=== PATIENT | female | born 1945 | race Caucasian/White ===

== ENCOUNTER 2017-12-01 12:16 | Outpatient (REF) | payer MEDICARE, MEDICAID, SELFPAY ==
[2017-12-01 20:08] LABS: ALT 23 U/L (12-78); AST 19 U/L (15-37); Albumin 3.4 g/dL (3.4-5.0); Alkaline Phosphatase 86 U/L (46-116); Anion Gap 7.4 mmol/L (3-11); BUN 26 mg/dL (7-18); Bilirubin, Total 0.2 mg/dL (0.2-1.0); CO2 28.6 mmol/L (21.0-32.0); Calcium 9.2 mg/dL (8.5-10.1); Chloride 100 mmol/L (98-107); Estimated GFR 33.94 (mL/min/1.73m2); Ferritin 17 ng/mL (8-388); Glucose 143 mg/dL (70-100); Potassium 4.9 mmol/L (3.5-5.1); Sodium 136 mmol/L (136-145); TSH (W/Ref FT4) 1.56 uIU/mL (0.358-3.74); Total Protein 6.7 g/dL (6.4-8.2)
[2017-12-01 20:35] LABS: HCT 31.5 % (36.0-46.0); Mean Corp. HGB Concentration 30.2 g/dL (32.0-36.0); Mean Corpuscular Hemoglobin 26.2 pg (27.0-33.0); Mean Platelet Volume 11.5 fL (8.0-11.0); Platelet Count 347 x1000/uL (130-400); RBC 3.62 m/cumm (4.00-5.20); RBC Distribution Width 13.5 % (11.7-14.6); White Blood Cell Count 16.98 k/cumm (4.4-10.8)
[2017-12-01 22:37] LABS: HGB 9.5 g/dL (12.0-15.5)
== END 2017-12-01 12:36 ==
LOC: NCHCN 12:16
PROVIDERS: PCP Family Medicine; Visit Provider Family Medicine
DX: E11.9 Type 2 diabetes mellitus without complications (principal); D64.9 Anemia, unspecified; R53.83 Other fatigue; I73.9 Peripheral vascular disease, unspecified; E78.5 Hyperlipidemia, unspecified; R32 Unspecified urinary incontinence
CPT/HCPCS: 80053; 85027; 82728; 84443; 87086

== ENCOUNTER 2017-12-17 15:03 | Outpatient (REF) | payer MEDICARE, MEDICAID, SELFPAY ==
[2017-12-17 22:48] LABS: Bacteria Negative HPF (Negative); C & S Indicated? Yes; Casts Negative LPF (Negative); Crystals Negative HPF (Negative); Epithelial Cells Few HPF (Negative); Mucus Negative (Negative); RBC Negative (0-2)
== END 2017-12-17 15:23 ==
LOC: NCHCN 15:03
PROVIDERS: PCP Family Medicine; Visit Provider Specialist/Technologist Athletic Trainer
DX: R53.83 Other fatigue (principal); D64.9 Anemia, unspecified
CPT/HCPCS: 81015; 87086

== ENCOUNTER 2017-12-28 16:01 | Outpatient (CLI) | payer MEDICARE, MEDICAID, SELFPAY ==
[2017-12-28 16:31] LABS: HCT 26.1 % (36.0-46.0); HGB 7.6 g/dL (12.0-15.5); Mean Corp. HGB Concentration 29.1 g/dL (32.0-36.0); Mean Corpuscular Hemoglobin 25.6 pg (27.0-33.0); Mean Corpuscular Volume 87.9 fL (80-95); Mean Platelet Volume 9.8 fL (8.0-11.0); Platelet Count 370 x1000/uL (130-400); RBC 2.97 m/cumm (4.00-5.20); RBC Distribution Width 14.3 % (11.7-14.6); White Blood Cell Count 5.51 k/cumm (4.4-10.8)
[2017-12-28 18:56] LABS: Iron 15 ug/dL (50-175); Total Iron Binding Capacity 451 ug/dL (250-450); Transferrin Sat 3 % (15-50)
[2017-12-28 19:20] LABS: Ferritin 11 ng/mL (8-388); Vitamin B12 1039 pg/mL (193-986)
[2017-12-28 19:26] LABS: Folate > 20.0 ng/mL (8.6-20.0)
== END 2017-12-28 16:21 ==
PROVIDERS: PCP Family Medicine; Visit Provider Specialist/Technologist Athletic Trainer
DX: D64.9 Anemia, unspecified (principal)
CPT/HCPCS: 36415; 85027; 82607; 82728; 82746; 83540; 83550

== ENCOUNTER 2018-01-06 15:17 | Outpatient (REF) | payer MEDICARE, MEDICAID, SELFPAY ==
[2018-01-06 20:37] LABS: HCT 24.5 % (36.0-46.0); Mean Corp. HGB Concentration 28.2 g/dL (32.0-36.0); Mean Corpuscular Hemoglobin 24.6 pg (27.0-33.0); Mean Corpuscular Volume 87.5 fL (80-95); Mean Platelet Volume 10.5 fL (8.0-11.0); Platelet Count 451 x1000/uL (130-400); White Blood Cell Count 5.89 k/cumm (4.4-10.8)
[2018-01-06 20:46] LABS: Anion Gap 11.9 mmol/L (3-11); BUN 25 mg/dL (7-18); CO2 26.1 mmol/L (21.0-32.0); Calcium 8.6 mg/dL (8.5-10.1); Chloride 104 mmol/L (98-107); Estimated GFR 33.94 (mL/min/1.73m2); Glucose 158 mg/dL (70-100); Potassium 4.3 mmol/L (3.5-5.1); Sodium 142 mmol/L (136-145)
[2018-01-06 21:31] LABS: HGB 6.9 g/dL (12.0-15.5)
== END 2018-01-06 15:37 ==
LOC: NCHCN 15:17
PROVIDERS: PCP Family Medicine; Visit Provider Specialist/Technologist Athletic Trainer
DX: D64.9 Anemia, unspecified (principal); R41.82 Altered mental status, unspecified; Z87.440 Personal history of urinary (tract) infections
CPT/HCPCS: 80048; 85027; 87086

== ENCOUNTER 2018-01-07 15:21 | Outpatient (CLI) | payer MEDICARE, MEDICAID, SELFPAY | END 2018-01-07 15:41 | PROVIDERS: PCP Family Medicine; Visit Provider Family Medicine | DX: K92.2 Gastrointestinal hemorrhage, unspecified (principal) | CPT/HCPCS: 36415; 86850; 86900; 86901; 86920 ==

== ENCOUNTER 2018-01-08 00:52 | Outpatient (RCR) | payer MEDICARE, MEDICAID, SELFPAY ==
[2018-01-04] MEDS: Normal Saline Flush 10 ML SYR IVP (14:19)
[2018-01-08] VITALS (10 sets, daily range): BP systolic 101–146; BP diastolic 33–61; PULSE 82–90; RESP 16–18; TEMP 36.1–36.6; O2SAT 85–98
[2018-01-08] MEDS: Acetaminophen 325 MG TAB 650 MG PO (11:01)
[2018-01-08] MEDS: Normal Saline Flush 10 ML SYR IVP (11:02)
[2018-01-08] MEDS: diphenhydrAMINE 25 MG CAP PO (11:02)
== END 2018-01-08 23:59 | disposition home or self-care (01) ==
LOC: INF 00:52
PROVIDERS: PCP Family Medicine; Visit Provider Family Medicine
DX: D64.9 Anemia, unspecified (principal)
CPT/HCPCS: 36415; 36430; 86850; 86900; 86901; 86920; 96365; 96366; J1756; P9016

== ENCOUNTER 2018-01-25 01:40 | Outpatient (RCR) | payer MEDICARE, MEDICAID, SELFPAY ==
[2018-01-18] MEDS: Normal Saline Flush 10 ML SYR IVP (14:24)
[2018-01-25] MEDS: Normal Saline Flush 10 ML SYR IVP (15:07)
== END 2018-02-08 23:59 | disposition home or self-care (01) ==
LOC: INF 01:40
PROVIDERS: PCP Family Medicine; Visit Provider Family Medicine
DX: D64.9 Anemia, unspecified (principal)
CPT/HCPCS: 96365; 96366; J1756

== ENCOUNTER 2018-02-17 11:05 | Outpatient (REF) | payer MEDICARE, MEDICAID, SELFPAY ==
[2018-02-18 15:53] LABS: Bilirubin Negative (Negative); Blood Negative (Negative); Clarity Clear; Glucose Negative (Negative); Ketones Negative (Negative); Leukocyte Esterase Negative (Negative); Nitrite Negative (Negative); Urobilinogen 0.2 EU/dL (Up TO 0.2)
== END 2018-02-17 11:25 ==
LOC: NCHCN 11:05
PROVIDERS: PCP Family Medicine; Visit Provider Family Medicine
DX: N39.0 Urinary tract infection, site not specified (principal)
CPT/HCPCS: 81003; 87086

== ENCOUNTER 2018-02-19 15:34 | Outpatient (REF) | payer MEDICARE, MEDICAID, SELFPAY ==
[2018-02-19 19:15] LABS: Abs Immature Grans 0.02 k/cumm (0.0-0.09); Absolute Basophil Count 0.02 k/cumm (0.0-0.2); Absolute Eosinophil Count 0.22 k/cumm (0.0-0.7); Absolute Monocyte Count 0.64 k/cumm (0.11-0.7); Absolute Neutrophil Count 4.24 k/cumm (1.2-6.7); Basophils % 0.3; Eosinophils % 3.2; HCT 36.5 % (36.0-46.0); HGB 11.6 g/dL (12.0-15.5); Immature Grans % 0.3; Lymphocytes % 25.9; Mean Corp. HGB Concentration 31.8 g/dL (32.0-36.0); Mean Corpuscular Hemoglobin 28.1 pg (27.0-33.0); Mean Corpuscular Volume 88.4 fL (80-95); Mean Platelet Volume 11.6 fL (8.0-11.0); Monocytes % 9.2; Neutrophils % 61.1; Platelet Count 268 x1000/uL (130-400); RBC 4.13 m/cumm (4.00-5.20); RBC Distribution Width 16.2 % (11.7-14.6); White Blood Cell Count 6.94 k/cumm (4.4-10.8)
[2018-02-19 19:48] LABS: Ferritin 260 ng/mL (8-388)
== END 2018-02-19 15:54 ==
LOC: NCHCN 15:34
PROVIDERS: PCP Family Medicine; Visit Provider Family Medicine
DX: D64.9 Anemia, unspecified (principal); Z79.01 Long term (current) use of anticoagulants; I73.9 Peripheral vascular disease, unspecified
CPT/HCPCS: 82728; 85025

== ENCOUNTER 2018-07-08 15:18 | Outpatient (REF) | payer MEDICARE, MEDICAID, SELFPAY ==
[2018-07-08 16:48] LABS: Bilirubin Negative (Negative); Blood Negative (Negative); Clarity Clear; Glucose Negative (Negative); Ketones Negative (Negative); Leukocyte Esterase Negative (Negative); Nitrite Negative (Negative); Specific Gravity 1.015 (1.005-1.025); Urobilinogen 0.2 EU/dL (Up TO 0.2)
== END 2018-07-08 15:38 ==
LOC: NCHCN 15:18
PROVIDERS: PCP Family Medicine; Visit Provider Family Medicine
DX: N39.0 Urinary tract infection, site not specified (principal)
CPT/HCPCS: 81003

== ENCOUNTER 2018-07-21 12:34 | Outpatient (CLI) | payer MEDICARE, MEDICAID, SELFPAY ==
[2018-07-21 14:09] LABS: D-Dimer 1036 ng/mlFEU (<500)
[2018-07-21 14:49] LABS: Anion Gap 12.2 mmol/L (3-11); BUN 30 mg/dL (7-18); CO2 25.8 mmol/L (21.0-32.0); CREATININE 1.49 mg/dL (0.55-1.02); Calcium 9.4 mg/dL (8.5-10.1); Chloride 101 mmol/L (98-107); Estimated GFR 34.12 (mL/min/1.73m2); Glucose 195 mg/dL (70-100); Potassium 4.9 mmol/L (3.5-5.1); Sodium 139 mmol/L (136-145)
[2018-07-21 15:07] LABS: HDL Cholesterol 45 mg/dL (40-60); LDL CHOLESTEROL 81 mg/dL (<100)
== END 2018-07-21 12:54 ==
PROVIDERS: PCP Family Medicine; Visit Provider Nurse Practitioner Family
DX: M79.606 Pain in leg, unspecified (principal); I73.9 Peripheral vascular disease, unspecified; I99.8 Other disorder of circulatory system; E78.5 Hyperlipidemia, unspecified
CPT/HCPCS: 36415; 80048; 83721; 83718; 85379

== ENCOUNTER 2018-07-23 16:53 | Observation (INO) | payer MEDICARE, MEDICAID, SELFPAY ==
[2018-07-23] VITALS (35 sets, daily range): BP systolic 104–145; BP diastolic 26–73; PULSE 85–114; RESP 11–36; TEMP 36.2–37.2; O2SAT 92–99
--- NOTE | 2018-07-23 17:06 | DI.CT_ITS ---
SYMPTOM/DIAGNOSIS: SUSPECTED GI BLEEDING CT ABDOMEN AND PELVIS: Comparison is made with 01/17/2011 There is a question of a small area of scarring vs nodularity at the posterior right lower lobe. No pleural or pericardial effusions are seen. Coronary artery and aortic calcifications. There are bilateral iliac artery stents. An aorto-femoral bypass graft is seen. There is food and a small amount of dense material in the stomach. There is no bowel distension or inflammatory change. Diverticulosis is noted. There is no diverticulitis, free air or free fluid. The bladder and ureters are unremarkable. The liver, gallbladder, spleen, pancreas and kidneys are unremarkable. There are severe degenerative changes as well as spondylolisthesis at L5-S1. IMPRESSION: Diverticulosis without evidence of diverticulitis. No acute abnormality.
--- NOTE | 2018-07-23 17:21 | ED.GENADUL_ITS ---
Discharge Plan Disposition Patient Disposition: [facility] INPATIENT Condition: Improving Discharge Details Chief Complaint: GI Bleed Clinical Impression: Anemia, Microcytic anemia Primary Care Provider: Nirmala Clemente V ED Provider: Estevan Saba Home Meds and New Rx's Prescriptions: No Action multivitamin [Daily Vitamin] 1 EACH tablet 1 ea PO DAILY RF: 0 simvastatin 10 MG tablet 40 mg PO DAILY RF: 0 calcium carbonate-vitamin D3 1 EACH tablet 1 ea PO HS RF: 0 aspirin [Aspir-81] 81 MG tablet,delayed release (DR/EC) 81 mg PO DAILY RF: 0 donepezil 5 MG tablet,disintegrating 5 mg PO DAILY RF: 0 omeprazole 20 MG capsule,delayed release(DR/EC) 20 mg PO DAILY RF: 0 paroxetine HCl 40 MG tablet 20 mg PO DAILY RF: 0 acetaminophen [Mapap Extra Strength] 500 MG tablet 500 mg PO PRN PRNRF: 0 bupropion HCl 150 MG tablet extended release 24 hr 150 mg PO QAM Qty: 30 RF: 1 docusate sodium [Colace] 100 mg Capsule 100 mg PO DAILY RF: 0 dicyclomine 10 mg Capsule 10 mg PO HS RF: 0 memantine [Namenda] 5 mg Tablet 5 mg PO DAILY RF: 0 mirtazapine 7.5 mg Tablet 7.5 mg PO DAILY RF: 0 calcium carbonate-vitamin D3 [Calcium 600 + D(3)] 600 mg(1,500mg) -400 unit Tablet 1 tab PO DAILY RF: 0 cholecalciferol (vitamin D3) 2,000 unit Capsule 2,000 unit PO DAILY RF: 0 warfarin [Coumadin] 2 MG tablet 2 mg PO DAILY RF: 0 Medical Decision Making This is a 73-year-old female with a past medical history of notable peripheral vascular disease with axilla byfem bypass, Coumadin use, hypertension high cholesterol diabetes who presents today for evaluation of low hemoglobin. Patient's family doctor is noted increased weakness for lower extremities and generalized weakness and fatigue over the last few weeks. She does have a history of GI bleeds. She recently had her hemoglobin drawn and was noted to be less than 7. She sent patient in for further evaluation here for transfusion and further work-up. Physical exam demonstrates an otherwise well-appearing female, no significant abdominal tenderness. Rectal exam actually demonstrates negative for Hemoccult. The patient is mildly tachycardic and does look slightly pale. We will type and screen, get a CT scan to rule out large malignancy versus other atypical symptomatology. The patient did have a colonoscopy a few years ago, but has not had any recent colonoscopy evaluation. 7:19 PM Patient's laboratory work-up has returned, hemoglobin is low at 6.5, hematocrit is dropped at 23%. MCV is 78 suggesting a microcytic anemia. Hemoccult was negative at time of evaluation here today. INR is 2.2, electrolytes stable, renal function low, at the patient's normal baseline though. Urinalysis is negative for hematuria. CT scan was ordered and does show no significant abnormalities. A very small amount of hyperdense material in the stomach this may just be food. Patient remained stable, blood pressure stable, heart rate between 90 and 100. Blood has been ordered due to the low hemoglobin level. I did discuss the case with Dr. Pearl, he agrees to the assessment and plan. Patient will be admitted for further inpatient management. We are awaiting callback from [facility] vascular surgery for further guidance on Coumadin management. With Hemoccult negative, GI bleed is certainly on the differential, but seems less likely to be a severe active GI bleed. We have started Protonix drip and infusion as precaution 7:54 PM We did contact [facility] and I discussed the case with Dr. Neri, the vascular surgeon, and she does note that this patient has had multiple complications in the past from claudication, issues with her bypass, and is high risk if her anticoagulation is stopped. They recommend continuing the anticoagulation if the patient remains stable, prompt GI evaluation, and reassessment and blood per I discussed this with Dr. Pearl. I have extensively reviewed the treatment plan with the patient. I have addressed all patient concerns at this time. I calix ve also discussed the plan with the admitting physician and they agree with the current assessment and plan and have agreed to assume responsibility for the patient. All parties demonstrate verbal understanding and agreement with our assessment and plan at this time. EXAM DATE/TIME: 07/23/2018 6:01 PM CLINICAL HISTORY: 73 years old, female; Screening exam; Other: Suspected gi bleed TECHNIQUE: Imaging protocol: Axial computed tomography images of the abdomen and pelvis without contrast. Coronal and sagittal reformatted images were created and reviewed. COMPARISON: No relevant prior studies available. FINDINGS: Lungs: 6 mm x 4 mm pulmonary nodule in the posterior right lower lobe. ABDOMEN: Liver: There increased hepatic parenchymal density consistent with amiodarone therapy. Gallbladder and bile ducts: Unremarkable. No calcified stones. No ductal dilation. Pancreas: Unremarkable. No ductal dilation. Spleen: Unremarkable.No splenomegaly. Adrenals: Unremarkable. No mass. Kidneys and ureters: Unremarkable. No hydronephrosis. Stomach and bowel: Very small amount of hyperdense material layering in the stomach. Stomach is not well distended, limiting evaluation. No evidence of bowel wall thickening, inflammation, obstruction or perforation. Distal colonic diverticulosis without signs of diverticulitis. Appendix: Normal appendix. PELVIS: Bladder: Unremarkable as visualized. Reproductive: Unremarkable as visualized. ABDOMEN and PELVIS: Intraperitoneal space: Unremarkable. No free air. No fluid collection. Bones/joints: No acute fracture. Chronic sclerotic L5 pars defects. Combination of annular disc bulge, facet hypertrophy and ligamentum flavum thickening produces at least moderate central canal stenosis at the L4-5 and L5-S1 levels. There is moderate-severe bilateral neural foraminal stenosis at L5-S1. Soft tissues: Tiny supraumbilical and umbilical hernias containing fat only. Vasculature: Extensive peripheral vascular disease. Aorta-biiliac stent. There is a kink in the aortic stent which narrows the central canal (axial series 2 image 35). No aortic aneurysm or leak/rupture. Axial-bifemoral bypass graft. Lymph nodes: Unremarkable. No enlarged lymph nodes. IMPRESSION: 1. Very small amount of hyperdense material layering in the stomach. This could represent ingested material or blood. No discrete wall thickening or mass, however, stomach is not well distended, limiting evaluation. 2. Distal colonic diverticulosis without signs of diverticulitis. 3. 6 mm pulmonary nodule in the right lower lobe Dictated and Authenticated by: Cyndi Remy MD. Ordering:TRACI Barreto MD HPI General Date/Time Provider Initiated Documentation: 07/23/18 16:55 . HPI Narrative: This is a 73-year-old female with a past medical history of Coumadin use with an axial low bifemoral bypass, history of GI bleeds in the past, peripheral vascular disease and ischemic colitis, hypertension high cholesterol, who presents today for evaluation of low hemoglobin. We did receive a call from the patient's primary care provider. Of note she states that over the last few weeks the patient has become increasingly fatigued, including for her lower extremities. She does have chronic peripheral vascular disease which is well- known. However the more systemic fatigue was slightly atypical. Laboratory work-up was performed and her hemoglobin was noted to be less than 7 which is atypical for her. She does have a history of previous GI bleeds in the past, in conjunction with GERD. PCP recommended that she come in for further evaluation. The patient is a slightly poor historian and a notable minimizer of her symptomatology. She denies any focal complaint of abdominal pain, dark or tarry stool, nausea vomiting or diarrhea. She denies any hematuria. Her caregiver did admit that they had noted some darker stool as of late. But nothing recently. Patient denies any other complaints or modifying factors at this time. She denies any leg pain abdominal pain or chest pain. Related Data Home Medications Medication Instructions Recorded Confirmed aspirin [Aspir-81] 81 mg PO DAILY tab-cap NS 05/30/14 07/23/18 calcium carbonate-vitamin D3 1 ea PO HS NS 05/30/14 07/23/18 multivitamin [Daily Vitamin] 1 ea PO DAILY NS 05/30/14 07/23/18 simvastatin 40 mg PO DAILY tab-cap NS 05/30/14 07/23/18 omeprazole 20 mg PO DAILY 06/19/15 07/23/18 paroxetine HCl 20 mg PO DAILY 06/19/15 07/23/18 donepezil 5 mg PO DAILY tab-cap 02/27/16 02/29/16 acetaminophen [Mapap Extra 500 mg PO PRN PRN 02/29/16 07/23/18 Strength] bupropion HCl 150 mg PO QAM #30 tabcr 03/04/16 07/23/18 calcium carbonate-vitamin D3 1 tab PO DAILY 07/23/18 07/23/18 [Calcium 600 + D(3)] cholecalciferol (vitamin D3) 2,000 unit PO DAILY 07/23/18 07/23/18 dicyclomine 10 mg PO HS 07/23/18 07/23/18 docusate sodium [Colace] 100 mg PO DAILY 07/23/18 07/23/18 memantine [Namenda] 5 mg PO DAILY 07/23/18 07/23/18 mirtazapine 7.5 mg PO DAILY 07/23/18 07/23/18 warfarin [Coumadin] 2 mg PO DAILY 07/23/18 07/23/18 Previous Rx's Medication Instructions Recorded bupropion HCl 150 mg PO QAM #30 tabcr 03/04/16 Allergies Allergy/AdvReac Type Severity Reaction Status Date / Time sulfamethoxazole Allergy Mild eyes Unverified 03/26/16 10:49 [From Bactrim] swollen amphotericin B liposome Allergy Unverified 03/26/16 10:49 [From AmBisome] cefuroxime Allergy Unverified 03/26/16 10:49 trimethoprim [From Bactrim] Allergy Unverified 03/26/16 10:49 oxycodone HCl [From Percocet] AdvReac Unverified 03/26/16 10:49 General Stated Complaint: GI Bleed KATHRYN: 3 Review of Systems Review of Systems All systems reviewed & are unremarkable except as noted in HPI and below PFSH Medical History Aortoiliac occlusive disease Breast cancer Chronic diarrhea Depression Diabetes GERD (gastroesophageal reflux disease) Hyperlipidemia Hypertension Hypomagnesemia Ischemic colitis PVD (peripheral vascular disease) Urinary incontinence Surgical History Breast, Lumpectomy EGD - MAC (02/29/16) axillo-byfem bypass Social History Smoking/Tobacco Use Status: Former Tobacco Use Alcohol Intake: never Drug use: Never Do you feel safe at home: Yes Do you feel safe in your relationship?: Yes Exam Narrative Exam Narrative: 1.Const: Well-nourished, Well-developed, appearing stated age 2.Eyes: PERRL, no conjunctival injection, and symmetrical lids. 3.ENT: Atraumatic external nose and ears. Moist MM. Neck: Symmetric, trachea midline, No thyromegaly. 4.CVS: +S1/S2, No murmurs or gallops. Peripheral pulses 2+ and equal in all extremities. Brisk capillary refill in all extremities. 5.RESP: Unlabored respiratory effort. Clear to auscultation bilaterally. No wheezes rales or rhonchi 6.GI: Soft, Nontender/Nondistended, No hepatosplenomegaly. No guarding or rebound. Rectal exam demonstrates no significant hemorrhoids. No active rectal bleeding. Female nurse Jo is at bedside for the exam 7.MSK: Normocephalic/Atraumatic, Extremities w/o deformity or ttp No cyanosis or clubbing, Normal movement of all extremities 8.Skin: Warm, Dry. No rashes or lesions. 9.Neuro: clinical education manager II-XII grossly intact. Sensation grossly intact, no focal neurologic deficits. 10.Psych: (AAO) x3. Appropriate mood and affect Course Vital Signs Temperature 36.7 C 07/23/18 16:59 Pulse 100 H 07/23/18 16:59 Respiratory Rate 22 07/23/18 16:59 Blood Pressure 143/53 H 07/23/18 16:59 Pulse Oximetry 99 07/23/18 16:59 Temperature 36.7 C 07/23/18 16:59 Temperature Source Skin 07/23/18 16:59 Pulse 100 H 07/23/18 16:59 Respiratory Rate 22 07/23/18 16:59 Blood Pressure 143/53 H 07/23/18 16:59 Blood Pressure Position Sitting 07/23/18 16:59 Pulse Oximetry 99 07/23/18 16:59 Oxygen Delivery Method Room Air 07/23/18 16:59 Oxygen Flow Rate 0 07/23/18 16:59
[2018-07-23 17:42] LABS: Abs Immature Grans 0.02 k/cumm (0.0-0.09); Absolute Basophil Count 0.04 k/cumm (0.0-0.2); Absolute Eosinophil Count 0.16 k/cumm (0.0-0.7); Absolute Lymphocyte Count 1.82 k/cumm (1.2-3.4); Absolute Monocyte Count 0.74 k/cumm (0.11-0.7); Absolute Neutrophil Count 3.27 k/cumm (1.2-6.7); Basophils % 0.7; Eosinophils % 2.6; HCT 23.4 % (36.0-46.0); Immature Grans % 0.3; Lymphocytes % 30.1; Mean Corp. HGB Concentration 27.8 g/dL (32.0-36.0); Mean Corpuscular Hemoglobin 21.9 pg (27.0-33.0); Mean Corpuscular Volume 78.8 fL (80-95); Mean Platelet Volume 9.2 fL (8.0-11.0); Monocytes % 12.2; Neutrophils % 54.1; Platelet Count 422 x1000/uL (130-400); RBC 2.97 m/cumm (4.00-5.20); RBC Distribution Width 16.5 % (11.7-14.6); White Blood Cell Count 6.05 k/cumm (4.4-10.8)
[2018-07-23 17:49] LABS: HGB 6.5 g/dL (12.0-15.5)
[2018-07-23 17:57] LABS: ALT 23 U/L (12-78); AST 12 U/L (15-37); Albumin 3.6 g/dL (3.4-5.0); Alkaline Phosphatase 95 U/L (46-116); BUN 29 mg/dL (7-18); Bilirubin, Total 0.1 mg/dL (0.2-1.0); Calcium 8.8 mg/dL (8.5-10.1); Chloride 101 mmol/L (98-107); Estimated GFR 33.85 (mL/min/1.73m2); Glucose 174 mg/dL (70-100); INR 2.2 (0.9-1.1); PTT Activated 26.1 sec (21.0-31.4); Potassium 4.4 mmol/L (3.5-5.1); Prothrombin Time 21.7 sec (9.3-11.0); Sodium 139 mmol/L (136-145)
[2018-07-23 17:59] LABS: Bilirubin Negative (Negative); Blood Negative (Negative); Clarity Clear; Glucose Negative (Negative); Ketones Negative (Negative); Leukocyte Esterase Negative (Negative); Nitrite Negative (Negative); Urobilinogen 0.2 EU/dL (Up TO 0.2)
[2018-07-23 18:02] LABS: Hypochromasia 2+; Macrocytosis 1+; Microcytosis 2+; Polychromasia Present
[2018-07-23] MEDS: Normal Saline 500 ML 1000 ML IV (18:15)
--- NOTE | 2018-07-23 19:04 | DI.VRAD_ITS ---
EXAM: CT Abdomen and Pelvis Without Contrast EXAM DATE/TIME: 07/23/2018 6:01 PM CLINICAL HISTORY: 73 years old, female; Screening exam; Other: Suspected gi bleed TECHNIQUE: Imaging protocol: Axial computed tomography images of the abdomen and pelvis without contrast. Coronal and sagittal reformatted images were created and reviewed. COMPARISON: No relevant prior studies available. FINDINGS: Lungs: 6 mm x 4 mm pulmonary nodule in the posterior right lower lobe. ABDOMEN: Liver: There increased hepatic parenchymal density consistent with amiodarone therapy. Gallbladder and bile ducts: Unremarkable. No calcified stones. No ductal dilation. Pancreas: Unremarkable. No ductal dilation. Spleen: Unremarkable.No splenomegaly. Adrenals: Unremarkable. No mass. Kidneys and ureters: Unremarkable. No hydronephrosis. Stomach and bowel: Very small amount of hyperdense material layering in the stomach. Stomach is not well distended, limiting evaluation. No evidence of bowel wall thickening, inflammation, obstruction or perforation. Distal colonic diverticulosis without signs of diverticulitis. Appendix: Normal appendix. PELVIS: Bladder: Unremarkable as visualized. Reproductive: Unremarkable as visualized. ABDOMEN and PELVIS: Intraperitoneal space: Unremarkable. No free air. No fluid collection. Bones/joints: No acute fracture. Chronic sclerotic L5 pars defects. Combination of annular disc bulge, facet hypertrophy and ligamentum flavum thickening produces at least moderate central canal stenosis at the L4-5 and L5-S1 levels. There is moderate-severe bilateral neural foraminal stenosis at L5-S1. Soft tissues: Tiny supraumbilical and umbilical hernias containing fat only. Vasculature: Extensive peripheral vascular disease. Aorta-biiliac stent. There is a kink in the aortic stent which narrows the central canal (axial series 2 image 35). No aortic aneurysm or leak/rupture. Axial-bifemoral bypass graft. Lymph nodes: Unremarkable. No enlarged lymph nodes. IMPRESSION: 1. Very small amount of hyperdense material layering in the stomach. This could represent ingested material or blood. No discrete wall thickening or mass, however, stomach is not well distended, limiting evaluation. 2. Distal colonic diverticulosis without signs of diverticulitis. 3. 6 mm pulmonary nodule in the right lower lobe Dictated and Authenticated by: Cyndi Remy MD. Ordering:TRACI Barreto MD
[2018-07-23] MEDS: Pantoprazole 40 MG VIAL IVP (19:17)
[2018-07-23] MEDS: PANTOPRAZOLE 80 MG in Normal Saline 100 ML 10 MG IV (19:18)
--- NOTE | 2018-07-23 19:21 | W.PM.HP.N ---
Date of service: 07/23/18 Time of Service: 19:23 Assessment and Plan (1) Anemia: Current visit: Yes Status: Chronic Micrrocytic anemia. While blood loss is most likely diagnosis here it is important to note that this has not been documented, nor indeed has iron deficiency. It will be important, especially given possible complicating factor of anticoagulaltion, to document nay bleeding and tto determine iron status. A malabsorption syndrome would be another possibility here and is indiectly supported by the historiccal detail if requiring parenteral iron at some point. Regardless, for now we will transfuse, iron studies and retics prior, hold ASA, continue PPI, check stool guaiacs and consider hold Coumadin pending above (call is in to vascular surgery at this time in this regard). Reviewed addvance directives, family confirms DNR status. History of Present Illness Chief Complaint: weakness Narrative: 73 female with h/o apparent GI bleed in 2017, though EGD showed only mild esophagitis; she is on chronic Coumadin due to vascular bypass graft (patient is also on ASA) She comes in now with several weeks of weakness. W/u of note for Hct of 23, stool heme negative and microcytosis of 78. 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 No hematemesis. Patient ordered for 2 unit pRBC and admitted for further evaluation. Note INR 2.3. Daughter adds interesting detail that several years ago patient required parenteral iron to manage an anemia. Review of Systems Review of Systems All systems reviewed & are unremarkable except as noted in HPI and below PFSH Medical History Aortoiliac occlusive disease Breast cancer Chronic diarrhea Depression Diabetes GERD (gastroesophageal reflux disease) Hyperlipidemia Hypertension Hypomagnesemia Ischemic colitis PVD (peripheral vascular disease) Urinary incontinence Surgical History Breast, Lumpectomy EGD - MAC (02/29/16) axillo-byfem bypass Social History Smoking/Tobacco Use Status: Former Tobacco Use Alcohol Intake: never Drug use: Never Do you feel safe at home: Yes Do you feel safe in your relationship?: Yes Meds Home Medications Medication Instructions Recorded Confirmed Type aspirin [Aspir-81] 81 mg PO DAILY tab-cap NS 05/30/14 07/23/18 History calcium carbonate-vitamin D3 1 ea PO HS NS 05/30/14 07/23/18 History multivitamin [Daily Vitamin] 1 ea PO DAILY NS 05/30/14 07/23/18 History simvastatin 40 mg PO DAILY tab-cap NS 05/30/14 07/23/18 History omeprazole 20 mg PO DAILY 06/19/15 07/23/18 History paroxetine HCl 20 mg PO DAILY 06/19/15 07/23/18 History donepezil 5 mg PO DAILY tab-cap 02/27/16 02/29/16 History acetaminophen [Mapap Extra 500 mg PO PRN PRN 02/29/16 07/23/18 History Strength] bupropion HCl 150 mg PO QAM #30 tabcr 03/04/16 07/23/18 Rx calcium carbonate-vitamin D3 1 tab PO DAILY 07/23/18 07/23/18 History [Calcium 600 + D(3)] cholecalciferol (vitamin D3) 2,000 unit PO DAILY 07/23/18 07/23/18 History dicyclomine 10 mg PO HS 07/23/18 07/23/18 History docusate sodium [Colace] 100 mg PO DAILY 07/23/18 07/23/18 History memantine [Namenda] 5 mg PO DAILY 07/23/18 07/23/18 History mirtazapine 7.5 mg PO DAILY 07/23/18 07/23/18 History warfarin [Coumadin] 2 mg PO DAILY 07/23/18 07/23/18 History Allergies Allergy/AdvReac Type Severity Reaction Status Date / Time sulfamethoxazole Allergy Mild eyes Unverified 03/26/16 10:49 [From Bactrim] swollen amphotericin B liposome Allergy Unverified 03/26/16 10:49 [From AmBisome] cefuroxime Allergy Unverified 03/26/16 10:49 trimethoprim [From Bactrim] Allergy Unverified 03/26/16 10:49 oxycodone HCl [From Percocet] AdvReac Unverified 03/26/16 10:49 Exam Narrative Exam Narrative: 115/47, 88, 14, 36.7. HEENT atraumatic; neck supple; lungs clear; heart RRR; abdomen soft, NT; pelvic deferred; rectal (per ER) brown stool, heme negative; extr no edema, pedal pulse fulll; neuro ox1, moves all 4s Results Labs : 07/23/18 17:30 07/23/18 17:30 Laboratory Results - last 24 hr 07/23/18 07/23/18 07/23/18 17:30 17:30 17:30 WBC 6.05 RBC 2.97 L Hgb 6.5 L* Hct 23.4 L MCV 78.8 L MCH 21.9 L MCHC 27.8 L RDW 16.5 H Plt Count 422 H MPV 9.2 Immature Gran % 0.3 Neutrophils % 54.1 Lymphocytes % 30.1 Monocytes % 12.2 Eosinophils % 2.6 Basophils % 0.7 Absolute Neutrophils 3.27 Absolute Lymphocytes 1.82 Absolute Monocytes 0.74 H Absolute Eosinophils 0.16 Absolute Basophils 0.04 RBC Morphology See below Polychromasia Present Hypochromasia 2+ Microcytosis 2+ Macrocytosis 1+ PT 21.7 H INR 2.2 H APTT 26.1 Sodium 139 Potassium 4.4 Chloride 101 Carbon Dioxide 26.0 Anion Gap 12.0 H BUN 29 H Creatinine 1.50 H Estimated GFR/1.73 m2 33.85 Glucose 174 H Calcium 8.8 Total Bilirubin 0.1 L AST 12 L ALT 23 Alkaline Phosphatase 95 Total Protein 7.0 Albumin 3.6 Urine Color Urine Clarity Urine pH Ur Specific [place] Urine Protein Urine Ketones Urine Blood Urine Nitrite Urine Bilirubin Urine Urobilinogen Ur Leukocyte Esterase Urine Glucose Patient ABO/Rh Antibody Screen Crossmatch 07/23/18 07/23/18 17:30 17:49 WBC RBC Hgb Hct MCV MCH MCHC RDW Plt Count MPV Immature Gran % Neutrophils % Lymphocytes % Monocytes % Eosinophils % Basophils % Absolute Neutrophils Absolute Lymphocytes Absolute Monocytes Absolute Eosinophils Absolute Basophils RBC Morphology Polychromasia Hypochromasia Microcytosis Macrocytosis PT INR APTT Sodium Potassium Chloride Carbon Dioxide Anion Gap BUN Creatinine Estimated GFR/1.73 m2 Glucose Calcium Total Bilirubin AST ALT Alkaline Phosphatase Total Protein Albumin Urine Color Yellow Urine Clarity Clear Urine pH 6.0 Ur Specific [place] 1.020 Urine Protein Negative Urine Ketones Negative Urine Blood Negative Urine Nitrite Negative Urine Bilirubin Negative Urine Urobilinogen 0.2 Ur Leukocyte Esterase Negative Urine Glucose Negative Patient ABO/Rh AB Positive Antibody Screen Negative Crossmatch See Detail Last Vital Signs Temp 36.7 C 07/23/18 16:59 Pulse 88 07/23/18 18:31 Resp 14 07/23/18 18:31 BP 115/47 L 07/23/18 18:31 Pulse Ox 94 L 07/23/18 18:31
[2018-07-23 20:01] LABS: Reticulocyte 2.3 % (0.5-2.4)
[2018-07-23 20:14] LABS: Iron 14 ug/dL (50-175); Total Iron Binding Capacity 444 ug/dL (250-450)
[2018-07-23 20:28] LABS: Ferritin 9 ng/mL (8-388)
[2018-07-23] MEDS: Dicyclomine 10 MG CAP PO (21:59)
[2018-07-23] MEDS: Simvastatin 10 MG TAB 40 MG PO (22:00)
[2018-07-23] MEDS: Normal Saline Flush 10 ML SYR (22:52)
[2018-07-24 00:34] VITALS: BP 123/67; PULSE 90; RESP 18; TEMP 36.7; O2SAT 95
[2018-07-24 01:10] VITALS: BP 136/57; PULSE 87; RESP 18; TEMP 36.4; O2SAT 96
[2018-07-24 07:08] LABS: HCT 31.9 % (36.0-46.0); HGB 9.8 g/dL (12.0-15.5); Mean Corp. HGB Concentration 30.7 g/dL (32.0-36.0); Mean Corpuscular Hemoglobin 24.9 pg (27.0-33.0); Mean Corpuscular Volume 81.2 fL (80-95); Mean Platelet Volume 9.9 fL (8.0-11.0); Platelet Count 350 x1000/uL (130-400); RBC 3.93 m/cumm (4.00-5.20); RBC Distribution Width 16.4 % (11.7-14.6); White Blood Cell Count 5.91 k/cumm (4.4-10.8)
[2018-07-24 07:14] LABS: Prothrombin Time 24.7 sec (9.3-11.0)
[2018-07-24 07:18] LABS: INR 2.4 (0.9-1.1)
[2018-07-24 08:02] VITALS: BP 131/70; PULSE 90; RESP 18; TEMP 36.5; O2SAT 97
[2018-07-24] MEDS: Docusate Sodium 100 MG CAP PO (08:46)
[2018-07-24] MEDS: Mirtazapine 15 MG TAB 7.5 MG PO (08:46)
[2018-07-24] MEDS: buPROPion-XL 150 MG TABCR PO (08:47)
[2018-07-24] MEDS: PARoxetine 20 MG TAB PO (08:47)
[2018-07-24] MEDS: Normal Saline Flush 10 ML SYR (08:48)
[2018-07-24] MEDS: Pantoprazole 40 MG VIAL IVP (08:48)
--- NOTE | 2018-07-24 10:20 | PDOC.CMIN ---
- If Service Date Differs Date of service: 07/24/18 Time of Service: 10:20 Care Management Initial Assess REASON FOR HOSPITALIZATION:: Anemia PAST MEDICAL HISTORY/PAST SURGICAL HISTORY:: Medical History: Aortoiliac occlusive disease. Breast cancer. Chronic diarrhea. Depression. Diabetes. GERD (gastroesophageal reflux disease). Hyperlipidemia. Hypertension. Hypomagnesemia. Ischemic colitis. PVD (peripheral vascular disease). Urinary incontinence. Surgical History: Breast, Lumpectomy. EGD - MAC (02/29/16). axillo-byfem bypass PREVIOUS FUNCTIONAL STATUS/SOCIAL/FAMILY SUPPORTS:: Elisa lives in a private home and care is provided by Leigh Ann Doty. There is one other patient and Leigh Ann's also in the household. Elisa is able to feed herself but needs reminders and direction at times with other ADLs. CURRENT FUNCTIONAL STATUS:: Elisa was eating lunch and talking to her daughter Susan during CM visit. Susan expressed concern that a meication was given last night without calling and obtaining her permission first. She stated that she discussed this with the Clinical Coordinator. Elisa hopes to be discharged soon. ADVANCE DIRECTIVES:: None on file at [facility] Has patient been provided with information about the portal?: No Did the patient sign up for the portal?: No CODE STATUS:: DNR/DNI INSURANCE COVERAGE / FINANCIAL ISSUES:: Medicare. Medicaid CURRENT HOME/COMMUNITY SERVICES/EQUIPMENT:: lives in a private mcc in [place] PRIMARY CARE PHYSICIAN:: Nirmala Clemente POTENTIAL DISCHARGE NEEDS:: Follow up with PCP PATIENT/FAMILY EDUCATION NEEDS:: Discharge pklan, limitations, follow up plan, Ask Me Three. TRANSPORTATION:: via private vehicle with caregiver or daughter. PLAN:: Home with no new services this afternoon. Follow up with PCP and discharge plan of care.
--- NOTE | 2018-07-24 10:24 | INITIAL_ITS ---
- If Service Date Differs Date of service: 07/24/18 Time of Service: 10:20 Care Management Initial Assess REASON FOR HOSPITALIZATION:: Anemia PAST MEDICAL HISTORY/PAST SURGICAL HISTORY:: Medical History: Aortoiliac occlusive disease. Breast cancer. Chronic diarrhea. Depression. Diabetes. GERD (gastroesophageal reflux disease). Hyperlipidemia. Hypertension. Hypomagnesemia. Ischemic colitis. PVD (peripheral vascular disease). Urinary incontinence. Surgical History: Breast, Lumpectomy. EGD - MAC (02/29/16). axillo-byfem bypass PREVIOUS FUNCTIONAL STATUS/SOCIAL/FAMILY SUPPORTS:: Elisa lives in a private home and care is provided by Leigh Ann Doty. There is one other patient and Leigh Ann's also in the household. Elisa is able to feed herself but needs reminders and direction at times with other ADLs. CURRENT FUNCTIONAL STATUS:: Elisa was eating lunch and talking to her daughter Susan during CM visit. Susan expressed concern that a meication was given last night without calling and obtaining her permission first. She stated that she discussed this with the Clinical Coordinator. Elisa hopes to be discharged soon. ADVANCE DIRECTIVES:: None on file at [facility] Has patient been provided with information about the portal?: No Did the patient sign up for the portal?: No CODE STATUS:: DNR/DNI INSURANCE COVERAGE / FINANCIAL ISSUES:: Medicare. Medicaid CURRENT HOME/COMMUNITY SERVICES/EQUIPMENT:: lives in a private custodial in [place], [place] PRIMARY CARE PHYSICIAN:: Nirmala Clemente POTENTIAL DISCHARGE NEEDS:: Follow up with PCP PATIENT/FAMILY EDUCATION NEEDS:: Discharge pklan, limitations, follow up plan, Ask Me Three. TRANSPORTATION:: via private vehicle with caregiver or daughter. PLAN:: Home with no new services this afternoon. Follow up with PCP and discharge plan of care.
[2018-07-24] MEDS: IRON SUCROSE COMPLEX 200 MG in Normal Saline 100 ML 110 MG IVPB (13:10)
--- NOTE | 2018-07-24 13:58 | W.PM.DS.N ---
Date of service: 07/24/18 Time of Service: 13:58 DS: Diagnosis Discharge Diagnosis (1) Anemia: Status: Chronic Discharge Plan Disposition Patient Disposition: HOME Condition: Improving Discharge Details Chief Complaint: GI Bleed Reason For Visit: ANEMIA Admit Date/Time: 07/23/18 19:39 Admit Provider: James Pearl Attending Provider: James Pearl Primary Care Provider: Nirmala Clemente V ED Provider: Estevan Saba Hospital Course Hospital Course: 73 female with h/o apparent GI bleed in 2017, though EGD showed only mild esophagitis; she is on chronic Coumadin due to vascular bypass graft (patient is also on ASA) She comes in now with several weeks of weakness. W/u of note for Hct of 23, stool heme negative and microcytosis of 78. 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 No hematemesis. Patient ordered for 2 unit pRBC and admitted for further evaluation. Note INR 2.3. Daughter adds interesting detail that several years ago patient required parenteral iron to manage an anemia. 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 There does not seem to be a source of bleeding. hemeoccult stool negative. General surgery does not feel patient should be scoped, they did not feel this was an acute need in the setting of negative hemeoccult and given her history she would do better at a tertiary center. Today Hgb 9.8 and Hct 31.9. Iron was low at 14, ferritin 9 when in February was 260, retic count 2.3, Recommend follow up with hematology, and GI for repeat scope. Recheck H/H Thursday and follow up with PCP no later than Thursday. Infused Iron and she may need to have infusions again as she did in the past. (1) Anemia: Micrrocytic anemia. While blood loss is most likely diagnosis here it is important to note that this has not been documented, nor indeed has iron deficiency. It will be important, especially given possible complicating factor of anticoagulaltion, to document any bleeding and to determine iron status. A malabsorption syndrome would be another possibility here and is indiectly supported by the historiccal detail if requiring parenteral iron at some point. Regardless, for now we will transfuse, iron studies and retics prior, hold ASA, continue PPI, check stool guaiacs . Vascular surgery does not want coumadin held. Home Meds and New Rx's Prescriptions: Continued multivitamin [Daily Vitamin] 1 EACH tablet 1 ea PO QAM RF: 0 simvastatin 10 MG tablet 40 mg PO HS RF: 0 calcium carbonate-vitamin D3 1 EACH tablet 1 ea PO HS RF: 0 aspirin [Aspir-81] 81 MG tablet,delayed release (DR/EC) 81 mg PO DAILY RF: 0 donepezil 5 MG tablet,disintegrating 5 mg PO DAILY RF: 0 omeprazole 20 MG capsule,delayed release(DR/EC) 20 mg PO QAM RF: 0 paroxetine HCl 40 MG tablet 20 mg PO HS RF: 0 acetaminophen [Mapap Extra Strength] 500 MG tablet 500 mg PO PRN PRNRF: 0 bupropion HCl 150 MG tablet extended release 24 hr 150 mg PO QAM Qty: 30 RF: 1 docusate sodium [Colace] 100 mg Capsule 100 mg PO DAILY RF: 0 dicyclomine 10 mg Capsule 10 mg PO HS RF: 0 memantine [Namenda] 5 mg Tablet 5 mg PO HS RF: 0 mirtazapine 7.5 mg Tablet 7.5 mg PO DAILY RF: 0 calcium carbonate-vitamin D3 [Calcium 600 + D(3)] 600 mg(1,500mg) -400 unit Tablet 1 tab PO DAILY RF: 0 cholecalciferol (vitamin D3) 2,000 unit Capsule 2,000 unit PO QAM RF: 0 warfarin [Coumadin] 2 MG tablet 2 mg PO HS RF: 0 warfarin [Coumadin] 2.5 mg Tablet 2.5 mg PO HS RF: 0 Discharge Instructions Instructions: Iron Rich Diet (GEN), Anemia (GEN) Additional Instructions: Recheck you H/H on Thursday Follow up with your PCP no later than Thursday next week. Eat iron rich foods Recommend follow up with a bench press operator and six pack loader operator. Seek medical attention immediately if you have chest pain, shortness of breath, nausea, vomiting, diarrhea. Activity:: Activity as Tolerated Equipment/Supplies:: No Equipment Needed Diet:: As Tolerated Discharge Orders Discharge Orders: Discharge Order (Routine); Ordered 07/24/18 Ordered By: Radha Barbour Other Ambulatory Orders: Hemoglobin/Hematocrit (Routine) Location: Determined by Patient Ordered By: Radha Foulke Exam Narrative Exam Narrative: HEENT atraumatic; neck supple; lungs clear; heart RRR; abdomen soft, NT; pelvic deferred; rectal brown stool, heme negative; extr no edema, pedal pulse fulll; neuro ox1, moves all 4s DS: Data Vitals/I&O Vitals and I&O: Vital Signs Temperature 36.5 C 07/24/18 08:02 Temperature Source Tympanic 07/24/18 08:02 Pulse 90 07/24/18 08:02 Pulse Rhythm Regular 07/23/18 20:20 Pulse 92 H 07/23/18 19:20 Respiratory Rate 18 07/24/18 08:02 Respiratory Effort Non-Labored 07/23/18 20:20 Respiratory Depth Normal 07/23/18 20:20 Respiratory Pattern Normal 07/23/18 20:20 Blood Pressure 131/70 07/24/18 08:02 Blood Pressure Mean 110 07/23/18 19:17 Blood Pressure Position Sitting 07/23/18 16:59 Pulse Oximetry 97 07/24/18 08:02 Oxygen Delivery Method Room Air 07/24/18 08:02 Oxygen Flow Rate 0 07/24/18 08:02 Pain Level 0 07/23/18 20:20 Intake & Output 07/23/18 07/24/18 07/24/18 23:59 11:59 23:59 Intake Total 797.833 / 797.833 270 / 520 250 / 520 Output Total 400 / 400 1400 / 1400 Balance 397.833 / 397.833 -1130 / -880 250 / -880 Weight 55.8 kg Intake: IV 527.833 / 527.833 10 Oral 240 / 240 Blood Product 250 / 250 250 / 250 Rbc Leuko Reduced Unit 250 / 250 [id number] Rbc Leuko Reduced Unit 250 / 250 [id number] Other 20 / 20 Rbc Leuko Reduced Unit 20 / 20 [id number] Rbc Leuko Reduced Unit / 20 [id number] Output: Urine 400 / 400 1400 / 1400 Other: Urine Color Yellow Yellow Urine Appearance Clear Clear Urine Odor Normal None Emesis Description None Voiding Methods Toilet Toilet Completed studies during hospitalization [Text1]: CLINICAL HISTORY: 73 years old, female; Screening exam; Other: Suspected gi bleed TECHNIQUE: Imaging protocol: Axial computed tomography images of the abdomen and pelvis without contrast. Coronal and sagittal reformatted images were created and reviewed. COMPARISON: No relevant prior studies available. FINDINGS: Lungs: 6 mm x 4 mm pulmonary nodule in the posterior right lower lobe. ABDOMEN: Liver: There increased hepatic parenchymal density consistent with amiodarone therapy. Gallbladder and bile ducts: Unremarkable. No calcified stones. No ductal dilation. Pancreas: Unremarkable. No ductal dilation. Spleen: Unremarkable.No splenomegaly. Adrenals: Unremarkable. No mass. Kidneys and ureters: Unremarkable. No hydronephrosis. Stomach and bowel: Very small amount of hyperdense material layering in the stomach. Stomach is not well distended, limiting evaluation. No evidence of bowel wall thickening, inflammation, obstruction or perforation. Distal colonic diverticulosis without signs of diverticulitis. Appendix: Normal appendix. PELVIS: Bladder: Unremarkable as visualized. Reproductive: Unremarkable as visualized. ABDOMEN and PELVIS: Intraperitoneal space: Unremarkable. No free air. No fluid collection. Bones/joints: No acute fracture. Chronic sclerotic L5 pars defects. Combination of annular disc bulge, facet hypertrophy and ligamentum flavum thickening produces at least moderate central canal stenosis at the L4-5 and L5-S1 levels. There is moderate-severe bilateral neural foraminal stenosis at L5-S1. Soft tissues: Tiny supraumbilical and umbilical hernias containing fat only. Vasculature: Extensive peripheral vascular disease. Aorta-biiliac stent. There is a kink in the aortic stent which narrows the central canal (axial series 2 image 35). No aortic aneurysm or leak/rupture. Axial-bifemoral bypass graft. Lymph nodes: Unremarkable. No enlarged lymph nodes. IMPRESSION: 1. Very small amount of hyperdense material layering in the stomach. This could represent ingested material or blood. No discrete wall thickening or mass, however, stomach is not well distended, limiting evaluation. 2. Distal colonic diverticulosis without signs of diverticulitis. 3. 6 mm pulmonary nodule in the right lower lobe Labs on day of discharge: Labs from last 24 hours 07/24/18 07/24/18 07/23/18 06:32 06:32 Unknown WBC 5.91 RBC 3.93 L Hgb 9.8 L D Hct 31.9 L D MCV 81.2 MCH 24.9 L MCHC 30.7 L RDW 16.4 H Plt Count 350 MPV 9.9 Immature Gran % Neutrophils % Lymphocytes % Monocytes % Eosinophils % Basophils % Absolute Neutrophils Absolute Lymphocytes Absolute Monocytes Absolute Eosinophils Absolute Basophils RBC Morphology Polychromasia Hypochromasia Microcytosis Macrocytosis Retic Count PT 24.7 H INR 2.4 H APTT Sodium Potassium Chloride Carbon Dioxide Anion Gap BUN Creatinine Estimated GFR/1.73 m2 Glucose Calcium Iron TIBC Ferritin Total Bilirubin AST ALT Alkaline Phosphatase Total Protein Albumin Urine Color Urine Clarity Urine pH Ur Specific Randall Urine Protein Urine Ketones Urine Blood Urine Nitrite Urine Bilirubin Urine Urobilinogen Ur Leukocyte Esterase Urine Glucose Stl Occult Bld Clinic Cancelled Patient ABO/Rh Antibody Screen Crossmatch 07/23/18 07/23/18 07/23/18 17:49 17:30 17:30 WBC RBC Hgb Hct MCV MCH MCHC RDW Plt Count MPV Immature Gran % Neutrophils % Lymphocytes % Monocytes % Eosinophils % Basophils % Absolute Neutrophils Absolute Lymphocytes Absolute Monocytes Absolute Eosinophils Absolute Basophils RBC Morphology Polychromasia Hypochromasia Microcytosis Macrocytosis Retic Count 2.3 PT INR APTT Sodium Potassium Chloride Carbon Dioxide Anion Gap BUN Creatinine Estimated GFR/1.73 m2 Glucose Calcium Iron TIBC Ferritin 9 Total Bilirubin AST ALT Alkaline Phosphatase Total Protein Albumin Urine Color Yellow Urine Clarity Clear Urine pH 6.0 Ur Specific Randall 1.020 Urine Protein Negative Urine Ketones Negative Urine Blood Negative Urine Nitrite Negative Urine Bilirubin Negative Urine Urobilinogen 0.2 Ur Leukocyte Esterase Negative Urine Glucose Negative Stl Occult Bld Clinic Patient ABO/Rh Antibody Screen Crossmatch 07/23/18 07/23/18 07/23/18 17:30 17:30 17:30 WBC RBC Hgb Hct MCV MCH MCHC RDW Plt Count MPV Immature Gran % Neutrophils % Lymphocytes % Monocytes % Eosinophils % Basophils % Absolute Neutrophils Absolute Lymphocytes Absolute Monocytes Absolute Eosinophils Absolute Basophils RBC Morphology Polychromasia Hypochromasia Microcytosis Macrocytosis Retic Count PT 21.7 H INR 2.2 H APTT 26.1 Sodium Potassium Chloride Carbon Dioxide Anion Gap BUN Creatinine Estimated GFR/1.73 m2 Glucose Calcium Iron 14 L TIBC 444 Ferritin Total Bilirubin AST ALT Alkaline Phosphatase Total Protein Albumin Urine Color Urine Clarity Urine pH Ur Specific Randall Urine Protein Urine Ketones Urine Blood Urine Nitrite Urine Bilirubin Urine Urobilinogen Ur Leukocyte Esterase Urine Glucose Stl Occult Bld Clinic Patient ABO/Rh AB Positive Antibody Screen Negative Crossmatch See Detail 07/23/18 07/23/18 17:30 17:30 WBC 6.05 RBC 2.97 L Hgb 6.5 L* Hct 23.4 L MCV 78.8 L MCH 21.9 L MCHC 27.8 L RDW 16.5 H Plt Count 422 H MPV 9.2 Immature Gran % 0.3 Neutrophils % 54.1 Lymphocytes % 30.1 Monocytes % 12.2 Eosinophils % 2.6 Basophils % 0.7 Absolute Neutrophils 3.27 Absolute Lymphocytes 1.82 Absolute Monocytes 0.74 H Absolute Eosinophils 0.16 Absolute Basophils 0.04 RBC Morphology See below Polychromasia Present Hypochromasia 2+ Microcytosis 2+ Macrocytosis 1+ Retic Count PT INR APTT Sodium 139 Potassium 4.4 Chloride 101 Carbon Dioxide 26.0 Anion Gap 12.0 H BUN 29 H Creatinine 1.50 H Estimated GFR/1.73 m2 33.85 Glucose 174 H Calcium 8.8 Iron TIBC Ferritin Total Bilirubin 0.1 L AST 12 L ALT 23 Alkaline Phosphatase 95 Total Protein 7.0 Albumin 3.6 Urine Color Urine Clarity Urine pH Ur Specific Randall Urine Protein Urine Ketones Urine Blood Urine Nitrite Urine Bilirubin Urine Urobilinogen Ur Leukocyte Esterase Urine Glucose Stl Occult Bld Clinic Patient ABO/Rh Antibody Screen Crossmatch [facility] Medical History Aortoiliac occlusive disease Breast cancer Chronic diarrhea Depression Diabetes GERD (gastroesophageal reflux disease) Hyperlipidemia Hypertension Hypomagnesemia Ischemic colitis PVD (peripheral vascular disease) Urinary incontinence Surgical History Breast, Lumpectomy EGD - MAC (02/29/16) axillo-byfem bypass Social History Smoking/Tobacco Use Status: Former Tobacco Use Alcohol Intake: never Drug use: Never Do you feel safe at home: Yes Do you feel safe in your relationship?: Yes
--- NOTE | 2018-07-24 18:18 | PDOC.CMDIS ---
- If Service Date Differs Date of service: 07/24/18 Time of Service: 18:18 LACE Index Scoring Tool - Questions: Length of Stay (in days): 1 Acuity (Admit via E.D.?): Yes Comorbidities: Diabetes w/o Complication, Any Tumor E.D. Visits: 1 - Answers: Total Score: 8 Risk of Readmission: Low Risk Care Management Discharge Reason for Hospitalization: Anemia Discharge Plan: Home with no new services. Follow up with PCP and discharge plan of care. Patient/Family Education Needs: Discharge plan, limitations, :Ask Me Three.
== END 2018-07-24 15:39 | disposition home or self-care (01) ==
LOC: ER 19:46 → MS 20:28
PROVIDERS: Admitting Provider General Practice; Emergency Provider Student in an Organized Health Care Education/Training Program; PCP Family Medicine; Visit Provider Internal Medicine
DX: D50.9 Iron deficiency anemia, unspecified (principal); Z87.19 Personal history of other diseases of the digestive system; Z79.01 Long term (current) use of anticoagulants; Z79.82 Long term (current) use of aspirin; Z67.30 Type AB blood, Rh positive
CPT/HCPCS: 36415; 36430; 80053; 85027; 86850; 86900; 86901; 86920; 96361; 96365; 96375; 99222; 99239; 99285; 74176; 81003; 82728; 83540; 83550; 85025; 85045; 85610; 85730; 99217; 99219; 99284; G0378; J1756; P9016

== ENCOUNTER 2018-07-26 16:01 | Outpatient (CLI) | payer MEDICARE, MEDICAID, SELFPAY ==
[2018-07-26 16:26] LABS: HCT 37.5 % (36.0-46.0); HGB 11.4 g/dL (12.0-15.5)
== END 2018-07-26 16:21 ==
PROVIDERS: PCP Family Medicine; Visit Provider Nurse Practitioner Family
DX: D64.9 Anemia, unspecified (principal)
CPT/HCPCS: 36415; 85014; 85018

== ENCOUNTER 2018-10-07 14:48 | Outpatient (REF) | payer MEDICARE, MEDICAID, SELFPAY ==
[2018-10-08 17:05] LABS: Bilirubin Negative (Negative); Blood Negative (Negative); Clarity Clear (Clear); Glucose Negative (Negative); Ketones Negative (Negative); Leukocyte Esterase Negative (Negative); Nitrite Negative (Negative); Urobilinogen 0.2 EU/dL (Up TO 0.2); pH 6.5 (5-8)
== END 2018-10-07 15:08 ==
LOC: NCHCN 14:48
PROVIDERS: PCP Family Medicine; Visit Provider Family Medicine
DX: R41.82 Altered mental status, unspecified (principal)
CPT/HCPCS: 81003

== ENCOUNTER 2018-11-10 16:58 | Emergency (ER) | payer MEDICARE, MEDICAID, SELFPAY ==
[2018-11-10 17:03] VITALS: BP 126/90; PULSE 92; RESP 16; TEMP 36.4; O2SAT 95
--- NOTE | 2018-11-10 17:18 | W.ED.GENAD ---
Discharge Plan Disposition Patient Disposition: HOME Condition: Stable Discharge Details Chief Complaint: GenMedical Clinical Impression: Anemia Primary Care Provider: Nirmala Clemente V ED Provider: Myesha De Oliveira Home Meds and New Rx's Prescriptions: Continued multivitamin [Daily Vitamin] 1 EACH tablet 1 ea PO QAM RF: 0 simvastatin 10 MG tablet 40 mg PO HS RF: 0 calcium carbonate-vitamin D3 1 EACH tablet 1 ea PO HS RF: 0 aspirin [Aspir-81] 81 MG tablet,delayed release (DR/EC) 81 mg PO DAILY RF: 0 donepezil 5 MG tablet,disintegrating 5 mg PO DAILY RF: 0 omeprazole 20 MG capsule,delayed release(DR/EC) 20 mg PO QAM RF: 0 paroxetine HCl 40 MG tablet 20 mg PO HS RF: 0 acetaminophen [Mapap Extra Strength] 500 MG tablet 500 mg PO PRN PRNRF: 0 bupropion HCl 150 MG tablet extended release 24 hr 150 mg PO QAM Qty: 30 RF: 1 docusate sodium [Colace] 100 mg Capsule 100 mg PO DAILY RF: 0 dicyclomine 10 mg Capsule 10 mg PO HS RF: 0 memantine [Namenda] 5 mg Tablet 5 mg PO HS RF: 0 mirtazapine 7.5 mg Tablet 7.5 mg PO DAILY RF: 0 calcium carbonate-vitamin D3 [Calcium 600 + D(3)] 600 mg(1,500mg) -400 unit Tablet 1 tab PO DAILY RF: 0 cholecalciferol (vitamin D3) 2,000 unit Capsule 2,000 unit PO QAM RF: 0 warfarin [Coumadin] 2 MG tablet 2 mg PO HS RF: 0 warfarin [Coumadin] 2.5 mg Tablet 2.5 mg PO HS RF: 0 Discharge Instructions Instructions: Anemia (ED) Additional Instructions: Please continue with medications as advised by her primary care. Pay close attention to the changing and the Coumadin dose as this was changed by her primary care today. Keep your appointment tomorrow with the vascular surgeon. Please contact primary care tomorrow to discuss the anemia and low iron further. If she develops chest pain, shortness of breath, belly pain, has bleeding symptoms or other new/worsening symptoms please seek care urgently once again peer Referrals: Nirmala Clemente MD [Primary Care Provider] - Discharge Data Discharge Date/Time-TO BE ENTERED AT DEPARTURE: 11/10/18 17:34 Medical Decision Making Patient presents to the emergency department for an iron transfusion per home care providers report. I did attempt to contact the primary care as well as the infusion suite but it is after hours at this point. Patient does not seem to be in any acute distress. I did review her recent labs, patient is noted to be anemic historically, I do not have any labs since July. The home care provider reported her hemoglobin to be 9.8. This is not transfusion level. Patient does not seem to have any acute bleeding source. With no emergent change in the patient's status, I do not feel that iron transfusion in the emergency department is appropriate at this time nor do I feel that the patient needs a blood transfusion. Rather, I advised that she keep her upcoming appointment with the vascular surgeon and follow-up closely with the primary care. I advised that the primary care may be able to arrange for an iron transfusion through the infusion suite. They are given strict return precautions. All other questions and concerns were addressed and they are in agreement with this plan. HPI General Mode of arrival: ambulatory. Date/Time Provider Initiated Documentation: 11/10/18 17:03. Limitations to Documentation: no limitations (appropriate at this time, hx of dementia). Information obtained by: patient, family (home sales service professional) and RN notes reviewed. HPI Narrative: Patient is a 73-year-old female, accompanied by home care provider, with chief complaint of low iron. Reports they have been monitoring this at home. Noted the hemoglobin to be 9.8 today. They have contacted primary care who advised that she come to the hospital for evaluation and iron transfusion. No acute change in the patient. She denies shortness of breath, chest pain, difficulty breathing. She has chronic anemia which they associated with a slow GI bleed. No micaela blood per rectum on a history review although history is slightly limited as patient has a history of dementia. She denies any abdominal pain. She does endorse intermittent claudication and bilateral lower extremities. They report that this is not new. Patient has had a stent. She has an appointment with a vascular surgeon tomorrow to discuss these symptoms further. Related Data Home Medications Medication Instructions Recorded Confirmed aspirin [Aspir-81] 81 mg PO DAILY tab-cap NS 05/30/14 11/10/18 calcium carbonate-vitamin D3 1 ea PO HS NS 05/30/14 11/10/18 multivitamin [Daily Vitamin] 1 ea PO QAM NS 05/30/14 11/10/18 simvastatin 40 mg PO HS tab-cap NS 05/30/14 11/10/18 omeprazole 20 mg PO QAM 06/19/15 11/10/18 paroxetine HCl 20 mg PO HS 06/19/15 11/10/18 donepezil 5 mg PO DAILY tab-cap 02/27/16 11/10/18 acetaminophen [Mapap Extra 500 mg PO PRN PRN 02/29/16 11/10/18 Strength] bupropion HCl 150 mg PO QAM #30 tabcr 03/04/16 11/10/18 calcium carbonate-vitamin D3 1 tab PO DAILY 07/23/18 11/10/18 [Calcium 600 + D(3)] cholecalciferol (vitamin D3) 2,000 unit PO QAM 07/23/18 11/10/18 dicyclomine 10 mg PO HS 07/23/18 11/10/18 docusate sodium [Colace] 100 mg PO DAILY 07/23/18 11/10/18 memantine [Namenda] 5 mg PO HS 07/23/18 11/10/18 mirtazapine 7.5 mg PO DAILY 07/23/18 11/10/18 warfarin [Coumadin] 2 mg PO HS 07/23/18 11/10/18 warfarin [Coumadin] 2.5 mg PO HS 07/23/18 11/10/18 Previous Rx's Medication Instructions Recorded bupropion HCl 150 mg PO QAM #30 tabcr 03/04/16 Allergies Allergy/AdvReac Type Severity Reaction Status Date / Time sulfamethoxazole Allergy Mild eyes Unverified 11/10/18 17:09 [From Bactrim] swollen amphotericin B liposome Allergy Unverified 11/10/18 17:09 [From AmBisome] cefuroxime Allergy Unverified 11/10/18 17:09 trimethoprim [From Bactrim] Allergy Unverified 11/10/18 17:09 oxycodone HCl [From Percocet] AdvReac Unverified 11/10/18 17:09 General Stated Complaint: GenMedical KATHRYN: 3 Review of Systems Constitutional Constitutional: Reports as per HPI, Denies chills, Denies fever(s), Denies headache(s), Denies lethargy and Denies poor appetite Eyes Eyes: Denies change in vision ENT Ears, Nose, Mouth, and Throat: Denies dizziness and Denies headache(s) Cardiovascular Cardiovascular: Reports as per HPI, Denies syncope, Denies rapid heart rate, Denies edema, Reports claudication, Denies leg ulcers, Denies leg edema, Denies radiating jaw, neck or arm pain, Denies palpitations, Denies dyspnea and Denies dyspnea on exertion Respiratory Respiratory: Reports as per HPI, Denies chest congestion, Denies cough, Denies pain on inspiration, Denies pain with cough, Denies dyspnea, Denies dyspnea on exertion and Denies wheezing Gastrointestinal Gastrointestinal: Reports as per HPI, Denies abdominal pain, Denies diarrhea, Denies nausea and Denies vomiting Musculoskeletal Musculoskeletal: Reports as per HPI and Denies back pain Integumentary/Breasts Skin/Breast: Reports as per HPI and Denies rash Neurologic Neurologic: Reports as per HPI, Denies dizziness, Denies syncope and Denies headache(s) Endocrine Endocrine: Denies palpitations Allergic/Immunologic Allergic/Immunologic: Denies wheezing PFSH Medical History Aortoiliac occlusive disease Breast cancer Chronic diarrhea Depression Diabetes GERD (gastroesophageal reflux disease) Hyperlipidemia Hypertension Hypomagnesemia Ischemic colitis PVD (peripheral vascular disease) Urinary incontinence Surgical History axillo-byfem bypass Breast, Lumpectomy EGD - MAC (02/29/16) Social History Smoking/Tobacco Use Status: Former Tobacco Use Alcohol Intake: never Drug use: Never Do you feel safe at home: Yes Do you feel safe in your relationship?: Yes Exam Const General: cooperative, healthy appearing, comfortable, no acute distress and well developed Nutritional Appearance: average body habitus and well nourished Orientation: alert, awake and oriented x3 HENMT Head: normal to inspection Ears: hearing grossly normal bilaterally Mouth: moist mucous membranes Eyes Conjunctivae: conjunctival abnormality bilaterally pallor Chest Chest: normal inspection of the chest, normal palpation of entire chest wall and no crepitus Resp Effort & Inspection: normal respiratory effort, able to speak in complete sentences and no respiratory distress Auscultation: clear to auscultation bilaterally, no rales, no rhonchi and no wheezes Cardio Rate: regular rate Rhythm: regular rhythm Heart Sounds: S1 normal and S2 normal GI Inspection: normal to inspection, no edema and non-distended Palpation: soft, no hepatosplenomegaly, not firm, no guarding, not rigid and nontender Auscultation: normal bowel sounds Skin General skin exam: no rashes or lesions noted Trauma: no lacerations or abrasions Neuro General: alert, awake and oriented x3 Cognition: normal cognition Speech: speech normal Gait: normal gait Extrem General: normal to inspection, normal capillary refill, no pedal edema, no calf tenderness and normal gait Psych Appearance: grossly normal and well kempt Mental Status: mental status grossly normal Speech and Movement: speech and movement normal Course Vital Signs Vital signs: Vital Signs Temperature 36.4 C L 11/10/18 17:03 Pulse 92 H 11/10/18 17:03 Respiratory Rate 16 11/10/18 17:03 Blood Pressure 126/90 11/10/18 17:03 Pulse Oximetry 95 11/10/18 17:03 Temperature 36.4 C L 11/10/18 17:03 Temperature Source Temporal Artery Scan 11/10/18 17:03 Pulse 92 H 11/10/18 17:03 Respiratory Rate 16 11/10/18 17:03 Respiratory Effort 11/10/18 17:08 Blood Pressure 126/90 11/10/18 17:03 Blood Pressure Position Sitting 11/10/18 17:03 Pulse Oximetry 95 11/10/18 17:03 Oxygen Delivery Method Room Air 11/10/18 17:03 Oxygen Flow Rate 0 11/10/18 17:03 Comment 11/10/18 17:03
== END 2018-11-10 17:34 | disposition home or self-care (01) ==
PROVIDERS: Emergency Provider Physician Assistant; PCP Family Medicine
DX: D64.9 Anemia, unspecified (principal)
CPT/HCPCS: 99282

== ENCOUNTER 2018-12-07 02:06 | Outpatient (RCR) | payer MEDICARE, MEDICAID, SELFPAY ==
[2018-11-15] MEDS: Normal Saline Flush 10 ML SYR IVP (12:21)
[2018-11-15] MEDS: IRON SUCROSE COMPLEX 100 MG in Normal Saline 100 ML 210 MG IVPB (12:21)
[2018-11-15 12:53] LABS: HCT 30.8 % (36.0-46.0); HGB 9.5 g/dL (12.0-15.5)
[2018-11-15 13:30] LABS: Anion Gap 9.2 mmol/L (3-11); BUN 18 mg/dL (7-18); CO2 29.8 mmol/L (21.0-32.0); CREATININE 1.58 mg/dL (0.55-1.02); Calcium 8.9 mg/dL (8.5-10.1); Chloride 102 mmol/L (98-107); Estimated GFR 31.88 (mL/min/1.73m2); Ferritin 11 ng/mL (8-388); Glucose 181 mg/dL (70-100); Potassium 4.3 mmol/L (3.5-5.1); Sodium 141 mmol/L (136-145)
[2018-11-23] MEDS: IRON SUCROSE COMPLEX 100 MG in Normal Saline 100 ML 210 MG IVPB (12:36)
[2018-11-23] MEDS: Normal Saline Flush 10 ML SYR IVP (12:36)
[2018-12-01] MEDS: IRON SUCROSE COMPLEX 100 MG in Normal Saline 100 ML 210 MG IVPB (12:14)
[2018-12-01] MEDS: Normal Saline Flush 10 ML SYR IVP (12:14)
[2018-12-07] MEDS: Normal Saline Flush 10 ML SYR IVP (12:14)
[2018-12-07] MEDS: IRON SUCROSE COMPLEX 100 MG in Normal Saline 100 ML 210 MG IVPB (12:14)
== END 2018-12-09 23:59 | disposition home or self-care (01) ==
LOC: INF 02:06
PROVIDERS: PCP Family Medicine; Visit Provider Internal Medicine
DX: D50.9 Iron deficiency anemia, unspecified (principal); N18.3 Chronic kidney disease, stage 3 (moderate)
CPT/HCPCS: 36415; 80048; 96365; 82728; 85014; 85018; J1756

== ENCOUNTER 2019-01-04 01:16 | Outpatient (RCR) | payer MEDICARE, MEDICAID, SELFPAY ==
[2019-01-04] MEDS: IRON SUCROSE COMPLEX 100 MG in Normal Saline 100 ML 210 MG IVPB (13:04)
[2019-01-04] MEDS: Normal Saline Flush 10 ML SYR 30 ML IVP (13:05)
== END 2019-01-08 23:59 | disposition home or self-care (01) ==
LOC: INF 01:16
PROVIDERS: PCP Family Medicine; Visit Provider Internal Medicine
DX: D50.9 Iron deficiency anemia, unspecified (principal); N18.3 Chronic kidney disease, stage 3 (moderate)
CPT/HCPCS: 96365; J1756

== ENCOUNTER 2019-01-21 00:07 | Observation (INO) | payer MEDICARE, MEDICAID, SELFPAY ==
[2019-01-21] VITALS (8 sets, daily range): BP systolic 95–136; BP diastolic 50–85; PULSE 78–104; RESP 16–18; TEMP 36.6–37.3; O2SAT 95–97
--- NOTE | 2019-01-21 00:12 | ED.GENADUL_ITS ---
Discharge Plan Disposition Patient Disposition: [facility] INPATIENT Condition: Stable Discharge Details Chief Complaint: GI Bleed Clinical Impression: BRBPR (bright red blood per rectum) Primary Care Provider: Nirmala Clemente V ED Provider: Travis Ocampo Home Meds and New Rx's Prescriptions: No Action multivitamin [Daily Vitamin] 1 EACH tablet 1 ea PO QAM RF: 0 simvastatin 10 MG tablet 40 mg PO HS RF: 0 aspirin [Aspir-81] 81 MG tablet,delayed release (DR/EC) 81 mg PO DAILY RF: 0 donepezil 5 MG tablet,disintegrating 5 mg PO DAILY RF: 0 omeprazole 20 MG capsule,delayed release(DR/EC) 20 mg PO QAM RF: 0 paroxetine HCl 40 MG tablet 20 mg PO HS RF: 0 bupropion HCl 150 MG tablet extended release 24 hr 150 mg PO QAM Qty: 30 RF: 1 docusate sodium [Colace] 100 mg Capsule 100 mg PO DAILY RF: 0 dicyclomine 10 mg Capsule 10 mg PO HS RF: 0 memantine [Namenda] 5 mg Tablet 5 mg PO HS RF: 0 mirtazapine 7.5 mg Tablet 7.5 mg PO DAILY RF: 0 calcium carbonate-vitamin D3 [Calcium 600 + D(3)] 600 mg(1,500mg) -400 unit Tablet 1 tab PO DAILY RF: 0 cholecalciferol (vitamin D3) 2,000 unit Capsule 2,000 unit PO QAM RF: 0 warfarin [Coumadin] 2 MG tablet 2 mg PO HS RF: 0 warfarin [Coumadin] 2.5 mg Tablet 2.5 mg PO HS RF: 0 acetaminophen 325 mg Tablet 325 mg PO Q4H PRN (Reason: Pain) RF: 0 ranitidine HCl 150 mg Tablet 150 mg PO DAILY RF: 0 ferrous gluconate 324 mg (38 mg iron) Tablet 324 mg PO DAILY RF: 0 Medical Decision Making 73 yo female with hx of vascular bypass grafts on chronic coumadin comes in with 2 episodes of bright red blood per rectum with bowel movements. Denies abdominal pain or difficulty breathing. HAd an episode similar to this per chart in the past, was admitted in July and did not require any interventions, vascular surgery recommended continuing coumadin at that time due to her chronic history of claudication and other issues when she comes off coumadin and she also had a CT that was negative at that time. She has no dyspnea, chest pain or sob. Will obtain lab work and monitor. Has dark colored blood on bedside rectal exam pt's labs show no acute abnormalities. Given her being on coumadin spoke with Dr. Pearl who accepts for observation and serial h/h Differential Diagnosis Differential Diagnosis: hemorrhoids, avm, colon cancer Medical Records Medical records reviewed: Yes I reviewed the patient's medical records. Lab Data Lab results reviewed: Yes I reviewed the patient's lab results. HPI General Mode of arrival: ambulatory . Date/Time Provider Initiated Documentation: 01/21/19 00:08 . Limitations to Documentation: no limitations . Information obtained by: family . History of Present Illness 73 year old F presents to the emergency department with the chief complaint of bright red blood per rectum, described as moderate, and it has been intermittent. No relieving factors improve symptom(s), No exacerbating factors reported . Related Data Home Medications Medication Instructions Recorded Confirmed aspirin [Aspir-81] 81 mg PO DAILY tab-cap NS 05/30/14 01/21/19 multivitamin [Daily Vitamin] 1 ea PO QAM NS 05/30/14 01/21/19 simvastatin 40 mg PO HS tab-cap NS 05/30/14 01/21/19 omeprazole 20 mg PO QAM 06/19/15 01/21/19 paroxetine HCl 20 mg PO HS 06/19/15 01/21/19 donepezil 5 mg PO DAILY tab-cap 02/27/16 11/10/18 bupropion HCl 150 mg PO QAM #30 tabcr 03/04/16 01/21/19 calcium carbonate-vitamin D3 1 tab PO DAILY 07/23/18 01/21/19 [Calcium 600 + D(3)] cholecalciferol (vitamin D3) 2,000 unit PO QAM 07/23/18 01/21/19 dicyclomine 10 mg PO HS 07/23/18 01/21/19 docusate sodium [Colace] 100 mg PO DAILY 07/23/18 01/21/19 memantine [Namenda] 5 mg PO HS 07/23/18 01/21/19 mirtazapine 7.5 mg PO DAILY 07/23/18 11/10/18 warfarin [Coumadin] 2 mg PO HS 07/23/18 01/21/19 warfarin [Coumadin] 2.5 mg PO HS 07/23/18 01/21/19 acetaminophen 325 mg PO Q4H PRN 01/21/19 01/21/19 ferrous gluconate 324 mg PO DAILY 01/21/19 01/21/19 ranitidine HCl 150 mg PO DAILY 01/21/19 01/21/19 Previous Rx's Medication Instructions Recorded bupropion HCl 150 mg PO QAM #30 tabcr 03/04/16 Allergies Allergy/AdvReac Type Severity Reaction Status Date / Time sulfamethoxazole Allergy Mild eyes Unverified 11/10/18 17:09 [From Bactrim] swollen amphotericin B liposome Allergy Unverified 11/10/18 17:09 [From AmBisome] cefuroxime Allergy Unverified 11/10/18 17:09 trimethoprim [From Bactrim] Allergy Unverified 11/10/18 17:09 oxycodone HCl [From Percocet] AdvReac Unverified 11/10/18 17:09 General KATHRYN: 3 Review of Systems All systems reviewed & are unremarkable except as noted in HPI and below Constitutional Constitutional: Denies chills, Denies fever(s) and Denies weakness Cardiovascular Cardiovascular: Denies chest pain and Denies dyspnea Respiratory Respiratory: Denies cough and Denies dyspnea Gastrointestinal Gastrointestinal: Denies abdominal pain, Denies nausea and Denies vomiting Musculoskeletal Musculoskeletal: Denies joint swelling Neurologic Neurologic: Denies weakness Allergic/Immunologic Allergic/Immunologic: Denies urticaria [facility] Social History Smoking/Tobacco Use Status: Former Tobacco Use Alcohol Intake: never Drug use: Never Do you feel safe at home: Yes Do you feel safe in your relationship?: Yes Exam Const General: no acute distress Orientation: alert [facility] Head: normal to inspection Ears: external ears normal General nose exam: external nose normal Mouth: moist mucous membranes Eyes General: appearance normal, both eyes and all related structures Neck Neck: normal visual inspection Resp Effort & Inspection: normal respiratory effort and able to speak in complete sentences Cardio Rate: regular rate Skin General skin exam: no rashes or lesions noted Neuro General: alert and oriented x3 Extrem General: normal to inspection Psych Mental Status: mental status grossly normal
[2019-01-21 01:09] LABS: Abs Immature Grans 0.01 k/cumm (0.0-0.09); Absolute Basophil Count 0.02 k/cumm (0.0-0.2); Absolute Eosinophil Count 0.14 k/cumm (0.0-0.7); Absolute Monocyte Count 0.79 k/cumm (0.11-0.7); Absolute Neutrophil Count 3.74 k/cumm (1.2-6.7); Basophils % 0.3; Eosinophils % 2.1; HCT 31.4 % (36.0-46.0); HGB 9.8 g/dL (12.0-15.5); Immature Grans % 0.1; Lymphocytes % 29.9; Mean Corp. HGB Concentration 31.2 g/dL (32.0-36.0); Mean Corpuscular Hemoglobin 27.9 pg (27.0-33.0); Mean Corpuscular Volume 89.5 fL (80-95); Mean Platelet Volume 10.6 fL (8.0-11.0); Monocytes % 11.8; Neutrophils % 55.8; Platelet Count 324 x1000/uL (130-400); RBC 3.51 m/cumm (4.00-5.20); RBC Distribution Width 15.9 % (11.7-14.6)
[2019-01-21 01:22] LABS: PTT Activated 31.1 sec (21.0-31.4); Prothrombin Time 29.3 sec (9.3-11.0)
[2019-01-21 01:26] LABS: ALT 23 U/L (14-59); AST 16 U/L (15-37); Albumin 3.5 g/dL (3.4-5.0); Alkaline Phosphatase 75 U/L (46-116); Anion Gap 10.1 mmol/L (3-11); BUN 22 mg/dL (7-18); Bilirubin, Total 0.1 mg/dL (0.2-1.0); CO2 27.9 mmol/L (21.0-32.0); Calcium 8.7 mg/dL (8.5-10.1); Chloride 104 mmol/L (98-107); Estimated GFR 31.42 (mL/min/1.73m2); Glucose 155 mg/dL (74-106); Magnesium 1.6 mg/dL (1.8-2.4); Potassium 3.8 mmol/L (3.5-5.1); Sodium 142 mmol/L (136-145); Total Protein 6.5 g/dL (6.4-8.2)
--- NOTE | 2019-01-21 06:51 | W.PM.HP.N ---
Date of service: 01/21/19 Time of Service: 06:52 Assessment and Plan Assessment and plan (1) Lower GI bleed: Status: Acute Assessment and plan: Painless LGI bleed. Usual differential, in this case informed by issue of chronic anemia and apparent iron deficiency (or at least requirements) . I reviewed approach to w/u with daughter who requests a minimalist path, for now simply monitoring and hold on any imaging or other efforts to identify a source of bleeding. Additionally will maintain anticoagulation as is insofar as historically patient is reported to have had substantial morbidity off anticoagulation. History of Present Illness History of Present Illness Chief Complaint: LGI bleed Narrative: 73 female with h/o chronic anemia, on iron, no bleeding identified (question of malabsorption); additionally on Coumadin and ASA for PVD and bypass graft. In this setting patient here this morning with two episode of painless rectal bleeding associated with bowel movements. In ER findings of note for stable hematocrit, INR 3.0 and normal platelet count. Admitted for monitoring. Review of Systems All systems reviewed & are unremarkable except as noted in HPI and below PFSH Medical History Aortoiliac occlusive disease Breast cancer Chronic diarrhea Depression Diabetes GERD (gastroesophageal reflux disease) Hyperlipidemia Hypertension Hypomagnesemia Ischemic colitis PVD (peripheral vascular disease) Urinary incontinence Social History Smoking/Tobacco Use Status: Former Tobacco Use Alcohol Intake: never Drug use: Never Do you feel safe at home: Yes Do you feel safe in your relationship?: Yes Meds Home Medications and Allergies Home Medications Medication Instructions Recorded Confirmed Type aspirin [Aspir-81] 81 mg PO DAILY tab-cap NS 05/30/14 01/21/19 History multivitamin [Daily Vitamin] 1 ea PO QAM NS 05/30/14 01/21/19 History simvastatin 40 mg PO HS tab-cap NS 05/30/14 01/21/19 History omeprazole 20 mg PO QAM 06/19/15 01/21/19 History paroxetine HCl 20 mg PO HS 06/19/15 01/21/19 History donepezil 5 mg PO DAILY tab-cap 02/27/16 11/10/18 History bupropion HCl 150 mg PO QAM #30 tabcr 03/04/16 01/21/19 Rx calcium carbonate-vitamin D3 1 tab PO DAILY 07/23/18 01/21/19 History [Calcium 600 + D(3)] cholecalciferol (vitamin D3) 2,000 unit PO QAM 07/23/18 01/21/19 History dicyclomine 10 mg PO HS 07/23/18 01/21/19 History docusate sodium [Colace] 100 mg PO DAILY 07/23/18 01/21/19 History memantine [Namenda] 5 mg PO HS 07/23/18 01/21/19 History mirtazapine 7.5 mg PO DAILY 07/23/18 11/10/18 History warfarin [Coumadin] 2 mg PO HS 07/23/18 01/21/19 History warfarin [Coumadin] 2.5 mg PO HS 07/23/18 01/21/19 History acetaminophen 325 mg PO Q4H PRN 01/21/19 01/21/19 History ferrous gluconate 324 mg PO DAILY 01/21/19 01/21/19 History ranitidine HCl 150 mg PO DAILY 01/21/19 01/21/19 History Allergies Allergy/AdvReac Type Severity Reaction Status Date / Time sulfamethoxazole Allergy Mild eyes Unverified 11/10/18 17:09 [From Bactrim] swollen amphotericin B liposome Allergy Unverified 11/10/18 17:09 [From AmBisome] cefuroxime Allergy Unverified 11/10/18 17:09 trimethoprim [From Bactrim] Allergy Unverified 11/10/18 17:09 oxycodone HCl [From Percocet] AdvReac Unverified 11/10/18 17:09 Exam Narrative Exam Narrative: 136/73,88,36.6,18. HEENTb AT/NC; neck supple; lungs clear; heart RRR 2/6 sys murmur; abdomen soft NT; rectal (per ER) shows dried blood; extremities w/o edema; neuro oriented x one Results Labs Result diagrams: 01/21/19 01:00 01/21/19 01:00 Labs: Laboratory Results - last 24 hr 01/21/19 01/21/19 01/21/19 01:00 01:00 01:00 WBC 6.70 RBC 3.51 L Hgb 9.8 L Hct 31.4 L MCV 89.5 MCH 27.9 MCHC 31.2 L RDW 15.9 H Plt Count 324 MPV 10.6 Immature Gran % 0.1 Neutrophils % 55.8 Lymphocytes % 29.9 Monocytes % 11.8 Eosinophils % 2.1 Basophils % 0.3 Absolute Neutrophils 3.74 Absolute Lymphocytes 2.00 Absolute Monocytes 0.79 H Absolute Eosinophils 0.14 Absolute Basophils 0.02 PT 29.3 H INR 3.0 H APTT 31.1 Sodium 142 Potassium 3.8 Chloride 104 Carbon Dioxide 27.9 Anion Gap 10.1 BUN 22 H Creatinine 1.60 H Estimated GFR/1.73 m2 31.42 Glucose 155 H Calcium 8.7 Magnesium 1.6 L Total Bilirubin 0.1 L AST 16 ALT 23 Alkaline Phosphatase 75 Total Protein 6.5 Albumin 3.5 Patient ABO/Rh Antibody Screen 01/21/19 01:00 WBC RBC Hgb Hct MCV MCH MCHC RDW Plt Count MPV Immature Gran % Neutrophils % Lymphocytes % Monocytes % Eosinophils % Basophils % Absolute Neutrophils Absolute Lymphocytes Absolute Monocytes Absolute Eosinophils Absolute Basophils PT INR APTT Sodium Potassium Chloride Carbon Dioxide Anion Gap BUN Creatinine Estimated GFR/1.73 m2 Glucose Calcium Magnesium Total Bilirubin AST ALT Alkaline Phosphatase Total Protein Albumin Patient ABO/Rh AB Positive Antibody Screen Negative Last Vital Signs Temp 36.6 C 01/21/19 02:05 Pulse 88 01/21/19 02:05 Resp 18 01/21/19 02:05 BP 136/73 01/21/19 02:05 Pulse Ox 96 01/21/19 02:05
[2019-01-21 07:36] LABS: Abs Immature Grans 0.01 k/cumm (0.0-0.09); Absolute Basophil Count 0.02 k/cumm (0.0-0.2); Absolute Eosinophil Count 0.15 k/cumm (0.0-0.7); Absolute Lymphocyte Count 1.75 k/cumm (1.2-3.4); Absolute Monocyte Count 0.86 k/cumm (0.11-0.7); Absolute Neutrophil Count 5.28 k/cumm (1.2-6.7); Basophils % 0.2; Eosinophils % 1.9; HCT 28.4 % (36.0-46.0); HGB 8.7 g/dL (12.0-15.5); Immature Grans % 0.1; Lymphocytes % 21.7; Mean Corp. HGB Concentration 30.6 g/dL (32.0-36.0); Mean Corpuscular Hemoglobin 27.3 pg (27.0-33.0); Monocytes % 10.7; Neutrophils % 65.4; Platelet Count 291 x1000/uL (130-400); RBC 3.19 m/cumm (4.00-5.20); RBC Distribution Width 15.8 % (11.7-14.6); White Blood Cell Count 8.07 k/cumm (4.4-10.8)
[2019-01-21 07:43] LABS: INR 3.2 (0.9-1.1); PTT Activated 25.6 sec (21.0-31.4); Prothrombin Time 30.8 sec (9.3-11.0)
[2019-01-21 07:48] LABS: ALT 19 U/L (14-59); AST 15 U/L (15-37); Albumin 3.2 g/dL (3.4-5.0); Alkaline Phosphatase 66 U/L (46-116); Anion Gap 9.3 mmol/L (3-11); BUN 22 mg/dL (7-18); Bilirubin, Total 0.1 mg/dL (0.2-1.0); CO2 27.7 mmol/L (21.0-32.0); CREATININE 1.42 mg/dL (0.55-1.02); Calcium 8.6 mg/dL (8.5-10.1); Chloride 106 mmol/L (98-107); Estimated GFR 36.06 (mL/min/1.73m2); Glucose 117 mg/dL (74-106); Sodium 143 mmol/L (136-145); Total Protein 5.9 g/dL (6.4-8.2)
[2019-01-21 08:18] LABS: Basophilic Stippling Present; Diff Comment RBC Morph Reviewed; Hypochromasia 2+; Polychromasia Present
[2019-01-21] MEDS: Cholecalciferol (Vitamin D3) 1,000 UNIT TAB 2000 UNITS PO (09:03)
[2019-01-21] MEDS: Aspirin E.C. 81 MG TABEC PO (09:03)
[2019-01-21] MEDS: Omeprazole 20 MG CAPCR PO (09:03)
[2019-01-21] MEDS: Multivitamin TAB 1 TAB PO (09:04)
[2019-01-21] MEDS: buPROPion-XL 150 MG TABCR PO (09:04)
[2019-01-21] MEDS: Ferrous Gluconate 324 MG TAB PO (09:04)
[2019-01-21] MEDS: MAGNESIUM SULFATE 2 GM/50 ML BAG IVPB (10:40)
[2019-01-21] MEDS: Calcium 600mg/Vit D 200U TAB 1 TAB PO (10:40)
[2019-01-21] MEDS: Normal Saline Flush 10 ML SYR IVP (10:40)
--- NOTE | 2019-01-21 11:17 | PHARADMIT ---
Addendum entered by Stella Finnegan 01/22/19 13:22: Pharmacy Note Subjective continues to have some bloody BMs per morning report Objective VS-okay SCr-1.46(up slightly) INR-3.3(up) h/h-8.5/27.9(up slightly) Assessment warfarin on hold until INR less than 3 omeprazole dose increased from 20 to 40 mg daily, carafate started Plan watch for restart of warfarin (vascular surgeon recommends against discontinuation of this) continue to watch h/h Original Note: Admission Pharmacy Clinical Review lower GI bleed Code Status DNR/DNI Current Weight 53.524 kg Renally Cleared and Narrow Therapeutic Index Meds Crcl ~24.5 mL/min current meds okay QTc Value / Action Taken none BP Control, Fever BP 102/58 afebrile Electrolytes reviewed mag 1.6 DVT Prophylaxis none GI bleed Opiate Usage / Scheduled Bowel Regimen Ordered no/no Plt/SCr for Heparin / Enoxaparin plt 291 SCr 1.42 INR for Warfarin INR 3.2 (warfarin on hold) H/H stable, WBC/Bands h/h 8.7/28.4 SBC 8.07 Antibiotic appropriateness none Cultures and Sensitivities none Surgical ABX d/c within 24 hr n/a DM control / Insulin Dosing BG 117 none Heart Failure (Check EF%) (ROBINA's, B-Block, Diuretics) none IV to PO Switch n/a Home Meds Reviewed -multiple forms of vitamin D increase risk of toxicity -separate admin of calcium carbonate from multivitamin and ferrous gluconate -aspirin may enhance the anticoagulant effect of warfarin Home Meds Not Ordered docusate, donepezil and mirtazapine (note stating pt no longer taking); warfarin on hold Comments dicyclomine scheduled (from pts home med list)- intended for short term use/no studies on safety of scheduled dosing for more than 2 weeks per Uptodate and micromedex; avoid use per BEERs criteria
--- NOTE | 2019-01-21 12:54 | INITIAL_ITS ---
- If Service Date Differs Date of service: 01/21/19 Time of Service: 12:54 Care Management Initial Assess REASON FOR HOSPITALIZATION:: Lower GI bleed. PAST MEDICAL HISTORY/PAST SURGICAL HISTORY:: Medical History: Aortoiliac occlusive disease, Breast cancer, Chronic diarrhea,. Depression, Diabetes, GERD (gastroesophageal reflux disease), Hyperlipidemia, Hypertension, Hypomagnesemia, Ischemic colitis, PVD (peripheral vascular disease), and Urinary incontinence. Surgical History: Breast, Lumpectomy. EGD - MAC (02/29/16). axillo-byfem bypass. PREVIOUS FUNCTIONAL STATUS/SOCIAL/FAMILY SUPPORTS:: Elisa lives with a home provider in [place] (Leigh Ann Walden). She names her daughter, Susan, and home provider as sources of support. She attends the [facility] several days a week and receives services through [facility]. Elisa enjoys picking berries with her home provider during the summer months, attending her grandchildren's ball games, watching television, and volunteering her time in the community, but states she has not done volunteer work for several months now. Elisa feeds herself and is mostly independent with her ADLs, though requires reminders and direction at times. CURRENT FUNCTIONAL STATUS:: Elisa is lying in bed watching television when CM comes to meet with her. Both her daughter and home provider are present in the room. Elisa appropriately expresses some concern over her GI bleed and says she hopes the bleeding stops without requiring any intervention. ADVANCE DIRECTIVES:: None on file at [facility]. Has patient been provided with information about the portal?: No Did the patient sign up for the portal?: No CODE STATUS:: DNR/DNI INSURANCE COVERAGE / FINANCIAL ISSUES:: Medicare and Medicaid CURRENT HOME/COMMUNITY SERVICES/EQUIPMENT:: Elisa attends the [facility] several days per week, receives services through [facility], and resides with a home provider. She has an INR test meter and hemoglobin machine at home. PRIMARY CARE PHYSICIAN:: Nirmala Clemente MD POTENTIAL DISCHARGE NEEDS:: Follow-up appointment with PCP and an appointment with surgeon for a colonoscopy on an outpatient basis. PATIENT/FAMILY EDUCATION NEEDS:: Review discharge plan, limitations, follow-up plan, including Ask Me Three. ANTICIPATED BARRIERS TO DISCHARGE:: None. TRANSPORTATION:: Via private vehicle with home provider. PLAN:: Elisa will be discharged home with no new services when medically cleared by provider. Transportation home will be provided by home provider via private vehicle. Follow up with PCP and discharge plan of care.
--- NOTE | 2019-01-21 13:45 | W.PM.PROGNOT ---
Date of Service Date of service: 01/21/19 Time of Service: 13:45 Assessment and Plan Assessment and plan (1) Lower GI bleed: Status: Acute Assessment and plan: hgb dropped to 8.7 from 9.8 on admission. patient is now agreeable to colonoscopy. I discussed case with general surgeon Dr dickens who recommended that this could be done as an outpatient, unless a need for urgent colonoscopy developed. patient has remained HD stable. we will monitor cbc and transfuse < 7 (2) Atherosclerotic peripheral vascular disease of extremity: Status: Acute Assessment and plan: vascular surgeon has recommended against any discontinuation in warfarin. INR is 3.2 today thus will hold tonights dose, however would resume tomorrow night if within therapeutic range. Objective Objective Clinical Data: Abnormal lab results 01/21/19 01/21/19 01/21/19 Range/Units 01:00 01:00 01:00 RBC 3.51 L (4.00-5.20) m/cumm Hgb 9.8 L (12.0-15.5) g/dL Hct 31.4 L (36.0-46.0) % MCHC 31.2 L (32.0-36.0) g/dL RDW 15.9 H (11.7-14.6) % Absolute Monocytes 0.79 H (0.11-0.7) k/cumm PT 29.3 H (9.3-11.0) sec INR 3.0 H (0.9-1.1) BUN 22 H (7-18) mg/dL Creatinine 1.60 H (0.55-1.02) mg/dL Glucose 155 H (74-106) mg/dL Magnesium 1.6 L (1.8-2.4) mg/dL Total Bilirubin 0.1 L (0.2-1.0) mg/dL Total Protein (6.4-8.2) g/dL Albumin (3.4-5.0) g/dL 01/21/19 01/21/19 01/21/19 Range/Units 07:05 07:05 07:05 RBC 3.19 L (4.00-5.20) m/cumm Hgb 8.7 L (12.0-15.5) g/dL Hct 28.4 L (36.0-46.0) % MCHC 30.6 L (32.0-36.0) g/dL RDW 15.8 H (11.7-14.6) % Absolute Monocytes 0.86 H (0.11-0.7) k/cumm PT 30.8 H (9.3-11.0) sec INR 3.2 H (0.9-1.1) BUN 22 H (7-18) mg/dL Creatinine 1.42 H (0.55-1.02) mg/dL Glucose 117 H (74-106) mg/dL Magnesium (1.8-2.4) mg/dL Total Bilirubin 0.1 L (0.2-1.0) mg/dL Total Protein 5.9 L (6.4-8.2) g/dL Albumin 3.2 L (3.4-5.0) g/dL Vital Signs Temperature 36.9 C 01/21/19 08:00 Temperature Source Tympanic 01/21/19 08:00 Pulse 88 01/21/19 08:00 Pulse Rhythm Regular 01/21/19 08:01 Respiratory Rate 16 01/21/19 08:00 Respiratory Effort Non-Labored 01/21/19 08:01 Respiratory Depth Normal 01/21/19 08:01 Respiratory Pattern Normal 01/21/19 08:01 Blood Pressure 102/58 L 01/21/19 08:00 Blood Pressure Position Supine 01/21/19 01:53 Pulse Oximetry 97 01/21/19 08:00 Oxygen Delivery Method Room Air 01/21/19 08:00 Oxygen Flow Rate 0 01/21/19 08:00 Pain Level 0 01/21/19 08:00 Intake & Output 01/20/19 01/21/19 01/21/19 23:59 11:59 23:59 Intake Total Balance Weight 53.524 kg Intake: IV Other: Stool Occult Blood Positive Stool Size Moderate Stool Characteristics Liquid Laboratory Results WBC 8.07 k/cumm (4.4-10.8) 01/21/19 07:05 RBC 3.19 m/cumm (4.00-5.20) L 01/21/19 07:05 Hgb 8.7 g/dL (12.0-15.5) L 01/21/19 07:05 Hct 28.4 % (36.0-46.0) L 01/21/19 07:05 MCV 89.0 fL (80-95) 01/21/19 07:05 MCH 27.3 pg (27.0-33.0) 01/21/19 07:05 MCHC 30.6 g/dL (32.0-36.0) L 01/21/19 07:05 RDW 15.8 % (11.7-14.6) H 01/21/19 07:05 Plt Count 291 x1000/uL (130-400) 01/21/19 07:05 MPV 11.0 fL (8.0-11.0) 01/21/19 07:05 Immature Gran % 0.1 01/21/19 07:05 Neutrophils % 65.4 01/21/19 07:05 Lymphocytes % 21.7 01/21/19 07:05 Monocytes % 10.7 01/21/19 07:05 Eosinophils % 1.9 01/21/19 07:05 Basophils % 0.2 01/21/19 07:05 Absolute Neutrophils 5.28 k/cumm (1.2-6.7) 01/21/19 07:05 Absolute Lymphocytes 1.75 k/cumm (1.2-3.4) 01/21/19 07:05 Absolute Monocytes 0.86 k/cumm (0.11-0.7) H 01/21/19 07:05 Absolute Eosinophils 0.15 k/cumm (0.0-0.7) 01/21/19 07:05 Absolute Basophils 0.02 k/cumm (0.0-0.2) 01/21/19 07:05 Differential Comment Rbc morph reviewed 01/21/19 07:05 RBC Morphology See below 01/21/19 07:05 Polychromasia Present 01/21/19 07:05 Hypochromasia 2+ 01/21/19 07:05 Basophilic Stippling Present 01/21/19 07:05 PT 30.8 sec (9.3-11.0) H 01/21/19 07:05 INR 3.2 (0.9-1.1) H 01/21/19 07:05 APTT 25.6 sec (21.0-31.4) 01/21/19 07:05 Sodium 143 mmol/L (136-145) 01/21/19 07:05 Potassium 4.0 mmol/L (3.5-5.1) 01/21/19 07:05 Chloride 106 mmol/L (98-107) 01/21/19 07:05 Carbon Dioxide 27.7 mmol/L (21.0-32.0) 01/21/19 07:05 Anion Gap 9.3 mmol/L (3-11) 01/21/19 07:05 BUN 22 mg/dL (7-18) H 01/21/19 07:05 Creatinine 1.42 mg/dL (0.55-1.02) H 01/21/19 07:05 Estimated GFR/1.73 m2 36.06 (mL/min/1.73m2) 01/21/19 07:05 Glucose 117 mg/dL (74-106) H 01/21/19 07:05 Calcium 8.6 mg/dL (8.5-10.1) 01/21/19 07:05 Magnesium 1.6 mg/dL (1.8-2.4) L 01/21/19 01:00 Total Bilirubin 0.1 mg/dL (0.2-1.0) L 01/21/19 07:05 AST 15 U/L (15-37) 01/21/19 07:05 ALT 19 U/L (14-59) 01/21/19 07:05 Alkaline Phosphatase 66 U/L (46-116) 01/21/19 07:05 Total Protein 5.9 g/dL (6.4-8.2) L 01/21/19 07:05 Albumin 3.2 g/dL (3.4-5.0) L 01/21/19 07:05 Patient ABO/Rh AB Positive 01/21/19 01:00 Antibody Screen Negative 01/21/19 01:00
--- NOTE | 2019-01-21 15:15 | CHAPLAIN ---
I visited with Elisa's caregiver as Elisa was sleeping when I visited. I explained my role and offered support.
[2019-01-21 19:40] LABS: HCT 26.4 % (36.0-46.0); HGB 8.3 g/dL (12.0-15.5)
[2019-01-21] MEDS: Dicyclomine 10 MG CAP PO (19:47)
[2019-01-21] MEDS: Simvastatin 40 MG TAB PO (19:48)
[2019-01-21] MEDS: Memantine 5 MG TAB PO (19:48)
[2019-01-21] MEDS: PARoxetine 20 MG TAB PO (19:49)
[2019-01-22 03:40] VITALS: BP 110/70; PULSE 70; RESP 16; TEMP 36.8; O2SAT 96
[2019-01-22 07:00] LABS: HCT 27.9 % (36.0-46.0); HGB 8.5 g/dL (12.0-15.5); Mean Corp. HGB Concentration 30.5 g/dL (32.0-36.0); Mean Corpuscular Hemoglobin 27.1 pg (27.0-33.0); Mean Corpuscular Volume 88.9 fL (80-95); Mean Platelet Volume 10.9 fL (8.0-11.0); Platelet Count 296 x1000/uL (130-400); RBC 3.14 m/cumm (4.00-5.20); RBC Distribution Width 15.9 % (11.7-14.6); White Blood Cell Count 6.66 k/cumm (4.4-10.8)
[2019-01-22 07:10] LABS: Magnesium 1.8 mg/dL (1.8-2.4)
[2019-01-22 07:13] LABS: INR 3.3 (0.9-1.1); Prothrombin Time 32.2 sec (9.3-11.0)
[2019-01-22 07:28] VITALS: BP 118/62; PULSE 62; RESP 17; TEMP 36.6; O2SAT 96
[2019-01-22] MEDS: Cholecalciferol (Vitamin D3) 1,000 UNIT TAB 2000 UNITS PO (07:40)
[2019-01-22] MEDS: Aspirin E.C. 81 MG TABEC PO (07:40)
[2019-01-22] MEDS: buPROPion-XL 150 MG TABCR PO (07:40)
[2019-01-22] MEDS: Omeprazole 20 MG CAPCR PO (07:41)
[2019-01-22] MEDS: Multivitamin TAB 1 TAB PO (07:41)
[2019-01-22] MEDS: Ferrous Gluconate 324 MG TAB PO (07:41)
[2019-01-22 08:54] LABS: Anion Gap 10.2 mmol/L (3-11); BUN 28 mg/dL (7-18); CO2 28.8 mmol/L (21.0-32.0); CREATININE 1.46 mg/dL (0.55-1.02); Calcium 8.5 mg/dL (8.5-10.1); Chloride 105 mmol/L (98-107); Estimated GFR 34.93 (mL/min/1.73m2); Glucose 129 mg/dL (74-106); Potassium 4.2 mmol/L (3.5-5.1); Sodium 144 mmol/L (136-145)
--- NOTE | 2019-01-22 11:10 | W.PM.PROGNOT ---
Date of Service Date of service: 01/22/19 Time of Service: 11:10 Assessment and Plan Assessment and plan (1) Lower GI bleed: Start date: 01/22/19 Start time: 11:24 Status: Acute Assessment and plan: hgb today 8.5 stable. Continue to monitor. Added carafate and increased PPI, coumadin on hold while supratheraputic. Will restart when INR 3.0 or less (2) Atherosclerotic peripheral vascular disease of extremity: Start date: 01/22/19 Start time: 11:25 Status: Acute Assessment and plan: vascular surgeon has recommended against any discontinuation in warfarin. INR is 3.2 today thus will hold tonights dose, however would resume tomorrow night if within therapeutic range. Case discussed with Dr. Hassan who is in agreement. Subjective Subjective Patient reports: no new complaints Interval history since last seen: Feeling better, bloody bm last night. INR continues to be supratheraputic, Increased PPI to 40 and added carafate. Tolerating PO, denies CP, SOB, n/v/d. Exam Narrative Exam Narrative: Const: Appropriate for stated age female lying in bed in NAD Eyes: PERRLA, EOMI Neck: No lymphedema, no goiter, or enlarged thryoid Resp: breath equal, unlabored, CTAB Cardio: RRR, no murmur appreciated GI: soft nontender Neuro: AAOx3 Extrem: no clubbing, cyanosis, or edema Objective Objective Clinical Data: Abnormal lab results 01/21/19 01/22/19 01/22/19 Range/Units 19:06 06:24 06:24 RBC 3.14 L (4.00-5.20) m/cumm Hgb 8.3 L 8.5 L (12.0-15.5) g/dL Hct 26.4 L 27.9 L (36.0-46.0) % MCHC 30.5 L (32.0-36.0) g/dL RDW 15.9 H (11.7-14.6) % PT 32.2 H (9.3-11.0) sec INR 3.3 H (0.9-1.1) BUN (7-18) mg/dL Creatinine (0.55-1.02) mg/dL Glucose (74-106) mg/dL 01/22/19 Range/Units 06:24 RBC (4.00-5.20) m/cumm Hgb (12.0-15.5) g/dL Hct (36.0-46.0) % MCHC (32.0-36.0) g/dL RDW (11.7-14.6) % PT (9.3-11.0) sec INR (0.9-1.1) BUN 28 H (7-18) mg/dL Creatinine 1.46 H (0.55-1.02) mg/dL Glucose 129 H (74-106) mg/dL Vital Signs Temperature 36.6 C 01/22/19 07:28 Temperature Source Tympanic 01/22/19 07:28 Pulse 62 01/22/19 07:28 Pulse Rhythm Regular 01/22/19 07:49 Respiratory Rate 17 01/22/19 07:28 Respiratory Effort Non-Labored 01/22/19 07:49 Respiratory Depth Normal 01/22/19 07:49 Respiratory Pattern Normal 01/22/19 07:49 Blood Pressure 118/62 01/22/19 07:28 Blood Pressure Position Supine 01/21/19 01:53 Pulse Oximetry 96 01/22/19 07:28 Oxygen Delivery Method Room Air 01/22/19 07:28 Oxygen Flow Rate 0 01/22/19 07:28 Pain Level 0 01/22/19 07:28 Intake & Output 01/21/19 01/21/19 01/22/19 11:59 23:59 11:59 Intake Total 370 / 1490 1120 / 1490 740 / 740 Output Total 600 / 600 Balance 370 / 890 520 / 890 740 / 740 Weight 53.524 kg Intake: IV Oral 360 / 1480 1120 / 1480 740 / 740 Output: Urine 600 / 600 Other: Urine Color Light Bruna Urine Appearance Clear Stool Occult Blood Positive Positive Stool Size Moderate Large Stool Characteristics Liquid Brown Black Bloody Voiding Methods Toilet Laboratory Results WBC 6.66 k/cumm (4.4-10.8) 01/22/19 06:24 RBC 3.14 m/cumm (4.00-5.20) L 01/22/19 06:24 Hgb 8.5 g/dL (12.0-15.5) L 01/22/19 06:24 Hct 27.9 % (36.0-46.0) L 01/22/19 06:24 MCV 88.9 fL (80-95) 01/22/19 06:24 MCH 27.1 pg (27.0-33.0) 01/22/19 06:24 MCHC 30.5 g/dL (32.0-36.0) L 01/22/19 06:24 RDW 15.9 % (11.7-14.6) H 01/22/19 06:24 Plt Count 296 x1000/uL (130-400) 01/22/19 06:24 MPV 10.9 fL (8.0-11.0) 01/22/19 06:24 Immature Gran % 0.1 01/21/19 07:05 Neutrophils % 65.4 01/21/19 07:05 Lymphocytes % 21.7 01/21/19 07:05 Monocytes % 10.7 01/21/19 07:05 Eosinophils % 1.9 01/21/19 07:05 Basophils % 0.2 01/21/19 07:05 Absolute Neutrophils 5.28 k/cumm (1.2-6.7) 01/21/19 07:05 Absolute Lymphocytes 1.75 k/cumm (1.2-3.4) 01/21/19 07:05 Absolute Monocytes 0.86 k/cumm (0.11-0.7) H 01/21/19 07:05 Absolute Eosinophils 0.15 k/cumm (0.0-0.7) 01/21/19 07:05 Absolute Basophils 0.02 k/cumm (0.0-0.2) 01/21/19 07:05 Differential Comment Rbc morph reviewed 01/21/19 07:05 RBC Morphology See below 01/21/19 07:05 Polychromasia Present 01/21/19 07:05 Hypochromasia 2+ 01/21/19 07:05 Basophilic Stippling Present 01/21/19 07:05 PT 32.2 sec (9.3-11.0) H 01/22/19 06:24 INR 3.3 (0.9-1.1) H 01/22/19 06:24 APTT 25.6 sec (21.0-31.4) 01/21/19 07:05 Sodium 144 mmol/L (136-145) 01/22/19 06:24 Potassium 4.2 mmol/L (3.5-5.1) 01/22/19 06:24 Chloride 105 mmol/L (98-107) 01/22/19 06:24 Carbon Dioxide 28.8 mmol/L (21.0-32.0) 01/22/19 06:24 Anion Gap 10.2 mmol/L (3-11) 01/22/19 06:24 BUN 28 mg/dL (7-18) H 01/22/19 06:24 Creatinine 1.46 mg/dL (0.55-1.02) H 01/22/19 06:24 Estimated GFR/1.73 m2 34.93 (mL/min/1.73m2) 01/22/19 06:24 Glucose 129 mg/dL (74-106) H 01/22/19 06:24 Calcium 8.5 mg/dL (8.5-10.1) 01/22/19 06:24 Magnesium 1.8 mg/dL (1.8-2.4) 01/22/19 06:24 Total Bilirubin 0.1 mg/dL (0.2-1.0) L 01/21/19 07:05 AST 15 U/L (15-37) 01/21/19 07:05 ALT 19 U/L (14-59) 01/21/19 07:05 Alkaline Phosphatase 66 U/L (46-116) 01/21/19 07:05 Total Protein 5.9 g/dL (6.4-8.2) L 01/21/19 07:05 Albumin 3.2 g/dL (3.4-5.0) L 01/21/19 07:05 Patient ABO/Rh AB Positive 01/21/19 01:00 Antibody Screen Negative 01/21/19 01:00
[2019-01-22] MEDS: Sucralfate 1 GM TAB PO ×3 (11:29→19:46)
[2019-01-22] MEDS: Calcium 600mg/Vit D 200U TAB 1 TAB PO (11:30)
[2019-01-22 11:35] VITALS: BP 116/60; PULSE 83; RESP 17; TEMP 36.7; O2SAT 96
--- NOTE | 2019-01-22 13:42 | PDOC.CMPRO ---
Care Management Progress Note S/O: Elisa was sitting up in her chair, watching television when CM meets with her. She shares no concerns at this time. No change to overall plan, CM continues to follow. A: 73 year old female admitted to [facility] 01/21/19 P: Elisa will be discharged home to resume current services when medically cleared by provider. Transportation will be provided by home provider via private vehicle. Elisa will follow up with her PCP and discharge plan of care as prescribed.
[2019-01-22 17:14] VITALS: BP 130/85; PULSE 81; RESP 16; TEMP 37; O2SAT 94
[2019-01-22] MEDS: Dicyclomine 10 MG CAP PO (19:46)
[2019-01-22] MEDS: PARoxetine 20 MG TAB PO (19:46)
[2019-01-22] MEDS: Memantine 5 MG TAB PO (19:46)
[2019-01-22] MEDS: Simvastatin 40 MG TAB PO (19:46)
[2019-01-22 19:57] VITALS: BP 108/64; PULSE 104; RESP 18; TEMP 37.1; O2SAT 94
[2019-01-23 00:51] VITALS: BP 116/58; PULSE 81; RESP 16; TEMP 36.8; O2SAT 93
[2019-01-23 03:30] VITALS: BP 124/58; PULSE 92; RESP 17; TEMP 36.7; O2SAT 96
[2019-01-23 07:33] LABS: INR 2.5 (0.9-1.1); Prothrombin Time 24.6 sec (9.3-11.0)
[2019-01-23] MEDS: Multivitamin TAB 1 TAB PO (07:37)
[2019-01-23] MEDS: Cholecalciferol (Vitamin D3) 1,000 UNIT TAB 2000 UNITS PO (07:37)
[2019-01-23] MEDS: Aspirin E.C. 81 MG TABEC PO (07:37)
[2019-01-23] MEDS: Omeprazole 20 MG CAPCR 40 MG PO (07:38)
[2019-01-23] MEDS: buPROPion-XL 150 MG TABCR PO (07:38)
[2019-01-23] MEDS: Ferrous Gluconate 324 MG TAB PO (07:39)
[2019-01-23] MEDS: Sucralfate 1 GM TAB PO ×2 (07:39→10:37)
--- NOTE | 2019-01-23 09:58 | DSE_ITS ---
Date of service: 01/23/19 Time of Service: 09:58 DS: Diagnosis Discharge Diagnosis (1) Lower GI bleed: Start date: 01/23/19 Start time: 09:59 Status: Acute Asessment and Plan: Stable. Increased PPI to 40 daily with carafate QID. Follow up with Dr. Paris in the office. Appears to be lessening. (2) Atherosclerotic peripheral vascular disease of extremity: Start date: 01/23/19 Start time: 10:00 Status: Acute Asessment and Plan: Will continue coumadin per vascular instructions for INR less than 3. repeat INR in 2 days. Follow up with PCP by Thursday Discharge Plan Disposition Patient Disposition: HOME Condition: Stable Discharge Details Chief Complaint: GI Bleed Clinical Impression: BRBPR (bright red blood per rectum) Reason For Visit: LOWER GI BLEED Admit Date/Time: 01/21/19 01:27 Admit Provider: James Pearl Attending Provider: James Pearl Primary Care Provider: Nirmala Clemente V ED Provider: Travis Ocampo Hospital Course Hospital Course: 73 y.o female with h/o chronic anemia, on iron, no bleeding identified (question of malabsorption); additionally on Coumadin and ASA for PVD and bypass graft. Admitted to [facility] for LGIB. Hemoglobin dropped initially upon admission however has been stable between 8.1 and 8.7. Bleeding has decreased. She has tolerated a regular diet without nausea, vomiting or abd. pain. She was placed on carafate QID and increase PPI to 40 from 20, conversation with surgery took place. Patient will follow up in office for possible colonoscopy, however they agree to discharge with PPI, carafate and follow up due to stabilization of hemoglobin. Patient will continue coumadin per vascular at [facility]. Level today is 2.5, she will take her dose and recheck level in 2 days. Follow up with PCP by Thursday and appt with surgery will be placed. She denies CP, SOB, N/V/D Home Meds and New Rx's Prescriptions: New sucralfate 1 gram Tablet 1 g PO AC & HS Qty: 120 RF: 0 omeprazole 20 mg Capsule,Delayed Release(Dr/Ec) 40 mg PO DAILY@0730 Qty: 30 RF: 0 Continued multivitamin [Daily Vitamin] 1 EACH tablet 1 ea PO QAM RF: 0 simvastatin 10 MG tablet 40 mg PO HS RF: 0 aspirin [Aspir-81] 81 MG tablet,delayed release (DR/EC) 81 mg PO DAILY RF: 0 donepezil 5 MG tablet,disintegrating 5 mg PO DAILY RF: 0 omeprazole 20 MG capsule,delayed release(DR/EC) 20 mg PO QAM RF: 0 paroxetine HCl 40 MG tablet 20 mg PO HS RF: 0 bupropion HCl 150 MG tablet extended release 24 hr 150 mg PO QAM Qty: 30 RF: 1 docusate sodium [Colace] 100 mg Capsule 100 mg PO DAILY RF: 0 dicyclomine 10 mg Capsule 10 mg PO HS RF: 0 memantine [Namenda] 5 mg Tablet 5 mg PO HS RF: 0 mirtazapine 7.5 mg Tablet 7.5 mg PO DAILY RF: 0 calcium carbonate-vitamin D3 [Calcium 600 + D(3)] 600 mg(1,500mg) -400 unit Tablet 1 tab PO DAILY RF: 0 cholecalciferol (vitamin D3) 2,000 unit Capsule 2,000 unit PO QAM RF: 0 warfarin [Coumadin] 2 MG tablet 2 mg PO HS RF: 0 warfarin [Coumadin] 2.5 mg Tablet 2.5 mg PO HS RF: 0 acetaminophen 325 mg Tablet 325 mg PO Q4H PRN (Reason: Pain) RF: 0 ranitidine HCl 150 mg Tablet 150 mg PO DAILY RF: 0 ferrous gluconate 324 mg (38 mg iron) Tablet 324 mg PO DAILY RF: 0 Discharge Instructions Instructions: Warfarin (By mouth), Gastrointestinal Bleeding (DC), Rectal Bleeding (DC), Iron Deficiency Anemia (DC) Additional Instructions: Take coumadin dose tonight. Repeat labs on thursday Follow up with your primary provider this week Recheck coumadin level on thursday Omeprazole has been increase to 40 mg daily and you have been started on carafate four times a day. Take medication as prescribed. Seek medical attention immediately if you have chest pain, shortness of breath, bloody vomit, worsening bleeding from rectum that does not stop or abdominal pain. Activity:: Activity as Tolerated Equipment/Supplies:: No Equipment Needed Diet:: Normal Diet Discharge Orders Discharge Orders: Discharge Order (Routine); Ordered 01/23/19 Ordered By: Radha Barbour Other Ambulatory Orders: Complete Blood Count No Diff (Routine) Location: None Selected Ordered By: Radha Barbour DS: Summary Status at Discharge Functional status at discharge: independent ambulation Overall status at discharge: patient is back to baseline Mental Status: mental status grossly normal Speech and Movement: speech and movement normal Mood: congruent mood Affect: normal affect Exam Narrative Exam Narrative: Const: Appropriate for stated age female lying in bed in NAD Eyes: PERRLA, EOMI Neck: No lymphedema, no goiter, or enlarged thryoid Resp: breath equal, unlabored, CTAB Cardio: RRR, no murmur appreciated GI: soft nontender Neuro: AAOx3 Extrem: no clubbing, cyanosis, or edema Psych Mental Status: mental status grossly normal Speech and Movement: speech and movement normal Mood: congruent mood Affect: normal affect DS: Data Vitals/I&O Vitals and I&O: Vital Signs Temperature 36.7 C 01/23/19 03:30 Temperature Source Tympanic 01/23/19 03:30 Pulse 92 H 01/23/19 03:30 Pulse Rhythm Regular 01/23/19 07:52 Respiratory Rate 17 01/23/19 03:30 Respiratory Effort Non-Labored 01/23/19 07:52 Respiratory Depth Normal 01/23/19 07:52 Respiratory Pattern Normal 01/23/19 07:52 Blood Pressure 124/58 L 01/23/19 03:30 Blood Pressure Position Supine 01/21/19 01:53 Pulse Oximetry 96 01/23/19 03:30 Oxygen Delivery Method Room Air 01/23/19 03:30 Oxygen Flow Rate 0 01/23/19 03:30 Pain Level 0 01/23/19 03:30 Intake & Output 01/22/19 01/22/19 01/23/19 11:59 23:59 11:59 Intake Total 740 / 983 243 / 983 750 / 750 Output Total 350 / 350 1250 / 1250 Balance 740 / 633 -107 / 633 -500 / -500 Intake: IV 3 Oral 740 / 980 240 / 980 750 / 750 Output: Urine 350 / 350 1250 / 1250 Other: Urine Color Yellow Yellow Yellow Urine Appearance Clear Clear Urine Odor Normal Normal Comment no hat in toilet at this time, unable to measure output Stool Occult Blood Positive Stool Size Small Small Moderate Stool Characteristics Soft Soft Soft Formed Bloody Formed Voiding Methods Toilet Toilet Toilet Data Completed and Pending Labs on day of discharge: Labs from last 24 hours 01/23/19 01/23/19 01/23/19 07:40 07:40 06:39 WBC Pending RBC Pending Hgb Pending Hct Pending MCV Pending MCH Pending MCHC Pending RDW Pending Plt Count Pending MPV Pending Immature Gran % Pending Neutrophils % Pending Lymphocytes % Pending Monocytes % Pending Eosinophils % Pending Basophils % Pending Absolute Neutrophils Pending Absolute Lymphocytes Pending Absolute Monocytes Pending Absolute Eosinophils Pending Absolute Basophils Pending PT 24.6 H D INR 2.5 H D Sodium Pending Potassium Pending Chloride Pending Carbon Dioxide Pending Anion Gap Pending BUN Pending Creatinine Pending Estimated GFR/1.73 m2 Pending Glucose Pending Calcium Pending Magnesium Pending COUNT INCLUDES THE [facility] Medical History Aortoiliac occlusive disease Breast cancer Chronic diarrhea Depression Diabetes GERD (gastroesophageal reflux disease) Hyperlipidemia Hypertension Hypomagnesemia Ischemic colitis PVD (peripheral vascular disease) Urinary incontinence Surgical History axillo-byfem bypass Breast, Lumpectomy EGD - MAC (02/29/16) Social History Smoking/Tobacco Use Status: Former Tobacco Use Alcohol Intake: never Drug use: Never Do you feel safe at home: Yes Do you feel safe in your relationship?: Yes
[2019-01-23 10:11] LABS: Abs Immature Grans 0.02 k/cumm (0.0-0.09); Absolute Basophil Count 0.02 k/cumm (0.0-0.2); Absolute Eosinophil Count 0.13 k/cumm (0.0-0.7); Absolute Lymphocyte Count 1.48 k/cumm (1.2-3.4); Absolute Monocyte Count 0.53 k/cumm (0.11-0.7); Absolute Neutrophil Count 4.55 k/cumm (1.2-6.7); Basophils % 0.3; Eosinophils % 1.9; HCT 26.6 % (36.0-46.0); HGB 8.1 g/dL (12.0-15.5); Immature Grans % 0.3; Mean Corp. HGB Concentration 30.5 g/dL (32.0-36.0); Mean Corpuscular Hemoglobin 27.5 pg (27.0-33.0); Mean Corpuscular Volume 90.2 fL (80-95); Mean Platelet Volume 10.8 fL (8.0-11.0); Monocytes % 7.9; Neutrophils % 67.6; Platelet Count 306 x1000/uL (130-400); RBC 2.95 m/cumm (4.00-5.20); White Blood Cell Count 6.73 k/cumm (4.4-10.8)
[2019-01-23 10:19] LABS: Anion Gap 10.9 mmol/L (3-11); BUN 22 mg/dL (7-18); CO2 26.1 mmol/L (21.0-32.0); CREATININE 1.46 mg/dL (0.55-1.02); Calcium 8.6 mg/dL (8.5-10.1); Chloride 105 mmol/L (98-107); Estimated GFR 34.93 (mL/min/1.73m2); Glucose 197 mg/dL (74-106); Magnesium 1.7 mg/dL (1.8-2.4); Potassium 4.2 mmol/L (3.5-5.1); Sodium 142 mmol/L (136-145)
[2019-01-23] MEDS: Magnesium Oxide 400 MG TAB 800 MG PO (10:37)
[2019-01-23] MEDS: Calcium 600mg/Vit D 200U TAB 1 TAB PO (10:37)
--- NOTE | 2019-01-23 17:35 | CMDISCH_ITS ---
LACE Index Scoring Tool - Questions: Length of Stay (in days): 2 Acuity (Admit via E.D.?): Yes Comorbidities: PVD, Diabetes w/o Complication, Any Tumor E.D. Visits: 3 - Answers: Total Score: 13 Risk of Readmission: High Risk Care Management Discharge Reason for Hospitalization: Lower GI bleed. Discharge Plan: Elisa will be discharged home to resume current services when medically cleared by provider. She will transport via private vehicle with her daughter. CM spoke with home provider; Leigh Ann Sparks#[phone] to confirm discharge plan, Leigh Ann reported no additional services were required at this time and she could outreach to current service supports in the event skilled services were required. Elisa will follow up with her PCP and discharge plan of care as prescribed. Patient/Family Education Needs: Review discharge instructions, discuss Ask Me Three. Services Needed at Discharge: Day Care ([facility] ), Home Health Care Services ([facility]; home provider. )
== END 2019-01-23 10:54 | disposition home or self-care (01) ==
LOC: ER 01:42 → MS 01:58
PROVIDERS: Internal Medicine; Nurse Practitioner Family; Admitting Provider General Practice; Emergency Provider Emergency Medicine; PCP Family Medicine; Visit Provider Family Medicine
DX: K92.2 Gastrointestinal hemorrhage, unspecified (principal); I70.209 Unspecified atherosclerosis of native arteries of extremities, unspecified extremity; Z87.891 Personal history of nicotine dependence; Z98.62 Peripheral vascular angioplasty status; R79.1 Abnormal coagulation profile; T45.515A Adverse effect of anticoagulants, initial encounter; D64.9 Anemia, unspecified; Z79.01 Long term (current) use of anticoagulants; Z79.82 Long term (current) use of aspirin; E11.9 Type 2 diabetes mellitus without complications; F32.9 Major depressive disorder, single episode, unspecified; K21.9 Gastro-esophageal reflux disease without esophagitis
CPT/HCPCS: 36415; 80048; 80053; 85027; 86850; 86900; 86901; 99222; 99233; 99239; 99285; NC; 83735; 85014; 85018; 85025; 85610; 85730; 99217; 99218; 99226; 99284; G0378

== ENCOUNTER 2019-01-26 01:09 | Outpatient (RCR) | payer MEDICARE, MEDICAID, SELFPAY ==
[2019-01-26] MEDS: Normal Saline Flush 10 ML SYR IVP (13:33)
[2019-01-26] MEDS: IRON SUCROSE COMPLEX 100 MG in Normal Saline 100 ML 420 MG IVPB (13:33)
== END 2019-02-08 23:59 | disposition home or self-care (01) ==
LOC: INF 01:09
PROVIDERS: PCP Family Medicine; Visit Provider Internal Medicine
DX: D50.9 Iron deficiency anemia, unspecified (principal); N18.3 Chronic kidney disease, stage 3 (moderate)
CPT/HCPCS: 96365; J1756

== ENCOUNTER → 2019-02-08 09:41 | Outpatient (BNVA) | payer MEDICARE, MEDICAID, SELFPAY | PROVIDERS: PCP Family Medicine; Referring Provider Family Medicine; Visit Provider Surgery | DX: K62.5 Hemorrhage of anus and rectum (principal); I10 Essential (primary) hypertension; E11.9 Type 2 diabetes mellitus without complications; I73.9 Peripheral vascular disease, unspecified; Z79.01 Long term (current) use of anticoagulants | CPT/HCPCS: 99213 ==

== ENCOUNTER 2019-03-01 00:59 | Outpatient (CLI) | payer MEDICARE, MEDICAID, SELFPAY ==
--- NOTE | 2019-03-01 10:49 | DI.RAD_ITS ---
EXAM: XR KNEE LT 3V AP,LAT,SHANNON CLINICAL HISTORY: BILAT KNEE PAIN M25.569 TECHNIQUE: COMPARISON: No exams were available for comparison FINDINGS: Three views were obtained. There may be slight demineralization of bones of the knee. Otherwise no significant bony or soft tissue abnormality seen. IMPRESSION:
== END 2019-03-01 01:19 ==
PROVIDERS: PCP Family Medicine; Visit Provider Family Medicine
DX: M25.561 Pain in right knee (principal); M25.562 Pain in left knee
CPT/HCPCS: 73562

== ENCOUNTER 2019-03-01 01:13 | Outpatient (RCR) | payer MEDICARE, MEDICAID, SELFPAY ==
[2019-02-16] MEDS: IRON SUCROSE COMPLEX 100 MG in Normal Saline 100 ML 420 MG IVPB (13:30)
[2019-02-16] MEDS: Normal Saline Flush 10 ML SYR IVP (13:32)
[2019-02-16 13:47] LABS: HCT 31.7 % (36.0-46.0); HGB 9.3 g/dL (12.0-15.5)
[2019-02-22] MEDS: IRON SUCROSE COMPLEX 100 MG in Normal Saline 100 ML 420 MG IVPB (13:23)
[2019-02-22] MEDS: Normal Saline Flush 10 ML SYR IVP (13:23)
[2019-02-22 13:37] LABS: HCT 33.6 % (36.0-46.0)
[2019-03-01 12:15] LABS: HCT 35.6 % (36.0-46.0); HGB 10.6 g/dL (12.0-15.5)
[2019-03-01 12:52] LABS: Anion Gap 7.3 mmol/L (3-11); BUN 15 mg/dL (7-18); CO2 31.7 mmol/L (21.0-32.0); CREATININE 1.77 mg/dL (0.55-1.02); Calcium 9.7 mg/dL (8.5-10.1); Chloride 102 mmol/L (98-107); Estimated GFR 27.97 (mL/min/1.73m2); Ferritin 137 ng/mL (8-252); Glucose 129 mg/dL (74-106); Potassium 4.2 mmol/L (3.5-5.1); Sodium 141 mmol/L (136-145)
[2019-03-01] MEDS: IRON SUCROSE COMPLEX 100 MG in Normal Saline 100 ML 420 MG IVPB (13:31)
[2019-03-01] MEDS: Normal Saline Flush 10 ML SYR IVP (13:31)
== END 2019-03-11 23:59 | disposition home or self-care (01) ==
LOC: INF 01:13
PROVIDERS: PCP Family Medicine; Visit Provider Internal Medicine
DX: D50.9 Iron deficiency anemia, unspecified (principal); N18.3 Chronic kidney disease, stage 3 (moderate); M25.561 Pain in right knee; M25.562 Pain in left knee
CPT/HCPCS: 36415; 73562; 80048; 96365; 82728; 85014; 85018; J1756

== ENCOUNTER 2019-03-30 14:39 | Outpatient (CLI) | payer MEDICARE, MEDICAID, SELFPAY ==
[2019-03-30 15:24] LABS: INR 3.1 (0.9-1.1); Prothrombin Time 30.7 sec (9.3-11.0)
== END 2019-03-30 14:59 ==
PROVIDERS: PCP Family Medicine; Visit Provider Family Medicine
DX: Z79.01 Long term (current) use of anticoagulants (principal)
CPT/HCPCS: 36415; 85610

== ENCOUNTER 2019-06-08 08:33 | Outpatient (RCR) | payer MEDICARE, MEDICAID, SELFPAY ==
[2019-06-08 10:24] LABS: Abs Immature Grans 0.01 k/cumm (0.0-0.09); Absolute Basophil Count 0.03 k/cumm (0.0-0.2); Absolute Eosinophil Count 0.15 k/cumm (0.0-0.7); Absolute Lymphocyte Count 1.52 k/cumm (1.2-3.4); Absolute Monocyte Count 0.62 k/cumm (0.11-0.7); Absolute Neutrophil Count 4.34 k/cumm (1.2-6.7); Basophils % 0.4; Eosinophils % 2.2; HCT 29.7 % (36.0-46.0); HGB 8.6 g/dL (12.0-15.5); Immature Grans % 0.1 %; Lymphocytes % 22.8; Mean Corpuscular Hemoglobin 23.2 pg (27.0-33.0); Mean Corpuscular Volume 80.1 fL (80-95); Monocytes % 9.3; Neutrophils % 65.2; Platelet Count 463 x1000/uL (130-400); RBC 3.71 m/cumm (4.00-5.20); RBC Distribution Width 16.8 % (11.7-14.6); White Blood Cell Count 6.67 k/cumm (4.4-10.8)
[2019-06-08 10:41] LABS: Anisocytosis 1+; Diff Comment RBC Morph Reviewed; Hemoglobin A1C 8.2 % (3.8-5.6); Hypochromasia 2+; Microcytosis 2+; Polychromasia Present
[2019-06-08 10:52] LABS: Anion Gap 8.5 mmol/L (3-11); BUN 21 mg/dL (7-18); CO2 29.5 mmol/L (21.0-32.0); CREATININE 1.59 mg/dL (0.55-1.02); Calcium 8.9 mg/dL (8.5-10.1); Chloride 100 mmol/L (98-107); Estimated GFR 31.65 (mL/min/1.73m2); Ferritin 12 ng/mL (8-252); Glucose 174 mg/dL (74-106); Potassium 4.1 mmol/L (3.5-5.1); Sodium 138 mmol/L (136-145)
== END 2019-06-09 23:59 | disposition home or self-care (01) ==
LOC: INF 08:33
PROVIDERS: PCP Family Medicine; Visit Provider Family Medicine
DX: D50.9 Iron deficiency anemia, unspecified (principal); D64.9 Anemia, unspecified; E11.9 Type 2 diabetes mellitus without complications
CPT/HCPCS: 36415; 80048; 86900; 86901; 82728; 83036; 85025

== ENCOUNTER 2019-06-16 02:13 | Outpatient (RCR) | payer MEDICARE, MEDICAID, SELFPAY ==
[2019-06-16] VITALS (8 sets, daily range): BP systolic 93–114; BP diastolic 51–68; PULSE 79–97; RESP 18–19; TEMP 36–37; O2SAT 95–98
[2019-06-16 10:04] LABS: HCT 24.2 % (36.0-46.0)
[2019-06-16 10:16] LABS: Prothrombin Time 29.5 sec (9.3-11.0)
[2019-06-16] MEDS: Normal Saline Flush 10 ML SYR IVP (13:36)
== END 2019-07-10 23:59 | disposition home or self-care (01) ==
LOC: INF 02:13
PROVIDERS: Nurse Practitioner Family; PCP Family Medicine; Visit Provider Family Medicine
DX: D64.9 Anemia, unspecified (principal)
CPT/HCPCS: 36415; 36430; 86850; 86900; 86901; 86920; 85014; 85018; 85610; P9016

== ENCOUNTER 2019-11-17 13:06 | Outpatient (CLI) | payer MEDICARE, MEDICAID, SELFPAY ==
[2019-11-17 16:27] LABS: Prothrombin Time 51.8 sec (9.3-11.0)
[2019-11-17 16:52] LABS: INR 5.4 (0.9-1.1)
== END 2019-11-17 13:26 ==
PROVIDERS: PCP Family Medicine; Visit Provider Family Medicine
DX: Z79.01 Long term (current) use of anticoagulants (principal); R79.1 Abnormal coagulation profile
CPT/HCPCS: 36415; 85610

== ENCOUNTER 2019-11-25 04:29 | Outpatient (CLI) | payer MEDICARE, MEDICAID, SELFPAY ==
--- NOTE | 2019-11-25 | DI.RAD_ITS ---
EXAM: XR CHEST 2V PA LATERAL CLINICAL HISTORY: RADICULAR SYNDROME OF LOWER LIMBS M54.10 TECHNIQUE: 2D digital imaging was performed. COMPARISON: No exams were available for comparison FINDINGS: MEDIASTINUM: Normal. HEART: Normal. PULMONARY VASCULATURE: Normal. LUNGS: Clear. Hyperexpansion of the lungs suggesting COPD. PLEURAL SPACE: No pleural effusion or pneumothorax. BONE:Within normal limits for the patient's age. OTHER FINDINGS:No radiopaque foreign bodies are seen overlying the right chest wall. IMPRESSION: No acute pulmonary findings. DATA REPOSITORY: RADIATION DOSE DELIVERED:
--- NOTE | 2019-11-25 | DI.MRI_ITS ---
EXAM: MR LUMBAR SPINE WO CLINICAL HISTORY: RADICULAR SYNDROME OF LOWER LIMBS,M54.10. TECHNIQUE: Multiplanar multisequence MRI was performed. COMPARISON: MR MRI - LUMBAR SPINE W/WO CONT from 09/08/[address] ABDOMEN PELVIS WO from 07/23/2018 CR XR CHEST 2V PA LATERAL from 11/25/2019 FINDINGS: The vertebral bodies are well maintained in height. The T12-L1 through L2-3 levels are unremarkable. There is minimal bulging of the L3-4 disc. There are mild facet degenerative changes. There is no significant central canal stenosis or neural foraminal narrowing. There is mild bulging of the L4-5 disc. There are prominent facet degenerative changes. There is ligamentous hypertrophy, contributi ng to mild central canal stenosis. There is left neural foraminal narrowing. There are bilateral L5 pars defects and L5-S1 spondylolysis, unchanged compared the previous CT. There are degenerative di sc changes as well as marked loss of disc height. There is severe central canal stenosis as well as severe neural foraminal narrowing. IMPRESSION: L5 spondylolysis and L5-S1 spondylolisthesis as well as degenerative disc changes combine to produce bilateral neural foraminal narrowing and severe central canal stenosis. DATA REPOSITORY:
== END 2019-11-25 04:49 ==
PROVIDERS: PCP Family Medicine; Visit Provider Family Medicine
DX: M54.10 Radiculopathy, site unspecified (principal); M43.17 Spondylolisthesis, lumbosacral region; M48.061 Spinal stenosis, lumbar region without neurogenic claudication
CPT/HCPCS: 71046; 72148

== ENCOUNTER 2019-12-07 03:02 | Outpatient (RCR) | payer MEDICARE, MEDICAID, SELFPAY ==
[2019-12-07] MEDS: IRON SUCROSE COMPLEX 300 MG in Normal Saline 250 ML 176.667 MG IVPB (10:02)
[2019-12-07] MEDS: Normal Saline Flush 10 ML SYR IVP (10:02)
[2019-12-07 10:08] LABS: HCT 26.8 % (36.0-46.0); HGB 7.7 g/dL (11.2-15.7)
[2019-12-07 10:28] LABS: Iron 231 ug/dL (50-170); Total Iron Binding Capacity 400 ug/dL (250-450); Transferrin Sat 58 % (15-50)
[2019-12-07 10:38] LABS: Ferritin 12 ng/mL (8-252)
== END 2019-12-10 23:59 | disposition home or self-care (01) ==
LOC: INF 03:02
PROVIDERS: PCP Family Medicine; Visit Provider Family Medicine
DX: D50.9 Iron deficiency anemia, unspecified (principal)
CPT/HCPCS: 36415; 96365; 82728; 83540; 83550; 85014; 85018; J1756

== ENCOUNTER 2020-01-04 01:24 | Outpatient (RCR) | payer MEDICARE, MEDICAID, SELFPAY ==
[2019-12-21] MEDS: Normal Saline Flush 10 ML SYR IVP (10:12)
[2019-12-21 10:22] LABS: HGB 9.3 g/dL (11.2-15.7)
[2019-12-21] MEDS: IRON SUCROSE COMPLEX 300 MG in Normal Saline 250 ML 176.667 MG IVPB (10:30)
== END 2020-01-09 23:59 | disposition home or self-care (01) ==
LOC: INF 01:24
PROVIDERS: PCP Family Medicine; Visit Provider Family Medicine
DX: N18.9 Chronic kidney disease, unspecified; D50.9 Iron deficiency anemia, unspecified
CPT/HCPCS: 36415; 96365; 96366; 85018; J1756

== ENCOUNTER 2020-01-10 14:21 | Inpatient (IN) | payer MEDICARE, MEDICAID, SELFPAY ==
[2020-01-10] VITALS (63 sets, daily range): BP systolic 86–164; BP diastolic 32–110; PULSE 86–115; RESP 8–25; TEMP 36.5–37.6; O2SAT 95–100
--- NOTE | 2020-01-10 14:27 | W.ED.GENAD ---
Discharge Plan Disposition Patient Disposition: 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 Home INR today was greater than 7. She does have chronic anemia, chronic GI bleed, and was unable to make her iron infusion appointment 2 weeks ago. She is pleasant, appears well, nontoxic. Blood pressure upon arrival was 108/55, pulse in triage is 115 however upon my evaluation it was in the 90s. Her stool is black, heme positive. Will initiate IV access, GI bleed work-up, including type and screen, give 1 L lactated Ringer's, PPI, and an H2 kenny. Will recheck INR, check her H&H against her baseline, and transfuse if indicated. After multiple attempts to obtain IV access, we were able to obtain a line, patient given her lactated Ringer's. Unfortunately laboratory values were not drawn off of this line. Awaiting our laboratory courier to come to the ER to obtain lab draw. At time of signout to my colleague BERTHA De Oliveira we are awaiting laboratory values. Based upon her INR, H&H, etc., we will then have to make a disposition. Patient may simply need IV hydration, vitamin K, and can be safely discharged home versus the potential for needing hospitalization and transfusion. Medical Records Medical records reviewed: Yes I reviewed the patient's medical records. ECG Data Attestation: I personally reviewed and interpreted this ECG (s) as follows: Interpretation: Please see official report by Dr. Mark. Sinus rhythm., Ventricular rate 99. No STEMI. <BERTHA Avila - Last Filed: 01/11/20 08:48> Care transition to myself from Judd Mclaughlin PA-C. Please see his initial note regarding history and presentation. Care transferred myself with labs pending. Past medical history is significant for breast CA, hypertension, hyperlipidemia, diabetes, mesenteric ischemia, carotid artery stenosis, PAD status post aortic stenting and aortoiliac stent grafting in 2006, status post right axial bifemoral bypass in 2010, stenosis of right axial anastomosis in 2013. Contacted by the lab. They report the patient hemoglobin is 5.8. Remaining labs are still pending. I did review chart the patient has been low like this 1 other time in July of last year. At that time, the physician that saw her did contact [facility] vascular surgery who was concerned that stopping her anticoagulation to be quite risky did not recommend this. Patient was transfused and admitted at that point. I did discuss the anemia with the patient and her home care provider. We discussed benefits as well as potential complications associated with transfusion. Patient discussed this further with her daughter Susan, [phone], she would like to move forward with transfusion. Patient's INR is 7. I did discuss vitamin K with the patient as well as Susan and they would like to move forward with oral vitamin K at this time. We have also paged anesthesia as patient was a very difficult stick and will need a second site of access. Plan to give 5mg PO as the patient has multiple bypass grafts that have been blocked mutliple times historically. Consulted with Dr. Reagan from vascular surgery at [facility]. He advised just going slow with correction of INR. He states she needs to be anticoagulated but to correct the INR slowly. Goal of INR of 2-3 for bypass patency. Also advised that we could use FFP instead of vitamin K as this would allow for safer correction. He advised we could recheck CBC and INR in the morning. Discussed need for admission with patient and family. they are in agreement with this plan. Patient is pleasantly confused and, per family, has pulled out IVs and attempted to wander away during previous admission. Patient sitter was ordered. Spoke with Dr. Kinsey who agrees to admission Patient has continued to feel well while here, has tolerated transfusion well. Eating and drinking in department. HPI <BERTHA Rowe - Last Filed: 01/10/20 15:51> General Mode of arrival: ambulatory. Date/Time Provider Initiated Documentation: 01/10/20 14:27. Limitations to Documentation: altered mental status (baseline dementia). Information obtained by: patient and family (denier control operator). HPI Narrative: This is a 74-year-old female who presents with her denier control operator, past medical history of a DNR-DNI, palliative care, COPD, chronic renal disease, vascular dementia, diabetes chronic GI bleed, anemia, PVD, axial low-bifemoral bypass, on chronic anticoagulation, Coumadin, presenting to the ER today for evaluation. They typically check her INR on a weekly basis, they checked it twice today and it was 7.8 and 7.6. She was unable to make her last iron infusion appointment that was scheduled for approximately 2 weeks ago because of Covid and quarantining. Denies any concerns or complaints at this time, pain, recent trauma. She typically takes Coumadin 2 mg daily, does take 4 mg twice a week. Denies fever, chest pain, shortness of breath, cough, abdominal pain, diarrhea or constipation, dysuria, hematuria. Reports the stools were slightly loose today but that is not abnormal. She has chronic dark tarry stools, this is not different from her baseline. Denies any bright red blood per rectum. Patient denier control operator is in the room as the patient has dementia and unable to give a accurate HPI. Related Data Home Medications Medication Instructions Recorded Confirmed aspirin [Aspir-81] 81 mg PO DAILY tab-cap NS 05/30/14 01/10/20 multivitamin [Daily Vitamin] 1 ea PO QAM NS 05/30/14 01/10/20 simvastatin 40 mg PO HS tab-cap NS 05/30/14 01/10/20 paroxetine HCl 20 mg PO HS 06/19/15 01/10/20 calcium carbonate-vitamin D3 1 tab PO DAILY 07/23/18 01/10/20 [Calcium 600 + D(3)] cholecalciferol (vitamin D3) 2,000 unit PO QAM 07/23/18 01/10/20 dicyclomine 10 mg PO HS 07/23/18 01/10/20 docusate sodium [Colace] 100 mg PO DAILY 07/23/18 01/10/20 warfarin [Coumadin] 2 mg PO HS 07/23/18 01/10/20 acetaminophen 325 mg PO Q4H PRN 01/21/19 01/10/20 ferrous gluconate 324 mg PO DAILY 01/21/19 01/10/20 omeprazole 40 mg PO DAILY@0730 #30 cap 01/23/19 01/10/20 cimetidine 200 mg tablet 200 mg PO HS tab 04/28/19 01/10/20 memantine 5 mg tablet 7 mg PO HS tab 04/28/19 01/10/20 gabapentin 100 mg PO HS 01/10/20 01/10/20 melatonin 3 mg PO HS 01/11/20 01/11/20 Previous Rx's Medication Instructions Recorded omeprazole 40 mg PO DAILY@0730 #30 cap 01/23/19 Allergies Allergy/AdvReac Type Severity Reaction Status Date / Time sulfamethoxazole Allergy Mild eyes Unverified 01/10/20 14:36 [From Bactrim] swollen amphotericin B liposome Allergy Unverified 01/10/20 14:36 [From AmBisome] cefuroxime Allergy Unverified 01/10/20 14:36 donepezil Allergy Unverified 01/10/20 14:36 trimethoprim [From Bactrim] Allergy Unverified 01/10/20 14:36 oxycodone HCl [From Percocet] AdvReac Unverified 01/10/20 14:36 General KATHRYN: 2 Review of Systems <BERTHA Rowe - Last Filed: 01/10/20 15:51> Constitutional Constitutional: Denies fatigue, Denies fever(s), Denies headache(s) and Denies weakness ENT Ears, Nose, Mouth, and Throat: Denies headache(s) and Denies neck pain Cardiovascular Cardiovascular: Denies chest pain and Denies dyspnea Respiratory Respiratory: Denies cough and Denies dyspnea Gastrointestinal Gastrointestinal: Denies abdominal pain, Reports melena, Denies hematochezia, Denies constipation, Denies diarrhea, Reports loose stools, Denies nausea and Denies vomiting Genitourinary Genitourinary: Denies hematuria Musculoskeletal Musculoskeletal: Denies back pain and Denies neck pain Integumentary/Breasts Skin/Breast: Denies rash Neurologic Neurologic: Denies headache(s) and Denies weakness Endocrine Endocrine: Denies fatigue Hematologic/Lymphatic Hematologic/Lymphatic: Reports easy bleeding and Reports easy bruising PFSH <BERTHA Rowe - Last Filed: 01/10/20 15:51> Medical History Accidental fall Altered mental status Aortoiliac occlusive disease Ataxia Breast cancer Chronic diarrhea Chronic fatigue and malaise Chronic kidney disease stage III Colonic polyp COPD (chronic obstructive pulmonary disease) Dementia Depression Diabetes Diarrhea Diverticulosis GERD (gastroesophageal reflux disease) Heart murmur, systolic History of tobacco use Hyperlipidemia Hypertension Hypomagnesemia Insomnia Ischemic colitis Knee pain, bilateral Osteopenia Palliative care patient PVD (peripheral vascular disease) Radicular syndrome of left lower extremity Skin lesion Squamous cell carcinoma of skin Urinary incontinence UTI (urinary tract infection) Vascular dementia Vertigo Wrist fracture Surgical History axillo-byfem bypass Breast, Lumpectomy EGD - MAC (02/29/16) Social History Smoking/Tobacco Use Status: Former Tobacco Use Smoking risk assessment performed?: Yes Alcohol Intake: never Drug use: Never Do you feel safe at home: Yes Do you feel safe in your relationship?: Yes Exam <BERTHA Rowe - Last Filed: 01/10/20 15:51> Const General: cooperative, healthy appearing, comfortable and no acute distress Orientation: alert, awake, oriented to person, oriented to place and confused (To date) [facility] Head: normal to inspection, normocephalic and atraumatic Face and sinus: normal facial exam Mouth: moist mucous membranes abnormal (Slightly dry) Eyes General: appearance normal, both eyes and all related structures Conjunctivae: conjunctivae normal Sclera: sclerae normal Neck Neck: normal visual inspection, full ROM, trachea midline and supple Resp Effort & Inspection: normal respiratory effort and able to speak in complete sentences Auscultation: clear to auscultation bilaterally Cardio Rate: regular rate (In the 90s) Rhythm: regular rhythm GI Inspection: normal to inspection Palpation: soft, not firm, no guarding, no pulsatile masses and nontender Auscultation: normal bowel sounds Rectal Exam - female: visual inspection normal, normal sphincter tone, abnormal stool Rectal exam abnormal stool - female: black stool, heme positive stool and other (Performed with female RN in room) Back/Spine/Pelvis Back: No back tenderness Skin General skin exam: no rashes or lesions noted Neuro General: patient alert, patient awake, moves all extremities and no focal motor deficits Speech: speech normal Motor: muscle tone normal throughout Sensory Exam: no sensory deficits noted Extrem General: normal to inspection, full ROM and capillary refill normal Psych Appearance: grossly normal Mental Status: mental status grossly normal Sign Out <BERTHA Rowe - Last Filed: 01/10/20 15:51> Sign Out Data: Sign Out Comment: Home INR greater than 7. Patient with chronic anemia, chronic GI bleed. Awaiting laboratory values and disposition. Last updated by Wayne Mclaughlin PA at 01/10/20 15:51
--- NOTE | 2020-01-10 14:45 | RT.EKG_ITS ---
APPROVED REPORT Exam: Resting ECG Patient Location: E HR:99 bpm ECG Measurements Heart Rate 99 AXIS ID 115 P 44 QRSd 81 QRS 70 QT 356 T 60 QTc 457 Conclusion Sinus rhythm...normal P axis, V-rate 60- 99 Atrial premature complex...SV complex w/ short R-R interval I have reviewed and interpreted ECG and agree with software generated interpretation.
[2020-01-10] MEDS: Lactated Ringers 1,000 ML 1000 ML IV (15:43)
[2020-01-10] MEDS: FAMOTIDINE 20 MG/50 ML BAG 100 MG IVPB (15:43)
[2020-01-10] MEDS: Pantoprazole 40 MG VIAL 80 MG IVP (16:12)
[2020-01-10 16:25] LABS: Abs Immature Grans 0.08 10^3/uL (0.0-0.06); Absolute Eosinophil Count 0.22 10^3/uL (0.0-0.7); Absolute Lymphocyte Count 1.32 10^3/uL (1.2-3.4); Basophils % 0.3; Eosinophils % 1.9; Immature Grans % 0.7; Lymphocytes % 11.5; MCH 27.8 pg (27.0-33.0); MCHC 28.3 % (32.0-36.0); MCV 98.1 fL (80-95); MPV 10.6 fL (8.0-11.0); Monocytes % 5.2; Neutrophils % 80.4; Nucleated RBC 0 %; Platelet Count 370 10^3/uL (130-400); RBC 2.09 10^6/uL (3.93-5.22); RDW-SD 65.8 fL; WBC 11.45 10^3/uL (4.4-10.8)
[2020-01-10 16:35] LABS: Absolute Basophil Count 0.03 10^3/uL (0.0-0.2); Absolute Neutrophil Count 9.21 10^3/uL (1.2-6.7); HGB 5.8 g/dL (11.2-15.7)
[2020-01-10 16:36] LABS: HCT 20.5 % (36.0-46.0)
[2020-01-10 16:47] LABS: Anisocytosis 2+; Basophilic Stippling Present; Diff Comment RBC Morph Reviewed; Hypochromasia 2+; Macrocytosis 1+; Polychromasia Present
[2020-01-10 16:50] LABS: Lipase 90 U/L (73-393)
[2020-01-10 16:51] LABS: Prothrombin Time 68.5 sec (9.3-11.0)
[2020-01-10 17:01] LABS: ALT 23 U/L (14-59); AST 23 U/L (15-37); Albumin 3.1 g/dL (3.4-5.0); Alkaline Phosphatase 64 U/L (46-116); Anion Gap 11.4 mmol/L (3-11); BUN 28 mg/dL (7-18); Bilirubin, Total 0.1 mg/dL (0.2-1.0); CO2 23.6 mmol/L (21.0-32.0); CREATININE 1.47 mg/dL (0.55-1.02); Calcium 8.7 mg/dL (8.5-10.1); Chloride 105 mmol/L (98-107); Estimated GFR 34.56 (mL/min/1.73m2); Glucose 239 mg/dL (74-106); Magnesium 1.7 mg/dL (1.8-2.4); Potassium 4.8 mmol/L (3.5-5.1); Sodium 140 mmol/L (136-145)
[2020-01-10 17:02] LABS: Troponin I < 0.05 ng/mL (<0.06)
[2020-01-10 17:08] LABS: PTT Activated 33.5 sec (21.0-27.5)
[2020-01-10 17:10] LABS: INR 7.2 (0.9-1.1)
[2020-01-10] MEDS: Phytonadione 5 MG TABLET PO (17:19)
--- NOTE | 2020-01-10 18:00 | NUR.NOTE ---
Nursing Note: Spoke with Med Surg clinical coordinator and Shower Room Attendant regarding infusing blood product through 22 gauge IV. Information gathered that this is widely accepted clinical practice here at [facility], on M/S as well as infusion room. Provider aware. Pt VERY difficult stick for IV ( 6 times attempted, mostly with US guidance). 22 gauge IV in right wrist is patent, draws blood back and infuses well.
--- NOTE | 2020-01-10 19:25 | HPE_ITS ---
Date of service: 01/10/20 Time of Service: 19:26 Assessment and Plan Assessment and plan (1) GIB (gastrointestinal bleeding): Start date: 01/10/20 Status: Acute Assessment and plan: This is a 74-year-old lady who has peripheral vascular disease status post bypass and stenting on Coumadin who has chronic black stools but increased PT/INR today prompting evaluation and found to have acute blood loss anemia. He did have slight cardiovascular instability which is stabilized with blood transfusion and hydration. She is stable at the time examined and cooperative with blood transfusion. She was given 5 mg of vitamin K in the ED and PT/INR will be followed up in the morning. It appears vascular surgery and [facility] does not want her normalized if possible. She is a DNR/DNI. Acute endoscopies are not indicated unless she continues to have active bleeding with normalization into therapeutic range of her PT/INR. She does chronically receive iron infusions for her anemia. She has missed her recent. She does also take oral ferrous sulfate. Qualifiers: GI bleed type/associated pathology: unspecified gastrointestinal hemorrhage type Qualified Code(s): K92.2 - Gastrointestinal hemorrhage, unspecified (2) Anemia associated with acute blood loss: Start date: 01/10/20 Status: Acute Assessment and plan: Transfused with 2 units of packed red blood cells and follow-up CBC in the morning. Partial reversal of hypoprothrombinemia. 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 Consider adjustment of Coumadin but [facility] vascular surgery may want to be consulted as to approach to anticoagulation during this hospitalization. (4) Vascular dementia: Status: Chronic Assessment and plan: Patient will be supervised during her inpatient treatment to avoid losing IV access. Presently she is not requiring sedation and is cooperative. Continue Namenda. Qualifiers: Dementia behavioral disturbance: with behavioral disturbance Qualified Code(s): F01.51 - Vascular dementia with behavioral disturbance History of Present Illness History of Present Illness Chief Complaint: Supratherapeutic INR on Coumadin for severe PVD Narrative: This is a 74-year-old lady with advanced vascular dementia on Coumadin chronically with chronic GI bleed and black stools on iron transfusions and oral iron having missed her iron transfusion 2 weeks ago because of COVID-19 pandemic. She home checks her PT/INR and today her INR was greater than 7 with ED visit confirming this elevated INR. She was given 5 mg of vitamin K. She is a severe vasculopath status post bypasses in her lower extremity circulation with vascular surgery not wanting to have her on Coumadin. She is chronically anemic but was found to be more severely anemic in the ED. She did have tachycardia with a soft blood pressure and was transfused 2 units of packed red blood cells initiated in the ED. She is a DNR/DNI. She was admitted for stabilization with her severe hypoprothrombinemia and GI bleed. She did have heme positive stools in the ED and denies bright red blood per rectum. She has had no recent change in status at home and was accompanied by her caregiver in the ED. She had no fever or diarrhea though her stools are chronically loose. As stated she has chronic dark tarry stools. The patient is unable to offer further history and her caregiver was not with her when I examined the patient. Review of Systems Narrative: 13 point review of systems otherwise unrevealing or stable as per review of ED charting and history by caregiver with patient unable to give further history. [facility] Medical History Accidental fall Altered mental status Aortoiliac occlusive disease Ataxia Breast cancer Chronic diarrhea Chronic fatigue and malaise Chronic kidney disease stage III Colonic polyp COPD (chronic obstructive pulmonary disease) Dementia Depression Diabetes Diarrhea Diverticulosis GERD (gastroesophageal reflux disease) Heart murmur, systolic History of tobacco use Hyperlipidemia Hypertension Hypomagnesemia Insomnia Ischemic colitis Knee pain, bilateral Osteopenia Palliative care patient PVD (peripheral vascular disease) Radicular syndrome of left lower extremity Skin lesion Squamous cell carcinoma of skin Urinary incontinence UTI (urinary tract infection) Vascular dementia Vertigo Wrist fracture Surgical History axillo-byfem bypass Breast, Lumpectomy EGD - MAC (02/29/16) Social History Smoking/Tobacco Use Status: Former Tobacco Use Smoking risk assessment performed?: Yes Alcohol Intake: never Drug use: Never Do you feel safe at home: Yes Do you feel safe in your relationship?: Yes Meds Home Medications and Allergies Home Medications Medication Instructions Recorded Confirmed Type aspirin [Aspir-81] 81 mg PO DAILY tab-cap NS 05/30/14 01/10/20 History multivitamin [Daily Vitamin] 1 ea PO QAM NS 05/30/14 01/10/20 History simvastatin 40 mg PO HS tab-cap NS 05/30/14 01/10/20 History paroxetine HCl 20 mg PO HS 06/19/15 01/10/20 History calcium carbonate-vitamin D3 1 tab PO DAILY 07/23/18 01/10/20 History [Calcium 600 + D(3)] cholecalciferol (vitamin D3) 2,000 unit PO QAM 07/23/18 01/10/20 History dicyclomine 10 mg PO HS 07/23/18 01/10/20 History docusate sodium [Colace] 100 mg PO DAILY 07/23/18 01/10/20 History warfarin [Coumadin] 2 mg PO HS 07/23/18 01/10/20 History acetaminophen 325 mg PO Q4H PRN 01/21/19 01/10/20 History ferrous gluconate 324 mg PO DAILY 01/21/19 01/10/20 History omeprazole 40 mg PO DAILY@0730 #30 cap 01/23/19 01/10/20 Rx cimetidine 200 mg tablet 200 mg PO HS tab 04/28/19 01/10/20 History memantine 5 mg tablet 7 mg PO HS tab 04/28/19 01/10/20 History melatonin 5 mg PO HS PRN 12/22/19 01/10/20 History gabapentin 100 mg PO HS 01/10/20 01/10/20 History Allergies Allergy/AdvReac Type Severity Reaction Status Date / Time sulfamethoxazole Allergy Mild eyes Unverified 01/10/20 14:36 [From Bactrim] swollen amphotericin B liposome Allergy Unverified 01/10/20 14:36 [From AmBisome] cefuroxime Allergy Unverified 01/10/20 14:36 donepezil Allergy Unverified 01/10/20 14:36 trimethoprim [From Bactrim] Allergy Unverified 01/10/20 14:36 oxycodone HCl [From Percocet] AdvReac Unverified 01/10/20 14:36 Exam Narrative Exam Narrative: General: Patient appears older than stated age with severe actinic changes of her skin over the face and most of her body. Coarsened features. She is awake and alert but not oriented to person place or time. She is in no acute distress. She is slightly fidgety in bed. She is with a sitter because of her tenuous IV placement and tendency to at her lines. She is cooperative. HEENT: Normocephalic with coarsened features of the face. Eyes with pupils equal and reactive to light symmetrically, extraocular movement intact and sclera anicteric. Oropharynx with dry oral mucosa. Neck: Supple without JVD. Back: Stooped posture without CVA tenderness. Lungs: Clear to auscultation and percussion. Heart: Regular rate and rhythm with no appreciable murmurs or gallops. Breast: Exam deferred. Abdomen: Normal contour, soft, nontender with no guarding and no palpable hepatosplenomegaly. Bowel sounds are positive in all quadrants. Genitalia/rectal: Exam deferred. Extremities: Without pitting edema, cyanosis or clubbing. Patient has multiple rings and painted fingernails. No joint swelling with fair range of motion. Skin: Diffuse actinic changes without suspicious lesions. Dry and warm with rough texture and normal turgor. Neuro: Cranial nerves II through XII gross intact, no focalizing motor deficits. Psych: Normal affect if not slightly euphoric, normal variation. Mood normal. No abnormal thought processes elicited with patient being a poor historian. Remote and recent memory not intact with patient not able to offer history. She appears to be living in the present. Results Labs Result diagrams: 01/10/20 16:08 01/10/20 16:08 Labs: Laboratory Results - last 24 hr 01/10/20 01/10/20 01/10/20 16:08 16:08 16:08 WBC RBC Hgb Hct MCV MCH MCHC RDW Plt Count MPV Immature Gran % Neutrophils % Lymphocytes % Monocytes % Eosinophils % Basophils % Nucleated RBC % Absolute Neutrophils Absolute Lymphocytes Absolute Monocytes Absolute Eosinophils Absolute Basophils RBC Morphology Polychromasia Hypochromasia Basophilic Stippling Anisocytosis Macrocytosis PT 68.5 H INR 7.2 H* APTT 33.5 H Sodium Potassium Chloride Carbon Dioxide Anion Gap BUN Creatinine Estimated GFR/1.73 m2 Glucose Calcium Magnesium Total Bilirubin AST ALT Alkaline Phosphatase Troponin I Total Protein Albumin Lipase 90 Patient ABO/Rh AB Positive Antibody Screen Negative Crossmatch See Detail 01/10/20 01/10/20 16:08 16:08 WBC 11.45 H RBC 2.09 L Hgb 5.8 L* Hct 20.5 L* MCV 98.1 H MCH 27.8 MCHC 28.3 L RDW 19.0 H Plt Count 370 MPV 10.6 Immature Gran % 0.7 Neutrophils % 80.4 Lymphocytes % 11.5 Monocytes % 5.2 Eosinophils % 1.9 Basophils % 0.3 Nucleated RBC % 0 Absolute Neutrophils 9.21 H Absolute Lymphocytes 1.32 Absolute Monocytes 0.60 Absolute Eosinophils 0.22 Absolute Basophils 0.03 RBC Morphology See below Polychromasia Present Hypochromasia 2+ Basophilic Stippling Present Anisocytosis 2+ Macrocytosis 1+ PT INR APTT Sodium 140 Potassium 4.8 Chloride 105 Carbon Dioxide 23.6 Anion Gap 11.4 H BUN 28 H Creatinine 1.47 H Estimated GFR/1.73 m2 34.56 Glucose 239 H Calcium 8.7 Magnesium 1.7 L Total Bilirubin 0.1 L AST 23 ALT 23 Alkaline Phosphatase 64 Troponin I < 0.05 Total Protein 6.0 L Albumin 3.1 L Lipase Patient ABO/Rh Antibody Screen Crossmatch Last Vital Signs Temp 37.3 C 01/10/20 18:29 Pulse 98 H 01/10/20 18:31 Resp 12 01/10/20 18:40 BP 123/51 L 01/10/20 18:31 Pulse Ox 96 01/10/20 18:40 COVID-19 Screening Have you, or household traveled for leisure in last 14 days?: No Had IN PERSON contact w/suspected or confirmed C-19 person: No
[2020-01-10] MEDS: Gabapentin 100 MG CAP PO (22:36)
[2020-01-10] MEDS: Dicyclomine 10 MG CAP PO (22:36)
[2020-01-10] MEDS: Memantine 5 MG TAB 7.5 MG PO (22:37)
[2020-01-10] MEDS: PARoxetine 20 MG TAB PO (22:50)
[2020-01-11] VITALS (10 sets, daily range): BP systolic 132–179; BP diastolic 60–76; PULSE 85–105; RESP 16–18; TEMP 36.6–37.9; O2SAT 94–98
[2020-01-11 00:24] LABS: Troponin I < 0.05 ng/mL (<0.06)
[2020-01-11] MEDS: Pantoprazole 40 MG VIAL IVP ×3 (01:15→21:21)
[2020-01-11] MEDS: Normal Saline Flush 10 ML SYR IVP ×5 (01:17→21:22)
[2020-01-11] MEDS: MAGNESIUM SULFATE 2 GM/50 ML BAG IVPB (01:20)
[2020-01-11] MEDS: Normal Saline 1,000 ML 80 ML IV ×2 (01:21→14:00)
[2020-01-11 06:27] LABS: Abs Immature Grans 0.08 10^3/uL (0.0-0.06); Absolute Eosinophil Count 0.35 10^3/uL (0.0-0.7); Absolute Lymphocyte Count 1.94 10^3/uL (1.2-3.4); Absolute Monocyte Count 0.79 10^3/uL (0.1-0.8); Absolute Neutrophil Count 7.63 10^3/uL (1.2-6.7); Basophils % 0.6; Eosinophils % 3.2; HCT 30.5 % (36.0-46.0); HGB 9.8 g/dL (11.2-15.7); Immature Grans % 0.7; Lymphocytes % 17.9; MCH 28.4 pg (27.0-33.0); MCHC 32.1 % (32.0-36.0); MCV 88.4 fL (80-95); MPV 10.1 fL (8.0-11.0); Monocytes % 7.3; Neutrophils % 70.3; Nucleated RBC 1 %; Platelet Count 309 10^3/uL (130-400); RBC 3.45 10^6/uL (3.93-5.22); RDW 17.7 % (11.7-14.6); WBC 10.85 10^3/uL (4.4-10.8)
[2020-01-11 06:29] LABS: Absolute Basophil Count 0.07 10^3/uL (0.0-0.2)
[2020-01-11 06:35] LABS: BUN 24 mg/dL (7-18); CREATININE 1.31 mg/dL (0.55-1.02); Calcium 8.1 mg/dL (8.5-10.1); Chloride 105 mmol/L (98-107); Estimated GFR 39.47 (mL/min/1.73m2); Glucose 148 mg/dL (74-106); Sodium 138 mmol/L (136-145)
[2020-01-11 06:37] LABS: Magnesium 2.5 mg/dL (1.8-2.4)
[2020-01-11] MEDS: Ferrous Gluconate 324 MG TAB PO (07:42)
--- NOTE | 2020-01-11 09:51 | PHA.REVIEW ---
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) GIB (gastrointestinal bleeding) (Acute) Anemia associated with acute blood loss (Acute) sulfamethoxazole [From Bactrim] Allergy (Mild, Unverified 01/10/20 14:36) eyes swollen amphotericin B liposome [From AmBisome] Allergy (Unverified 01/10/20 14:36) cefuroxime Allergy (Unverified 01/10/20 14:36) donepezil Allergy (Unverified 01/10/20 14:36) trimethoprim [From Bactrim] Allergy (Unverified 01/10/20 14:36) oxycodone HCl [From Percocet] Adverse Reaction (Unverified 01/10/20 14:36) Height 4 ft 9 in Weight 53.7 kg - Renal Dosing Renal Dosing: BUN 24 mg/dL (7-18) H 01/11/20 06:12 Creatinine 1.31 mg/dL (0.55-1.02) H 01/11/20 06:12 Medications needing adjustments: Reviewed - Anticoagulation Anticoagulation: Hgb 9.8 g/dL (11.2-15.7) L D 01/11/20 06:12 Hct 30.5 % (36.0-46.0) L D 01/11/20 06:12 Plt Count 309 10^3/uL (130-400) 01/11/20 06:12 INR 7.2 (0.9-1.1) H* 01/10/20 16:08 Creatinine 1.31 mg/dL (0.55-1.02) H 01/11/20 06:12 DVT Prohphylaxis: N/A Therapeutic Anticoagulation: N/A Medications: Warfarin (NOT ORDERED -- acute GI bleed) - Opiate Usage Evaluate Pain Scale/Pains Meds: N/A - Relevant Labs Sodium 138 mmol/L (136-145) 01/11/20 06:12 Potassium 4.0 mmol/L (3.5-5.1) 01/11/20 06:12 Chloride 105 mmol/L (98-107) 01/11/20 06:12 Magnesium 2.5 mg/dL (1.8-2.4) H 01/11/20 06:12 Electrolytes, C-Reactive P, ESR: Reviewed - DM Control DM Control: Glucose 148 mg/dL (74-106) H D 01/11/20 06:12 Insulin Dosing: N/A - Heart Failure/NV Heart Failure/NV: Troponin I < 0.05 ng/mL (<0.06) 01/10/20 23:50 EF%, ROBINA's, B-Blockers, Diuretics: Reviewed - BP Control BP Control: Blood Pressure 170/63 Blood Pressure 179/76 Blood Pressure 164/76 Blood Pressure 167/73 Blood Pressure 164/76 Blood Pressure 164/70 Blood Pressure 143/70 If elevated: Reviewed List meds needing interventions: none - Qtc Review If Elevated: Reviewed (QTc 457) - IV to PO Switch IV Medications: Reviewed - Home Meds Home Med List reviewed: Reviewed Relevent Home Meds Not ordered & why?: ASA (acute bleed), calc+vit d, mvi, simvastatin, warfarin (supratherapeutic INR) -- of note: per rx record it looks like pt is being titrated up to Namenda XR 28mg as she was prescribed a titration pack in November, previous home Namenda dose is an ER capsule and we have an IR tab ordered... Nursing aware and seeing if pt can supply home ER dose; Aspirin+warfarin+paroxetine+simvastatin all pose an increased risk of bleeding, paroxetine+cimetidine could result in inc paroxetine levels and thus toxicity - Current meds Current Medication Order Review: Reviewed - Comments Comments/Follow Ups: Most recent INR is 3.8, missed last iron infusion due to covid -- consider administering while inpatient: her order is written for Iron Sucrose 300mg
[2020-01-11 10:01] LABS: Source Nasopharynx
--- NOTE | 2020-01-11 10:05 | INITIAL_ITS ---
- If Service Date Differs Date of service: 01/11/20 Time of Service: 10:05 Care Management Initial Assess REASON FOR HOSPITALIZATION:: GI Bleed PAST MEDICAL HISTORY/PAST SURGICAL HISTORY:: Medical History . Accidental fall. Altered mental status. Aortoiliac occlusive disease. Ataxia. Breast cancer. Chronic diarrhea. Chronic fatigue and malaise. Chronic kidney disease. stage III. Colonic polyp. COPD (chronic obstructive pulmonary disease). Dementia. Depression. Diabetes. Diarrhea. Diverticulosis. GERD (gastroesophageal reflux disease). Heart murmur, systolic. History of tobacco use. Hyperlipidemia. Hypertension. Hypomagnesemia. Insomnia. Ischemic colitis. Knee pain, bilateral. Osteopenia. Palliative care patient. PVD (peripheral vascular disease). Radicular syndrome of left lower extremity. Skin lesion. Squamous cell carcinoma of skin. Urinary incontinence. UTI (urinary tract infection). Vascular dementia. Vertigo. Wrist fracture. Surgical History (Reviewed 02/28 @ 19:25 by James Kinsey). axillo-byfem bypass. Breast, Lumpectomy. EGD - MAC (02/29/16) PREVIOUS FUNCTIONAL STATUS/SOCIAL/FAMILY SUPPORTS:: Elisa lives with a respiratory care program director in [place], [place] She has vascular dementia and requires assistance with ADLs, however is able to ambulate well with supervision. She has 3 children; her daughter Krystal is identified as her electrical contacts adjuster and next of kin. CURRENT FUNCTIONAL STATUS:: Elisa was sitting up in a chair when CM met with her. She was pleasant and receptive to conversation but also very confused. She was unable to tell me where she lives and was not exactly sure how many children she has. She admitted to being very concerned about something but was unable to describe what that was exactly. ADVANCE DIRECTIVES:: none on file. patient is confused and unable to process Has patient been provided with info about the portal/API?: No Did the patient sign up for the portal?: No CODE STATUS:: DNR/DNI INSURANCE COVERAGE / FINANCIAL ISSUES:: Medicaid. Medicare CURRENT HOME/COMMUNITY SERVICES/EQUIPMENT:: caregiver PRIMARY CARE PHYSICIAN:: Nirmala Clemente POTENTIAL DISCHARGE NEEDS:: follow up with PCP and discharge plan PATIENT/FAMILY EDUCATION NEEDS:: Discharge plan, limitations, follow up plan, Ask Me Three TRANSPORTATION:: private vehicle with home provider PLAN:: Elisa will be discharged home with no new services when medically cleared by provider. Transportation home will be provided by home provider via private vehicle. Follow up with PCP and discharge plan of care. CM will continue to support patient, family and discharge planning concerns.
[2020-01-11 10:10] LABS: INR 3.8 (0.9-1.1); Prothrombin Time 36.5 sec (9.3-11.0)
[2020-01-11 10:57] LABS: COVID-19 PCR Negative (Negative); Influenza A PCR Negative (Negative); Influenza B PCR Negative (Negative); RSV PCR Negative (Negative)
--- NOTE | 2020-01-11 12:23 | W.PM.PROGNOT ---
Date of Service Date of service: 01/11/20 Time of Service: 12:24 Assessment and Plan Assessment and plan (1) Supratherapeutic INR: Status: Acute Assessment and plan: Presenting INR of 7.2. Given 5mg po K in ED. INR now 3.8 Will endeavor to maintain the INR in therapeutic range of 2-3. Monitor daily (2) COPD (chronic obstructive pulmonary disease): Status: Chronic Assessment and plan: No home meds/inhalants. Stable w/o exacerbation (3) Chronic kidney disease: Status: Acute Assessment and plan: Creatinine now 1.31; 1.47 on admission. Now in baseline range. (4) Vascular dementia: Status: Chronic Assessment and plan: Confused w/o behavioral disturbance. Qualifiers: Dementia behavioral disturbance: with behavioral disturbance Qualified Code(s): F01.51 - Vascular dementia with behavioral disturbance (5) GIB (gastrointestinal bleeding): Status: Acute Assessment and plan: No evidence of any ongoing/active bleeding. She endorses hematemasis, but history obtained by caregiver in ED did not endorse this. She was transfused 2 units RBCs and Hgb now 9.8 (5.8 on admission). Monitor. Endoscopy to be considered if continues to bleed. Qualifiers: GI bleed type/associated pathology: unspecified gastrointestinal hemorrhage type Qualified Code(s): K92.2 - Gastrointestinal hemorrhage, unspecified (6) Anemia: Status: Chronic Assessment and plan: Chronic; now with acute anemia d/t supratherapeutic INR and likely a GIB. Watch for other sites that would account for her blood loss; hematoma, retroperitoneal, etc. She had an Iron level of 231 on 12/07/2019. (7) Atherosclerotic peripheral vascular disease of extremity: Status: Acute Assessment and plan: H/O bypass grafting and stenting. Attempt to maintain a therapeutic INR. Subjective Subjective Patient reports: feels better; denies nausea (She does state she isn't hungry) and vomiting Interval history since last seen: Patient is confused and a poor historian. She diverts our conversation to her concern that her legs have had to be shaved and she is worried about having to shave them and what will I do with all that hair?. Exam Const General: cooperative and no acute distress Nutritional Appearance: average body habitus Orientation: alert and confused Neck Neck: full ROM and no JVD Resp Effort & Inspection: normal respiratory effort Auscultation: clear to auscultation bilaterally Cardio Rate: regular rate Rhythm: regular rhythm Heart Sounds: S1 normal and S2 normal GI Palpation: soft and nontender Auscultation: normal bowel sounds Skin General skin exam: no rashes or lesions noted Extrem General: no pedal edema and no calf tenderness Objective Last Vital Signs Temp 36.7 C 01/11/20 11:07 Pulse 95 H 01/11/20 11:07 Resp 16 01/11/20 11:07 BP 168/74 H 01/11/20 11:07 Pulse Ox 95 01/11/20 11:07 Laboratory Results - last 24 hr 01/10/20 01/10/20 01/10/20 16:08 16:08 16:08 WBC RBC Hgb Hct MCV MCH MCHC RDW Plt Count MPV Immature Gran % Neutrophils % Lymphocytes % Monocytes % Eosinophils % Basophils % Nucleated RBC % Absolute Neutrophils Absolute Lymphocytes Absolute Monocytes Absolute Eosinophils Absolute Basophils RBC Morphology Polychromasia Hypochromasia Basophilic Stippling Anisocytosis Macrocytosis PT 68.5 H INR 7.2 H* APTT 33.5 H Sodium Potassium Chloride Carbon Dioxide Anion Gap BUN Creatinine Estimated GFR/1.73 m2 Glucose Calcium Magnesium Total Bilirubin AST ALT Alkaline Phosphatase Troponin I Total Protein Albumin Lipase 90 COVID-19 Source COVID-19 PCR Nasopharyn COVID-19 PCR Influenza Type A (PCR) Influenza Type B (PCR) RSV (PCR) Ref Test Perform Site Patient ABO/Rh AB Positive Antibody Screen Negative Crossmatch See Detail 01/10/20 01/10/20 01/10/20 16:08 16:08 19:39 WBC 11.45 H RBC 2.09 L Hgb 5.8 L* Hct 20.5 L* MCV 98.1 H MCH 27.8 MCHC 28.3 L RDW 19.0 H Plt Count 370 MPV 10.6 Immature Gran % 0.7 Neutrophils % 80.4 Lymphocytes % 11.5 Monocytes % 5.2 Eosinophils % 1.9 Basophils % 0.3 Nucleated RBC % 0 Absolute Neutrophils 9.21 H Absolute Lymphocytes 1.32 Absolute Monocytes 0.60 Absolute Eosinophils 0.22 Absolute Basophils 0.03 RBC Morphology See below Polychromasia Present Hypochromasia 2+ Basophilic Stippling Present Anisocytosis 2+ Macrocytosis 1+ PT INR APTT Sodium 140 Potassium 4.8 Chloride 105 Carbon Dioxide 23.6 Anion Gap 11.4 H BUN 28 H Creatinine 1.47 H Estimated GFR/1.73 m2 34.56 Glucose 239 H Calcium 8.7 Magnesium 1.7 L Total Bilirubin 0.1 L AST 23 ALT 23 Alkaline Phosphatase 64 Troponin I < 0.05 Total Protein 6.0 L Albumin 3.1 L Lipase COVID-19 Source COVID-19 PCR Cancelled Nasopharyn COVID-19 PCR Cancelled Influenza Type A (PCR) Influenza Type B (PCR) RSV (PCR) Ref Test Perform Site Cancelled Patient ABO/Rh Antibody Screen Crossmatch 01/10/20 01/11/20 01/11/20 23:50 06:12 06:12 WBC 10.85 H RBC 3.45 L Hgb 9.8 L D Hct 30.5 L D MCV 88.4 D MCH 28.4 MCHC 32.1 RDW 17.7 H Plt Count 309 MPV 10.1 Immature Gran % 0.7 Neutrophils % 70.3 Lymphocytes % 17.9 Monocytes % 7.3 Eosinophils % 3.2 Basophils % 0.6 Nucleated RBC % 1 Absolute Neutrophils 7.63 H Absolute Lymphocytes 1.94 Absolute Monocytes 0.79 Absolute Eosinophils 0.35 Absolute Basophils 0.07 RBC Morphology Polychromasia Hypochromasia Basophilic Stippling Anisocytosis Macrocytosis PT INR APTT Sodium 138 Potassium 4.0 Chloride 105 Carbon Dioxide 25.0 Anion Gap 8.0 BUN 24 H Creatinine 1.31 H Estimated GFR/1.73 m2 39.47 Glucose 148 H D Calcium 8.1 L Magnesium Total Bilirubin AST ALT Alkaline Phosphatase Troponin I < 0.05 Total Protein Albumin Lipase COVID-19 Source COVID-19 PCR Nasopharyn COVID-19 PCR Influenza Type A (PCR) Influenza Type B (PCR) RSV (PCR) Ref Test Perform Site Patient ABO/Rh Antibody Screen Crossmatch 01/11/20 01/11/20 01/11/20 06:12 09:19 09:55 WBC RBC Hgb Hct MCV MCH MCHC RDW Plt Count MPV Immature Gran % Neutrophils % Lymphocytes % Monocytes % Eosinophils % Basophils % Nucleated RBC % Absolute Neutrophils Absolute Lymphocytes Absolute Monocytes Absolute Eosinophils Absolute Basophils RBC Morphology Polychromasia Hypochromasia Basophilic Stippling Anisocytosis Macrocytosis PT 36.5 H D INR 3.8 H D APTT Sodium Potassium Chloride Carbon Dioxide Anion Gap BUN Creatinine Estimated GFR/1.73 m2 Glucose Calcium Magnesium 2.5 H Total Bilirubin AST ALT Alkaline Phosphatase Troponin I Total Protein Albumin Lipase COVID-19 Source Nasopharynx COVID-19 PCR Negative Nasopharyn COVID-19 PCR Influenza Type A (PCR) Negative Influenza Type B (PCR) Negative RSV (PCR) Negative Ref Test Perform Site Patient ABO/Rh Antibody Screen Crossmatch
--- NOTE | 2020-01-11 14:43 | CHAPLAIN ---
Elisa was up and watching tv when I visited. She is connected to the [facility], but I couldn't tell from our conversation if she is currently involved in the [employer], or wanted to be connected to the boiler operator there. She said her son lives nearby, but then talked about he son walking up the the hill near the [employer] (which [place] a hill) so I'm not sure what is accurate. Elisa was pleasant and easily engaged in a conversation. She asked for help finding her dentures.
[2020-01-11] MEDS: Dicyclomine 10 MG CAP PO (21:22)
[2020-01-11] MEDS: Memantine 5 MG TAB 7.5 MG PO (21:22)
[2020-01-11] MEDS: PARoxetine 20 MG TAB PO (21:22)
[2020-01-11] MEDS: Gabapentin 100 MG CAP PO (21:22)
[2020-01-12] MEDS: Normal Saline 1,000 ML 80 ML IV (02:23)
[2020-01-12 04:07] VITALS: BP 150/63; PULSE 103; RESP 18; TEMP 36.7; O2SAT 91
[2020-01-12 06:36] LABS: Abs Immature Grans 0.03 10^3/uL (0.0-0.06); Absolute Basophil Count 0.04 10^3/uL (0.0-0.2); Absolute Eosinophil Count 0.52 10^3/uL (0.0-0.7); Absolute Lymphocyte Count 1.87 10^3/uL (1.2-3.4); Absolute Monocyte Count 0.66 10^3/uL (0.1-0.8); Absolute Neutrophil Count 3.97 10^3/uL (1.2-6.7); Basophils % 0.6; Eosinophils % 7.3; HCT 30.6 % (36.0-46.0); HGB 9.4 g/dL (11.2-15.7); Immature Grans % 0.4; Lymphocytes % 26.4; MCHC 30.7 % (32.0-36.0); MCV 91.1 fL (80-95); MPV 10.3 fL (8.0-11.0); Monocytes % 9.3; Nucleated RBC 0 %; Platelet Count 337 10^3/uL (130-400); RBC 3.36 10^6/uL (3.93-5.22); RDW 18.3 % (11.7-14.6); RDW-SD 58.4 fL; WBC 7.09 10^3/uL (4.4-10.8)
[2020-01-12 06:49] LABS: INR 3.1 (0.9-1.1); Prothrombin Time 30.3 sec (9.3-11.0)
[2020-01-12] MEDS: Ferrous Gluconate 324 MG TAB PO (07:25)
[2020-01-12] MEDS: Normal Saline Flush 10 ML SYR IVP (07:26)
[2020-01-12] MEDS: Pantoprazole 40 MG VIAL IVP (07:26)
[2020-01-12 07:56] VITALS: BP 119/70; PULSE 98; RESP 18; TEMP 36.9; O2SAT 100
--- NOTE | 2020-01-12 10:47 | CMDISCH_ITS ---
- If Service Date Differs Date of service: 01/12/20 Time of Service: 10:47 LACE Index Scoring Tool - Questions: Length of Stay (in days): 2 Acuity (Admit via E.D.?): Yes Comorbidities: Diabetes w/o Complication, Chronic Pulmonary Disease, Any Tumor, Dementia, Liver or Renal Disease E.D. Visits: 2 - Answers: Total Score: 12 Risk of Readmission: High Risk Care Management Discharge Reason for Hospitalization: GI Bleed Discharge Plan: Elisa will return to her [facility] home in [place] with her care provider Leigh Ann Walden . Contact number: . She will follow up with her PCP and discharge plan of care. Leigh Ann will transport Elisa via private vehicle. Patient/Family Education Needs: Discharge plan, limitations, follow up plan, Ask Me Three.
[2020-01-12 11:19] VITALS: BP 140/59; PULSE 69; RESP 18; TEMP 36.5; O2SAT 98
--- NOTE | 2020-01-12 11:25 | W.PM.DS.N ---
Date of service: 01/12/20 Time of Service: 11:25 DS: Diagnosis Discharge Diagnosis (1) Supratherapeutic INR: Status: Acute (2) COPD (chronic obstructive pulmonary disease): Status: Chronic (3) Chronic kidney disease: Status: Acute (4) Vascular dementia: Status: Chronic (5) GIB (gastrointestinal bleeding): Status: Acute (6) Anemia: Status: Chronic (7) Atherosclerotic peripheral vascular disease of extremity: Status: Acute Discharge Plan Disposition Patient Disposition: HOME Condition: Improving Discharge Details Reason For Visit: GI BLEED WITH ACUTE BLOOD LOSS ANEMIA,HYPOPROTHROM Admit Date/Time: 01/10/20 19:09 Admit Provider: James Kinsey Attending Provider: James Kinsey Primary Care Provider: Nirmala Clemente V Hospital Course Hospital Course: This is a 74-year-old lady with advanced vascular dementia on Coumadin chronically with chronic GI bleed and black stools on iron transfusions and oral iron having missed her iron transfusion 2 weeks ago because of COVID-19 pandemic. She home checks her PT/INR and today her INR was greater than 7 with ED visit confirming this elevated INR. She was given 5 mg of vitamin K. She is a severe vasculopath status post bypasses in her lower extremity circulation with vascular surgery not wanting to have her on Coumadin. She is chronically anemic but was found to be more severely anemic in the ED. She did have tachycardia with a soft blood pressure and was transfused 2 units of packed red blood cells initiated in the ED. She is a DNR/DNI. She was admitted for stabilization with her severe hypoprothrombinemia and GI bleed. She did have heme positive stools in the ED and denies bright red blood per rectum. Her H&H remains stable and she has had no signs of active bleeding. Her vitals remained stable. Her INR is at 3.1, she will be discharged today and resume coumadin tonight, check INR tomorrow and will resume dosing per pcp. discussed with Dr Lang who is in agreement. Home Meds and New Rx's Prescriptions: Continued cimetidine [Tagamet HB] 200 mg tablet 200 mg PO HS RF: 0 memantine [Namenda] 5 mg tablet 7 mg PO HS RF: 0 multivitamin [Daily Vitamin] 1 EACH tablet 1 ea PO QAM RF: 0 simvastatin 10 MG tablet 40 mg PO HS RF: 0 aspirin [Aspir-81] 81 MG tablet,delayed release (DR/EC) 81 mg PO DAILY RF: 0 paroxetine HCl 40 MG tablet 20 mg PO HS RF: 0 docusate sodium [Colace] 100 mg Capsule 100 mg PO DAILY RF: 0 dicyclomine 10 mg Capsule 10 mg PO HS RF: 0 calcium carbonate-vitamin D3 [Calcium 600 + D(3)] 600 mg(1,500mg) -400 unit Tablet 1 tab PO DAILY RF: 0 cholecalciferol (vitamin D3) 2,000 unit Capsule 2,000 unit PO QAM RF: 0 warfarin [Coumadin] 2 MG tablet 2 mg PO HS RF: 0 acetaminophen 325 mg Tablet 325 mg PO Q4H PRN (Reason: Pain) RF: 0 ferrous gluconate 324 mg (38 mg iron) Tablet 324 mg PO DAILY RF: 0 omeprazole 20 mg Capsule,Delayed Release(Dr/Ec) 40 mg PO DAILY@0730 Qty: 30 RF: 0 gabapentin 100 mg capsule 100 mg PO HS RF: 0 melatonin 3 mg tablet 3 mg PO HS RF: 0 Discharge Instructions Instructions: Gastrointestinal Bleeding (DC), Safe Use of Anticoagulants (DC), Blood Thinners (DC) Additional Instructions: resume coumadin tonight as previously directed. check INR tomorrow and further outpatient dosing per pcp. Stand Alone Forms: Nursing Discharge Form Referrals: Nirmala Clemente MD [Primary Care Provider] - 01/26/20 10:45 am Activity:: Activity as Tolerated Equipment/Supplies:: No Equipment Needed Diet:: As Tolerated Discharge Orders Discharge Orders: Discharge Order (Routine); Ordered 01/12/20 Ordered By: Jaz Felix Discharge Data Discharge Date/Time-TO BE ENTERED AT DEPARTURE: 01/12/20 13:03 DS: Summary Status at Discharge Functional status at discharge: uses cane/walker Overall status at discharge: patient is progressing back to baseline Mental Status: other (demented) Speech and Movement: speech and movement normal Mood: other (demented) Affect: normal affect Exam Const General: cooperative and no acute distress Nutritional Appearance: average body habitus Orientation: alert and confused Neck Neck: full ROM and no JVD Resp Effort & Inspection: normal respiratory effort Auscultation: clear to auscultation bilaterally Cardio Rate: regular rate Rhythm: regular rhythm Heart Sounds: S1 normal and S2 normal GI Palpation: soft and nontender Auscultation: normal bowel sounds Skin General skin exam: no rashes or lesions noted Extrem General: no pedal edema and no calf tenderness Psych Mental Status: other (demented) Speech and Movement: speech and movement normal Mood: other (demented) Affect: normal affect DS: Data Vitals/I&O Vitals and I&O: Vital Signs Temperature 36.5 C 01/12/20 11:19 Temperature Source Tympanic 01/12/20 11:19 Pulse 69 01/12/20 11:19 Pulse Rhythm Regular 01/12/20 07:02 Pulse 104 H 01/10/20 19:31 Respiratory Rate 18 01/12/20 11:19 Respiratory Effort Non-Labored 01/12/20 07:02 Respiratory Depth Normal 01/12/20 07:02 Respiratory Pattern Normal 01/12/20 07:02 Blood Pressure 140/59 L 01/12/20 11:19 Blood Pressure Mean 80 01/10/20 19:31 Blood Pressure Position Sitting 01/10/20 14:30 Pulse Oximetry 98 01/12/20 11:19 Oxygen Delivery Method Room Air 01/12/20 11:19 Oxygen Flow Rate 0 01/12/20 11:19 Pain Level 0 01/12/20 11:19 Comment 01/12/20 07:02 Intake & Output 01/11/20 01/11/20 01/12/20 11:59 23:59 11:59 Intake Total 506.333 / 9277.640 1836.333 / 3491.629 8531.334 / 1783.334 Output Total 500 / 1300 800 / 1300 Balance 6.333 / 479.666 473.333 / 092.800 4770.334 / 1783.334 Weight 53.7 kg 53.1 kg Intake: IV 21.333 / 814.666 793.333 / 585.433 4980.334 / 1663.334 Oral 120 / 600 480 / 600 120 / 120 Blood Product 365 / Rbc Leuko Reduced Unit 365 / [id number] Output: Urine 500 / 1300 800 / 1300 Other: Urine Color Yellow Pale Yellow Urine Appearance Clear Clear Urine Odor Normal Normal Stool Size Moderate Moderate Small Stool Characteristics Liquid Liquid Formed Black Brown Brown Voiding Methods Toilet Toilet Toilet Data Completed and Pending Labs on day of discharge: Labs from last 24 hours 01/12/20 01/12/20 06:15 06:15 WBC 7.09 D RBC 3.36 L Hgb 9.4 L Hct 30.6 L MCV 91.1 MCH 28.0 MCHC 30.7 L RDW 18.3 H Plt Count 337 MPV 10.3 Immature Gran % 0.4 Neutrophils % 56.0 Lymphocytes % 26.4 Monocytes % 9.3 Eosinophils % 7.3 Basophils % 0.6 Nucleated RBC % 0 Absolute Neutrophils 3.97 Absolute Lymphocytes 1.87 Absolute Monocytes 0.66 Absolute Eosinophils 0.52 Absolute Basophils 0.04 PT 30.3 H INR 3.1 H D PFSH Medical History Accidental fall Altered mental status Aortoiliac occlusive disease Ataxia Breast cancer Chronic diarrhea Chronic fatigue and malaise Chronic kidney disease stage III Colonic polyp COPD (chronic obstructive pulmonary disease) Dementia Depression Diabetes Diarrhea Diverticulosis GERD (gastroesophageal reflux disease) Heart murmur, systolic History of tobacco use Hyperlipidemia Hypertension Hypomagnesemia Insomnia Ischemic colitis Knee pain, bilateral Osteopenia Palliative care patient PVD (peripheral vascular disease) Radicular syndrome of left lower extremity Skin lesion Squamous cell carcinoma of skin Urinary incontinence UTI (urinary tract infection) Vascular dementia Vertigo Wrist fracture Surgical History axillo-byfem bypass Breast, Lumpectomy EGD - MAC (02/29/16) Social History Smoking/Tobacco Use Status: Former Tobacco Use Smoking risk assessment performed?: Yes Alcohol Intake: never Drug use: Never Do you feel safe at home: Yes Do you feel safe in your relationship?: Yes
[2020-01-12 12:26] VITALS: PULSE 83
== END 2020-01-12 13:03 | disposition home or self-care (01) | DRG 378 ==
LOC: ER 19:20 → MS 19:49
PROVIDERS: Family Medicine; Physician Assistant; Admitting Provider Family Medicine; Emergency Provider Physician Assistant; PCP Family Medicine; Visit Provider Family Medicine
DX: K92.1 Melena (principal); D62 Acute posthemorrhagic anemia; F01.51 Vascular dementia, unspecified severity, with behavioral disturbance; D68.4 Acquired coagulation factor deficiency; I70.209 Unspecified atherosclerosis of native arteries of extremities, unspecified extremity; T45.515A Adverse effect of anticoagulants, initial encounter; Z66 Do not resuscitate; N18.30 Chronic kidney disease, stage 3 unspecified; E11.22 Type 2 diabetes mellitus with diabetic chronic kidney disease; F32.9 Major depressive disorder, single episode, unspecified; E78.5 Hyperlipidemia, unspecified; K21.9 Gastro-esophageal reflux disease without esophagitis; I12.9 Hypertensive chronic kidney disease with stage 1 through stage 4 chronic kidney disease, or unspecified chronic kidney disease; G47.00 Insomnia, unspecified; J44.9 Chronic obstructive pulmonary disease, unspecified; Z85.3 Personal history of malignant neoplasm of breast
CPT/HCPCS: 36415; 36430; 80048; 80053; 83690; 86850; 86900; 86901; 86920; 90662; 93005; 96361; 96365; 96375; 99223; 99232; 99239; 99285; U0003; 83735; 84484; 85025; 85610; 85730; 93010; P9016

== ENCOUNTER 2020-03-14 17:03 | Observation (INO) | payer MEDICARE, MEDICAID, SELFPAY ==
[2020-03-14] VITALS (25 sets, daily range): BP systolic 110–129; BP diastolic 43–88; PULSE 87–121; RESP 10–22; TEMP 36.6; O2SAT 89–96
--- NOTE | 2020-03-14 17:30 | DI.RAD_ITS ---
EXAM: XR PORTABLE CHEST AP CLINICAL HISTORY: gi bleeding, dk stools TECHNIQUE: 2D digital imaging was performed. COMPARISON: CR XR CHEST 2V PA LATERAL from 11/25/2019 FINDINGS: MEDIASTINUM: Normal. HEART: Normal. PULMONARY VASCULATURE: Normal. Atherosclerosis of the thoracic aorta. LUNGS: Clear. Hyperexpanded lungs suggesting COPD. PLEURAL SPACE: No pleural effusion or pneumothorax. BONE:Within normal limits for the patient's age. OTHER FINDINGS:Normal. IMPRESSION: No acute pulmonary findings. DATA REPOSITORY: RADIATION DOSE DELIVERED:
--- NOTE | 2020-03-14 17:30 | RT.EKG_ITS ---
APPROVED REPORT Exam: Resting ECG Patient Location: E HR:94 bpm ECG Measurements Heart Rate 94 AXIS IN 134 P 64 QRSd 81 QRS 71 QT 352 T 72 QTc 440 Conclusion Sinus rhythm. No ST ELEVATION
--- NOTE | 2020-03-14 17:31 | W.ED.GENAD ---
Discharge Plan Disposition Patient Disposition: [facility] INPATIENT Condition: Stable Discharge Details Chief Complaint: GI Bleed Clinical Impression: GIB (gastrointestinal bleeding) Admit Date/Time: 03/14/20 19:29 Admit Provider: James Pearl Attending Provider: James Pearl Primary Care Provider: Nirmala Clemente V ED Provider: Tammy Villalta Discharge Data Discharge Date/Time-TO BE ENTERED AT DEPARTURE: 03/14/20 20:41 Medical Decision Making <BERTHA Bradshaw - Last Filed: 03/14/20 19:36> Patient is alert and pleasant She is at her baseline mentation per Leigh Ann, caregiver Her guaiac positive and she does have dark tarry stools and anticoagulated on Coumadin, I think therefore she should be admitted overnight for observation ED discussed the case with Susan, patient's daughter and DPOA and she declined endoscopy or colonoscopy She is discussed with Dr. Pearl, admitting hospitalist who is willing to admit patient Remains hemodynamically stable throughout course, taken screen and placed Per Susan, DNR/DNI Chest x-ray does not show acute pathology per my interpretation of my review Patient has been calm and cooperative throughout the evaluation INR 1.8, will refrain from reversal at this time Differential Diagnosis Differential Diagnosis: GI bleed, hemorrhoids, adverse effect medication, hypocoagulable state Lab Data Lab results reviewed: Yes I reviewed the patient's lab results. <Vincent Maria MD - Last Filed: 03/15/20 08:09> 74-year-old female patient. Seen and examined [id number], discussed with Ms. Villalta. I agree with her assessment and plan. HPI <BERTHA Bradshaw - Last Filed: 03/14/20 19:36> 74-year-old coagulopathic on Coumadin presents with report of GI bleed. She has had 2 episodes of bloody stool today. Caregiver states that her INR was checked prior to arrival and was 2.0. Denies any recent antibiotic use. Does have a history of GI bleed in the past, however low risk of removing anticoagulation outweighed the benefit blood sugar. Patient states she feels slightly lightheaded but denies any additional complaints. Denies any abdominal pain, chest pain, shortness of breath. Denies any change in Coumadin dosing. Denies recent colonoscopy or endoscopy. Denies any additional complaints time. Denies any falls or injury. Described the line as being dark in color with bright red blood clots. General Date/Time Provider Initiated Documentation: 03/14/20 17:03. Related Data Home Medications Medication Instructions Recorded Confirmed aspirin [Aspir-81] 81 mg PO DAILY tab-cap NS 05/30/14 03/14/20 multivitamin [Daily Vitamin] 1 ea PO QAM NS 05/30/14 03/14/20 simvastatin 40 mg PO HS tab-cap NS 05/30/14 03/14/20 paroxetine HCl 20 mg PO HS 06/19/15 03/14/20 calcium carbonate-vitamin D3 1 tab PO DAILY 07/23/18 03/14/20 [Calcium 600 + D(3)] cholecalciferol (vitamin D3) 2,000 unit PO QAM 07/23/18 03/14/20 dicyclomine 10 mg PO HS 07/23/18 03/14/20 docusate sodium [Colace] 100 mg PO DAILY 07/23/18 03/14/20 warfarin [Coumadin] 2 mg PO HS 07/23/18 03/14/20 acetaminophen 325 mg PO Q4H PRN 01/21/19 03/14/20 ferrous gluconate 324 mg PO DAILY 01/21/19 03/14/20 omeprazole 40 mg PO DAILY@0730 #30 cap 01/23/19 03/14/20 cimetidine 200 mg tablet 200 mg PO HS tab 04/28/19 03/14/20 memantine 5 mg tablet 7 mg PO HS tab 04/28/19 03/14/20 gabapentin 100 mg PO HS 01/10/20 03/14/20 melatonin 5 mg PO HS 01/11/20 03/14/20 Previous Rx's Medication Instructions Recorded omeprazole 40 mg PO DAILY@0730 #30 cap 01/23/19 Allergies Allergy/AdvReac Type Severity Reaction Status Date / Time sulfamethoxazole Allergy Mild eyes Unverified 03/14/20 17:16 [From Bactrim] swollen amphotericin B liposome Allergy Unverified 03/14/20 17:16 [From AmBisome] cefuroxime Allergy Unverified 03/14/20 17:16 donepezil Allergy Unverified 03/14/20 17:16 trimethoprim [From Bactrim] Allergy Unverified 03/14/20 17:16 oxycodone HCl [From Percocet] AdvReac Unverified 03/14/20 17:16 General Stated Complaint: GI Bleed KATHRYN: 2 <Vincent Maria MD - Last Filed: 03/15/20 08:09> 74-year-old coagulopathic on Coumadin presents with report of GI bleed. She has had 2 episodes of bloody stool today. Caregiver states that her INR was checked prior to arrival and was 2.0. Denies any recent antibiotic use. Does have a history of GI bleed in the past, however low risk of removing anticoagulation outweighed the benefit blood sugar. Patient states she feels slightly lightheaded but denies any additional complaints. Denies any abdominal pain, chest pain, shortness of breath. Denies any change in Coumadin dosing. Denies recent colonoscopy or endoscopy. Denies any additional complaints time. Denies any falls or injury. Described the line as being dark in color with bright red blood clots. Review of Systems <BERTHA Bradshaw - Last Filed: 03/14/20 19:36> Narrative: Review of systems negative x7 aside from indication in HPI PFSH <BERTHA Bradshaw - Last Filed: 03/14/20 19:36> Medical History Accidental fall Altered mental status Aortoiliac occlusive disease Ataxia Breast cancer Chronic diarrhea Chronic fatigue and malaise Chronic kidney disease stage III Colonic polyp COPD (chronic obstructive pulmonary disease) Dementia Depression Diabetes Diarrhea Diverticulosis GERD (gastroesophageal reflux disease) Heart murmur, systolic History of tobacco use Hyperlipidemia Hypertension Hypomagnesemia Insomnia Ischemic colitis Knee pain, bilateral Osteopenia Palliative care patient PVD (peripheral vascular disease) Radicular syndrome of left lower extremity Skin lesion Squamous cell carcinoma of skin Urinary incontinence UTI (urinary tract infection) Vascular dementia Vertigo Wrist fracture Surgical History axillo-byfem bypass Breast, Lumpectomy EGD - MAC (02/29/16) Social History Smoking/Tobacco Use Status: Former Tobacco Use Smoking risk assessment performed?: Yes Alcohol Intake: never Drug use: Never Do you feel safe at home: Yes Do you feel safe in your relationship?: Yes Additional Social history: pt has vascular dementia, 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 Pt is clean/well nourished, good interaction with healthcare prof Exam <BERTHA Bradshaw - Last Filed: 03/14/20 19:36> Const General: cooperative Orientation: alert Other: Appears chronically ill HENMT Head: normal to inspection Eyes Conjunctivae: conjunctivae normal Chest Chest: no tenderness Resp Effort & Inspection: normal respiratory effort GI Inspection: normal to inspection Palpation: soft Auscultation: abnormal bowel sounds External Female Exam: normal external appearance Speculum Exam - Vagina: normal vaginal discharge Speculum Exam - Cervix: normal appearance of the cervix Bimanual Exam- Vagina & Uterus: normal bimanual exam Bimanual Exam- Adnexa, other: no masses and tender Other: Dark tarry stools, guaiac positive, small hemorrhoid, no active bleeding Back/Spine/Pelvis Back: CVA tenderness Thoracic/Lumbar Spine: thoracic and lumbar spine normal to inspection, thoraco-lumbar ROM normal, No paraspinal tenderness, No thoracic spinal tenderness and No lumbar spinal tenderness Skin Other: No pallor Neuro General: patient alert Extrem General: no pedal edema Psych Appearance: grossly normal Course <BERTHA Bradshaw - Last Filed: 03/14/20 19:36> Vital Signs Vital signs: Vital Signs Pulse 104 H 03/14/20 17:10 Respiratory Rate 20 03/14/20 17:10 Blood Pressure 113/88 03/14/20 17:10 Pulse Oximetry 95 03/14/20 17:10 Pulse 104 H 03/14/20 17:10 Respiratory Rate 20 03/14/20 17:10 Respiratory Effort Non-Labored 03/14/20 17:21 Blood Pressure 113/88 03/14/20 17:10 Blood Pressure Position Sitting 03/14/20 17:10 Pulse Oximetry 95 03/14/20 17:10 Oxygen Delivery Method Room Air 03/14/20 17:10 Oxygen Flow Rate 0 03/14/20 17:10
[2020-03-14 18:12] LABS: Abs Immature Grans 0.02 10^3/uL (0.0-0.06); Absolute Basophil Count 0.03 10^3/uL (0.0-0.2); Absolute Eosinophil Count 0.34 10^3/uL (0.0-0.7); Absolute Lymphocyte Count 1.41 10^3/uL (1.2-3.4); Absolute Monocyte Count 0.68 10^3/uL (0.1-0.8); Absolute Neutrophil Count 6.33 10^3/uL (1.2-6.7); Basophils % 0.3; Eosinophils % 3.9; HCT 32.7 % (36.0-46.0); HGB 10.6 g/dL (11.2-15.7); Immature Grans % 0.2; MCH 28.5 pg (27.0-33.0); MCHC 32.4 % (32.0-36.0); MCV 87.9 fL (80-95); MPV 10.9 fL (8.0-11.0); Monocytes % 7.7; Neutrophils % 71.9; Nucleated RBC 0 %; Platelet Count 309 10^3/uL (130-400); RBC 3.72 10^6/uL (3.93-5.22); RDW 13.7 % (11.7-14.6); RDW-SD 44.1 fL; WBC 8.81 10^3/uL (4.4-10.8)
--- NOTE | 2020-03-14 18:18 | DI.VRAD_ITS ---
PROCEDURE INFORMATION: Exam: XR Chest, 1 View Exam date and time: 03/14/2020 6:01 PM Age: 74 years old Clinical indication: Other: Gi bleeding, dk stools TECHNIQUE: Imaging protocol: XR of the chest Views: 1 view. COMPARISON: CR XR CHEST 2V PA LATERAL 11/25/2019 2:59 PM FINDINGS: No airspace consolidation, pleural effusion or pneumothorax. The cardiomediastinal silhouette is unremarkable. IMPRESSION: No acute findings. Dictated and Authenticated by: Alejandro Donald MD. Ordering:INDIA Munoz MD
[2020-03-14 18:23] LABS: ALT 24 U/L (14-59); AST 14 U/L (15-37); Albumin 3.3 g/dL (3.4-5.0); Alkaline Phosphatase 83 U/L (46-116); Anion Gap 10.5 mmol/L (3-11); BUN 25 mg/dL (7-18); Bilirubin, Total 0.2 mg/dL (0.2-1.0); CO2 26.5 mmol/L (21.0-32.0); CREATININE 1.3 mg/dL (0.55-1.02); Calcium 8.7 mg/dL (8.5-10.1); Chloride 99 mmol/L (98-107); Estimated GFR 39.82 (mL/min/1.73m2); Glucose 281 mg/dL (74-106); Magnesium 1.7 mg/dL (1.8-2.4); Sodium 136 mmol/L (136-145); Total Protein 6.6 g/dL (6.4-8.2)
[2020-03-14 18:26] LABS: INR 1.8 (0.9-1.1); Prothrombin Time 17.5 sec (9.3-11.0)
[2020-03-14] MEDS: PANTOPRAZOLE 80 MG in Normal Saline 100 ML 10 MG IV (18:34)
--- NOTE | 2020-03-14 19:14 | HPE_ITS ---
Date of service: 03/14/20 Time of Service: 19:14 Assessment and Plan Assessment and plan (1) GI bleed: Status: Chronic Assessment and plan: GI bleed, apparently lower per caregiver description (melanotic appearance noted in ER can likely be explained by iron, though coincidental UGI source cannot be excluded)). In accord with family wishes will monitor without plan for imaging. Givenn hemodynamic stability and stable hematocrit I see no need at present to reverse the anticoagulation, though will hold at least for tonight. No indication for transfusion at present. History of Present Illness History of Present Illness Chief Complaint: rectal bleeding Narrative: 74 fem zoltan with h/o PVD on Coumadin and ASA. Has h/o recurrent GI bleeding, but vascular surgery has opted to have patient remain on anticoagulation nevertheless due to complications. In past has had unspecified imaging without source of bleeding identified per ER discussions with family; more recently ([facility]) family has opted for limited evaluation with hopes to avoid further imaging. With that much as background patient here tonight with what caregiver describes as 2 cups of hematochezia, evidently painless. Here in ER w/u of note for BP 123/62, melanotic heme + stool (note patient on iron) and hematocrit 32 (which is above baseline). INR 1.8. ER reviewed case with family who reiterated wish to avoid any imaging, focus on supportive care. Patient admitted for further monitoring. Review of Systems All systems reviewed & are unremarkable except as noted in HPI and below PFSH Medical History Accidental fall Altered mental status Aortoiliac occlusive disease Ataxia Breast cancer Chronic diarrhea Chronic fatigue and malaise Chronic kidney disease stage III Colonic polyp COPD (chronic obstructive pulmonary disease) Dementia Depression Diabetes Diarrhea Diverticulosis GERD (gastroesophageal reflux disease) Heart murmur, systolic History of tobacco use Hyperlipidemia Hypertension Hypomagnesemia Insomnia Ischemic colitis Knee pain, bilateral Osteopenia Palliative care patient PVD (peripheral vascular disease) Radicular syndrome of left lower extremity Skin lesion Squamous cell carcinoma of skin Urinary incontinence UTI (urinary tract infection) Vascular dementia Vertigo Wrist fracture Surgical History axillo-byfem bypass Breast, Lumpectomy EGD - MAC (02/29/16) Social History Smoking/Tobacco Use Status: Former Tobacco Use Smoking risk assessment performed?: Yes Alcohol Intake: never Drug use: Never Do you feel safe at home: Yes Do you feel safe in your relationship?: Yes Additional Social history: pt has vascular dementia, here with manager interventional. Pt is clean/well nourished, good interaction with care process manager Meds Home Medications and Allergies Home Medications Medication Instructions Recorded Confirmed Type aspirin [Aspir-81] 81 mg PO DAILY tab-cap NS 05/30/14 03/14/20 History multivitamin [Daily Vitamin] 1 ea PO QAM NS 05/30/14 03/14/20 History simvastatin 40 mg PO HS tab-cap NS 05/30/14 03/14/20 History paroxetine HCl 20 mg PO HS 06/19/15 03/14/20 History calcium carbonate-vitamin D3 1 tab PO DAILY 07/23/18 03/14/20 History [Calcium 600 + D(3)] cholecalciferol (vitamin D3) 2,000 unit PO QAM 07/23/18 03/14/20 History dicyclomine 10 mg PO HS 07/23/18 03/14/20 History docusate sodium [Colace] 100 mg PO DAILY 07/23/18 03/14/20 History warfarin [Coumadin] 2 mg PO HS 07/23/18 03/14/20 History acetaminophen 325 mg PO Q4H PRN 01/21/19 03/14/20 History ferrous gluconate 324 mg PO DAILY 01/21/19 03/14/20 History omeprazole 40 mg PO DAILY@0730 #30 cap 01/23/19 03/14/20 Rx cimetidine 200 mg tablet 200 mg PO HS tab 04/28/19 03/14/20 History memantine 5 mg tablet 7 mg PO HS tab 04/28/19 03/14/20 History gabapentin 100 mg PO HS 01/10/20 03/14/20 History melatonin 5 mg PO HS 01/11/20 03/14/20 History Allergies Allergy/AdvReac Type Severity Reaction Status Date / Time sulfamethoxazole Allergy Mild eyes Unverified 03/14/20 17:16 [From Bactrim] swollen amphotericin B liposome Allergy Unverified 03/14/20 17:16 [From AmBisome] cefuroxime Allergy Unverified 03/14/20 17:16 donepezil Allergy Unverified 03/14/20 17:16 trimethoprim [From Bactrim] Allergy Unverified 03/14/20 17:16 oxycodone HCl [From Percocet] AdvReac Unverified 03/14/20 17:16 Exam Narrative Exam Narrative: 123/62, 91, 367.5, 17, 92% RA. HEENT atraumatic; neck supple; lungs clear; heart RRR; abdomen soft and NT; rectal (per ER) heme+ stool, no active bleeding; extremities w/o edema, decreased pedal pulses; neuro Ox1, moves all 4s. Results Labs Result diagrams: 03/14/20 17:40 03/14/20 17:40 Labs: Laboratory Results - last 24 hr 03/14/20 03/14/20 03/14/20 17:40 17:40 17:40 WBC 8.81 RBC 3.72 L Hgb 10.6 L Hct 32.7 L MCV 87.9 MCH 28.5 MCHC 32.4 RDW 13.7 Plt Count 309 MPV 10.9 Immature Gran % 0.2 Neutrophils % 71.9 Lymphocytes % 16.0 Monocytes % 7.7 Eosinophils % 3.9 Basophils % 0.3 Nucleated RBC % 0 Absolute Neutrophils 6.33 Absolute Lymphocytes 1.41 Absolute Monocytes 0.68 Absolute Eosinophils 0.34 Absolute Basophils 0.03 PT 17.5 H INR 1.8 H Sodium 136 Potassium 4.0 Chloride 99 Carbon Dioxide 26.5 Anion Gap 10.5 BUN 25 H Creatinine 1.3 H Estimated GFR/1.73 m2 39.82 Glucose 281 H Calcium 8.7 Magnesium 1.7 L Total Bilirubin 0.2 AST 14 L ALT 24 Alkaline Phosphatase 83 Total Protein 6.6 Albumin 3.3 L Last Vital Signs Pulse 91 H 03/14/20 18:45 Resp 17 03/14/20 18:50 BP 123/62 03/14/20 18:45 Pulse Ox 92 03/14/20 18:50 COVID-19 Screening Have you, or household traveled for leisure in last 14 days?: No Had IN PERSON contact w/suspected or confirmed C-19 person: No
[2020-03-14] MEDS: Dicyclomine 10 MG CAP PO (22:05)
[2020-03-14] MEDS: PARoxetine 20 MG TAB PO (22:05)
[2020-03-14] MEDS: Simvastatin 10 MG TAB 40 MG PO (22:05)
[2020-03-14] MEDS: Melatonin 3 MG TAB 6 MG PO (22:05)
[2020-03-14] MEDS: Gabapentin 100 MG CAP PO (22:05)
[2020-03-14] MEDS: Memantine 5 MG TAB 7 MG PO (22:09)
[2020-03-15 06:55] LABS: HCT 30.9 % (36.0-46.0); HGB 9.8 g/dL (11.2-15.7)
[2020-03-15 07:12] LABS: INR 1.7 (0.9-1.1); Prothrombin Time 17.3 sec (9.3-11.0)
[2020-03-15 07:22] VITALS: BP 101/64; PULSE 98; RESP 17; TEMP 37.1; O2SAT 93
[2020-03-15] MEDS: Docusate Sodium 100 MG CAP PO (08:11)
[2020-03-15] MEDS: Ferrous Gluconate 324 MG TAB PO (08:11)
[2020-03-15] MEDS: Omeprazole 20 MG CAPCR 40 MG PO ×2 (08:11→19:37)
[2020-03-15 09:10] LABS: Abs Immature Grans 0.01 10^3/uL (0.0-0.06); Absolute Basophil Count 0.04 10^3/uL (0.0-0.2); Absolute Lymphocyte Count 1.58 10^3/uL (1.2-3.4); Absolute Monocyte Count 0.62 10^3/uL (0.1-0.8); Absolute Neutrophil Count 4.34 10^3/uL (1.2-6.7); Basophils % 0.6; Eosinophils % 8.3; HCT 33.1 % (36.0-46.0); HGB 10.3 g/dL (11.2-15.7); Immature Grans % 0.1; MCH 27.6 pg (27.0-33.0); MCHC 31.1 % (32.0-36.0); MCV 88.7 fL (80-95); MPV 10.8 fL (8.0-11.0); Monocytes % 8.6; Neutrophils % 60.4; Nucleated RBC 0 %; Platelet Count 313 10^3/uL (130-400); RBC 3.73 10^6/uL (3.93-5.22); RDW 13.8 % (11.7-14.6); RDW-SD 44.8 fL; WBC 7.19 10^3/uL (4.4-10.8)
[2020-03-15 09:24] LABS: Anion Gap 9.3 mmol/L (3-11); BUN 23 mg/dL (7-18); CO2 27.7 mmol/L (21.0-32.0); CREATININE 1.3 mg/dL (0.55-1.02); Calcium 9.4 mg/dL (8.5-10.1); Chloride 104 mmol/L (98-107); Estimated GFR 39.82 (mL/min/1.73m2); Glucose 162 mg/dL (74-106); Magnesium 1.8 mg/dL (1.8-2.4); Potassium 4.5 mmol/L (3.5-5.1); Sodium 141 mmol/L (136-145)
--- NOTE | 2020-03-15 09:25 | NUR.NOTE ---
Addendum entered by Bonnie Lawson 03/15/20 10:22: At 1020 on 03/15/20, this RN attempted to return the call again, but the RN only got the pt.'s caregiver's voicemail again. RN didn't leave a message. RN will reassess as necessary. Original Note: Nursing Note: At 0925 on 03/15/20, this RN attempted to return a call from Leigh Ann, the pt.'s caregiver. RN only got the pt.'s caregiver's voicemail. RN didn't leave a message. RN will attempt to call the pt.'s caregiver again later.
--- NOTE | 2020-03-15 10:46 | NUR.NOTE ---
Nursing Note: At 1040 on 03/15/20, this RN answered a call from Leigh Ann, the pt.'s caregiver. Pt.'s caregiver updated regarding pt.'s orientation, VS, pain level, head to toe assessment, plan of care, etc. Pt.'s caregiver verbalized understanding and presented with no questions. RN will reassess as necessary.
--- NOTE | 2020-03-15 12:25 | W.PM.PROGNOT ---
Date of Service Date of service: 03/15/20 Time of Service: 12:25 Assessment and Plan Assessment and plan (1) GI bleed: Start date: 03/15/20 Start time: 12:29 Status: Chronic Assessment and plan: Stable h/h. Will continue to monitor hemoglobin overnight, if continues to be stable she can be discharged home tomorrow. Consulted palliative. Patient family wants supportive care only. Also changed medication around after discussing with family about medications that can increase bleeding risk. dcd paxil and started on duloxitene, stopped tagament and made omeprazole BID, switched simvastatin to atorvastatin as atorvastatin has no increased risk of bleeding while on warfarin. These changes may potentially help decrease future GI bleeding and decrease hospitalizations related to this matter as she needs to stay on warfarin. above case discussed with Dr. Lang Subjective Subjective Patient reports: no new complaints Interval history since last seen: Very pleasant lady sitting up in chair. Confused. Only oriented to self. Exam Narrative Exam Narrative: . HEENT atraumatic; neck supple; lungs clear; heart RRR; abdomen soft and BS x 4 NonTender; rectal (per ER) heme+ stool, no active bleeding; extremities w/o edema, decreased pedal pulses; neuro Ox1, moves all 4s. Objective Last Vital Signs Temp 37.1 C 03/15/20 07:22 Pulse 98 H 03/15/20 07:22 Resp 17 03/15/20 07:22 BP 101/64 03/15/20 07:22 Pulse Ox 93 03/15/20 07:22 Laboratory Results - last 24 hr 03/14/20 03/14/20 03/14/20 17:40 17:40 17:40 WBC RBC Hgb Hct MCV MCH MCHC RDW Plt Count MPV Immature Gran % Neutrophils % Lymphocytes % Monocytes % Eosinophils % Basophils % Nucleated RBC % Absolute Neutrophils Absolute Lymphocytes Absolute Monocytes Absolute Eosinophils Absolute Basophils PT 17.5 H INR 1.8 H Sodium 136 Potassium 4.0 Chloride 99 Carbon Dioxide 26.5 Anion Gap 10.5 BUN 25 H Creatinine 1.3 H Estimated GFR/1.73 m2 39.82 Glucose 281 H Calcium 8.7 Magnesium 1.7 L Total Bilirubin 0.2 AST 14 L ALT 24 Alkaline Phosphatase 83 Total Protein 6.6 Albumin 3.3 L Patient ABO/Rh AB Positive Antibody Screen Negative 03/14/20 03/15/20 03/15/20 17:40 06:10 06:10 WBC 8.81 RBC 3.72 L Hgb 10.6 L 9.8 L Hct 32.7 L 30.9 L MCV 87.9 MCH 28.5 MCHC 32.4 RDW 13.7 Plt Count 309 MPV 10.9 Immature Gran % 0.2 Neutrophils % 71.9 Lymphocytes % 16.0 Monocytes % 7.7 Eosinophils % 3.9 Basophils % 0.3 Nucleated RBC % 0 Absolute Neutrophils 6.33 Absolute Lymphocytes 1.41 Absolute Monocytes 0.68 Absolute Eosinophils 0.34 Absolute Basophils 0.03 PT 17.3 H INR 1.7 H Sodium Potassium Chloride Carbon Dioxide Anion Gap BUN Creatinine Estimated GFR/1.73 m2 Glucose Calcium Magnesium Total Bilirubin AST ALT Alkaline Phosphatase Total Protein Albumin Patient ABO/Rh Antibody Screen 03/15/20 03/15/20 03/15/20 09:00 09:00 09:00 WBC 7.19 RBC 3.73 L Hgb 10.3 L Hct 33.1 L MCV 88.7 MCH 27.6 MCHC 31.1 L RDW 13.8 Plt Count 313 MPV 10.8 Immature Gran % 0.1 Neutrophils % 60.4 Lymphocytes % 22.0 Monocytes % 8.6 Eosinophils % 8.3 Basophils % 0.6 Nucleated RBC % 0 Absolute Neutrophils 4.34 Absolute Lymphocytes 1.58 Absolute Monocytes 0.62 Absolute Eosinophils 0.60 Absolute Basophils 0.04 PT INR Sodium 141 Potassium 4.5 Chloride 104 Carbon Dioxide 27.7 Anion Gap 9.3 BUN 23 H Creatinine 1.3 H Estimated GFR/1.73 m2 39.82 Glucose 162 H D Calcium 9.4 Magnesium 1.8 Total Bilirubin AST ALT Alkaline Phosphatase Total Protein Albumin Patient ABO/Rh Antibody Screen
[2020-03-15] MEDS: DULoxetine 20 MG CAP PO (12:27)
--- NOTE | 2020-03-15 13:10 | NUR.NOTE ---
Nursing Note: At 1300 on 03/15/20, this RN answered a call from Susan Anne, the pt.'s daughter. RN updated the pt.'s daughter regarding the pt.'s orientation, VS, pain level, head to toe assessment, plan of care, etc. Pt.'s daughter verbalized understanding and presented with a few questions that were answered. RN will reassess as necessary.
[2020-03-15 15:25] VITALS: BP 100/62; PULSE 99; RESP 17; O2SAT 95
--- NOTE | 2020-03-15 15:46 | CHAPLAIN ---
Elisa was in bed when I visited. She wondered why her children hadn't been visiting, so I let her know that we aren't allowing visitors now. She seemed confused about several things like where she lives, where her kids are and how many grandchildren she has. Elisa said she is bored here and hasn't seen a doctor and hopes to be going home soon. I will continue to visit.
[2020-03-15 15:58] VITALS: TEMP 36.8
--- NOTE | 2020-03-15 16:03 | PDOC.CMIN ---
- If Service Date Differs Date of service: 03/15/20 Time of Service: 16:03 Care Management Initial Assess REASON FOR HOSPITALIZATION:: GI Bleed PAST MEDICAL HISTORY/PAST SURGICAL HISTORY:: Medical History. Accidental fall. Altered mental status. Aortoiliac occlusive disease. Ataxia. Breast cancer. Chronic diarrhea. Chronic fatigue and malaise. Chronic kidney disease. stage III. Colonic polyp. COPD (chronic obstructive pulmonary disease). Dementia. Depression. Diabetes. Diarrhea. Diverticulosis. GERD (gastroesophageal reflux disease). Heart murmur, systolic. History of tobacco use. Hyperlipidemia. Hypertension. Hypomagnesemia. Insomnia. Ischemic colitis. Knee pain, bilateral. Osteopenia. Palliative care patient. PVD (peripheral vascular disease). Radicular syndrome of left lower extremity. Skin lesion. Squamous cell carcinoma of skin. Urinary incontinence. UTI (urinary tract infection). Vascular dementia. Vertigo. Wrist fracture. Surgical History. axillo-byfem bypass. Breast, Lumpectomy. EGD - MAC (02/29/16) PREVIOUS FUNCTIONAL STATUS/SOCIAL/FAMILY SUPPORTS:: Elisa lives with a caregiver in [place], [place] She has vascular dementia and requires assistance with ADLs, however is able to ambulate well with supervision. She has 3 children; her daughter Krystal is identified as her fleet salesperson and next of kin. CURRENT FUNCTIONAL STATUS:: Elisa was sitting up in bed when CM met with her. She was very pleasant in conversation, although confused. Per report, she is doing well, and her H/H is stable. She will be monitored overnight, and if she continues to improve she will likely be discharged home tomorrow. Her family wants supportive care only at this time. CM will continue to follow. ADVANCE DIRECTIVES:: None on file. Due to dementia, cannot complete at this time without family present. Has patient been provided with info about the portal/API?: No Did the patient sign up for the portal?: No CODE STATUS:: DNR/DNI INSURANCE COVERAGE / FINANCIAL ISSUES:: [facility] CURRENT HOME/COMMUNITY SERVICES/EQUIPMENT:: Elisa has 01/09 caregivers PRIMARY CARE PHYSICIAN:: Nirmala Clemente POTENTIAL DISCHARGE NEEDS:: Palliative care follow up PATIENT/FAMILY EDUCATION NEEDS:: Review discharge instructions with family/caregivers, discussion of goals of care. ANTICIPATED BARRIERS TO DISCHARGE:: None identified. TRANSPORTATION:: Via private vehicle by family/caregiver. PLAN:: Elisa's H/H continue to be monitored. She will return home once medically cleared with a resumption of her current, 01/09 care. She will follow up with Palliative care, and her discharge plan of care. CM will continue to follow.
--- NOTE | 2020-03-15 16:34 | PHA.REVIEW ---
Pharmacy Admission Review - Admission Clinical Review sulfamethoxazole [From Bactrim] Allergy (Mild, Unverified 03/14/20 17:16) eyes swollen amphotericin B liposome [From AmBisome] Allergy (Unverified 03/14/20 17:16) cefuroxime Allergy (Unverified 03/14/20 17:16) donepezil Allergy (Unverified 03/14/20 17:16) trimethoprim [From Bactrim] Allergy (Unverified 03/14/20 17:16) oxycodone HCl [From Percocet] Adverse Reaction (Unverified 03/14/20 17:16) Height 5 ft 1 in Weight 51.71 kg - Renal Dosing Renal Dosing: BUN 23 mg/dL (7-18) H 03/15/20 09:00 Creatinine 1.3 mg/dL (0.55-1.02) H 03/15/20 09:00 Medications needing adjustments: Reviewed (eCrCl 27.78ml/min) List of meds needing interventions: current orders ok - Anticoagulation Anticoagulation: Hgb 10.3 g/dL (11.2-15.7) L 03/15/20 09:00 Hct 33.1 % (36.0-46.0) L 03/15/20 09:00 Plt Count 313 10^3/uL (130-400) 03/15/20 09:00 INR 1.7 (0.9-1.1) H 03/15/20 06:10 Creatinine 1.3 mg/dL (0.55-1.02) H 03/15/20 09:00 Therapeutic Anticoagulation: Reviewed Medications: Warfarin (starting home dose of 2mg tonight, INR is 1.7) - Opiate Usage Evaluate Pain Scale/Pains Meds: N/A - Relevant Labs Sodium 141 mmol/L (136-145) 03/15/20 09:00 Potassium 4.5 mmol/L (3.5-5.1) 03/15/20 09:00 Chloride 104 mmol/L (98-107) 03/15/20 09:00 Magnesium 1.8 mg/dL (1.8-2.4) 03/15/20 09:00 Electrolytes, C-Reactive P, ESR: Reviewed - DM Control DM Control: Glucose 162 mg/dL (74-106) H D 03/15/20 09:00 Insulin Dosing: N/A - Heart Failure/OH EF%, ROBINA's, B-Blockers, Diuretics: Reviewed - BP Control BP Control: Blood Pressure 100/62 Blood Pressure 101/64 If elevated: Reviewed - Qtc Review If Elevated: Reviewed List meds needing interventions: QTc was 440 on admission - IV to PO Switch IV Medications: Reviewed - Home Meds Home Med List reviewed: Intervened Relevent Home Meds Not ordered & why?: Patient was on 3 other medications that posed an increased risk of bleeding with warfarin -- discussed with hospitalist and elected to change these meds after talking with family: paroxetine switched to duloxetine, cimetidine dc'd and PPI dosed BID instead, and simvastatin was changed to atorvastatin as no clinical effects of atorvastin plus warfarin and increased bleeding have been reported - Current meds Current Medication Order Review: Reviewed - Comments Comments/Follow Ups: Restarting warfarin at usual home dose of 2mg qPM -- monitor INR, spoke with PCP to confirm current dosage - does occasionally have to take 4mg 1-2 times a week to keep INR within therapeutic range (03/05 INR was 3.7, 03/12 INR was 2)
[2020-03-15] MEDS: Warfarin 1 MG TAB 2 MG PO (19:36)
[2020-03-15] MEDS: Atorvastatin 20 MG TAB PO (19:37)
[2020-03-15] MEDS: Normal Saline 500 ML 250 ML IV (19:44)
[2020-03-15 20:35] LABS: COVID-19 RT-PCR UVMMC Result Negative (Negative)
[2020-03-15] MEDS: Dicyclomine 10 MG CAP PO (21:23)
[2020-03-15] MEDS: Melatonin 3 MG TAB 6 MG PO (21:23)
[2020-03-15] MEDS: Gabapentin 100 MG CAP PO (21:23)
[2020-03-16 00:18] VITALS: BP 117/77; PULSE 93; RESP 18; TEMP 36.6; O2SAT 95
[2020-03-16 07:13] LABS: Abs Immature Grans 0.03 10^3/uL (0.0-0.06); Absolute Basophil Count 0.04 10^3/uL (0.0-0.2); Absolute Eosinophil Count 0.78 10^3/uL (0.0-0.7); Absolute Lymphocyte Count 1.71 10^3/uL (1.2-3.4); Absolute Monocyte Count 0.66 10^3/uL (0.1-0.8); Absolute Neutrophil Count 3.47 10^3/uL (1.2-6.7); Basophils % 0.6; Eosinophils % 11.7; HCT 30.6 % (36.0-46.0); HGB 9.5 g/dL (11.2-15.7); Immature Grans % 0.4; Lymphocytes % 25.6; MCH 27.6 pg (27.0-33.0); Monocytes % 9.9; Neutrophils % 51.8; Nucleated RBC 0 %; Platelet Count 290 10^3/uL (130-400); RBC 3.44 10^6/uL (3.93-5.22); RDW 13.9 % (11.7-14.6); RDW-SD 45.1 fL; WBC 6.69 10^3/uL (4.4-10.8)
[2020-03-16 07:20] LABS: INR 1.5 (0.9-1.1); Prothrombin Time 15.4 sec (9.3-11.0)
[2020-03-16 08:20] VITALS: BP 128/72; PULSE 95; RESP 19; TEMP 36.6; O2SAT 98
[2020-03-16] MEDS: Omeprazole 20 MG CAPCR 40 MG PO (08:41)
[2020-03-16] MEDS: DULoxetine 20 MG CAP PO (08:41)
[2020-03-16] MEDS: Ferrous Gluconate 324 MG TAB PO (08:41)
[2020-03-16] MEDS: Docusate Sodium 100 MG CAP PO (08:42)
--- NOTE | 2020-03-16 10:02 | W.PM.DS.N ---
Date of service: 03/16/20 Time of Service: 10:02 DS: Diagnosis Discharge Diagnosis (1) GI bleed: Start date: 03/16/20 Start time: 10:06 Status: Chronic Asessment and Plan: Stable h/h. appears to be stable. Therefore she can be discharged home. Palliative can see her at home. Family wanted supportive care only. Will repeat cbc in 2 days. After discussing medications with pharmacy about medications that can increase bleeding risk dcd paxil and started on duloxitene, stopped tagament and made omeprazole BID, switched simvastatin to atorvastatin as atorvastatin has no increased risk of bleeding while on warfarin. These changes may potentially help decrease future GI bleeding and decrease hospitalizations related to this matter as she needs to stay on warfarin. Recommend she continues these as an outpatient. above case discussed with Dr. Lang who is in agreement. Discharge Plan Disposition Patient Disposition: HOME Condition: Stable Discharge Details Reason For Visit: GI BLEED Admit Date/Time: 03/14/20 19:29 Admit Provider: James Pearl Attending Provider: James Pearl Primary Care Provider: Nirmala Clemente V Hospital Course Hospital Course: 74 female with h/o PVD on Coumadin and ASA. Has h/o recurrent GI bleeding, but vascular surgery has opted to have patient remain on anticoagulation nevertheless due to complications. In past she has had unspecified imaging without source of bleeding identified per ER discussions with family; more recently (last admission for same 01/28) family has opted for limited evaluation with hopes to avoid further imaging. With that much as background patient presented to ED with what caregiver describes as 2 cups of hematochezia, evidently painless. ER w/u of note for, melanotic heme + stool (note patient on iron) and hematocrit 32 (which is above baseline). INR 1.8. ER reviewed case with family who reiterated wish to avoid any imaging, focus on supportive care. She was admitted to monitor CBC and palliative. H/H stable, no bloody stools. Patient being discharged home. Repeat h/h in 2 days and have palliative follow up at home. Home Meds and New Rx's Prescriptions: New omeprazole 20 mg Capsule,Delayed Release(Dr/Ec) 40 mg PO BID@07,1999 Qty: 60 RF: 0 atorvastatin [Lipitor] 20 mg Tablet 20 mg PO QPM Qty: 30 RF: 0 duloxetine [Cymbalta] 20 mg Capsule,Delayed Release(Dr/Ec) 20 mg PO DAILY Qty: 30 RF: 0 Continued memantine [Namenda] 5 mg tablet 7 mg PO HS RF: 0 multivitamin [Daily Vitamin] 1 EACH tablet 1 ea PO QAM RF: 0 aspirin [Aspir-81] 81 MG tablet,delayed release (DR/EC) 81 mg PO DAILY RF: 0 docusate sodium [Colace] 100 mg Capsule 100 mg PO DAILY RF: 0 dicyclomine 10 mg Capsule 10 mg PO HS RF: 0 calcium carbonate-vitamin D3 [Calcium 600 + D(3)] 600 mg(1,500mg) -400 unit Tablet 1 tab PO DAILY RF: 0 cholecalciferol (vitamin D3) 2,000 unit Capsule 2,000 unit PO QAM RF: 0 warfarin [Coumadin] 2 MG tablet 2 mg PO HS RF: 0 acetaminophen 325 mg Tablet 325 mg PO Q4H PRN (Reason: Pain) RF: 0 ferrous gluconate 324 mg (38 mg iron) Tablet 324 mg PO DAILY RF: 0 gabapentin 100 mg capsule 100 mg PO HS RF: 0 melatonin 3 mg tablet 5 mg PO HS RF: 0 Discontinued cimetidine [Tagamet HB] 200 mg tablet 200 mg PO HS RF: 0 simvastatin 10 MG tablet 40 mg PO HS RF: 0 paroxetine HCl 40 MG tablet 20 mg PO HS RF: 0 omeprazole 20 mg Capsule,Delayed Release(Dr/Ec) 40 mg PO DAILY@0730 Qty: 30 RF: 0 Discharge Instructions Instructions: Gastrointestinal Bleeding (DC) Additional Instructions: Your medications have changed. These new medication changes should help to reduce GI bleeding from occurring. They have been sent to pharmacy please follow instructions on vial Follow up with PCP in 1 week Repeat lab work in 2 days. Lab work has been stable, palliative will see you at home. Stand Alone Forms: Nursing Discharge Form Referrals: Nirmala Clemente MD [Primary Care Provider] - Activity:: Activity as Tolerated Equipment/Supplies:: No Equipment Needed Diet:: As Tolerated Discharge Orders Discharge Orders: Discharge Order (Routine); Ordered 03/16/20 Ordered By: Radha Barbour DS: Summary Time Spent with Patient providing and/or coordinating discharge services: Greater than 30 minutes (approx 40 mins ) Status at Discharge Functional status at discharge: uses cane/walker Overall status at discharge: patient is back to baseline Mental Status: other Speech and Movement: speech and movement normal Mood: congruent mood and other Affect: other Exam Narrative Exam Narrative: . HEENT atraumatic; neck supple; lungs clear; heart RRR; abdomen soft and BS x 4 NonTender; rectal (per ER) heme+ stool, no active bleeding; extremities w/o edema, decreased pedal pulses; neuro Ox1, moves all 4s. Psych Mental Status: other Speech and Movement: speech and movement normal Mood: congruent mood and other Affect: other DS: Data Vitals/I&O Vitals and I&O: Vital Signs Temperature 36.6 C 03/16/20 08:20 Temperature Source Tympanic 03/16/20 08:20 Pulse 95 H 03/16/20 08:20 Pulse Rhythm Regular 03/15/20 20:35 Pulse 91 H 03/14/20 19:50 Respiratory Rate 19 03/16/20 08:20 Respiratory Effort Non-Labored 03/15/20 20:35 Respiratory Depth Normal 03/15/20 20:35 Respiratory Pattern Normal 03/15/20 20:35 Blood Pressure 128/72 03/16/20 08:20 Blood Pressure Mean 80 03/14/20 19:45 Blood Pressure Position Sitting 03/14/20 17:10 Pulse Oximetry 98 03/16/20 08:20 Oxygen Delivery Method Room Air 03/16/20 08:20 Oxygen Flow Rate 0 03/16/20 08:20 Pain Level 0 03/16/20 08:20 Comment 03/15/20 16:10 Intake & Output 03/15/20 03/15/20 03/16/20 11:59 23:59 11:59 Intake Total 490 / 970 480 / 970 Output Total 200 / 450 250 / 450 400 / 400 Balance 290 / 520 230 / 520 -400 / -400 Intake: IV 10 Oral 480 / 960 480 / 960 Output: Urine 200 / 450 250 / 450 400 / 400 Other: Urine Color Yellow Yellow Yellow Urine Appearance Clear Clear Clear Urine Odor Normal Comment RN notified Stool Size Large Stool Characteristics Formed Voiding Methods Diaper Toilet Toilet Incontinent Data Completed and Pending Labs on day of discharge: Labs from last 24 hours 03/16/20 03/16/20 03/14/20 06:25 06:25 20:30 WBC 6.69 RBC 3.44 L Hgb 9.5 L Hct 30.6 L MCV 89.0 MCH 27.6 MCHC 31.0 L RDW 13.9 Plt Count 290 MPV 11.0 Immature Gran % 0.4 Neutrophils % 51.8 Lymphocytes % 25.6 Monocytes % 9.9 Eosinophils % 11.7 Basophils % 0.6 Nucleated RBC % 0 Absolute Neutrophils 3.47 Absolute Lymphocytes 1.71 Absolute Monocytes 0.66 Absolute Eosinophils 0.78 H Absolute Basophils 0.04 PT 15.4 H INR 1.5 H SARS-CoV-2 (PCR) Negative Nasopharyn COVID-19 PCR Not Applicable Ref Test Perform Site [facility] Medical History Accidental fall Altered mental status Aortoiliac occlusive disease Ataxia Breast cancer Chronic diarrhea Chronic fatigue and malaise Chronic kidney disease stage III Colonic polyp COPD (chronic obstructive pulmonary disease) Dementia Depression Diabetes Diarrhea Diverticulosis GERD (gastroesophageal reflux disease) Heart murmur, systolic History of tobacco use Hyperlipidemia Hypertension Hypomagnesemia Insomnia Ischemic colitis Knee pain, bilateral Osteopenia Palliative care patient PVD (peripheral vascular disease) Radicular syndrome of left lower extremity Skin lesion Squamous cell carcinoma of skin Urinary incontinence UTI (urinary tract infection) Vascular dementia Vertigo Wrist fracture Surgical History axillo-byfem bypass Breast, Lumpectomy EGD - MAC (02/29/16) Social History Smoking/Tobacco Use Status: Former Tobacco Use Smoking risk assessment performed?: Yes Alcohol Intake: never Drug use: Never Do you feel safe at home: Yes Do you feel safe in your relationship?: Yes Additional Social history: pt has vascular dementia, here with parent trainer. Pt is clean/well nourished, good interaction with healthcare administration intern
--- NOTE | 2020-03-16 11:15 | PDOC.CMDIS ---
- If Service Date Differs Date of service: 03/16/20 Time of Service: 11:15 LACE Index Scoring Tool - Questions: Length of Stay (in days): 3 Acuity (Admit via E.D.?): Yes Comorbidities: Chronic Pulmonary Disease, Dementia, Liver or Renal Disease E.D. Visits: 2 - Answers: Total Score: 13 Risk of Readmission: High Risk Care Management Discharge Reason for Hospitalization: GI Bleed Discharge Plan: Elisa will return home today in the care of Leigh Ann, who provides 01/09 care. Leigh Ann will pick her up via private vehicle after she has lunch, coordinated by FRANK. FRANK called and discussed her discharge with her daughter, Krystal. She will follow up with Palliative care and her discharge plan of care. Patient/Family Education Needs: Review discharge instructions with family and caregiver, discussion of goals of care.
== END 2020-03-16 13:16 | disposition home or self-care (01) ==
LOC: ER 19:41 → MS 20:44
PROVIDERS: Family Medicine; Nurse Practitioner Family; Admitting Provider General Practice; Emergency Provider Physician Assistant; PCP Family Medicine; Visit Provider General Practice
DX: K92.1 Melena (principal); Z79.01 Long term (current) use of anticoagulants; Z79.82 Long term (current) use of aspirin; I73.9 Peripheral vascular disease, unspecified; Z85.3 Personal history of malignant neoplasm of breast; J44.9 Chronic obstructive pulmonary disease, unspecified; N18.30 Chronic kidney disease, stage 3 unspecified; E11.22 Type 2 diabetes mellitus with diabetic chronic kidney disease; K21.9 Gastro-esophageal reflux disease without esophagitis; I12.9 Hypertensive chronic kidney disease with stage 1 through stage 4 chronic kidney disease, or unspecified chronic kidney disease; F32.9 Major depressive disorder, single episode, unspecified; F03.90 Unspecified dementia, unspecified severity, without behavioral disturbance, psychotic disturbance, mood disturbance, and anxiety
CPT/HCPCS: 36415; 80048; 80053; 86850; 86900; 86901; 93005; 96365; 96366; 99222; 99226; 99239; 99285; U0003; U0005; 71045; 83735; 85014; 85018; 85025; 85610; 93010; 99217; 99219; G0378

== ENCOUNTER 2020-03-21 03:00 | Outpatient (CLI) | payer MEDICARE, MEDICAID, SELFPAY ==
[2020-03-21 10:41] LABS: Abs Immature Grans 0.02 10^3/uL (0.0-0.06); Absolute Basophil Count 0.05 10^3/uL (0.0-0.2); Absolute Eosinophil Count 0.87 10^3/uL (0.0-0.7); Absolute Monocyte Count 0.54 10^3/uL (0.1-0.8); Absolute Neutrophil Count 4.17 10^3/uL (1.2-6.7); Basophils % 0.7; HCT 33.8 % (36.0-46.0); HGB 10.5 g/dL (11.2-15.7); Immature Grans % 0.3; Lymphocytes % 22.1; MCH 28.1 pg (27.0-33.0); MCHC 31.1 % (32.0-36.0); MCV 90.4 fL (80-95); MPV 10.9 fL (8.0-11.0); Monocytes % 7.4; Neutrophils % 57.5; Nucleated RBC 0 %; Platelet Count 303 10^3/uL (130-400); RBC 3.74 10^6/uL (3.93-5.22); RDW 13.7 % (11.7-14.6); RDW-SD 45.3 fL; WBC 7.25 10^3/uL (4.4-10.8)
== END 2020-03-21 03:01 | disposition home or self-care (01) ==
PROVIDERS: PCP Family Medicine; Visit Provider Nurse Practitioner Family
DX: K92.2 Gastrointestinal hemorrhage, unspecified (principal)
CPT/HCPCS: 36415; 85025

== ENCOUNTER 2020-05-09 11:47 | Emergency (ER) | payer MEDICARE, MEDICAID, SELFPAY ==
[2020-05-09] VITALS (22 sets, daily range): BP systolic 126–165; BP diastolic 51–79; PULSE 91–122; RESP 13–23; TEMP 37.1; O2SAT 85–97
--- NOTE | 2020-05-09 12:00 | DI.RAD_ITS ---
EXAM: XR ABD FLAT UPRIGHT PA CHEST CLINICAL HISTORY: Nausea and vomiting. TECHNIQUE: 2D digital imaging was performed. COMPARISON: Prior chest x-ray March 14, 2020 FINDINGS: Heart size upper normal mediastinum is not widened. Calcified aortic arch noted No new infiltrates nor pleural effusions. No pulmonary edema. No pneumothorax. In the abdomen there are kissing stents in both common iliac arteries. Talus copying stents in the r ight common iliac artery. There is no bowel obstruction. No obvious free air. I ileus pattern. Re gional bones unremarkable. IMPRESSION: No acute pulmonary findings. Endovascular stents in the iliac arteries described above. Mild ileus pattern. No obvious bowel obs truction or free air. DATA REPOSITORY: RADIATION DOSE DELIVERED:
--- NOTE | 2020-05-09 12:00 | RT.EKG_ITS ---
APPROVED REPORT Exam: Resting ECG Patient Location: E HR:109 bpm ECG Measurements Heart Rate 109 AXIS MI 146 P 58 QRSd 79 QRS 64 QT 347 T 61 QTc 469 Conclusion Sinus tachycardia...rate> 99 Probable left atrial enlargement...P >50mS, <-0.10mV V1 I have reviewed and interpreted ECG and agree with software generated interpretation.
--- NOTE | 2020-05-09 12:15 | ED.GENADUL_ITS ---
Discharge Plan Disposition Patient Disposition: HOME Condition: Stable Discharge Details Clinical Impression: Nausea vomiting and diarrhea, Abnormal INR Primary Care Provider: Nirmala Clemente V ED Provider: Wayne Mclaughlin Home Meds and New Rx's Prescriptions: New ondansetron HCl [Zofran] 4 mg tablet 4 mg PO Q8H PRNQty: 10 RF: 0 Continued memantine [Namenda] 5 mg tablet 7 mg PO HS RF: 0 gabapentin 100 mg capsule 200 mg PO HS RF: 0 omeprazole 20 mg capsule,delayed release(DR/EC) 20 mg PO BID@729,1999 Qty: 60 RF: 0 aspirin [Aspir-81] 81 MG tablet,delayed release (DR/EC) 81 mg PO DAILY RF: 0 docusate sodium [Colace] 100 mg Capsule 100 mg PO DAILY RF: 0 dicyclomine 10 mg Capsule 10 mg PO HS RF: 0 calcium carbonate-vitamin D3 [Calcium 600 + D(3)] 600 mg(1,500mg) -400 unit Tablet 1 tab PO DAILY RF: 0 cholecalciferol (vitamin D3) 2,000 unit Capsule 2,000 unit PO QAM RF: 0 warfarin [Coumadin] 2 MG tablet 2 mg PO HS RF: 0 acetaminophen 325 mg Tablet 325 mg PO Q4H PRN (Reason: Pain) RF: 0 ferrous gluconate 324 mg (38 mg iron) Tablet 324 mg PO DAILY RF: 0 melatonin 3 mg tablet 5 mg PO HS RF: 0 atorvastatin [Lipitor] 20 mg Tablet 20 mg PO QPM Qty: 30 RF: 0 duloxetine [Cymbalta] 20 mg Capsule,Delayed Release(Dr/Ec) 20 mg PO DAILY Qty: 30 RF: 0 gabapentin 100 mg capsule 200 mg PO HS RF: 0 cholecalciferol (vitamin D3) [Vitamin D3] 25 mcg (1,000 unit) Capsule 2,000 unit PO DAILY RF: 0 Discharge Instructions Instructions: Acute Nausea and Vomiting (ED), Acute Diarrhea (ED) Additional Instructions: It appears as though she responded nicely to IV fluids. Zofran as directed. Clear liquid diet, advance diet as tolerated. INR is low, I would take a double dose tonight, a total of 5 mg. I would then go back to her normal dose and monitor her INR very carefully. Please watch for new or worsening symptoms and return to the ER for any concerns. Otherwise please contact her primary care provider tomorrow to discuss her ER evaluation and need for outpatient reevaluation. Medical Decision Making 74-year-old female presents to the ER for evaluation regarding generalized weakness, nausea, vomiting, diarrhea for the past couple of days. Home INR checked and noted to be subtherapeutic. Patient has not had any sick exposures, fevers, pain, bad food over the past few days. Clinically she appears dry and does have mild tachycardia. I would like to obtain IV access, give IV Zofran, a liter of normal saline and lactated Ringer's, obtain routine laboratory values including a single troponin and EKG given her tachycardia. Laboratory values reveal a white blood cell count of 8.17 hemoglobin 11.2 hematocrit 36.9 platelet count 340. INR is 1.4. Sodium 135 potassium 4.6 chloride 97, carbon dioxide 27.2 creatinine 1.4 estimated GFR 36.56. Renal function appears to be near baseline. Glucose 396 magnesium 1.6. Will re plenish with 1 g IV. LFTs unremarkable. Troponin less than 0.05. Urinalysis does not reveal any obvious infection. Repeat glucose 241 Repeat heart rate in the 90s Patient's daughter reports that she appears much improved. She has not had any episodes of vomiting or diarrhea while under my care. Will trial p.o. challenge. Patient able to tolerate p.o. intake without difficulty. Both patient and her daughter are comfortable discharge at this time and have no additional questions or concerns. Medical Records Medical records reviewed: Yes I reviewed the patient's medical records. Imaging Data Radiologic Study: Attestation: I personally reviewed and interpreted this imaging study as follows: Imaging: X-Ray Radiologist's impression: No acute pulmonary findings. Endovascular stents in the iliac arteries. Mild ileus pattern. No obvious bowel obstruction or free air. Lab Data Lab results reviewed: Yes I reviewed the patient's lab results. Labs: Laboratory Tests Range/Units 05/09/20 05/09/20 05/09/20 12:30 12:30 12:30 WBC (4.4-10.8) 10^3/uL 8.17 RBC (3.93-5.22) 10^6/uL 4.05 Hgb (11.2-15.7) g/dL 11.2 Hct (36.0-46.0) % 36.9 MCV (80-95) fL 91.1 MCH (27.0-33.0) pg 27.7 MCHC (32.0-36.0) % 30.4 L RDW (11.7-14.6) % 13.3 Plt Count (130-400) 10^3/uL 340 MPV (8.0-11.0) fL 10.7 Immature Gran % 0.2 Neutrophils % 80.5 Lymphocytes % 13.5 Monocytes % 5.3 Eosinophils % 0.1 Basophils % 0.4 Nucleated RBC % % 0 Absolute Neutrophils (1.2-6.7) 10^3/uL 6.58 Absolute Lymphocytes (1.2-3.4) 10^3/uL 1.10 L Absolute Monocytes (0.1-0.8) 10^3/uL 0.43 Absolute Eosinophils (0.0-0.7) 10^3/uL 0.01 Absolute Basophils (0.0-0.2) 10^3/uL 0.03 PT (9.3-11.0) sec 13.7 H INR (0.9-1.1) 1.4 H APTT (21.0-27.5) sec 23.6 Sodium (136-145) mmol/L 135 L Potassium (3.5-5.1) mmol/L 4.6 Chloride (98-107) mmol/L 97 L Carbon Dioxide (21.0-32.0) mmol/L 27.2 Anion Gap (3-11) mmol/L 10.8 BUN (7-18) mg/dL 18 Creatinine (0.55-1.02) mg/dL 1.4 H Estimated GFR/1.73 m2 (mL/min/1.73m2) 36.56 Glucose (74-106) mg/dL 396 H Calcium (8.5-10.1) mg/dL 9.3 Magnesium (1.8-2.4) mg/dL 1.6 L Total Bilirubin (0.2-1.0) mg/dL 0.3 AST (15-37) U/L 37 ALT (14-59) U/L 42 Alkaline Phosphatase (46-116) U/L 109 Troponin I (<0.06) ng/mL < 0.05 Total Protein (6.4-8.2) g/dL 7.6 Albumin (3.4-5.0) g/dL 3.7 Urine Color (Yellow) Urine Clarity (Clear) Urine pH (5-8) Ur Specific [place] (1.005-1.025) Urine Protein (Negative) mg/dL Urine Ketones (Negative) mg/dL Urine Blood (Negative) Urine Nitrite (Negative) Urine Bilirubin (Negative) Urine Urobilinogen (Up TO 0.2) EU/dL Ur Leukocyte Esterase (Negative) Urine RBC (0-2) HPF Urine WBC (0-5) HPF Ur Epithelial Cells (Negative) HPF Urine Crystals (Negative) HPF Urine Bacteria (Negative) HPF Urine Casts (Negative) LPF Urine Mucus (Negative) Ur Culture Indicated? Urine Glucose (Negative) mg/dL Range/Units 05/09/20 14:45 WBC (4.4-10.8) 10^3/uL RBC (3.93-5.22) 10^6/uL Hgb (11.2-15.7) g/dL Hct (36.0-46.0) % MCV (80-95) fL MCH (27.0-33.0) pg MCHC (32.0-36.0) % RDW (11.7-14.6) % Plt Count (130-400) 10^3/uL MPV (8.0-11.0) fL Immature Gran % Neutrophils % Lymphocytes % Monocytes % Eosinophils % Basophils % Nucleated RBC % % Absolute Neutrophils (1.2-6.7) 10^3/uL Absolute Lymphocytes (1.2-3.4) 10^3/uL Absolute Monocytes (0.1-0.8) 10^3/uL Absolute Eosinophils (0.0-0.7) 10^3/uL Absolute Basophils (0.0-0.2) 10^3/uL PT (9.3-11.0) sec INR (0.9-1.1) APTT (21.0-27.5) sec Sodium (136-145) mmol/L Potassium (3.5-5.1) mmol/L Chloride (98-107) mmol/L Carbon Dioxide (21.0-32.0) mmol/L Anion Gap (3-11) mmol/L BUN (7-18) mg/dL Creatinine (0.55-1.02) mg/dL Estimated GFR/1.73 m2 (mL/min/1.73m2) Glucose (74-106) mg/dL Calcium (8.5-10.1) mg/dL Magnesium (1.8-2.4) mg/dL Total Bilirubin (0.2-1.0) mg/dL AST (15-37) U/L ALT (14-59) U/L Alkaline Phosphatase (46-116) U/L Troponin I (<0.06) ng/mL Total Protein (6.4-8.2) g/dL Albumin (3.4-5.0) g/dL Urine Color (Yellow) Yellow Urine Clarity (Clear) Clear Urine pH (5-8) 5.5 Ur Specific [place] (1.005-1.025) 1.025 Urine Protein (Negative) mg/dL Trace H Urine Ketones (Negative) mg/dL Negative Urine Blood (Negative) Negative Urine Nitrite (Negative) Negative Urine Bilirubin (Negative) Negative Urine Urobilinogen (Up TO 0.2) EU/dL 0.2 Ur Leukocyte Esterase (Negative) Negative Urine RBC (0-2) HPF Negative Urine WBC (0-5) HPF 0-2 Ur Epithelial Cells (Negative) HPF Moderate Urine Crystals (Negative) HPF Negative Urine Bacteria (Negative) HPF Rare Urine Casts (Negative) LPF Negative Urine Mucus (Negative) Negative Ur Culture Indicated? No/sq. contamination Urine Glucose (Negative) mg/dL 500 H ECG Data Attestation: I personally reviewed and interpreted this ECG (s) as follows: Interpretation: Please see official report by Dr. Mark. Sinus tachycardia, ventricular rate of 109. No STEMI. HPI General Mode of arrival: ambulatory . Date/Time Provider Initiated Documentation: 05/09/20 12:09 . Limitations to Documentation: other (Baseline dementia) . Information obtained by: patient . HPI Narrative: This is a 74-year-old female who presents to the ER with 3-day history of generalized weakness, nausea, vomiting, diarrhea. Patient has a past medical history that includes ataxia, chronic fatigue and malaise, CKD, COPD, deficits in activities of daily living, dementia, depression, diabetes, chronic diarrhea, GERD, PVD. Patient has been unable to take her medications for the past couple of days, INR was noted to be subtherapeutic. Patient is a palliative care patient, DNR-DNI. Patient denies headache, neck pain, fever, chest pain, shortness of breath, back pain, abdominal pain, dysuria, black tarry stools or bright red blood in her stools. Denies focal weakness. Patient has no pain whatsoever. No recent travel, bad food exposure or sick contacts. Related Data Home Medications Medication Instructions Recorded Confirmed aspirin [Aspir-81] 81 mg PO DAILY tab-cap NS 05/30/14 05/09/20 calcium carbonate-vitamin D3 1 tab PO DAILY 07/23/18 05/09/20 [Calcium 600 + D(3)] cholecalciferol (vitamin D3) 2,000 unit PO QAM 07/23/18 05/09/20 dicyclomine 10 mg PO HS 07/23/18 05/09/20 docusate sodium [Colace] 100 mg PO DAILY 07/23/18 05/09/20 warfarin [Coumadin] 2 mg PO HS 07/23/18 05/09/20 acetaminophen 325 mg PO Q4H PRN 01/21/19 05/09/20 ferrous gluconate 324 mg PO DAILY 01/21/19 05/09/20 memantine 5 mg tablet 7 mg PO HS tab 04/28/19 05/09/20 melatonin 5 mg PO HS 01/11/20 05/09/20 atorvastatin [Lipitor] 20 mg PO QPM #30 tab 03/16/20 05/09/20 duloxetine [Cymbalta] 20 mg PO DAILY #30 cap 03/16/20 05/09/20 gabapentin 100 mg capsule 200 mg PO HS cap 05/01/20 05/09/20 omeprazole 20 mg capsule,delayed 20 mg PO BID@ #60 cap 05/01/20 05/09/20 release cholecalciferol (vitamin D3) 2,000 unit PO DAILY 05/09/20 05/09/20 [Vitamin D3] gabapentin 200 mg PO HS 05/09/20 05/09/20 ondansetron HCl [Zofran] 4 mg PO Q8H PRN #10 tab 05/09/20 Previous Rx's Medication Instructions Recorded atorvastatin [Lipitor] 20 mg PO QPM #30 tab 03/16/20 duloxetine [Cymbalta] 20 mg PO DAILY #30 cap 03/16/20 omeprazole 20 mg capsule,delayed 20 mg PO BID@ #60 cap 05/01/20 release ondansetron HCl [Zofran] 4 mg PO Q8H PRN #10 tab 05/09/20 Allergies Allergy/AdvReac Type Severity Reaction Status Date / Time sulfamethoxazole Allergy Mild eyes Unverified 05/09/20 12:13 [From Bactrim] swollen amphotericin B liposome Allergy Unverified 05/09/20 12:13 [From AmBisome] cefuroxime Allergy Unverified 05/09/20 12:13 donepezil Allergy Unverified 05/09/20 12:13 trimethoprim [From Bactrim] Allergy Unverified 05/09/20 12:13 oxycodone HCl [From Percocet] AdvReac Unverified 05/09/20 12:13 General Stated Complaint: Nausea/Vomit/Diar KATHRYN: 3 Review of Systems Constitutional Constitutional: Denies fatigue, Denies fever(s), Denies headache(s) and Reports weakness (Generalized) ENT Ears, Nose, Mouth, and Throat: Denies headache(s) and Denies neck pain Cardiovascular Cardiovascular: Denies chest pain and Denies dyspnea Respiratory Respiratory: Denies cough and Denies dyspnea Gastrointestinal Gastrointestinal: Denies abdominal pain, Denies melena, Denies hematochezia, Reports diarrhea, Reports nausea and Reports vomiting Genitourinary Genitourinary: Denies dysuria Musculoskeletal Musculoskeletal: Denies back pain and Denies neck pain Integumentary/Breasts Skin/Breast: Denies rash Neurologic Neurologic: Denies headache(s) and Reports weakness (Generalized) Endocrine Endocrine: Denies fatigue Hematologic/Lymphatic Hematologic/Lymphatic: Reports easy bleeding and Reports easy bruising [facility] Medical History Accidental fall Altered mental status Aortoiliac occlusive disease Ataxia Breast cancer Chronic diarrhea Chronic fatigue and malaise Chronic kidney disease stage III Claudication severe, constant with walking >20-25 steps Colonic polyp COPD (chronic obstructive pulmonary disease) Deficit in activities of daily living (ADL) Dementia Depression Diabetes Diarrhea Diverticulosis GERD (gastroesophageal reflux disease) Health care proxy on file daughter Susan Woodward-Omid Heart murmur, systolic History of tobacco use Hyperlipidemia Hypertension Hypomagnesemia Insomnia Ischemic colitis Knee pain, bilateral Osteopenia Palliative care patient POLST (Physician Orders for Life-Sustaining Treatment) to be complete by daughter April 2020 signed by simone PVD (peripheral vascular disease) Radicular syndrome of left lower extremity Skin lesion Squamous cell carcinoma of skin Urinary incontinence UTI (urinary tract infection) Vascular dementia Vertigo Wrist fracture Surgical History axillo-byfem bypass Breast, Lumpectomy EGD - MAC (02/29/16) Family History Daughter No problems noted. Son No problems noted. Son No problems noted. Granddaughter No problems noted. Social History Smoking/Tobacco Use Status: Former Tobacco Use Tobacco: How many years used: 40 Smoking risk assessment performed?: Yes Alcohol Intake: never Drug use: Never Substance use type: does not use Caregiver/Support person: Yes Household members: caregiver Housing: assisted living facility Number of Children: 3 Communication Needs: Hard of Hearing and Corrective Lenses Education Level: high school Do you need help understanding health information?: Always Pets and animals: Yes Pets and animals: cat(s) Current gender identity: female What is your relationship status?: How often do you talk on the phone with friends or family?: once per week How often do you get together with friends or relatives?: never Panel score (0-1 are the most socially isolated patients): 0 What type of physical activity do you participate in: independent ambulation, other Details: stairs and sedentary lifestyle Duration: < 15 minutes/day Frequency: daily Special singh needs: No Seatbelt use: always Working smoke detector in home: Yes Fire extinguisher in home: Yes Do you feel safe at home: Yes Do you feel safe in your relationship?: Yes Additional Social history: Elisa has PVD, vascular dementia,h/o GI bleeding 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 Pt is clean/well nourished, good interaction with patient care coordinator. Daughter Susan Alvarado is DPOA. Tried to reach her to fill out COLST together. I filled out some parts, signed it, left blanks for Susan to review and sign, and then send back to [facility] and [facility]. Despite multiple GI bleeds, vascular surgery still wants Elisa to take warfarin, due to severity of her vascular disease. Exam Const General: cooperative, healthy appearing, comfortable and no acute distress Orientation: alert, awake and oriented to person [facility] Head: normal to inspection, normocephalic and atraumatic Mouth: moist mucous membranes abnormal (Dry mucous membranes) Eyes General: appearance normal, both eyes and all related structures Conjunctivae: conjunctivae normal Sclera: sclerae normal Neck Neck: normal visual inspection, full ROM, trachea midline and supple Resp Effort & Inspection: normal respiratory effort and able to speak in complete sentences Auscultation: clear to auscultation bilaterally Cardio Rate: tachycardic (112) Rhythm: regular rhythm GI Inspection: normal to inspection Palpation: soft, not firm, no guarding, no pulsatile masses and nontender Auscultation: normal bowel sounds Back/Spine/Pelvis Back: No back tenderness Skin General skin exam: no rashes or lesions noted Neuro General: patient alert, patient awake, moves all extremities and no focal motor deficits Cognition: normal cognition Speech: speech normal Gait: normal gait Motor: muscle tone normal throughout Sensory Exam: no sensory deficits noted Extrem General: normal to inspection, full ROM, capillary refill normal, no pedal edema and no calf tenderness Psych Appearance: grossly normal Mental Status: mental status grossly normal Course Vital Signs Vital signs: Vital Signs Pulse 110 H 05/09/20 12:05 Respiratory Rate 19 05/09/20 12:05 Blood Pressure 133/51 L 05/09/20 12:05 Pulse Oximetry 93 05/09/20 12:05 Pulse 110 H 05/09/20 12:05 Respiratory Rate 19 05/09/20 12:05 Respiratory Effort Non-Labored 05/09/20 12:13 Blood Pressure 133/51 L 05/09/20 12:05 Blood Pressure Position Sitting 05/09/20 12:05 Pulse Oximetry 93 05/09/20 12:05 Oxygen Delivery Method Room Air 05/09/20 12:05 Oxygen Flow Rate 0 05/09/20 12:05 Pain Level 0 05/09/20 12:05
[2020-05-09 12:39] LABS: Abs Immature Grans 0.02 10^3/uL (0.0-0.06); Absolute Basophil Count 0.03 10^3/uL (0.0-0.2); Absolute Eosinophil Count 0.01 10^3/uL (0.0-0.7); Absolute Monocyte Count 0.43 10^3/uL (0.1-0.8); Absolute Neutrophil Count 6.58 10^3/uL (1.2-6.7); Basophils % 0.4; Eosinophils % 0.1; HCT 36.9 % (36.0-46.0); HGB 11.2 g/dL (11.2-15.7); Immature Grans % 0.2; Lymphocytes % 13.5; MCH 27.7 pg (27.0-33.0); MCHC 30.4 % (32.0-36.0); MCV 91.1 fL (80-95); MPV 10.7 fL (8.0-11.0); Monocytes % 5.3; Neutrophils % 80.5; Nucleated RBC 0 %; Platelet Count 340 10^3/uL (130-400); RBC 4.05 10^6/uL (3.93-5.22); RDW 13.3 % (11.7-14.6); RDW-SD 44.6 fL; WBC 8.17 10^3/uL (4.4-10.8)
[2020-05-09] MEDS: Normal Saline 1,000 ML 1000 ML IV (12:41)
[2020-05-09] MEDS: Ondansetron 4 MG/2 ML VIAL IVP (12:41)
[2020-05-09 13:05] LABS: ALT 42 U/L (14-59); AST 37 U/L (15-37); Albumin 3.7 g/dL (3.4-5.0); Alkaline Phosphatase 109 U/L (46-116); Anion Gap 10.8 mmol/L (3-11); BUN 18 mg/dL (7-18); Bilirubin, Total 0.3 mg/dL (0.2-1.0); CO2 27.2 mmol/L (21.0-32.0); CREATININE 1.4 mg/dL (0.55-1.02); Calcium 9.3 mg/dL (8.5-10.1); Chloride 97 mmol/L (98-107); Estimated GFR 36.56 (mL/min/1.73m2); Glucose 396 mg/dL (74-106); Magnesium 1.6 mg/dL (1.8-2.4); Potassium 4.6 mmol/L (3.5-5.1); Sodium 135 mmol/L (136-145); Total Protein 7.6 g/dL (6.4-8.2)
[2020-05-09 13:06] LABS: Troponin I < 0.05 ng/mL (<0.06)
[2020-05-09 13:09] LABS: INR 1.4 (0.9-1.1); PTT Activated 23.6 sec (21.0-27.5); Prothrombin Time 13.7 sec (9.3-11.0)
[2020-05-09] MEDS: Lactated Ringers 1,000 ML 1000 ML IV (14:30)
[2020-05-09] MEDS: MAGNESIUM SULFATE 1 GM/100 ML BAG IVPB (14:34)
[2020-05-09 14:55] LABS: Bilirubin Negative (Negative); Blood Negative (Negative); Clarity Clear (Clear); Glucose 500 mg/dL (Negative); Ketones Negative (Negative); Leukocyte Esterase Negative (Negative); Nitrite Negative (Negative); Specific Gravity 1.025 (1.005-1.025); Urobilinogen 0.2 EU/dL (Up TO 0.2); pH 5.5 (5-8)
[2020-05-09 15:22] LABS: Bacteria Rare HPF (Negative); C & S Indicated? No/Sq. Contamination; Casts Negative LPF (Negative); Crystals Negative HPF (Negative); Epithelial Cells Moderate HPF (Negative); Mucus Negative (Negative); RBC Negative HPF (0-2); WBC 0-2 HPF (0-5)
--- NOTE | 2020-05-09 15:28 | NUR.NOTE ---
pt provided with lunch tray Nursing Note:
== END 2020-05-09 17:37 | disposition home or self-care (01) ==
PROVIDERS: Emergency Provider Physician Assistant; PCP Family Medicine
DX: R11.2 Nausea with vomiting, unspecified (principal); R19.7 Diarrhea, unspecified; R79.1 Abnormal coagulation profile; Z83.42 Family history of familial hypercholesterolemia
CPT/HCPCS: 36416; 80053; 82962; 93005; 96361; 96365; 96375; 99284; 74022; 81003; 81015; 83735; 84484; 85025; 85610; 85730; 93010; 99283; J2405; J3475

== ENCOUNTER 2020-08-06 16:12 | Emergency (ER) | payer MEDICARE, MEDICAID, SELFPAY ==
[2020-08-06] VITALS (14 sets, daily range): BP systolic 131–151; BP diastolic 59–69; PULSE 87–105; RESP 13–20; TEMP 36.8–37.1; O2SAT 92–98
--- NOTE | 2020-08-06 16:15 | RT.EKG_ITS ---
APPROVED REPORT Exam: Resting ECG Reason for Exam: nausea, abdominal pain Patient Location: E HR:93 bpm ECG Measurements Heart Rate 93 AXIS PA 144 P 64 QRSd 75 QRS 60 QT 351 T 61 QTc 437 Conclusion Sinus rhythm.. Probable left atrial enlargement.
--- NOTE | 2020-08-06 16:24 | W.ED.GENAD ---
Discharge Plan Disposition Patient Disposition: HOME Condition: Stable Discharge Details Clinical Impression: UTI (urinary tract infection), Supratherapeutic INR, Hypomagnesemia Primary Care Provider: Nirmala Clemetne V ED Provider: Myesha De Oliveira Home Meds and New Rx's Prescriptions: New amoxicillin-pot clavulanate [Augmentin] 500-125 mg tablet 1 tab PO BID 5 Days Qty: 10 RF: 0 Continued memantine [Namenda] 5 mg tablet 7 mg PO HS RF: 0 gabapentin 100 mg capsule 200 mg PO HS RF: 0 aspirin [Aspir-81] 81 MG tablet,delayed release (DR/EC) 81 mg PO DAILY RF: 0 docusate sodium [Colace] 100 mg Capsule 100 mg PO DAILY RF: 0 dicyclomine 10 mg Capsule 10 mg PO HS RF: 0 calcium carbonate-vitamin D3 [Calcium 600 + D(3)] 600 mg(1,500mg) -400 unit Tablet 1 tab PO DAILY RF: 0 warfarin [Coumadin] 2 MG tablet 2.5 mg PO HS RF: 0 ferrous gluconate 324 mg (38 mg iron) Tablet 324 mg PO DAILY RF: 0 omeprazole 20 mg capsule,delayed release(DR/EC) 40 mg PO BID@0730,2000 RF: 0 acetaminophen 500 mg tablet 1,000 mg PO Q8H PRN PRNRF: 0 polyethylene glycol 3350 17 gram/dose powder 17 g PO DAILY PRNRF: 0 multivitamin with iron-mineral Tablet 1 tab PO DAILY RF: 0 atorvastatin 20 mg tablet 20 mg PO DAILY RF: 0 melatonin 3 mg tablet 5 mg PO HS RF: 0 duloxetine [Cymbalta] 20 mg Capsule,Delayed Release(Dr/Ec) 20 mg PO DAILY Qty: 30 RF: 0 gabapentin 100 mg capsule 200 mg PO HS RF: 0 cholecalciferol (vitamin D3) [Vitamin D3] 25 mcg (1,000 unit) Capsule 2,000 unit PO DAILY RF: 0 ondansetron HCl [Zofran] 4 mg tablet 4 mg PO Q8H PRNQty: 10 RF: 0 Discharge Instructions Instructions: Amoxicillin/Clavulanate Potassium (By mouth), Urinary Tract Infection in Women (ED), Hypomagnesemia (ED) Additional Instructions: Continue to encourage frequent sips of fluids. [place] diet for the time being. Please take antibiotics as prescribed. Even if symptoms improve, please take the entire course. Please follow-up with primary care in the next few days for reevaluation. Please call primary care tomorrow to discuss elevated INR. Hold warfarin for tonight until instructed to begin again by your primary care. If you develop fever/chills, abdominal pain or other new/worsening symptoms please seek care urgently once again. Please also follow-up with palliative care physicians regarding continued goals of care. Referrals: Nirmala Clemente MD [Primary Care Provider] - Marysol Gonzales MD [ [facility] STAFF PHYSICIAN] - Discharge Data Discharge Date/Time-TO BE ENTERED AT DEPARTURE: 08/06/20 20:20 Medical Decision Making Patient is a pleasant 75 year old female presenting today [facility] c/c of decreased appetite, intermittent abdominal discomfort. Patient was seen here in April with similar complaint. Patient has switched home care providers and has been with her her current home care provider for the past few weeks. This has been an ongoing issue since transitioning care. Prior to starting with his home care provider, patient was inpatient at [facility] for the same. Primary concern at this time is diminished appetite, poor p.o. intake. Has abdominal discomfort and nausea/vomiting with attempts at p.o. intake. He has only able to take small sips of water. Patient is currently denying any nausea or vomiting. Past medical history pertinent for breast cancer, hypertension, hyperlipidemia, diabetes, mesenteric ischemia, carotid artery stenosis, peripheral artery disease. Patient denies any previous abdominal surgeries. Spoke with Krystal Anne, patient's daughter and DPOA at [phone]. She and I discussed Dr. Gonzales's concern for possible chronic mesenteric ischemia which sounds to progressively worsening. She and I discussed goals of care. Patient is a DNR/DNI. She also advises that patient would not want surgery or other life-prolonging measures. Rather, would like to have treatment with the goal being comfort. On exam, patient appears nontoxic. Lungs are clear, normal cardiac exam. Abdomen is benign with no tenderness on palpation. She has 2+ distal pulses in bilateral lower extremities. Differential diagnosis this time includes gastroenteritis, cholecystitis, mesenteric ischemia, ACS versus other. We will begin hydrating the patient, treat nausea and obtain labs. These interventions are in line with what daughter, patient's DPOA, would like performed. Labs reviewed. No leukocytosis. Hemoglobin 10.9 which is stable for the patient. INR is elevated at 4.8, lactate is within normal limits. Creatinine is elevated at 1.5 which is baseline for the patient. Magnesium is low at 1.4, will replenish this here. Amylase lipase within normal limits. Daughter Susan is now at bedside. She advised the patient did have surgery in 2010. Subsequently reviewed the notes from [facility]. Patient is status post right axillobifemoral bypass which was performed in the setting of mesenteric ischemia and bilateral lower extremity ischemia. Patient was last seen by vascular surgery on 04/04/2020. Patient underwent ABIs with interpretation showing no significant change compared to previous exam. I discussed with the daughter that complication associated with her grafting could also be with causing her symptoms. However, patient does have 2+ distal pulses and no evidence of lower extremity ischemia at this time. Daughter continues to decline any surgical intervention and goal of care is comfort. Patient unable to give urine, typically incontinent. Nursing staff will perform straight cath as UTI is still on differential. UA concerning for UTI. Will treat with abx. In alignment with patient's wishes, will treat as outpatient to keep home and comfortable. Concerns at length the patient and her daughter. Plan to treat with antibiotics. Will treat with Augmentin based on patient's allergies as well as her supratherapeutic INR. She will hold her Coumadin tonight. Will touch base with primary care for further recommendations tomorrow. I see no evidence of bleeding at this time. Patient family's wishes for her to be able to be home and be comfortable. I did encourage close follow-up with primary care. Encourage water intake. Strict return cautions were given. All the questions and concerns were addressed and they are in agreement with this plan. HPI General Mode of arrival: wheelchair. Date/Time Provider Initiated Documentation: 08/06/20 16:14. Limitations to Documentation: altered mental status (hx of dementia). Information obtained by: patient, family (spoke with daughterSusan. Home care provider at bedside) and RN notes reviewed. History of Present Illness 75 year old F presents to the emergency department with the chief complaint of diminished appetite, described as similar to prior episodes (has waxed/waned for past few months), Quality is described as other (patient denies any pain currently), and is localized to the abdomen. Patient reports no radiation. Patient started experiencing this month(s) and it has been intermittent and now resolved. No relieving factors improve symptom(s), Eating worsens symptoms . Patient notes no other symptoms.. Patient did receive the following treatments prior to arrival, none Related Data Home Medications Medication Instructions Recorded Confirmed aspirin [Aspir-81] 81 mg PO DAILY tab-cap NS 05/30/14 08/06/20 calcium carbonate-vitamin D3 1 tab PO DAILY 07/23/18 08/06/20 [Calcium 600 + D(3)] dicyclomine 10 mg PO HS 07/23/18 08/06/20 docusate sodium [Colace] 100 mg PO DAILY 07/23/18 08/06/20 warfarin [Coumadin] 2.5 mg PO HS 07/23/18 08/06/20 ferrous gluconate 324 mg PO DAILY 01/21/19 08/06/20 memantine 5 mg tablet 7 mg PO HS tab 04/28/19 08/06/20 melatonin 5 mg PO HS 01/11/20 08/06/20 duloxetine [Cymbalta] 20 mg PO DAILY #30 cap 03/16/20 08/06/20 gabapentin 100 mg capsule 200 mg PO HS cap 05/01/20 08/06/20 cholecalciferol (vitamin D3) 2,000 unit PO DAILY 05/09/20 08/06/20 [Vitamin D3] gabapentin 200 mg PO HS 05/09/20 08/06/20 ondansetron HCl [Zofran] 4 mg PO Q8H PRN #10 tab 05/09/20 08/06/20 acetaminophen 1,000 mg PO Q8H PRN PRN 08/06/20 08/06/20 amoxicillin-pot clavulanate 1 tab PO BID 5 Days #10 tab 08/06/20 [Augmentin] atorvastatin 20 mg PO DAILY 08/06/20 08/06/20 multivitamin with iron-mineral 1 tab PO DAILY 08/06/20 08/06/20 omeprazole 40 mg PO BID@0730,2000 08/06/20 08/06/20 polyethylene glycol 3350 17 g PO DAILY PRN 08/06/20 08/06/20 Previous Rx's Medication Instructions Recorded duloxetine [Cymbalta] 20 mg PO DAILY #30 cap 03/16/20 ondansetron HCl [Zofran] 4 mg PO Q8H PRN #10 tab 05/09/20 amoxicillin-pot clavulanate 1 tab PO BID 5 Days #10 tab 08/06/20 [Augmentin] Allergies Allergy/AdvReac Type Severity Reaction Status Date / Time sulfamethoxazole Allergy Mild eyes Unverified 08/06/20 17:01 [From Bactrim] swollen amphotericin B liposome Allergy Unverified 08/06/20 17:01 [From AmBisome] cefuroxime Allergy Unverified 08/06/20 17:01 donepezil Allergy Unverified 08/06/20 17:01 trimethoprim [From Bactrim] Allergy Unverified 08/06/20 17:01 oxycodone HCl [From Percocet] AdvReac Unverified 08/06/20 17:01 General KATHRYN: 3 Review of Systems Unobtainable due to mental condition (dementia) PFSH Medical History Accidental fall Altered mental status Aortoiliac occlusive disease Ataxia Breast cancer Chronic diarrhea Chronic fatigue and malaise Chronic kidney disease stage III Claudication severe, constant with walking >20-25 steps Colonic polyp COPD (chronic obstructive pulmonary disease) Deficit in activities of daily living (ADL) Dementia Depression Diabetes Diarrhea Diverticulosis DNI (do not intubate) DNR (do not resuscitate) GERD (gastroesophageal reflux disease) Health care proxy on file daughter Susan Woodward-Omid Heart murmur, systolic History of tobacco use Hyperlipidemia Hypertension Hypomagnesemia Insomnia Ischemic colitis Knee pain, bilateral Mesenteric ischemia abd pain, nausea/vomiting after eating Osteopenia Palliative care patient POLST (Physician Orders for Life-Sustaining Treatment) DNR/DNI NH form; signed 10/10/16 PVD (peripheral vascular disease) Radicular syndrome of left lower extremity Skin lesion Squamous cell carcinoma of skin Urinary incontinence UTI (urinary tract infection) Vascular dementia Vertigo Wrist fracture Surgical History axillo-byfem bypass Breast, Lumpectomy EGD - MAC (02/29/16) Family History Daughter No problems noted. Son No problems noted. Son No problems noted. Granddaughter No problems noted. Social History Smoking/Tobacco Use Status: Former Tobacco Use Tobacco: How many years used: 40 Smoking risk assessment performed?: Yes Alcohol Intake: never Drug use: Never Substance use type: does not use Caregiver/Support person: Yes Household members: caregiver Housing: assisted living facility Number of Children: 3 Communication Needs: Hard of Hearing and Corrective Lenses Education Level: high school Do you need help understanding health information?: Always Pets and animals: Yes Pets and animals: cat(s) Current gender identity: female What is your relationship status?: How often do you talk on the phone with friends or family?: once per week How often do you get together with friends or relatives?: never Panel score (0-1 are the most socially isolated patients): 0 What type of physical activity do you participate in: independent ambulation, other Details: stairs and sedentary lifestyle Duration: < 15 minutes/day Frequency: daily Special singh needs: No Seatbelt use: always Working smoke detector in home: Yes Fire extinguisher in home: Yes Do you feel safe at home: Yes Do you feel safe in your relationship?: Yes Additional Social history: Elisa has PVD, vascular dementia,h/o GI bleeding 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 Pt is clean/well nourished, good interaction with child care education coordinator. Daughter Susan Alvarado is DPOA. Has NH form for DNR/DNI in place; signed in 2017. Will scan into EMR. Despite multiple GI bleeds, vascular surgery still wants Elisa to take warfarin, due to severity of her vascular disease. Recent sx c/w mesenteric ischemia. CAREGIVER moving soon; unsure whether new apt will be approved by agency overseeing Elisa's care. Exam Const General: cooperative, healthy appearing, comfortable, no acute distress and well developed Nutritional Appearance: average body habitus and well nourished Orientation: alert, awake and not oriented x3 HENMT Head: normal to inspection Mouth: moist mucous membranes Resp Effort & Inspection: normal respiratory effort, able to speak in complete sentences and no respiratory distress Auscultation: clear to auscultation bilaterally, no rales, no rhonchi and no wheezes Cardio Rate: regular rate Rhythm: regular rhythm Heart Sounds: S1 normal and S2 normal GI Inspection: normal to inspection Palpation: soft, no hepatosplenomegaly, not firm, no guarding, no masses, no pulsatile masses, not rigid and No ascites Percussion: normal to percussion Auscultation: normal bowel sounds Back/Spine/Pelvis Back: no CVA tenderness Skin General skin exam: no rashes or lesions noted Trauma: no lacerations or abrasions Neuro General: patient alert and patient awake Cognition: normal cognition Speech: speech normal Extrem General: normal to inspection, capillary refill normal, no pedal edema, no calf tenderness and other (2+ distal pulses BLE) Psych Appearance: grossly normal and well kempt Mental Status: mental status grossly normal Speech and Movement: speech and movement normal
[2020-08-06 17:02] LABS: Lactate 1.1 mmol/L (0.6-1.4)
[2020-08-06 17:04] LABS: Abs Immature Grans 0.01 10^3/uL (0.0-0.06); Absolute Basophil Count 0.06 10^3/uL (0.0-0.2); Absolute Eosinophil Count 0.13 10^3/uL (0.0-0.7); Absolute Lymphocyte Count 1.99 10^3/uL (1.2-3.4); Absolute Monocyte Count 0.62 10^3/uL (0.1-0.8); Absolute Neutrophil Count 4.07 10^3/uL (1.2-6.7); Basophils % 0.9; Eosinophils % 1.9; HCT 36.7 % (36.0-46.0); HGB 10.9 g/dL (11.2-15.7); Immature Grans % 0.1; Lymphocytes % 28.9; MCH 26.6 pg (27.0-33.0); MCHC 29.7 % (32.0-36.0); MCV 89.5 fL (80-95); MPV 10.7 fL (8.0-11.0); Neutrophils % 59.2; Nucleated RBC 0 %; Platelet Count 357 10^3/uL (130-400); RDW 13.4 % (11.7-14.6); RDW-SD 43.9 fL; WBC 6.88 10^3/uL (4.4-10.8)
[2020-08-06] MEDS: Ondansetron 4 MG/2 ML VIAL IVP (17:04)
[2020-08-06] MEDS: Normal Saline Flush 10 ML SYR IVP (17:05)
[2020-08-06] MEDS: Lactated Ringers 1,000 ML 500 ML IV (17:05)
[2020-08-06 17:15] LABS: Amylase 32 U/L (25-115)
[2020-08-06 17:21] LABS: ALT 21 U/L (14-59); AST 23 U/L (15-37); Alkaline Phosphatase 92 U/L (46-116); Anion Gap 10.9 mmol/L (3-11); BUN 24 mg/dL (7-18); Bilirubin, Total 0.2 mg/dL (0.2-1.0); CO2 27.1 mmol/L (21.0-32.0); CREATININE 1.5 mg/dL (0.55-1.02); Calcium 8.6 mg/dL (8.5-10.1); Chloride 103 mmol/L (98-107); Estimated GFR 33.67 (mL/min/1.73m2); Glucose 122 mg/dL (74-106); Lipase 80 U/L (73-393); Magnesium 1.4 mg/dL (1.8-2.4); Sodium 141 mmol/L (136-145); Total Protein 6.3 g/dL (6.4-8.2); Troponin I < 0.05 ng/mL (<0.06)
[2020-08-06 17:24] LABS: Prothrombin Time 46.6 sec (9.3-11.0)
[2020-08-06 17:25] LABS: INR 4.8 (0.9-1.1)
[2020-08-06] MEDS: MAGNESIUM SULFATE 1 GM/100 ML BAG IVPB (18:02)
[2020-08-06 19:17] LABS: Bilirubin Negative (Negative); Blood Small (Negative); Clarity Cloudy (Clear); Glucose Negative (Negative); Ketones 15 mg/dL (Negative); Leukocyte Esterase Moderate (Negative); Nitrite Positive (Negative); Specific Gravity 1.025 (1.005-1.025); Urobilinogen 0.2 EU/dL (Up TO 0.2); pH 5.5 (5-8)
[2020-08-06 19:23] LABS: Bacteria Many HPF (Negative); C & S Indicated? Yes; Casts Negative LPF (Negative); Crystals Negative HPF (Negative); Epithelial Cells Few HPF (Negative); Mucus Negative (Negative); WBC >50 HPF (0-5)
[2020-08-06] MEDS: Amoxicillin 500/Clav. 125 TAB PO ×2 (19:54)
== END 2020-08-06 20:20 | disposition home or self-care (01) ==
PROVIDERS: Emergency Provider Physician Assistant; PCP Family Medicine
DX: N39.0 Urinary tract infection, site not specified (principal); R79.1 Abnormal coagulation profile; E83.42 Hypomagnesemia
CPT/HCPCS: 51701; 80053; 83690; 87077; 93005; 96361; 96365; 96375; 99284; 81003; 81015; 82150; 83605; 83735; 84484; 85025; 85610; 87086; 87186; 93010; J2405; J3475

== ENCOUNTER 2020-08-21 16:27 | Outpatient (REF) | payer MEDICARE, MEDICAID, SELFPAY | END 2020-08-21 16:28 | disposition home or self-care (01) | LOC: NCHCN 16:27 | PROVIDERS: PCP Family Medicine; Visit Provider Family Medicine | DX: N39.0 Urinary tract infection, site not specified (principal) | CPT/HCPCS: 87086 ==

== ENCOUNTER 2020-11-05 20:43 | Outpatient (REF) | payer MEDICARE, MEDICAID, SELFPAY | END 2020-11-05 20:44 | disposition home or self-care (01) | LOC: NCHCN 20:43 | PROVIDERS: PCP Family Medicine; Visit Provider Physician Assistant Medical | DX: N39.0 Urinary tract infection, site not specified (principal) | CPT/HCPCS: 87077; 87086; 87186 ==

== ENCOUNTER 2020-11-07 03:44 | Outpatient (CLI) | payer MEDICARE, MEDICAID, SELFPAY ==
[2020-11-07 12:36] LABS: HGB 7.7 g/dL (11.2-15.7); MCH 23.5 pg (27.0-33.0); MCHC 29.6 % (32.0-36.0); MCV 79.3 fL (80-95); Platelet Count 359 10^3/uL (130-400); RBC 3.28 10^6/uL (3.93-5.22); RDW 16.5 % (11.7-14.6); RDW-SD 48.3 fL; WBC 8.39 10^3/uL (4.4-10.8)
[2020-11-07 13:16] LABS: ALT 18 U/L (14-59); AST 21 U/L (15-37); Albumin 3.2 g/dL (3.4-5.0); Alkaline Phosphatase 82 U/L (46-116); Anion Gap 12.8 mmol/L (3-11); BUN 17 mg/dL (7-18); Bilirubin, Total 0.1 mg/dL (0.2-1.0); CO2 21.2 mmol/L (21.0-32.0); CREATININE 1.2 mg/dL (0.55-1.02); Calcium 8.6 mg/dL (8.5-10.1); Chloride 106 mmol/L (98-107); Estimated GFR 43.56 (mL/min/1.73m2); Glucose 136 mg/dL (74-106); Potassium 3.8 mmol/L (3.5-5.1); Sodium 140 mmol/L (136-145); TSH (W/Ref FT4) 1.89 uIU/mL (0.36-3.74); Total Protein 6.8 g/dL (6.4-8.2)
[2020-11-07 13:39] LABS: Ferritin 11 ng/mL (8-252)
== END 2020-11-07 03:45 | disposition home or self-care (01) ==
LOC: LBO 03:44
PROVIDERS: PCP Family Medicine; Visit Provider Family Medicine
DX: E11.9 Type 2 diabetes mellitus without complications (principal); D64.9 Anemia, unspecified
CPT/HCPCS: 36415; 80053; 85027; 82728; 84443

== ENCOUNTER 2020-11-14 17:01 | Outpatient (REF) | payer MEDICARE, MEDICAID, SELFPAY | END 2020-11-14 17:02 | disposition home or self-care (01) | LOC: NCHCN 17:01 | PROVIDERS: PCP Family Medicine; Visit Provider Family Medicine | DX: N39.0 Urinary tract infection, site not specified (principal) | CPT/HCPCS: 87086 ==

== ENCOUNTER 2021-01-31 10:53 | Observation (INO) | payer MEDICARE, MEDICAID, SELFPAY ==
[2021-01-31] VITALS (16 sets, daily range): BP systolic 115–168; BP diastolic 48–114; PULSE 83–105; RESP 12–20; TEMP 36.4–36.9; O2SAT 97–100
--- NOTE | 2021-01-31 11:17 | ED.GENADUL_ITS ---
Discharge Plan Disposition Patient Disposition: [facility] INPATIENT Condition: Stable Discharge Details Clinical Impression: Acute on chronic anemia, UTI (urinary tract infection), Generalized weakness Primary Care Provider: Nirmala Clemente V ED Provider: Shanthi Mark Home Meds and New Rx's Prescriptions: No Action memantine [Namenda] 5 mg tablet 7 mg PO HS RF: 0 melatonin 10 mg capsule 10 mg PO HS PRN (Reason: sleep) Qty: 90 RF: 3 quetiapine [Seroquel] 25 mg tablet 25 - 50 mg PO HS Qty: 150 RF: 3 mirtazapine 7.5 mg tablet 7.5 mg PO QHS RF: 0 valerian root 445 mg capsule 445 mg PO QHS PRNRF: 0 aspirin [Aspir-81] 81 MG tablet,delayed release (DR/EC) 81 mg PO DAILY RF: 0 warfarin [Coumadin] 2 MG tablet 2 mg PO HS RF: 0 omeprazole 20 mg capsule,delayed release(DR/EC) 40 mg PO BID@0730,1999 RF: 0 acetaminophen 500 mg tablet 1,000 mg PO Q8H PRN PRNRF: 0 polyethylene glycol 3350 17 gram/dose powder 17 g PO DAILY PRNRF: 0 atorvastatin 20 mg tablet 20 mg PO DAILY RF: 0 amoxicillin 500 mg capsule 500 mg PO TID RF: 0 dicyclomine 10 mg capsule 10 mg PO QHS RF: 0 ferrous gluconate 324 mg (38 mg iron) tablet 324 mg PO DAILY RF: 0 gabapentin 100 mg capsule 200 mg PO HS RF: 0 cholecalciferol (vitamin D3) [Vitamin D3] 25 mcg (1,000 unit) Capsule 2,000 unit PO DAILY RF: 0 ondansetron HCl [Zofran] 4 mg tablet 4 mg PO Q8H PRNQty: 10 RF: 0 Medical Decision Making 75-year-old female with a history of GERD, hypertension, hyperlipidemia, peripheral vascular disease with history of axillobifemoral memorial bypass on warfarin, breast cancer with history of breast lumpectomy presents for UTI and anemia with hemoglobin of 6.8 at PCP office today. Patient denies any specific complaints and daughter at bedside was unaware of any recent complaints. Blood pressure hypertensive. Heart rate mildly tachycardic. She appears comfortable and nontoxic. Moist mucous membranes. Lungs clear. Abdomen soft and nontender. No focal deficits. We will repeat screening labs, urinalysis and give small bolus IV fluids and discuss with her caregiver Tory for additional details. Per discussion with Tory, patient has severe dementia and is a poor historian. Tory has noted that patient has been rubbing her abdomen daily for the past 2 weeks. She thought it was IBS and was giving her dicyclomine which the PCP today recommended against. She was seen at the PCP office today for the symptoms and diagnosed with UTI. She states that patient has been more generally mopey and weak over the past 2 weeks. She states patient has been eating normally without fever, vomiting or urinary symptoms. She notes that patient Seroquel was increased 2 weeks ago due to insomnia at night. Will obtain a CT abdomen and pelvis. Delay in obtaining labs due to poor IV access. IV attempts by nursing unsuccessful. Hemoglobin 6.1. 2 units PRBCs ordered. INR slightly subtherapeutic at 1.9. I placed an IV in the right AC which eventually infiltrated. IV placed in left AC and patient referred for CT imaging. Urinalysis consistent with UTI. Her allergy list has cefuroxime of which patient and daughter are unsure of her reaction. Cannot do fluoroquinolones due to her warfarin. A dose of Zosyn IV ordered. Patient had 2 additional IVs placed, by myself as well as anesthesia and both IVs infiltrated. Anesthesia paged a 2nd time and will plan for midline as patient has not yet received her PRBC transfusion and has had no success with peripheral access. Midline placed successfully and patient referred for CT imaging which was unremarkable. Case discussed with hospitalist who accepts pt for admission. Medical Records Medical records reviewed: Yes I reviewed the patient's medical records. Imaging Data Radiologic Study: Radiologist's impression: CT Abdomen And Pelvis With Contrast Exam date and time: 01/31/2021 11:49 AM Age: 75 years old Clinical indication: Other: Lower abd pain, UTI, R/O pyelo, stone TECHNIQUE: Imaging protocol: Computed tomography of the abdomen and pelvis with contrast. Contrast material: OMNIPAQUE 350; Contrast volume: 66 ml; Contrast route: INTRAVENOUS (IV); COMPARISON: CT ABDOMEN PELVIS WO 07/23/2018 6:06 PM FINDINGS: Liver: Normal. No mass. Gallbladder and bile ducts: Normal. No calcified stones. No ductal dilation. Pancreas: Normal. No ductal dilation. Spleen: Normal. No splenomegaly. Adrenal glands: Normal. No mass. Kidneys and ureters: No evidence of obstructing renal stone or hydronephrosis. Stomach and bowel: Unremarkable. No obstruction. No mucosal thickening. Appendix: No evidence of appendicitis. Intraperitoneal space: Unremarkable. No free air. No significant fluid collection. Vasculature: Right axillary to femoral bypass graft is patent. Femoral to femoral arterial bypass graft is patent. The distal abdominal aorta and common iliac arteries are occluded. Small calcification anterior to the right psoas muscle corresponds to a phlebolith within a right ovarian vein, unchanged compared to prior exam. Lymph nodes: Unremarkable. No enlarged lymph nodes. Urinary bladder: Unremarkable as visualized. Reproductive: Unremarkable as visualized. Bones/joints: Stable grade 2 anterolisthesis of L5 over S1 with significant loss of disc height. No acute fracture. Soft tissues: Unremarkable. IMPRESSION: No evidence of acute abdominal or pelvic process. No evidence of obstructing renal stone or hydronephrosis. No evidence of pyelonephritis. Lab Data Lab results reviewed: Yes I reviewed the patient's lab results. Labs: 01/31/21 14:25 Urine - Reflex from Ua Urine Culture - Pending Laboratory Tests Range/Units 01/31/21 01/31/21 01/31/21 12:35 12:35 13:10 WBC (4.4-10.8) 10^3/uL 6.31 RBC (3.93-5.22) 10^6/uL 2.85 L Hgb (11.2-15.7) g/dL 6.1 L* Hct (36.0-46.0) % 22.9 L MCV (80-95) fL 80.4 MCH (27.0-33.0) pg 21.4 L MCHC (32.0-36.0) % 26.6 L RDW (11.7-14.6) % 15.4 H Plt Count (130-400) 10^3/uL 335 MPV (8.0-11.0) fL 10.7 Immature Gran % 0.3 Neutrophils % 63.3 Lymphocytes % 21.2 Monocytes % 10.0 Eosinophils % 4.4 Basophils % 0.8 Nucleated RBC % % 0 Absolute Neutrophils (1.2-6.7) 10^3/uL 3.99 Absolute Lymphocytes (1.2-3.4) 10^3/uL 1.34 Absolute Monocytes (0.1-0.8) 10^3/uL 0.63 Absolute Eosinophils (0.0-0.7) 10^3/uL 0.28 Absolute Basophils (0.0-0.2) 10^3/uL 0.05 Hypochromasia 2+ PT (9.3-11.0) sec 19.2 H INR (0.9-1.1) 1.9 H APTT (21.0-27.5) sec 20.7 L Sodium (136-145) mmol/L 140 Potassium (3.5-5.1) mmol/L 5.1 Chloride (98-107) mmol/L 106 Carbon Dioxide (21.0-32.0) mmol/L 22.1 Anion Gap (3-11) mmol/L 11.9 H BUN (7-18) mg/dL 29 H Creatinine (0.55-1.02) mg/dL 1.3 H Estimated GFR/1.73 m2 (mL/min/1.73m2) 39.72 Glucose (74-106) mg/dL 143 H Calcium (8.5-10.1) mg/dL 8.7 Total Bilirubin (0.2-1.0) mg/dL 0.1 L AST (15-37) U/L 15 ALT (14-59) U/L 14 Alkaline Phosphatase (46-116) U/L 101 Total Protein (6.4-8.2) g/dL 6.5 Albumin (3.4-5.0) g/dL 3.2 L Urine Color (Yellow) Urine Clarity (Clear) Urine pH (5-8) Ur Specific [place] (1.005-1.025) Urine Protein (Negative) mg/dL Urine Ketones (Negative) mg/dL Urine Blood (Negative) Urine Nitrite (Negative) Urine Bilirubin (Negative) Urine Urobilinogen (Up TO 0.2) EU/dL Ur Leukocyte Esterase (Negative) Urine RBC (0-2) HPF Urine WBC (0-5) HPF Ur Epithelial Cells (Negative) HPF Urine Crystals (Negative) HPF Urine Bacteria (Negative) HPF Urine Casts (Negative) LPF Urine Mucus (Negative) Ur Culture Indicated? Urine Glucose (Negative) mg/dL COVID-19 Source Patient ABO/Rh Antibody Screen Crossmatch Range/Units 1201/31/21 01/31/21 13:10 14:25 17:55 WBC (4.4-10.8) 10^3/uL RBC (3.93-5.22) 10^6/uL Hgb (11.2-15.7) g/dL Hct (36.0-46.0) % MCV (80-95) fL MCH (27.0-33.0) pg MCHC (32.0-36.0) % RDW (11.7-14.6) % Plt Count (130-400) 10^3/uL MPV (8.0-11.0) fL Immature Gran % Neutrophils % Lymphocytes % Monocytes % Eosinophils % Basophils % Nucleated RBC % % Absolute Neutrophils (1.2-6.7) 10^3/uL Absolute Lymphocytes (1.2-3.4) 10^3/uL Absolute Monocytes (0.1-0.8) 10^3/uL Absolute Eosinophils (0.0-0.7) 10^3/uL Absolute Basophils (0.0-0.2) 10^3/uL Hypochromasia PT (9.3-11.0) sec INR (0.9-1.1) APTT (21.0-27.5) sec Sodium (136-145) mmol/L Potassium (3.5-5.1) mmol/L Chloride (98-107) mmol/L Carbon Dioxide (21.0-32.0) mmol/L Anion Gap (3-11) mmol/L BUN (7-18) mg/dL Creatinine (0.55-1.02) mg/dL Estimated GFR/1.73 m2 (mL/min/1.73m2) Glucose (74-106) mg/dL Calcium (8.5-10.1) mg/dL Total Bilirubin (0.2-1.0) mg/dL AST (15-37) U/L ALT (14-59) U/L Alkaline Phosphatase (46-116) U/L Total Protein (6.4-8.2) g/dL Albumin (3.4-5.0) g/dL Urine Color (Yellow) Yellow Urine Clarity (Clear) Sl Cloudy Urine pH (5-8) 5.5 Ur Specific [place] (1.005-1.025) 1.020 Urine Protein (Negative) mg/dL Negative Urine Ketones (Negative) mg/dL Negative Urine Blood (Negative) Negative Urine Nitrite (Negative) Positive H Urine Bilirubin (Negative) Negative Urine Urobilinogen (Up TO 0.2) EU/dL 0.2 Ur Leukocyte Esterase (Negative) Trace H Urine RBC (0-2) HPF 0-2 Urine WBC (0-5) HPF 10-20 H Ur Epithelial Cells (Negative) HPF Few Urine Crystals (Negative) HPF Negative Urine Bacteria (Negative) HPF Many Urine Casts (Negative) LPF Negative Urine Mucus (Negative) Negative Ur Culture Indicated? Yes Urine Glucose (Negative) mg/dL Negative COVID-19 Source Nasal/Nares Patient ABO/Rh AB Positive Antibody Screen NEGATIVE Crossmatch See Detail HPI General Mode of arrival: ambulatory . Date/Time Provider Initiated Documentation: 01/31/21 10:55 . Limitations to Documentation: no limitations . Information obtained by: patient . HPI Narrative: Patient is a 75-year-old female with a history of GERD, hypertension, hyperlipidemia, peripheral vascular disease with history of axillobifemoral bypass, breast cancer with breast lumpectomy presents per [facility] for UTI and anemia with Hgb 6.8 on fingerstick labs today. Patient denies any acute complaints. Patient presents with her daughter at bedside who states that she was unaware of any symptoms that patient was having. She states that patient lives with her caregiver Tory who may be more aware of patient's symptoms. Daughter states she was unsure if patient was there for a regular checkup today or specific complaint. [facility] noted that patient complained of abdominal pain for 8 days and noted to have positive nitrites on a urine test today and was given a prescription for amoxicillin. They were unable to draw blood work but on a fingerstick blood test her hemoglobin was 0.8 and referred here for further evaluation. Patient denies fever, headache, chest pain, shortness of breath, coughing, abdominal pain, vomiting, diarrhea or urinary symptoms. She states she has been eating normally and denies any specific weakness. Related Data Home Medications Medication Instructions Recorded Confirmed aspirin [Aspir-81] 81 mg PO DAILY tab-cap NS 05/30/14 01/31/21 warfarin [Coumadin] 2 mg PO HS 07/23/18 01/31/21 memantine 5 mg tablet 7 mg PO HS tab 04/28/19 01/31/21 cholecalciferol (vitamin D3) 2,000 unit PO DAILY 05/09/20 01/31/21 [Vitamin D3] gabapentin 200 mg PO HS 05/09/20 01/31/21 ondansetron HCl [Zofran] 4 mg PO Q8H PRN #10 tab 05/09/20 01/31/21 acetaminophen 1,000 mg PO Q8H PRN PRN 08/06/20 01/31/21 atorvastatin 20 mg PO DAILY 08/06/20 01/31/21 omeprazole 40 mg PO BID@729,199908/06/20 01/31/21 polyethylene glycol 3350 17 g PO DAILY PRN 08/06/20 01/18/21 melatonin 10 mg capsule 10 mg PO HS PRN #90 cap 10/09/20 01/31/21 mirtazapine 7.5 mg tablet 7.5 mg PO QHS 11/16/20 01/31/21 valerian root 445 mg capsule 445 mg PO QHS PRN 11/23/20 01/18/21 quetiapine 25 mg tablet 25 - 50 mg PO HS #150 tab 01/18/21 01/31/21 amoxicillin 500 mg PO TID 01/31/21 01/31/21 dicyclomine 10 mg PO QHS 01/31/21 01/31/21 ferrous gluconate 324 mg PO DAILY 01/31/21 01/31/21 Previous Rx's Medication Instructions Recorded ondansetron HCl [Zofran] 4 mg PO Q8H PRN #10 tab 05/09/20 melatonin 10 mg capsule 10 mg PO HS PRN #90 cap 10/09/20 quetiapine 25 mg tablet 25 - 50 mg PO HS #150 tab 01/18/21 Allergies Allergy/AdvReac Type Severity Reaction Status Date / Time sulfamethoxazole Allergy Mild eyes Unverified 01/31/21 11:11 [From Bactrim] swollen amphotericin B liposome Allergy Unverified 01/31/21 11:11 [From AmBisome] cefuroxime Allergy Unverified 01/31/21 11:11 donepezil Allergy Unverified 01/31/21 11:11 trimethoprim [From Bactrim] Allergy Unverified 01/31/21 11:11 oxycodone HCl [From Percocet] AdvReac Unverified 01/31/21 11:11 General Stated Complaint: GenMedical KATHRYN: 3 Review of Systems All systems reviewed & are unremarkable except as noted in HPI and below Constitutional Constitutional: Reports as per HPI, Denies chills and Denies fever(s) Eyes Eyes: Denies blurry vision ENT Ears, Nose, Mouth, and Throat: Denies dizziness, Denies sore throat and Denies throat swelling Cardiovascular Cardiovascular: Denies chest pain and Denies dyspnea Respiratory Respiratory: Denies cough and Denies dyspnea Gastrointestinal Gastrointestinal: Denies abdominal pain, Denies diarrhea and Denies vomiting Genitourinary Genitourinary: Denies hematuria and Denies dysuria Musculoskeletal Musculoskeletal: Denies back pain and Denies numbness Integumentary/Breasts Skin/Breast: Denies lesions and Denies rash Neurologic Neurologic: Denies dizziness, Denies localized weakness and Denies numbness Allergic/Immunologic Allergic/Immunologic: Denies throat swelling PFSH All Active Problems (Updated 01/31/21 @ 19:04 by Shanthi Mark DO) Acute on chronic anemia (Acute) UTI (urinary tract infection) (Acute) Generalized weakness (Acute) Agitation due to dementia (Acute) Caregiver readily available (Chronic) Tory Scruggs, [facility] All medications reviewed (Acute) Hypomagnesemia (Acute) DNI (do not intubate) (Acute) DNR (do not resuscitate) (Acute) POLST (Physician Orders for Life-Sustaining Treatment) (Acute) DNR/DNI NH form; signed 10/10/16 Deficit in activities of daily living (ADL) (Acute) Health care proxy on file (Chronic) daughter Susan Alvarado Claudication (Chronic) severe, constant with walking >20-25 steps Leg pain, bilateral (Acute) Palliative care patient (Chronic) COPD (chronic obstructive pulmonary disease) (Chronic) Squamous cell carcinoma of skin (Acute) Chronic kidney disease (Acute) stage III Heart murmur, systolic (Acute) Vascular dementia (Chronic) Lower GI bleed (Chronic) recurrent, ? etiology suspected diverticular bleed would not tolerate colonoscopy Anemia (Chronic) Anemia associated with acute blood loss (Acute) Atherosclerotic peripheral vascular disease of extremity (Acute) Warfarin anticoagulation (Acute) Medical History Accidental fall Altered mental status Aortoiliac occlusive disease Ataxia Breast cancer Chronic diarrhea Chronic fatigue and malaise Colonic polyp Dementia Depression Diabetes Diarrhea Diverticulosis GERD (gastroesophageal reflux disease) History of tobacco use Hyperlipidemia Hypertension Hypomagnesemia Insomnia Ischemic colitis Knee pain, bilateral Osteopenia PVD (peripheral vascular disease) Radicular syndrome of left lower extremity Skin lesion Urinary incontinence UTI (urinary tract infection) Vertigo Wrist fracture Surgical History axillo-byfem bypass Breast, Lumpectomy EGD - MAC (02/29/16) Family History Daughter No problems noted. Son No problems noted. Son No problems noted. Granddaughter No problems noted. Social History Smoking/Tobacco Use Status: Former Tobacco Use Tobacco: How many years used: 50 Smoking risk assessment performed?: Yes Alcohol Intake: never Drug use: Never Substance use type: does not use Caregiver/Support person: Yes Household members: caregiver Housing: assisted living facility Number of Children: 3 Communication Needs: Hard of Hearing and Corrective Lenses Education Level: high school Do you need help understanding health information?: Always Pets and animals: Yes Pets and animals: dog(s) Current gender identity: female What is your relationship status?: How often do you talk on the phone with friends or family?: once per week How often do you get together with friends or relatives?: once per week Panel score (0-1 are the most socially isolated patients): 0 What type of physical activity do you participate in: independent ambulation and other Details: stairs Duration: 15-30 minutes/day Frequency: daily Special singh needs: No Seatbelt use: always Working smoke detector in home: Yes Fire extinguisher in home: Yes Do you feel safe at home: Yes Do you feel safe in your relationship?: Yes Additional Social history: Elisa has PVD, vascular dementia,h/o GI bleeding 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 Pt is clean/well nourished, good interaction with toddler caregiver, Tory Scruggs. Moved in with her in July 2020. Has adjusted very well. Thriving. Daughter Susan Alvarado is DPOA. Has NH form for DNR/DNI in place; signed in 2017. Will scan into EMR. Despite multiple GI bleeds, vascular surgery still wants Elisa to take warfarin, due to severity of her vascular disease. Recent sx c/w mesenteric ischemia. Looking into maybe one day per week at [facility]; has caregiver in home for respite for Tory. Elisa looked the best I have seen her at 10/09/20 visit. Exam Const General: cooperative and no acute distress HENMT Head: normal to inspection Ears: hearing grossly normal bilaterally and external ears normal Face and sinus: normal facial exam Mouth: moist mucous membranes Eyes General: appearance normal, both eyes and all related structures Pupils: PERRL EOM: EOM intact bilaterally Neck Neck: normal visual inspection and No submandibular swelling Lymphatic: no lymphadenopathy noted Chest Chest: normal inspection of the chest and no tenderness Resp Effort & Inspection: normal respiratory effort and able to speak in complete sentences Auscultation: clear to auscultation bilaterally Cardio Rate: regular rate Rhythm: regular rhythm GI Inspection: normal to inspection Palpation: soft, not firm, not rigid and nontender Auscultation: normal bowel sounds Back/Spine/Pelvis Thoracic/Lumbar Spine: thoracic and lumbar spine normal to inspection, No thoracic spinal tenderness and No lumbar spinal tenderness Skin General skin exam: no rashes or lesions noted Neuro General: patient alert, patient awake, patient oriented x3, moves all extremities, no meningeal signs and no focal motor deficits Cranial Nerves: CN's II-XI intact bilaterally Cognition: normal cognition Speech: speech normal Motor: muscle tone normal throughout and strength 5/5 throughout Sensory Exam: no sensory deficits noted Extrem General: normal to inspection, full ROM, capillary refill normal, no calf tenderness bilaterally and no edema Psych Appearance: grossly normal Mental Status: mental status grossly normal Speech and Movement: speech and movement normal Affect: normal affect Course Vital Signs Vital signs: Vital Signs Temperature 97.5 F L 01/31/21 11:00 Pulse 105 H 01/31/21 11:00 Respiratory Rate 18 01/31/21 11:00 Blood Pressure 153/114 H 01/31/21 11:00 Pulse Oximetry 99 01/31/21 11:00 Temperature 97.5 F L 01/31/21 11:00 Temperature Source Temporal Artery Scan 01/31/21 11:00 Pulse 105 H 01/31/21 11:00 Respiratory Rate 18 01/31/21 11:00 Respiratory Effort Non-Labored 01/31/21 11:05 Blood Pressure 153/114 H 01/31/21 11:00 Blood Pressure Position Sitting 01/31/21 11:00 Pulse Oximetry 99 01/31/21 11:00 Oxygen Delivery Method Room Air 01/31/21 11:00 Oxygen Flow Rate 0 01/31/21 11:00
--- NOTE | 2021-01-31 11:45 | DI.CT_ITS ---
Exam(s) CT ABDOMEN PELVIS W EXAM: CT ABDOMEN PELVIS W CLINICAL HISTORY: lower abd pain, uti, r/o pyelo, stone. TECHNIQUE: Imaging Protocol: Axial computed tomography images with coronal and sagittal reformatted images were created and reviewed CONTRAST MATERIAL: Intravenous: Omnipaque 100cc Oral: None COMPARISON: CT CT ABDOMEN PELVIS WO from 07/23/2018 FINDINGS: VISUALIZED LUNG BASES: In the right lower lobe there is a concerning nodular infiltrate which measure s approximately 1.2 by 1.0 cm and has increased in size from the CT scan of 07/23/2018. No focal fin dings in the left lung base and no pleural effusions on either side. ABDOMEN: There is no ascites. LIVER: There are no focal hepatic lesions evident . GALLBLADDER/BILIARY: Very subtle intraluminal densities may be tiny calculi or polyps. There is no g allbladder wall edema or pericholecystic fluid. CBD is not dilated. PANCREAS: No evidence of pancreatic mass nor dilatation of the pancreatic duct. SPLEEN: Spleen is not enlarged. No obvious intrasplenic lesions. Splenic and portal veins are paten t. ADRENALS: There are no significant adrenal masses. KIDNEYS:No cysts evident. No solid renal masses. No calculi nor hydronephrosis.. ABDOMINAL AORTA: The abdominal aorta is not enlarged but is heavily calcified and is occluded below t he level of the renal arteries. There are stents in both common iliac arteries which are also occlud ed. There is also a stent in the left external iliac artery. There is a patent right axillary-right femoral artery graft and there is a patent right to left fem-f em graft. LYMPH NODES:There is no retroperitoneal nor paraaortic adenopathy. ABDOMINAL WALL: No evidence of significant anterior abdominal wall nor inguinal hernia. GI: No evidence of ischemic appearing bowel. No obvious bowel obstruction. No free air. No abscess . PELVIS: GI: No evidence of appendicitis.There is sigmoid diverticulosis.. Subtle sigmoid wall thickening is probably related to accompanying hyperplasia. Cannot exclude subtle case of diverticulitis here. Th ere is no free fluid. LYMPH NODES: There is no intrapelvic nor inguinal adenopathy. REPRODUCTIVE: Uterus and adnexal regions appear age-appropriate. No free fluid. URINARY BLADDER: No calculi nor obvious masses evident OSSEOUS: Bilateral pars defects at L5 are noted, and there is significant anterolisthesis of L5 upon S1 again noted and complete elimination of the L5-S1 disc space is also again noted. No lytic osseou s lesions. No fractures evident. IMPRESSION: 1. The uppermost images of this abdominal study reveal a 12 x 10 millimeter nodular infiltrate in the right lower lobe which is concerning for possible small neoplasm and requires appropriate follow-up. There are no pleural effusions. 2. Occluded abdominal aorta and common iliac arteries with patent right axillary-right fem graft as well as patent right to left fem-fem bypass graft. There are stents in both common iliac arteries wh ich are occluded. No obvious ischemic appearing bowel loops. 3. Very subtle gallbladder densities which may represent calculi or polyps. This could be further st udied with ultrasound. 4. Anterolisthesis of L5 upon S1 again noted, related to bilateral pars defects at L5 and there is ad vanced narrowing of the L5-S1 disc space. These findings are unchanged from the prior July 2018 stud y. This study 1st read by [facility] Final report called by myself to the ER provider on 02/01/2021. Right lung base find discussed. RADIATION DOSE DELIVERED: 515.84mGy.cm Total DLP DATA REPOSITORY: All CT scans at this facility are submitted to the National Radiology Data Registry (NRDR) Dose Index Registry (DIR) with the [employer] (A[employer]). RADIATION OPTIMIZATION: All CT scans at this facility use at least one of these dose optimization te chniques: automated exposure control; mA and/or kV adjustment per patient size (includes targeted exa ms where dose is matched to clinical indication); or iterative reconstruction.
[2021-01-31 12:46] LABS: Abs Immature Grans 0.02 10^3/uL (0.0-0.06); Absolute Basophil Count 0.05 10^3/uL (0.0-0.2); Absolute Eosinophil Count 0.28 10^3/uL (0.0-0.7); Absolute Lymphocyte Count 1.34 10^3/uL (1.2-3.4); Absolute Monocyte Count 0.63 10^3/uL (0.1-0.8); Absolute Neutrophil Count 3.99 10^3/uL (1.2-6.7); Basophils % 0.8; Eosinophils % 4.4; HCT 22.9 % (36.0-46.0); Immature Grans % 0.3; Lymphocytes % 21.2; MCH 21.4 pg (27.0-33.0); MCHC 26.6 % (32.0-36.0); MCV 80.4 fL (80-95); MPV 10.7 fL (8.0-11.0); Neutrophils % 63.3; Nucleated RBC 0 %; Platelet Count 335 10^3/uL (130-400); RBC 2.85 10^6/uL (3.93-5.22); RDW 15.4 % (11.7-14.6); WBC 6.31 10^3/uL (4.4-10.8)
[2021-01-31 12:48] LABS: HGB 6.1 g/dL (11.2-15.7)
[2021-01-31 12:57] LABS: ALT 14 U/L (14-59); AST 15 U/L (15-37); Albumin 3.2 g/dL (3.4-5.0); Alkaline Phosphatase 101 U/L (46-116); Anion Gap 11.9 mmol/L (3-11); BUN 29 mg/dL (7-18); CO2 22.1 mmol/L (21.0-32.0); CREATININE 1.3 mg/dL (0.55-1.02); Calcium 8.7 mg/dL (8.5-10.1); Chloride 106 mmol/L (98-107); Estimated GFR 39.72 (mL/min/1.73m2); Glucose 143 mg/dL (74-106); Potassium 5.1 mmol/L (3.5-5.1); Sodium 140 mmol/L (136-145); Total Protein 6.5 g/dL (6.4-8.2)
[2021-01-31 13:09] LABS: Bilirubin, Total 0.1 mg/dL (0.2-1.0)
[2021-01-31 13:19] LABS: Hypochromasia 2+
[2021-01-31] MEDS: Normal Saline 500 ML IV (13:20)
[2021-01-31 13:40] LABS: INR 1.9 (0.9-1.1); PTT Activated 20.7 sec (21.0-27.5); Prothrombin Time 19.2 sec (9.3-11.0)
[2021-01-31 14:35] LABS: Bilirubin Negative (Negative); Blood Negative (Negative); Clarity Sl Cloudy (Clear); Glucose Negative (Negative); Ketones Negative (Negative); Leukocyte Esterase Trace (Negative); Nitrite Positive (Negative); Urobilinogen 0.2 EU/dL (Up TO 0.2); pH 5.5 (5-8)
[2021-01-31 14:41] LABS: Bacteria Many HPF (Negative); C & S Indicated? Yes; Casts Negative LPF (Negative); Crystals Negative HPF (Negative); Epithelial Cells Few HPF (Negative); Mucus Negative (Negative); RBC 0-2 HPF (0-2)
--- NOTE | 2021-01-31 15:11 | W.ANESVAS ---
Peripheral IV Placement Date Performed: 01/31/21 Procedure Time: 15:11 Requesting Provider: Shanthi Mark Procedure Location: Emergency Department Sedation Given (Indicate Dose Given): No Sedation given Patient Mental Status: Awake Laterality: Right Insertion Site: Antecubital Size & Type: 18 ga. Dressing: IV Dressing Placed and Tegaderm Applied Ultrasound: Used to emma site Number of Attempts (See previous attempts in note section): 1 Procedure Tolerated: No Complications Procedure Outcome: Successful Performed By: James Garnett
[2021-01-31] MEDS: Omnipaque 350 MG/ML 100 ML BTL IJ (17:11)
[2021-01-31] MEDS: Normal Saline Flush 10 ML SYR IVP (17:11)
[2021-01-31] MEDS: PIPERACILLIN/TAZO 3.375 GM in Normal Saline 50 ML IVPB (17:32)
--- NOTE | 2021-01-31 17:46 | DI.VRAD_ITS ---
PROCEDURE INFORMATION: Exam: CT Abdomen And Pelvis With Contrast Exam date and time: 01/31/2021 11:49 AM Age: 75 years old Clinical indication: Other: Lower abd pain, UTI, R/O pyelo, stone TECHNIQUE: Imaging protocol: Computed tomography of the abdomen and pelvis with contrast. Contrast material: OMNIPAQUE 350; Contrast volume: 66 ml; Contrast route: INTRAVENOUS (IV); COMPARISON: CT ABDOMEN PELVIS WO 07/23/2018 6:06 PM FINDINGS: Liver: Normal. No mass. Gallbladder and bile ducts: Normal. No calcified stones. No ductal dilation. Pancreas: Normal. No ductal dilation. Spleen: Normal. No splenomegaly. Adrenal glands: Normal. No mass. Kidneys and ureters: No evidence of obstructing renal stone or hydronephrosis. Stomach and bowel: Unremarkable. No obstruction. No mucosal thickening. Appendix: No evidence of appendicitis. Intraperitoneal space: Unremarkable. No free air. No significant fluid collection. Vasculature: Right axillary to femoral bypass graft is patent. Femoral to femoral arterial bypass graft is patent. The distal abdominal aorta and common iliac arteries are occluded. Small calcification anterior to the right psoas muscle corresponds to a phlebolith within a right ovarian vein, unchanged compared to prior exam. Lymph nodes: Unremarkable. No enlarged lymph nodes. Urinary bladder: Unremarkable as visualized. Reproductive: Unremarkable as visualized. Bones/joints: Stable grade 2 anterolisthesis of L5 over S1 with significant loss of disc height. No acute fracture. Soft tissues: Unremarkable. IMPRESSION: No evidence of acute abdominal or pelvic process. No evidence of obstructing renal stone or hydronephrosis. No evidence of pyelonephritis. Dictated and Authenticated by: Vlad Barakat MD. Ordering:HALEY Maki MD
[2021-01-31 18:17] LABS: Source Nasal/Nares
--- NOTE | 2021-01-31 19:20 | W.PM.HP.N ---
Date of service: 01/31/21 Time of Service: 19:20 Assessment and Plan Assessment and plan (1) Acute on chronic anemia: Status: Acute Assessment and plan: Etiology of the anemia is not clear at this time but is likely GI blood loss. She is on chronic anticoagulation and there should be a discussion about whether to continue that or stop it in light of her recurrent anemia. She is receiving 2 units of blood tonight. She will be admitted to the hospital for treatment of the anemia with blood transfusions. (2) UTI (urinary tract infection): Status: Acute Assessment and plan: She was given piperacillin/tazobactam in the emergency department. I think be reasonable to start her on nitrofurantoin for the urinary tract infection pending the results of cultures. She does not appear to be septic and has a normal white blood cell count. I do not think she has a pyelonephritis. History of Present Illness History of Present Illness Chief Complaint: uti and anemia Narrative: This 75-year-old female came to the hospital today because of anemia urinary tract infection. She been having some abdominal symptoms for possibly couple weeks. She lives community home with caregiver. She was seen in the [facility] today and a urinary tract infection was diagnosed but she appeared to be fatigued recently and her hemoglobin was checked and was found to be about 6. She was referred here for further care. She does have a history of chronic anticoagulation and history of recurrent anemia. She was diagnosed with iron deficiency anemia. She has had bloody stools in the past. He had difficulty getting adequate intravenous access today in the department but finally they did get a line in her right proximal arm. She denies taking any coagulation with warfarin. Her INR today is 1.9. She does have dementia and cannot provide much history. When I talked her initially she said she was ready to get out of here and when I asked why she came to the hospital she said it was something to do. She has no complaints at the present time. Review of Systems Unobtainable due to mental condition [facility] All Active Problems (Updated 01/31/21 @ 19:04 by Shanthi Mark DO) Acute on chronic anemia (Acute) UTI (urinary tract infection) (Acute) Generalized weakness (Acute) Agitation due to dementia (Acute) Caregiver readily available (Chronic) Tory Scruggs, [facility] All medications reviewed (Acute) Hypomagnesemia (Acute) DNI (do not intubate) (Acute) DNR (do not resuscitate) (Acute) POLST (Physician Orders for Life-Sustaining Treatment) (Acute) DNR/DNI NH form; signed 10/10/16 Deficit in activities of daily living (ADL) (Acute) Health care proxy on file (Chronic) daughter Susan Alvarado Claudication (Chronic) severe, constant with walking >20-25 steps Leg pain, bilateral (Acute) Palliative care patient (Chronic) COPD (chronic obstructive pulmonary disease) (Chronic) Squamous cell carcinoma of skin (Acute) Chronic kidney disease (Acute) stage III Heart murmur, systolic (Acute) Vascular dementia (Chronic) Lower GI bleed (Chronic) recurrent, ? etiology suspected diverticular bleed would not tolerate colonoscopy Anemia (Chronic) Anemia associated with acute blood loss (Acute) Atherosclerotic peripheral vascular disease of extremity (Acute) Warfarin anticoagulation (Acute) Medical History Accidental fall Altered mental status Aortoiliac occlusive disease Ataxia Breast cancer Chronic diarrhea Chronic fatigue and malaise Colonic polyp Dementia Depression Diabetes Diarrhea Diverticulosis GERD (gastroesophageal reflux disease) History of tobacco use Hyperlipidemia Hypertension Hypomagnesemia Insomnia Ischemic colitis Knee pain, bilateral Osteopenia PVD (peripheral vascular disease) Radicular syndrome of left lower extremity Skin lesion Urinary incontinence UTI (urinary tract infection) Vertigo Wrist fracture Surgical History axillo-byfem bypass Breast, Lumpectomy EGD - MAC (02/29/16) Family History Daughter No problems noted. Son No problems noted. Son No problems noted. Granddaughter No problems noted. Social History Smoking/Tobacco Use Status: Former Tobacco Use Tobacco: How many years used: 50 Smoking risk assessment performed?: Yes Alcohol Intake: never Drug use: Never Substance use type: does not use Caregiver/Support person: Yes Household members: caregiver Housing: assisted living facility Number of Children: 3 Communication Needs: Hard of Hearing and Corrective Lenses Education Level: high school Do you need help understanding health information?: Always Pets and animals: Yes Pets and animals: dog(s) Current gender identity: female What is your relationship status?: How often do you talk on the phone with friends or family?: once per week How often do you get together with friends or relatives?: once per week Panel score (0-1 are the most socially isolated patients): 0 What type of physical activity do you participate in: independent ambulation and other Details: stairs Duration: 15-30 minutes/day Frequency: daily Special singh needs: No Seatbelt use: always Working smoke detector in home: Yes Fire extinguisher in home: Yes Do you feel safe at home: Yes Do you feel safe in your relationship?: Yes Additional Social history: Elisa has PVD, vascular dementia,h/o GI bleeding 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 Pt is clean/well nourished, good interaction with career services coordinator, Tory Scruggs. Moved in with her in July 2020. Has adjusted very well. Thriving. Daughter Susan Alvarado is DPOA. Has NH form for DNR/DNI in place; signed in 2016. Will scan into EMR. Despite multiple GI bleeds, vascular surgery still wants Elisa to take warfarin, due to severity of her vascular disease. Recent sx c/w mesenteric ischemia. Looking into maybe one day per week at [place]; has caregiver in home for respite for Tory. Elisa looked the best I have seen her at 10/09/20 visit. Meds Allergies and Home Medications Allergies Allergy/AdvReac Type Severity Reaction Status Date / Time sulfamethoxazole Allergy Mild eyes Unverified 01/31/21 11:11 [From Bactrim] swollen amphotericin B liposome Allergy Unverified 01/31/21 11:11 [From AmBisome] cefuroxime Allergy Unverified 01/31/21 11:11 donepezil Allergy Unverified 01/31/21 11:11 trimethoprim [From Bactrim] Allergy Unverified 01/31/21 11:11 oxycodone HCl [From Percocet] AdvReac Unverified 01/31/21 11:11 Home Medications Medication Instructions Recorded Confirmed Type aspirin [Aspir-81] 81 mg PO DAILY tab-cap NS 05/30/14 01/31/21 History warfarin [Coumadin] 2 mg PO HS 07/23/18 01/31/21 History memantine 5 mg tablet 7 mg PO HS tab 04/28/19 01/31/21 History cholecalciferol (vitamin D3) 2,000 unit PO DAILY 05/09/20 01/31/21 History [Vitamin D3] gabapentin 200 mg PO HS 05/09/20 01/31/21 History ondansetron HCl [Zofran] 4 mg PO Q8H PRN #10 tab 05/09/20 01/31/21 Rx acetaminophen 1,000 mg PO Q8H PRN PRN 08/06/20 01/31/21 History atorvastatin 20 mg PO DAILY 08/06/20 01/31/21 History omeprazole 40 mg PO BID@07,199908/06/20 01/31/21 History polyethylene glycol 3350 17 g PO DAILY PRN 08/06/20 01/18/21 History melatonin 10 mg capsule 10 mg PO HS PRN #90 cap 10/09/20 01/31/21 Rx mirtazapine 7.5 mg tablet 7.5 mg PO QHS 11/16/20 01/31/21 History valerian root 445 mg capsule 445 mg PO QHS PRN 11/23/20 01/18/21 History quetiapine 25 mg tablet 25 - 50 mg PO HS #150 tab 01/18/21 01/31/21 Rx amoxicillin 500 mg PO TID 01/31/21 01/31/21 History dicyclomine 10 mg PO QHS 01/31/21 01/31/21 History ferrous gluconate 324 mg PO DAILY 01/31/21 01/31/21 History Exam Const General: cooperative, no acute distress and frail appearing Nutritional Appearance: well nourished Orientation: awake and confused Neck Neck: normal visual inspection and no lymphadenopathy Resp Effort & Inspection: normal respiratory effort and able to speak in complete sentences Auscultation: no rales, no rhonchi and no wheezes Cardio Jugular venous pressure: no JVD Rate: regular rate Rhythm: regular rhythm Heart Sounds: S1 normal, S2 normal, no gallops and no murmurs GI Inspection: normal to inspection Palpation: soft, no hepatosplenomegaly and nontender Skin General skin exam: pallor Neuro Cognition: abnormal cognition Extrem General: normal to inspection, no pedal edema and no calf tenderness Results Labs Result diagrams: 12/23/21 12:35 01/31/21 12:35 Labs: Laboratory Results - last 24 hr 01/31/21 01/31/21 01/31/21 12:35 12:35 13:10 WBC 6.31 RBC 2.85 L Hgb 6.1 L* Hct 22.9 L MCV 80.4 MCH 21.4 L MCHC 26.6 L RDW 15.4 H Plt Count 335 MPV 10.7 Immature Gran % 0.3 Neutrophils % 63.3 Lymphocytes % 21.2 Monocytes % 10.0 Eosinophils % 4.4 Basophils % 0.8 Nucleated RBC % 0 Absolute Neutrophils 3.99 Absolute Lymphocytes 1.34 Absolute Monocytes 0.63 Absolute Eosinophils 0.28 Absolute Basophils 0.05 Hypochromasia 2+ PT 19.2 H INR 1.9 H APTT 20.7 L Sodium 140 Potassium 5.1 Chloride 106 Carbon Dioxide 22.1 Anion Gap 11.9 H BUN 29 H Creatinine 1.3 H Estimated GFR/1.73 m2 39.72 Glucose 143 H Calcium 8.7 Total Bilirubin 0.1 L AST 15 ALT 14 Alkaline Phosphatase 101 Total Protein 6.5 Albumin 3.2 L Urine Color Urine Clarity Urine pH Ur Specific [place] Urine Protein Urine Ketones Urine Blood Urine Nitrite Urine Bilirubin Urine Urobilinogen Ur Leukocyte Esterase Urine RBC Urine WBC Ur Epithelial Cells Urine Crystals Urine Bacteria Urine Casts Urine Mucus Ur Culture Indicated? Urine Glucose COVID-19 Source Patient ABO/Rh Antibody Screen Crossmatch 01/31/21 01/31/21 01/31/21 13:10 14:25 17:55 WBC RBC Hgb Hct MCV MCH MCHC RDW Plt Count MPV Immature Gran % Neutrophils % Lymphocytes % Monocytes % Eosinophils % Basophils % Nucleated RBC % Absolute Neutrophils Absolute Lymphocytes Absolute Monocytes Absolute Eosinophils Absolute Basophils Hypochromasia PT INR APTT Sodium Potassium Chloride Carbon Dioxide Anion Gap BUN Creatinine Estimated GFR/1.73 m2 Glucose Calcium Total Bilirubin AST ALT Alkaline Phosphatase Total Protein Albumin Urine Color Yellow Urine Clarity Sl Cloudy Urine pH 5.5 Ur Specific [place] 1.020 Urine Protein Negative Urine Ketones Negative Urine Blood Negative Urine Nitrite Positive H Urine Bilirubin Negative Urine Urobilinogen 0.2 Ur Leukocyte Esterase Trace H Urine RBC 0-2 Urine WBC 10-20 H Ur Epithelial Cells Few Urine Crystals Negative Urine Bacteria Many Urine Casts Negative Urine Mucus Negative Ur Culture Indicated? Yes Urine Glucose Negative COVID-19 Source Nasal/Nares Patient ABO/Rh AB Positive Antibody Screen NEGATIVE Crossmatch See Detail Last Vital Signs Temp 36.6 C 01/31/21 19:03 Pulse 83 01/31/21 19:03 Resp 17 01/31/21 19:03 BP 132/56 L 01/31/21 19:03 Pulse Ox 97 01/31/21 19:03
[2021-01-31] MEDS: Omeprazole 20 MG CAPCR 40 MG PO (21:09)
[2021-01-31] MEDS: Gabapentin 100 MG CAP 200 MG PO (21:09)
[2021-01-31] MEDS: Mirtazapine 15 MG TAB 7.5 MG PO (21:10)
[2021-01-31] MEDS: QUEtiapine 25 MG TAB PO (21:10)
[2021-01-31] MEDS: Memantine 5 MG TAB 7 MG PO (21:40)
[2021-01-31] MEDS: MacroBID 100 MG CAP PO (21:40)
[2021-01-31 23:38] LABS: COVID-19 PCR Negative (Negative)
[2021-02-01 00:23] VITALS: BP 129/68; PULSE 93; RESP 18; TEMP 36.2; O2SAT 100
[2021-02-01 07:12] LABS: Abs Immature Grans 0.03 10^3/uL (0.0-0.06); Absolute Basophil Count 0.04 10^3/uL (0.0-0.2); Absolute Eosinophil Count 0.34 10^3/uL (0.0-0.7); Absolute Lymphocyte Count 0.87 10^3/uL (1.2-3.4); Absolute Monocyte Count 0.63 10^3/uL (0.1-0.8); Absolute Neutrophil Count 7.26 10^3/uL (1.2-6.7); Basophils % 0.4; Eosinophils % 3.7; HCT 30.9 % (36.0-46.0); HGB 9.3 g/dL (11.2-15.7); Immature Grans % 0.3; Lymphocytes % 9.5; MCH 24.9 pg (27.0-33.0); MCHC 30.1 % (32.0-36.0); MCV 82.6 fL (80-95); MPV 10.8 fL (8.0-11.0); Monocytes % 6.9; Neutrophils % 79.2; Nucleated RBC 0 %; Platelet Count 351 10^3/uL (130-400); RBC 3.74 10^6/uL (3.93-5.22); RDW 15.8 % (11.7-14.6); RDW-SD 47.7 fL; WBC 9.17 10^3/uL (4.4-10.8)
[2021-02-01 07:30] LABS: Anion Gap 10.5 mmol/L (3-11); BUN 24 mg/dL (7-18); CO2 24.5 mmol/L (21.0-32.0); CREATININE 1.3 mg/dL (0.55-1.02); Calcium 8.3 mg/dL (8.5-10.1); Chloride 106 mmol/L (98-107); Estimated GFR 39.72 (mL/min/1.73m2); Glucose 97 mg/dL (74-106); Potassium 4.2 mmol/L (3.5-5.1); Sodium 141 mmol/L (136-145)
[2021-02-01 07:50] VITALS: BP 149/74; PULSE 95; RESP 17; TEMP 36.7; O2SAT 98
[2021-02-01] MEDS: Aspirin E.C. 81 MG TABEC PO (08:06)
[2021-02-01] MEDS: Omeprazole 20 MG CAPCR 40 MG PO (08:06)
[2021-02-01] MEDS: MacroBID 100 MG CAP PO (08:06)
[2021-02-01] MEDS: QUEtiapine 25 MG TAB PO (08:06)
[2021-02-01] MEDS: Atorvastatin 20 MG TAB PO (08:06)
--- NOTE | 2021-02-01 08:16 | INITIAL_ITS ---
- If Service Date Differs Date of service: 02/01/21 Time of Service: 08:16 Care Management Initial Assess REASON FOR HOSPITALIZATION:: Anemia, CVA PAST MEDICAL HISTORY/PAST SURGICAL HISTORY:: All Active Problems (Updated 01/31/21 @ 19:04 by Shanthi Mark DO). Acute on chronic anemia (Acute). UTI (urinary tract infection) (Acute). Generalized weakness (Acute). Agitation due to dementia (Acute). Caregiver readily available (Chronic). Tory Scruggs, [facility]. All medications reviewed (Acute). Hypomagnesemia (Acute). DNI (do not intubate) (Acute). DNR (do not resuscitate) (Acute). POLST (Physician Orders for Life-Sustaining Treatment) (Acute). DNR/DNI. NH form; signed 10/10/16. Deficit in activities of daily living (ADL) (Acute). Health care proxy on file (Chronic). daughter Susan Alvarado. Claudication (Chronic). severe, constant with walking >20-25 steps. Leg pain, bilateral (Acute). Palliative care patient (Chronic). COPD (chronic obstructive pulmonary disease) (Chronic). Squamous cell carcinoma of skin (Acute). Chronic kidney disease (Acute). stage III. Heart murmur, systolic (Acute). Vascular dementia (Chronic). Lower GI bleed (Chronic). recurrent, ? etiology. suspected diverticular bleed. would not tolerate colonoscopy. Anemia (Chronic). Anemia associated with acute blood loss (Acute). Atherosclerotic peripheral vascular disease of extremity (Acute). Warfarin anticoagulation (A cute). Medical History . Accidental fall. Altered mental status. Aortoiliac occlusive disease. Ataxia. Breast cancer. Chronic diarrhea. Chronic fatigue and malaise. Colonic polyp. Dementia. Depression. Diabetes. Diarrhea. Diverticulosis. GERD (gastroesophageal reflux disease). History of tobacco use. Hyperlipidemia. Hypertension. Hypomagnesemia. Insomnia. Ischemic colitis. Knee pain, bilateral. Osteopenia. PVD (peripheral vascular disease). Radicular syndrome of left lower extremity. Skin lesion. Urinary incontinence. UTI (urinary tract infection). Vertigo. Wrist fracture. Surgical History . axillo-byfem bypass. Breast, Lumpectomy. EGD - MAC (02/29/16) PREVIOUS FUNCTIONAL STATUS/SOCIAL/FAMILY SUPPORTS:: Elisa lives with a caregiver in [place], [place]. She has vascular dementia and requires assistance with ADLs, however is able to ambulate well with supervision. She has 3 children; her daughter Krystal is identified as her call or contact centre coach and next of kin. ADVANCE DIRECTIVES:: DPOA on file, Greg Woodward and Krystal Anne are appointed agents. Has patient been provided with info about the portal/API?: Yes Did the patient sign up for the portal?: No CODE STATUS:: DNR/DNI CODE STATUS COMMENT:: COLST on file INSURANCE COVERAGE / FINANCIAL ISSUES:: NHIC. Medicaid. Medicare CURRENT HOME/COMMUNITY SERVICES/EQUIPMENT:: Elisa has 24/7 caregivers PRIMARY CARE PHYSICIAN:: Nirmala Clemente POTENTIAL DISCHARGE NEEDS:: Call Primary Care Doctor on Thursday02/04/2021 for a Follow up appointment PATIENT/FAMILY EDUCATION NEEDS:: Review discharge instructions, limitations and medications with family/caregivers and plan to follow up with community providers. TRANSPORTATION:: via private vehicle with daughter PLAN:: Elisa will discharge home on oral antibiotics with no new services when medically cleared by provider. She will follow up with her PCP and discharge plan of care as prescribed.
[2021-02-01] MEDS: Amoxicillin 500/Clav. 125 TAB PO (09:53)
--- NOTE | 2021-02-01 11:01 | W.PM.DS.N ---
Date of service: 02/01/21 Time of Service: 11:02 DS: Diagnosis Discharge Diagnosis (1) Acute on chronic anemia: Status: Acute (2) UTI (urinary tract infection): Status: Acute Discharge Plan Disposition Patient Disposition: HOME Condition: Stable Discharge Details Reason For Visit: Anemia, UTI Admit Date/Time: 01/31/21 19:12 Admit Provider: Moisés Ybarra Attending Provider: Moisés Ybarra Primary Care Provider: Nirmala Clemente V Hospital Course Hospital Course: This 75-year-old female who was referred to the ED from primary care office for acute on chronic anemia and abdominal discomfort thought to be related to urinary tract infection. She been having some abdominal symptoms for possibly couple weeks. She lives community home with caregiver. She does have a history of chronic anticoagulation and history of recurrent anemia. She was diagnosed with iron deficiency anemia. She has had bloody stools in the past. Her INR on admission is 1.9. She does have dementia and cannot provide history. She was given 2 units of PRBC with no evidence of active bleeding. Her hemoglobin is up to 9.3 from 6.1. she has remained hemodynamically stable and is thought to be at her baseline. Her urine is growing e coli, which she grew previously and was sensitive to amoxicillin. She should continue with her outpatient prescription as previously prescribed. she is safe for discharge to home with no new services. discharge discussed with Dr Felix. Home Meds and New Rx's Prescriptions: Continued memantine [Namenda] 5 mg tablet 7 mg PO HS RF: 0 melatonin 10 mg capsule 10 mg PO HS PRN (Reason: sleep) Qty: 90 RF: 3 quetiapine [Seroquel] 25 mg tablet 25 - 50 mg PO HS Qty: 150 RF: 3 mirtazapine 7.5 mg tablet 7.5 mg PO QHS RF: 0 valerian root 445 mg capsule 445 mg PO QHS PRNRF: 0 aspirin [Aspir-81] 81 MG tablet,delayed release (DR/EC) 81 mg PO DAILY RF: 0 omeprazole 20 mg capsule,delayed release(DR/EC) 40 mg PO BID@0730,2000 RF: 0 acetaminophen 500 mg tablet 1,000 mg PO Q8H PRN PRNRF: 0 polyethylene glycol 3350 17 gram/dose powder 17 g PO DAILY PRNRF: 0 atorvastatin 20 mg tablet 20 mg PO DAILY RF: 0 amoxicillin 500 mg capsule 500 mg PO TID RF: 0 dicyclomine 10 mg capsule 10 mg PO QHS RF: 0 gabapentin 100 mg capsule 200 mg PO HS RF: 0 cholecalciferol (vitamin D3) [Vitamin D3] 25 mcg (1,000 unit) Capsule 2,000 unit PO DAILY RF: 0 ondansetron HCl [Zofran] 4 mg tablet 4 mg PO Q8H PRNQty: 10 RF: 0 Changed ferrous gluconate 324 mg (38 mg iron) tablet 324 mg PO BID Qty: 0 RF: 0 Discontinued warfarin [Coumadin] 2 MG tablet 2 mg PO HS RF: 0 Discharge Instructions Instructions: Urinary Tract Infection in Women (DC) Additional Instructions: resume previous prescription for urinary tract infection as directed. Stand Alone Forms: Nursing Discharge Form Referrals: Nirmala Clemente MD [Primary Care Provider] - (Call Primary Care Doctor on Thursday02/04/2021 for a Follow up appointment ) Activity:: Activity as Tolerated Equipment/Supplies:: No Equipment Needed Diet:: As Tolerated Discharge Orders Discharge Orders: Discharge Order (Routine); Ordered 02/01/21 Ordered By: Jaz Felix DS: Summary Time Spent with Patient providing and/or coordinating discharge services: Less than 30 minutes Status at Discharge Functional status at discharge: independent ambulation Overall status at discharge: patient is back to baseline Mental Status: other (demented) Speech and Movement: speech and movement normal Mood: congruent mood Affect: normal affect Exam Const General: cooperative, no acute distress and frail appearing Nutritional Appearance: well nourished Orientation: awake and confused Neck Neck: normal visual inspection and no lymphadenopathy Resp Effort & Inspection: normal respiratory effort and able to speak in complete sentences Auscultation: no rales, no rhonchi and no wheezes Cardio Jugular venous pressure: no JVD Rate: regular rate Rhythm: regular rhythm Heart Sounds: S1 normal, S2 normal, no gallops and no murmurs GI Inspection: normal to inspection Palpation: soft, no hepatosplenomegaly and nontender Skin General skin exam: pallor Neuro Cognition: abnormal cognition Extrem General: normal to inspection, no pedal edema and no calf tenderness Psych Speech and Movement: speech and movement normal Mood: congruent mood Affect: normal affect DS: Data Vitals/I&O Vitals and I&O: Vital Signs Temperature 36.7 C 02/01/21 07:50 Temperature Source Tympanic 02/01/21 07:50 Pulse 95 H 02/01/21 07:50 Pulse Rhythm Regular 02/01/21 08:24 Respiratory Rate 17 02/01/21 07:50 Respiratory Effort Non-Labored 02/01/21 08:24 Respiratory Depth Normal 02/01/21 08:24 Respiratory Pattern Normal 02/01/21 08:24 Blood Pressure 149/74 H 02/01/21 07:50 Blood Pressure Position Sitting 01/31/21 11:00 Pulse Oximetry 98 02/01/21 07:50 Oxygen Delivery Method Room Air 02/01/21 07:50 Oxygen Flow Rate 0 02/01/21 07:50 Pain Level 0 02/01/21 07:50 Intake & Output 01/31/21 01/31/21 02/01/21 11:59 23:59 11:59 Intake Total 476.667 / 476.667 575 / 575 Output Total 200 / 200 350 / 350 Balance 276.667 / 276.667 225 / 225 Weight 46.7 kg 44.4 kg Intake: IV 51.667 / 51.667 Oral 120 / 120 Blood Product 350 / 350 380 / 380 Rbc Leuko Reduced Unit 380 / 380 [id number] Rbc Leuko Reduced Unit 350 / 350 [id number] Other 75 / 75 75 / 75 Rbc Leuko Reduced Unit 75 / 75 [id number] Rbc Leuko Reduced Unit 75 / 75 [id number] Output: Urine 200 / 200 350 / 350 Other: Urine Color Yellow Yellow Urine Appearance Clear Clear Comment pt voided unknown amount of urine in the toilet. Voiding Methods Toilet Toilet Data Completed and Pending Labs on day of discharge: Labs from last 24 hours 02/01/21 02/01/21 01/31/21 06:15 06:15 17:55 WBC 9.17 D RBC 3.74 L Hgb 9.3 L D Hct 30.9 L D MCV 82.6 MCH 24.9 L MCHC 30.1 L RDW 15.8 H Plt Count 351 MPV 10.8 Immature Gran % 0.3 Neutrophils % 79.2 Lymphocytes % 9.5 Monocytes % 6.9 Eosinophils % 3.7 Basophils % 0.4 Nucleated RBC % 0 Absolute Neutrophils 7.26 H Absolute Lymphocytes 0.87 L Absolute Monocytes 0.63 Absolute Eosinophils 0.34 Absolute Basophils 0.04 Hypochromasia PT INR APTT Sodium 141 Potassium 4.2 Chloride 106 Carbon Dioxide 24.5 Anion Gap 10.5 BUN 24 H Creatinine 1.3 H Estimated GFR/1.73 m2 39.72 Glucose 97 Calcium 8.3 L Total Bilirubin AST ALT Alkaline Phosphatase Total Protein Albumin Urine Color Urine Clarity Urine pH Ur Specific Key[place] Urine Protein Urine Ketones Urine Blood Urine Nitrite Urine Bilirubin Urine Urobilinogen Ur Leukocyte Esterase Urine RBC Urine WBC Ur Epithelial Cells Urine Crystals Urine Bacteria Urine Casts Urine Mucus Ur Culture Indicated? Urine Glucose COVID-19 Source Nasal/Nares SARS-CoV-2 (PCR) Negative Patient ABO/Rh Antibody Screen Crossmatch 01/31/21 01/31/21 01/31/21 14:25 13:10 13:10 WBC RBC Hgb Hct MCV MCH MCHC RDW Plt Count MPV Immature Gran % Neutrophils % Lymphocytes % Monocytes % Eosinophils % Basophils % Nucleated RBC % Absolute Neutrophils Absolute Lymphocytes Absolute Monocytes Absolute Eosinophils Absolute Basophils Hypochromasia PT 19.2 H INR 1.9 H APTT 20.7 L Sodium Potassium Chloride Carbon Dioxide Anion Gap BUN Creatinine Estimated GFR/1.73 m2 Glucose Calcium Total Bilirubin AST ALT Alkaline Phosphatase Total Protein Albumin Urine Color Yellow Urine Clarity Sl Cloudy Urine pH 5.5 Ur Specific Keystone 1.020 Urine Protein Negative Urine Ketones Negative Urine Blood Negative Urine Nitrite Positive H Urine Bilirubin Negative Urine Urobilinogen 0.2 Ur Leukocyte Esterase Trace H Urine RBC 0-2 Urine WBC 10-20 H Ur Epithelial Cells Few Urine Crystals Negative Urine Bacteria Many Urine Casts Negative Urine Mucus Negative Ur Culture Indicated? Yes Urine Glucose Negative COVID-19 Source SARS-CoV-2 (PCR) Patient ABO/Rh AB Positive Antibody Screen NEGATIVE Crossmatch See Detail 01/31/21 01/31/21 12:35 12:35 WBC 6.31 RBC 2.85 L Hgb 6.1 L* Hct 22.9 L MCV 80.4 MCH 21.4 L MCHC 26.6 L RDW 15.4 H Plt Count 335 MPV 10.7 Immature Gran % 0.3 Neutrophils % 63.3 Lymphocytes % 21.2 Monocytes % 10.0 Eosinophils % 4.4 Basophils % 0.8 Nucleated RBC % 0 Absolute Neutrophils 3.99 Absolute Lymphocytes 1.34 Absolute Monocytes 0.63 Absolute Eosinophils 0.28 Absolute Basophils 0.05 Hypochromasia 2+ PT INR APTT Sodium 140 Potassium 5.1 Chloride 106 Carbon Dioxide 22.1 Anion Gap 11.9 H BUN 29 H Creatinine 1.3 H Estimated GFR/1.73 m2 39.72 Glucose 143 H Calcium 8.7 Total Bilirubin 0.1 L AST 15 ALT 14 Alkaline Phosphatase 101 Total Protein 6.5 Albumin 3.2 L Urine Color Urine Clarity Urine pH Ur Specific [place] Urine Protein Urine Ketones Urine Blood Urine Nitrite Urine Bilirubin Urine Urobilinogen Ur Leukocyte Esterase Urine RBC Urine WBC Ur Epithelial Cells Urine Crystals Urine Bacteria Urine Casts Urine Mucus Ur Culture Indicated? Urine Glucose COVID-19 Source SARS-CoV-2 (PCR) Patient ABO/Rh Antibody Screen Crossmatch Preliminary micro results at discharge 01/31/21 14:25 Urine Culture - Preliminary Urine - Reflex from Ua Escherichia coli PFSH All Active Problems (Updated 01/31/21 @ 19:04 by Shanthi Mark DO) Acute on chronic anemia (Acute) UTI (urinary tract infection) (Acute) Generalized weakness (Acute) Agitation due to dementia (Acute) Caregiver readily available (Chronic) Tory Scruggs, [facility] All medications reviewed (Acute) Hypomagnesemia (Acute) DNI (do not intubate) (Acute) DNR (do not resuscitate) (Acute) POLST (Physician Orders for Life-Sustaining Treatment) (Acute) DNR/DNI NH form; signed 10/10/16 Deficit in activities of daily living (ADL) (Acute) Health care proxy on file (Chronic) daughter Susan Alvarado Claudication (Chronic) severe, constant with walking >20-25 steps Leg pain, bilateral (Acute) Palliative care patient (Chronic) COPD (chronic obstructive pulmonary disease) (Chronic) Squamous cell carcinoma of skin (Acute) Chronic kidney disease (Acute) stage III Heart murmur, systolic (Acute) Vascular dementia (Chronic) Lower GI bleed (Chronic) recurrent, ? etiology suspected diverticular bleed would not tolerate colonoscopy Anemia (Chronic) Anemia associated with acute blood loss (Acute) Atherosclerotic peripheral vascular disease of extremity (Acute) Warfarin anticoagulation (Acute) Medical History Accidental fall Altered mental status Aortoiliac occlusive disease Ataxia Breast cancer Chronic diarrhea Chronic fatigue and malaise Colonic polyp Dementia Depression Diabetes Diarrhea Diverticulosis GERD (gastroesophageal reflux disease) History of tobacco use Hyperlipidemia Hypertension Hypomagnesemia Insomnia Ischemic colitis Knee pain, bilateral Osteopenia PVD (peripheral vascular disease) Radicular syndrome of left lower extremity Skin lesion Urinary incontinence UTI (urinary tract infection) Vertigo Wrist fracture Surgical History axillo-byfem bypass Breast, Lumpectomy EGD - MAC (02/29/16) Family History Daughter No problems noted. Son No problems noted. Son No problems noted. Granddaughter No problems noted. Social History Smoking/Tobacco Use Status: Former Tobacco Use Tobacco: How many years used: 50 Smoking risk assessment performed?: Yes Alcohol Intake: never Drug use: Never Substance use type: does not use Caregiver/Support person: Yes Household members: caregiver Housing: assisted living facility Number of Children: 3 Communication Needs: Hard of Hearing and Corrective Lenses Education Level: high school Do you need help understanding health information?: Always Pets and animals: Yes Pets and animals: dog(s) Current gender identity: female What is your relationship status?: How often do you talk on the phone with friends or family?: once per week How often do you get together with friends or relatives?: once per week Panel score (0-1 are the most socially isolated patients): 0 What type of physical activity do you participate in: independent ambulation and other Details: stairs Duration: 15-30 minutes/day Frequency: daily Special singh needs: No Seatbelt use: always Working smoke detector in home: Yes Fire extinguisher in home: Yes Do you feel safe at home: Yes Do you feel safe in your relationship?: Yes Additional Social history: Elisa has PVD, vascular dementia,h/o GI bleeding lives with development geologist. Pt is clean/well nourished, good interaction with anesthesiologist and critical care, Tory Scruggs. Moved in with her in July 2020. Has adjusted very well. Thriving. Daughter Susan Alvarado is DPOA. Has NH form for DNR/DNI in place; signed in 2017. Will scan into EMR. Despite multiple GI bleeds, vascular surgery still wants Elisa to take warfarin, due to severity of her vascular disease. Recent sx c/w mesenteric ischemia. Looking into maybe one day per week at [facility]; has caregiver in home for respite for Tory. Elisa looked the best I have seen her at 10/09/20 visit.
--- NOTE | 2021-02-01 11:19 | IN_ITS ---
PT Notes Visit Reasons: Anemia, UTI Physical Therapy Inpatient Initial Evaluation Date: 02/01/21 Referring Doctor: Becca Moya MD PT Orders: PT CONSULT Precautions: Fall. Standard. Patient Profile/Admitting Diagnosis: Acute on Chronic Anemia PMHX: All Active Problems (Updated 01/31/21 @ 19:04 by Shanthi Mark DO) Acute on chronic anemia (Acute) UTI (urinary tract infection) (Acute) Generalized weakness (Acute) Agitation due to dementia (Acute) Caregiver readily available (Chronic) Tory Scruggs, [facility] All medications reviewed (Acute) Hypomagnesemia (Acute) DNI (do not intubate) (Acute) DNR (do not resuscitate) (Acute) POLST (Physician Orders for Life-Sustaining Treatment) (Acute) DNR/DNI NH form; signed 10/10/16 Deficit in activities of daily living (ADL) (Acute) Health care proxy on file (Chronic) daughter Susan Alvarado Claudication (Chronic) severe, constant with walking >20-25 steps Leg pain, bilateral (Acute) Palliative care patient (Chronic) COPD (chronic obstructive pulmonary disease) (Chronic) Squamous cell carcinoma of skin (Acute) Chronic kidney disease (Acute) stage III Heart murmur, systolic (Acute) Vascular dementia (Chronic) Lower GI bleed (Chronic) recurrent, ? etiology suspected diverticular bleed would not tolerate colonoscopy Anemia (Chronic) Anemia associated with acute blood loss (Acute) Atherosclerotic peripheral vascular disease of extremity (Acute) Warfarin anticoagulation (Acute) Medical History Accidental fall Altered mental status Aortoiliac occlusive disease Ataxia Breast cancer Chronic diarrhea Chronic fatigue and malaise Colonic polyp Dementia Depression Diabetes Diarrhea Diverticulosis GERD (gastroesophageal reflux disease) History of tobacco use Hyperlipidemia Hypertension Hypomagnesemia Insomnia Ischemic colitis Knee pain, bilateral Osteopenia PVD (peripheral vascular disease) Radicular syndrome of left lower extremity Skin lesion Urinary incontinence UTI (urinary tract infection) Vertigo Wrist fracture Surgical History axillo-byfem bypass Breast, Lumpectomy EGD - MAC (02/29/16) Social History/Home Situation: Community housing with caregiver present Equipment Owned/DME: None Subjective: Cleared by nursing to see patient and patient is agreeable to PT. Pt received supine with bed alarm on. Objective: General Observation: Pt appears lethargic, opened eyes only to direction to do so, and asked several times what this was about despite having received information about the role of physica therapy in this setting multiple times. Mental Status: A&O x1, pt unable to report time of year and place Pain: 0/10 Vitals: BP: 123/75 seated HR: 99 SpO2: 95% on RA ROM: Right Upper Extremity: Shoulder Flexion WFL. Shoulder abduction WFL. Elbow flexion WFL. Wrist flexion WFL. Opening and closing of hand WFL. Left Upper Extremity: Shoulder Flexion WFL. Shoulder abduction WFL. Elbow flexion WFL. Wrist flexion WFL. Opening and closing of hand WFL. Right Lower Extremity: Hip flexion WFL. Hip abduction WFL. Knee flexion WFL. Ankle dorsiflexion WFL. Ankle plantarflexion WFL. Left Lower Extremity: Hip flexion WFL. Hip abduction WFL. Knee flexion WFL. Ankle dorsiflexion WFL. Ankle plantarflexion WFL. Strength: Right Upper Extremity: Shoulder flexors 4/5. Shoulder abductors 4/5. Elbow flexors 4/5. Elbow extensors 4/5. Home Health Aide weak. Left Upper Extremity: Shoulder flexors 4/5. Shoulder abductors 4/5. Elbow flexors 4/5. Elbow extensors 4/5. Home Health Aide weak. Right Lower Extremity: Hip flexors 4/5. Hip abductors 4/5. Knee flexors 4/5. Knee extensors 4/5. Ankle dorsiflexors 4/5. Ankle plantarflexors 4/5. Left Lower Extremity: Hip flexors 4/5. Hip abductors 4/5. Knee flexors 4/5. Knee extensors 4/5. Ankle dorsiflexors 4/5. Ankle plantarflexors 4/5. Sensation: Intact as to pain and pressure on bilateral lower extremities. Bed Mobility/Transfers: Rolling: I Supine to sit: I Sit to supine: I Sit to stand: NJ with use of UE support Stand to sit: NJ with use of UE support Bed to chair: Supervision Chair to bed: Supervision Gait: Ambulated [id number] with supervision. Pt demonstrates reciprocal gait pattern with reduced step length B. Stairs: Pt completed ascent/descent of 2 stairs with min contact assist x1 (CGA) utilizing B rails. Balance: Static Sitting: I Dynamic Sitting: I Static Standing: I Dynamic Standing: I 4 stage balance test Time completed FT 10s Semi-tandem 10s Tandem 4s SLS NT Special Tests: 5x sit to stand: pt unable to complete with UE support. Mobility Limitations Standardized Measure [facility] [place] AM-PAC 6 clicks Basic Mobility Inpatient Short Form: Raw Score: 23 CMS Score: 11.2% Informed Consent/Education: Patient instructed in purpose of PT consult and plan of care. Assessment: Patient presents with clinical signs and symptoms consistent with current/admitting diagnoses that have resulted to mobility limitations and generalized weakness as demonstrated by the following impairment level findings: 1. Decreased strength to all major muscle groups 2. Impaired sitting/standing balance as evidenced by 4 stage balance test 3. Impaired activity tolerance Impairments are contributing to the following functional limitations: 1. Increase completion time for mobility ADL performance 2. Increased fall risk Patient is assessed as a low complexity based on the following: History: 75 year old female identifying person with impairment level findings, functional limitations, and past medical history as indicated above. Examination: Demonstrable impairment in strength, balance, and mobility level with underlying impairments and functional limitations as documented above. Presentation: Stable Decision Making: low complexity Plan of Care/Treatment Plan: Considering that pt mobility status is consistent with needs of her home environment and available caregiver support, pt is not appropriate for skilled physical therapy services in this environment. However, pt is recommended follow-up with OP PT for introduction of balance program and generalized strengthening to reduced pt's risk of falling. DISCHARGE RECOMMENDATIONS: From a mobility perspective, pt is appropriate for return to community housing with caregiver support as described in physician notes elsewhere. TREATMENT CODE/TIME: (30 minutes), 30300 Thank you for the opportunity to participate in the care of this patient.
--- NOTE | 2021-02-01 11:38 | PDOC.CMDIS ---
- If Service Date Differs Date of service: 02/01/21 Time of Service: 11:38 LACE Index Scoring Tool - Questions: Length of Stay (in days): 1 Acuity (Admit via E.D.?): Yes Comorbidities: PVD, Diabetes w/o Complication, Chronic Pulmonary Disease, Any Tumor, Dementia, Liver or Renal Disease E.D. Visits: 4 - Answers: Total Score: 13 Risk of Readmission: High Risk Care Management Discharge Reason for Hospitalization: Anemia, CVA Discharge Plan: Discharge home on oral antibiotics with no new services via private vehicle with family. Follow discharge plan of care as prescribed. Call PCP on Thursday for a follow up appointment. Patient/Family Education Needs: Review discharge instructions, limitations, medications and plan to call PCP for a follow up appointment next week. ask me three.
[2021-02-01] MEDS: Bacitracin 1 PACKET TP (12:20)
--- NOTE | 2021-02-01 20:13 | W.ED.FU ---
Date of service: 02/01/21 Time of Service: 20:14 Follow Up Plan: 2006: Spoke with Dr. Felipe Radiologist who reported that there is a lung nodule on the RLL which has grown in size since last exam. (Please see report). Patient was seen in the emergency department and discharged today. Call placed to patient and voicemail left. Will place patient on the care management list and CC patient's PCP to follow-up regarding lung nodule with primary care follow up within a week.
--- NOTE | 2021-02-01 20:21 | NUR.NOTE ---
Nursing Note: needs to follow up with pcp alexander and i put the referral sheet in the care management mailbox
--- NOTE | 2021-02-04 10:03 | CMACTNOTE_ITS ---
- If Service Date Differs Date of service: 02/04/21 Time of Service: 10:03 Care Management Activity Note Elisa presents in the ED on 01/31/21 for weakness, chronic anemia, and UTI. A CT scan done at the time reveals a lung nodule on the RLL which has grown in size since last exam. At the request of ED provider, CM contacts Elisa's PCP's office, [facility], to request they schedule a follow up appointment for Elisa as soon as possible.
== END 2021-02-01 13:18 | disposition home or self-care (01) ==
LOC: ER 19:04 → MS 20:06
PROVIDERS: Admitting Provider Family Medicine; Emergency Provider Physician Assistant; PCP Family Medicine; Visit Provider Family Medicine
DX: D50.9 Iron deficiency anemia, unspecified (principal); N39.0 Urinary tract infection, site not specified; K92.2 Gastrointestinal hemorrhage, unspecified; R53.1 Weakness; E83.42 Hypomagnesemia; Z79.01 Long term (current) use of anticoagulants; Z66 Do not resuscitate; J44.9 Chronic obstructive pulmonary disease, unspecified; N18.30 Chronic kidney disease, stage 3 unspecified; I70.213 Atherosclerosis of native arteries of extremities with intermittent claudication, bilateral legs; F01.51 Vascular dementia, unspecified severity, with behavioral disturbance; E11.22 Type 2 diabetes mellitus with diabetic chronic kidney disease; I12.9 Hypertensive chronic kidney disease with stage 1 through stage 4 chronic kidney disease, or unspecified chronic kidney disease; Z20.822 Contact with and (suspected) exposure to COVID-19
CPT/HCPCS: 36410; 36430; 80048; 80053; 86850; 86900; 86901; 86920; 87077; 87635; 97161; 99285; 74177; 81003; 81015; 85025; 85610; 85730; 87086; 87186; 99217; 99219; G0378; J2543; J3490; P9016

== ENCOUNTER 2021-01-31 13:05 | Outpatient (REF) | payer MEDICARE, MEDICAID, SELFPAY | END 2021-01-31 13:06 | disposition home or self-care (01) | LOC: NCHCN 13:05 | PROVIDERS: PCP Family Medicine; Visit Provider Nurse Practitioner Family | DX: R10.9 Unspecified abdominal pain (principal) | CPT/HCPCS: 87086 ==

== ENCOUNTER 2021-03-12 00:32 | Outpatient (CLI) | payer MEDICARE, MEDICAID, SELFPAY ==
--- NOTE | 2021-03-12 | DI.CT_ITS ---
Exam(s) CT CHEST WO EXAM: CT CHEST WO CLINICAL HISTORY: LUNG NODULE, R91.8. TECHNIQUE: Imaging protocol: Axial computed tomography images were obtained and coronal and sagittal reformatted images were created and reviewed. COMPARISON: CT CHEST FOR PULMONARY EMBOLUS from 07/11/2009 CT CHEST WITH CONTRAST from 10/18/[address] ABDOMEN PELVIS WO from 07/23/[address] ABDOMEN PELVIS W from 01/31/2021 FINDINGS: Tracheobronchial tree: Patent where visualized. Pulmonary parenchyma: There is a new opacity in the lateral aspect of the right upper lobe measuring 1.4 x 1.4 cm. There is a stable 1 cm nodular opacity in the right lower lobe. There is a stable 2 m m nodule in the left lingula. This is unchanged dating back to 2013. No other nodules are seen. Mo derate emphysematous changes are present in the lungs. Mediastinum and Kaylie: No dominant adenopathy or fluid collection. The esophagus is unremarkable.There is a 1 cm subcarinal lymph node. Thyroid gland: There is a 3 mm hypodense nodule in the right lobe. No follow-up is recommended. Pleura: No effusion or pneumothorax. Heart: The heart is not dilated. Coronary artery calcifications are present. Mitral and aortic valve calcifications are present. No pericardial effusion. Aorta: Thoracic aorta non-dilated. Atherosclerosis. Upper abdomen: The proximal aspect of a aortic stent is seen. Lymph nodes: Within normal limits. Soft tissues: Vascular graft is again seen along the right chest wall. The enhancing nodular area in the right breast is unchanged dating back to 2013. Bones:Within normal limits for the patient's age. IMPRESSION: 1. Stable 1 cm nodule in the right lower lobe. New opacity in the lateral aspect of the right upper l obe measuring 1.4 x 1.4 cm. Follow-up examination with PET CT should be considered. Alternatively, ti ssue biopsy or three-month follow-up may be considered depending on the risk level of the patient. Co nsider smoking history or other high risk factors. 2. Moderate emphysematous changes in the lungs. 3. Atherosclerosis and coronary artery disease. 4. Stable nodular enhancing area in the right breast. This is unchanged since 2013. Correlation with patient's recent mammograms is recommended. RADIATION DOSE DELIVERED: 319.66mGy.cm Total DLP 319.66mGy.cm Total DLP DATA REPOSITORY: All CT scans at this facility are submitted to the National Radiology Data Registry (NRDR) Dose Index Registry (DIR) with the [employer] (A[employer]). RADIATION OPTIMIZATION: All CT scans at this facility use at least one of these dose optimization te chniques: automated exposure control; mA and/or kV adjustment per patient size (includes targeted exa ms where dose is matched to clinical indication); or iterative reconstruction.
--- NOTE | 2021-03-12 | DI.US_ITS ---
Exam(s) US ABDOMEN EXAM: US ABDOMEN CLINICAL HISTORY: ABD PAIN, R10.9 TECHNIQUE: Ultrasound abdomen performed using standard protocol. COMPARISON: CT CT ABDOMEN PELVIS W from 01/31/2021 FINDINGS: ABDOMINAL AORTA AND IVC: Visualized portions normal caliber. Atherosclerosis is present. PANCREAS: Normal where visualized. LIVER: Normal. Hepatopedal flow in the Portal Vein. The liver measures 13 cm long. GALLBLADDER:Cholelithiasis. No evidence of wall thickening. No pericholecystic fluid identified. BILIARY SYSTEM: Common bile duct measures < 7 mm. No intrahepatic biliary ductal dilation. MCKEON'S SIGN: Negative. KIDNEYS: Kidneys are symmetric in size. No evidence of renal calculi. No evidence of hydronephrosis. No renal mass or cyst identified. SPLEEN: Not enlarged. ASCITES: None seen. IMPRESSION: Cholelithiasis. No sonographic evidence of acute cholecystitis. DATA REPOSITORY:
== END 2021-03-12 00:52 ==
PROVIDERS: PCP Family Medicine; Visit Provider Family Medicine
DX: R91.1 Solitary pulmonary nodule (principal); J98.4 Other disorders of lung; E04.1 Nontoxic single thyroid nodule; J43.8 Other emphysema; R10.9 Unspecified abdominal pain; K80.20 Calculus of gallbladder without cholecystitis without obstruction
CPT/HCPCS: 71250; 76700

== ENCOUNTER 2021-03-29 15:36 | Outpatient (REF) | payer MEDICARE, MEDICAID, SELFPAY | END 2021-03-29 15:37 | disposition home or self-care (01) | LOC: NCHCN 15:36 | PROVIDERS: PCP Family Medicine; Visit Provider Family Medicine | DX: R10.9 Unspecified abdominal pain (principal); R15.9 Full incontinence of feces; N39.0 Urinary tract infection, site not specified | CPT/HCPCS: 87086 ==

== ENCOUNTER 2021-04-02 03:07 | Outpatient (RCR) | payer MEDICARE, MEDICAID, SELFPAY ==
[2021-04-02] MEDS: Normal Saline Flush 10 ML SYR IVP (12:10)
== END 2021-04-08 23:59 | disposition home or self-care (01) ==
LOC: INF 03:07
PROVIDERS: PCP Family Medicine; Visit Provider Nurse Practitioner Family
DX: D50.9 Iron deficiency anemia, unspecified (principal); Z53.09 Procedure and treatment not carried out because of other contraindication

== ENCOUNTER 2021-05-13 14:46 | Outpatient (REF) | payer MEDICARE, MEDICAID, SELFPAY ==
[2021-05-13 20:15] LABS: Bilirubin Negative (Negative); Blood Small (Negative); Clarity Sl Cloudy (Clear); Glucose Negative (Negative); Ketones Negative (Negative); Leukocyte Esterase Moderate (Negative); Nitrite Negative (Negative); Urobilinogen 0.2 EU/dL (Up TO 0.2)
[2021-05-13 20:33] LABS: Bacteria Moderate HPF (Negative); C & S Indicated? Yes; Casts 20-50 Hyaline LPF (Negative); Crystals Negative HPF (Negative); Epithelial Cells Few HPF (Negative); Mucus Negative (Negative); Other Cells Few Transitional (Negative)
== END 2021-05-13 14:47 | disposition home or self-care (01) ==
LOC: NCHCN 14:46
PROVIDERS: PCP Family Medicine; Visit Provider Family Medicine
DX: N39.0 Urinary tract infection, site not specified (principal)
CPT/HCPCS: 81003; 81015; 87086

== ENCOUNTER 2021-12-31 11:38 | Inpatient (IN) | payer MEDICARE, MEDICAID, SELFPAY ==
--- NOTE | 2021-12-31 11:45 | RT.EKG_ITS ---
APPROVED REPORT Exam: Resting ECG Reason for Exam: lethargic Patient Location: E HR:118 bpm ECG Measurements Heart Rate 118 AXIS GA 128 P 68 QRSd 80 QRS 75 QT 337 T 71 QTc 473 Conclusion Sinus tachycardia. Right atrial enlargement. anterior Q >40mS, V2-V5
[2021-12-31 11:47] VITALS: BP 105/55; PULSE 112; RESP 14; TEMP 37; O2SAT 92
--- NOTE | 2021-12-31 13:00 | DI.RAD_ITS ---
Exam(s) XR FEMUR RT EXAM: XR FEMUR RT CLINICAL HISTORY: fall, injury. TECHNIQUE: 2D digital imaging was performed of the right femur. Four images were obtained. AP and l ateral views were obtained. COMPARISON: No exams were available for comparison FINDINGS: BONES: No acute fracture is present. No bony destructive lesion is seen. Visualized portion of knee a nd hip joints are unremarkable. SOFT TISSUE: Atherosclerosis is present. IMPRESSION: No acute fracture or dislocation of the right femur. DATA REPOSITORY: RADIATION DOSE DELIVERED:
--- NOTE | 2021-12-31 13:00 | DI.RAD_ITS ---
Exam(s) XR FEMUR LT EXAM: XR FEMUR LT CLINICAL HISTORY: fall, injury. TECHNIQUE: 2D digital imaging was performed of the left femur. Four images were obtained. AP and lat eral views were obtained. COMPARISON: CT CT CHEST/ABD/PEL WO from 12/31/2021 FINDINGS: BONES: There is an acute fracture through the femoral neck which is impacted. No bony destructive le tyson is seen. The femoral head is seated within the acetabulum. SOFT TISSUE: Vascular calcifications are seen in the soft tissues. IMPRESSION: Acute impacted left femoral neck fracture. DATA REPOSITORY: RADIATION DOSE DELIVERED:
[2021-12-31 13:52] LABS: Bilirubin Negative (Negative); Blood Trace-lysed (Negative); Clarity Clear (Clear); Glucose Negative (Negative); Ketones Negative (Negative); Leukocyte Esterase Negative (Negative); Nitrite Negative (Negative); Specific Gravity >= 1.030 (1.005-1.025); Urobilinogen 0.2 EU/dL (Up TO 0.2)
[2021-12-31 14:02] LABS: Bacteria Negative HPF (Negative); C & S Indicated? No/Sq. Contamination; Casts 3-5 Hyaline LPF (Negative); Crystals Negative HPF (Negative); Epithelial Cells Moderate HPF (Negative); Mucus Negative (Negative)
[2021-12-31] MEDS: Acetaminophen 650 MG SUPP PR (14:02)
[2021-12-31 14:20] LABS: COVID-19 PCR Negative (Negative); Influenza A PCR Negative (Negative); Influenza B PCR Negative (Negative); RSV PCR Negative (Negative)
[2021-12-31 14:21] LABS: Source Nasopharynx
--- NOTE | 2021-12-31 14:46 | DI.CT_ITS ---
Exam(s) CT CHEST/ABD/PEL WO EXAM: CT CHEST/ABD/PEL WO CLINICAL HISTORY: trauma, generalized pain TECHNIQUE: Imaging Protocol: Axial computed tomography images with coronal and sagittal reformatted images were created and reviewed COMPARISON: CT CT ABDOMEN PELVIS W from 01/31/[address] CHEST WO from 03/12/2021 FINDINGS: Lack of IV contrast limits evaluation for organ injury. The examination is limited due to patient m otion artifact. CHEST: Tracheobronchial tree: Patent where visualized. Pulmonary parenchyma: There is again seen a spiculated mass in the right upper lobe suspicious for ca rcinoma. There is again seen a right lower lobe mass. This is stable. No focal consolidating infil trate is seen. Emphysematous changes are present in the lungs. Mediastinum and Kaylie: No dominant adenopathy or fluid collection. The esophagus is unremarkable. Thyroid gland: Unremarkable. Pleura: No definite pneumothorax is identified however examination is limited due to motion artifact. No pleural effusion is seen. Heart: The heart is not dilated. Coronary artery calcifications are present. No pericardial effusion . Aorta: Thoracic aorta non-dilated. Atherosclerosis is present. Lymph nodes: Within normal limits. Bones:Within normal limits for the patient's age. No displaced fractures are identified. Soft tissues: There is an right axillary bi femoral artery stent in place. ABDOMEN: Liver: Normal density. No measurable mass. Gallbladder and Biliary Tract: No radiodense calculus or dilation. Pancreas: Pancreatic atrophy. No gross abnormality. Spleen: Normal. Adrenals: No masses seen. Kidneys: Normal size, contour and axis. No radiodense stones or obstructive uropathy. No masses seen. Abdominal Aorta: Abdominal portion non-dilated. Atherosclerosis is present. There is an aorta bi-kimberly c stent in place. Bowel: No obstruction or bowel wall thickening. No evidence of appendicitis. Peritoneal Cavity: No ascites, collection or mesenteric inflammatory response. No free air. Lymph Nodes: Within normal limits. Bones: Within normal limits for the patient's age. There is an acute fracture of the left femoral ne ck which is impacted. There is L5 spondylolysis and grade 2 spondylolisthesis of L5 on S1. Soft Tissues: Unremarkable. PELVIS: Bladder: Symmetric distention, no gross wall thickening. Reproductive Organs: Unremarkable as visualized. Lymph Nodes: Within normal limits. Bones: Within normal limits for the patient's age. IMPRESSION: 1. There is an acute impacted fracture of the left femoral neck. 2. No acute chest, abdomen or pelvis organ injury. 3. Pulmonary masses which appears stable. Since 03/12/2021. Neoplasm is suspected. 4. Findings were discussed with Jaz Felix on 12/31/2021 at 5:04 p.m.. RADIATION DOSE DELIVERED: Total DLP DATA REPOSITORY: All CT scans at this facility are submitted to the National Radiology Data Registry (NRDR) Dose Index Registry (DIR) with the [employer] (ACR). RADIATION OPTIMIZATION: All CT scans at this facility use at least one of these dose optimization te chniques: automated exposure control; mA and/or kV adjustment per patient size (includes targeted exa ms where dose is matched to clinical indication); or iterative reconstruction.
[2021-12-31 14:48] LABS: Abs Immature Grans 0.03 10^3/uL (0.0-0.06); Absolute Basophil Count 0.03 10^3/uL (0.0-0.2); Absolute Eosinophil Count 0.17 10^3/uL (0.0-0.7); Absolute Monocyte Count 0.79 10^3/uL (0.1-0.8); Absolute Neutrophil Count 7.61 10^3/uL (1.2-6.7); Basophils % 0.3; Eosinophils % 1.7; HCT 41.8 % (36.0-46.0); HGB 13.8 g/dL (11.2-15.7); Immature Grans % 0.3; MCH 28.3 pg (27.0-33.0); MCV 86 fL (80-95); MPV 11.3 fL (8.0-11.0); Monocytes % 7.9; Neutrophils % 75.8; Platelet Count 247 10^3/uL (130-400); RBC 4.88 10^6/uL (3.93-5.22); RDW 13.2 % (11.7-14.6); RDW-SD 41.6 fL; WBC 10.03 10^3/uL (4.4-10.8)
[2021-12-31 14:49] LABS: Lactate 1.1 mmol/L (0.6-1.4)
[2021-12-31] MEDS: Lactated Ringers 500 ML IV (14:56)
--- NOTE | 2021-12-31 15:28 | ED.GENADUL_ITS ---
Discharge Plan Disposition Patient Disposition: Admit to [facility] Condition: Stable Discharge Details Clinical Impression: Femur fracture, left Admit Date/Time: 12/31/21 17:40 Admit Provider: Pete Lang Attending Provider: Pete Lang Primary Care Provider: Nirmala Clemente V ED Provider: Jaz Felix Discharge Data Discharge Date/Time-TO BE ENTERED AT DEPARTURE: 12/31/21 19:36 Medical Decision Making <BERTHA Bradshaw - Last Filed: 01/07/22 17:49> Patient with opens her eyes with voice and becomes agitated if we attempt to move her She is tender predominantly in the left hip without any visible sign of trauma, she has some left lower quadrant abdominal tenderness as well Initially obtaining IV access was a challenge and after several attempts, we were able to obtain blood work, her CBC is reassuring Her lactate is within normal limits She is mildly tachycardic, she is given 1 L of normal saline She is given Ativan and attempt to obtain CT Abdo pelvis, chest, head, and cervical spine that she has unfortunately a poor historian She is DNR/DNI status and family does not want us to perform any heroic measures She will be signed out to oncoming provider pending CTs and chemistry <Jaz Felix NP - Last Filed: 01/01/22 15:23> Patient with opens her eyes with voice and becomes agitated if we attempt to move her She is tender predominantly in the left hip without any visible sign of trauma, she has some left lower quadrant abdominal tenderness as well Initially obtaining IV access was a challenge and after several attempts, we were able to obtain blood work, her CBC is reassuring Her lactate is within normal limits She is mildly tachycardic, she is given 1 L of normal saline She is given Ativan and attempt to obtain CT Abdo pelvis, chest, head, and cervical spine that she has unfortunately a poor historian She is DNR/DNI status and family does not want us to perform any heroic measures She will be signed out to oncoming provider pending CTs and chemistry xray reviewed and shows fractured left femoral neck. discussed with DR Lam who will plan surgical repair tomorrow. Case is then discussed with DR Precious arriola ho will admit to hospitalist services. report and care of patient handed off to Mayda Rushing APRN and DR Lang. Medical Records Medical records reviewed: Yes I reviewed the patient's medical records. Sign Out Yes HPI <BERTHA Bradshaw - Last Filed: 01/07/22 17:49> General Date/Time Provider Initiated Documentation: 12/31/21 12:25 . HPI Narrative: This 76-year-old female present status post fall 2 days prior to arrival without any complaints or significant trauma at time of incident but now with generalized pain since she awoke this morning with increased confusion. Her mentation has been intermittently declining and she has presented similarly to this in the past reportedly per caregiver and granddaughter. Patient is unable to give any history. She is not been vomiting. She has been complaining of pain on her left side. She is unwilling to answer questions but was coherent this morning her daughter and caregiver. There was no head trauma at the time of the incident she was lowered to the ground during her fall which is not unusual for her. She is at baseline ambulatory independently. She has not been exposed any known illnesses. Denies any new medications. Related Data Home Medications Medication Instructions Recorded Confirmed gabapentin 100 mg capsule 200 mg PO HS 05/09/20 12/31/21 ondansetron HCl 4 mg tablet 4 mg PO Q8H PRN #10 tabs 05/09/20 12/31/21 (Zofran) atorvastatin 20 mg tablet 20 mg PO HS 08/06/20 10/31/21 polyethylene glycol 3350 17 17 g PO DAILY PRN 08/06/20 10/31/21 gram/dose oral powder lorazepam 2 mg/mL oral concentrate 1 mg (0.5 mL) PO Q6H PRN anxiety 05/24/21 12/31/21 #30 mL acetaminophen 500 mg/15 mL oral 1,000 mg (30 mL) PO TID fever #500 10/31/21 12/31/21 liquid mL quetiapine 50 mg tablet (Seroquel) 50 mg PO BID #60 tabs 11/01/21 12/31/21 pantoprazole 40 mg tablet,delayed 40 mg PO BID 12/06/21 12/31/21 release psyllium husk 3.4 gram/5.4 gram 1 tbsp PO DAILY PRN PRN 12/06/21 oral powder (Metamucil) warfarin 2 mg tablet 1 - 2 mg PO DAILY 12/06/21 01/02/22 ferrous gluconate 324 mg (38 mg 324 mg PO DAILY 12/31/21 12/31/21 iron) tablet iron amino acid chelate-vit 2 cap PO DAILY 12/31/21 12/31/21 [id number] acid 27 mg-100 mcg-400 mcg cap quetiapine 100 mg tablet (Seroquel) 100 mg PO HS 12/31/21 12/31/21 Previous Rx's Medication Instructions Recorded ondansetron HCl 4 mg tablet 4 mg PO Q8H PRN #10 tabs 05/09/20 (Zofran) lorazepam 2 mg/mL oral concentrate 1 mg (0.5 mL) PO Q6H PRN anxiety 05/24/21 #30 mL acetaminophen 500 mg/15 mL oral 1,000 mg (30 mL) PO TID fever #500 10/31/21 liquid mL quetiapine 50 mg tablet (Seroquel) 50 mg PO BID #60 tabs 11/01/21 Allergies Allergy/AdvReac Type Severity Reaction Status Date / Time sulfamethoxazole Allergy Mild eyes Unverified 12/31/21 12:42 [From Bactrim] swollen amphotericin B liposome Allergy Unverified 12/31/21 12:42 [From AmBisome] cefuroxime Allergy Unverified 12/31/21 12:42 donepezil Allergy Unverified 12/31/21 12:42 trimethoprim [From Bactrim] Allergy Unverified 12/31/21 12:42 oxycodone HCl [From Percocet] AdvReac Unverified 12/31/21 12:42 General Stated Complaint: Fall/Non TraumaCriteria KATHRYN: 2 Review of Systems <BERTHA Bradshaw - Last Filed: 01/07/22 17:49> Unobtainable due to mental status PFSH <BERTHA Bradshaw - Last Filed: 01/07/22 17:49> All Active Problems (Updated 01/06/22 @ 00:08 by RADHA BENDER) Fracture of proximal end of left femur (Acute) s/p L Hip Hemiarthroplasty (01/01/22) Encounter for hospice care discussion (Acute) Agitation due to dementia (Acute) Caregiver readily available (Chronic) Tory Scruggs, [facility] All medications reviewed (Acute) DNI (do not intubate) (Acute) DNR (do not resuscitate) (Acute) POLST (Physician Orders for Life-Sustaining Treatment) (Acute) DNR/DNI NH form; signed 10/10/16 reviewed [place] COLST 03/26/21 Deficit in activities of daily living (ADL) (Acute) Health care proxy on file (Chronic) daughter Susan Alvarado Claudication (Chronic) Leg pain, bilateral (Acute) Palliative care patient (Chronic) COPD (chronic obstructive pulmonary disease) (Chronic) Squamous cell carcinoma of skin (Acute) Chronic kidney disease (Acute) stage III Heart murmur, systolic (Acute) Vascular dementia (Chronic) Lower GI bleed (Chronic) recurrent, ? etiology suspected diverticular bleed would not tolerate colonoscopy Anemia (Chronic) Anemia associated with acute blood loss (Acute) Atherosclerotic peripheral vascular disease of extremity (Acute) Warfarin anticoagulation (Acute) Medical History Accidental fall Acute on chronic anemia Altered mental status Aortoiliac occlusive disease Ataxia Breast cancer Chronic diarrhea Chronic fatigue and malaise Colonic polyp Dementia Depression Diabetes Diarrhea Diverticulosis Dysphonia (01/30/14) Generalized weakness GERD (gastroesophageal reflux disease) History of tobacco use Hyperlipidemia Hypertension Hypomagnesemia Insomnia Ischemic colitis Knee pain, bilateral Neoplasm of skin (01/30/14) Osteopenia PVD (peripheral vascular disease) Radicular syndrome of left lower extremity Skin lesion Tobacco use disorder (01/30/14) Urinary incontinence UTI (urinary tract infection) UTI (urinary tract infection) Vertigo Wrist fracture Surgical History axillo-byfem bypass Breast, Lumpectomy EGD - MAC (02/29/16) Family History Daughter No problems noted. Son No problems noted. Son No problems noted. Granddaughter No problems noted. Social History Smoking/Tobacco Use Status: Former Tobacco Use Tobacco: How many years used: 50 Smoking risk assessment performed?: Yes Alcohol Intake: never Drug use: Never Substance use type: does not use Caregiver/Support person: Yes Household members: caregiver Housing: other Details: community senior living Number of Children: 3 Communication Needs: Hard of Hearing and Corrective Lenses Education Level: high school Do you need help understanding health information?: Always Pets and animals: Yes Pets and animals: dog(s) Current gender identity: female What is your relationship status?: How often do you talk on the phone with friends or family?: once per week How often do you get together with friends or relatives?: once per week Panel score (0-1 are the most socially isolated patients): 0 What type of physical activity do you participate in: independent ambulation Duration: 15-30 minutes/day Frequency: daily Special singh needs: No Agree to transfusion: Yes Seatbelt use: always Working smoke detector in home: Yes Fire extinguisher in home: Yes Do you feel safe at home: Yes Do you feel safe in your relationship?: Yes Additional Social history: weekend caregiver and 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 patient is not responding at this time. Exam <BERTHA Bradshaw - Last Filed: 01/07/22 17:49> Const General: frail appearing and other Orientation: confused Limitations: altered mental status HENMT Head: normal to inspection Mouth: oral mucosae normal Eyes Pupils: PERRL Neck Neck: normal visual inspection Resp Effort & Inspection: normal respiratory effort Cardio Rate: tachycardic Rhythm: abnormal rhythm GI Inspection: normal to inspection Other: non-tender Skin General skin exam: no rashes or lesions noted Neuro General: patient alert Other: tired in appearance arousable to voice Extrem Other: mild left hip tenderness neurovascularly intact Course <BERTHA Bradshaw - Last Filed: 01/07/22 17:49> Vital Signs Vital signs: Vital Signs Temperature 37.0 C 12/31/21 11:47 Pulse 112 H 12/31/21 11:47 Respiratory Rate 14 12/31/21 11:47 Blood Pressure 105/55 L 12/31/21 11:47 Pulse Oximetry 92 12/31/21 11:47 Temperature 37.0 C 12/31/21 11:47 Temperature Source Temporal Artery Scan 12/31/21 11:47 Pulse 112 H 12/31/21 11:47 Respiratory Rate 14 12/31/21 11:47 Respiratory Effort Non-Labored 12/31/21 12:35 Blood Pressure 105/55 L 12/31/21 11:47 Blood Pressure Position Sitting 12/31/21 11:47 Pulse Oximetry 92 12/31/21 11:47 Oxygen Delivery Method Room Air 12/31/21 11:47 Oxygen Flow Rate 0 12/31/21 11:47 Lab/Test Results Lab/Test Results: 12/31/21 12:59 Blood Blood Culture - Pending 12/31/21 12:59 Blood Blood Culture - Pending Laboratory Tests Range/Units 12/31/21 12/31/21 12/31/21 12:59 13:25 13:37 WBC (4.4-10.8) 10^3/uL RBC (3.93-5.22) 10^6/uL Hgb (11.2-15.7) g/dL Hct (36.0-46.0) % MCV (80-95) fL MCH (27.0-33.0) pg MCHC (32.0-36.0) % RDW (11.7-14.6) % Plt Count (130-400) 10^3/uL MPV (8.0-11.0) fL Immature Gran % Neutrophils % Lymphocytes % Monocytes % Eosinophils % Basophils % Nucleated RBC % (0.0-0.3) % Absolute Neutrophils (1.2-6.7) 10^3/uL Absolute Lymphocytes (1.2-3.4) 10^3/uL Absolute Monocytes (0.1-0.8) 10^3/uL Absolute Eosinophils (0.0-0.7) 10^3/uL Absolute Basophils (0.0-0.2) 10^3/uL VBG Lactate (0.6-1.4) mmol/L 1.1 Urine Color (Yellow) Yellow Urine Clarity (Clear) Clear Urine pH (5-8) 6.0 Ur Specific [place] (1.005-1.025) >= 1.030 H Urine Protein (Negative) mg/dL 100 H Urine Ketones (Negative) mg/dL Negative Urine Blood (Negative) Trace-lysed H Urine Nitrite (Negative) Negative Urine Bilirubin (Negative) Negative Urine Urobilinogen (Up TO 0.2) EU/dL 0.2 Ur Leukocyte Esterase (Negative) Negative Urine RBC (0-2) HPF 3-5 H Urine WBC (0-5) HPF 3-5 Ur Epithelial Cells (Negative) HPF Moderate Urine Crystals (Negative) HPF Negative Urine Bacteria (Negative) HPF Negative Urine Casts (Negative) LPF 3-5 Hyaline Urine Mucus (Negative) Negative Ur Culture Indicated? No/Sq. Contamination Urine Glucose (Negative) mg/dL Negative COVID-19 Source Nasopharynx SARS-CoV-2 (PCR) (Negative) Negative Influenza Type A (PCR) (Negative) Negative Influenza Type B (PCR) (Negative) Negative RSV (PCR) (Negative) Negative Range/Units 12/31/21 14:42 WBC (4.4-10.8) 10^3/uL 10.03 RBC (3.93-5.22) 10^6/uL 4.88 Hgb (11.2-15.7) g/dL 13.8 Hct (36.0-46.0) % 41.8 MCV (80-95) fL 86 MCH (27.0-33.0) pg 28.3 MCHC (32.0-36.0) % 33.0 RDW (11.7-14.6) % 13.2 Plt Count (130-400) 10^3/uL 247 MPV (8.0-11.0) fL 11.3 H Immature Gran % 0.3 Neutrophils % 75.8 Lymphocytes % 14.0 Monocytes % 7.9 Eosinophils % 1.7 Basophils % 0.3 Nucleated RBC % (0.0-0.3) % 0.0 Absolute Neutrophils (1.2-6.7) 10^3/uL 7.61 H Absolute Lymphocytes (1.2-3.4) 10^3/uL 1.40 Absolute Monocytes (0.1-0.8) 10^3/uL 0.79 Absolute Eosinophils (0.0-0.7) 10^3/uL 0.17 Absolute Basophils (0.0-0.2) 10^3/uL 0.03 VBG Lactate (0.6-1.4) mmol/L Urine Color (Yellow) Urine Clarity (Clear) Urine pH (5-8) Ur Specific [place] (1.005-1.025) Urine Protein (Negative) mg/dL Urine Ketones (Negative) mg/dL Urine Blood (Negative) Urine Nitrite (Negative) Urine Bilirubin (Negative) Urine Urobilinogen (Up TO 0.2) EU/dL Ur Leukocyte Esterase (Negative) Urine RBC (0-2) HPF Urine WBC (0-5) HPF Ur Epithelial Cells (Negative) HPF Urine Crystals (Negative) HPF Urine Bacteria (Negative) HPF Urine Casts (Negative) LPF Urine Mucus (Negative) Ur Culture Indicated? Urine Glucose (Negative) mg/dL COVID-19 Source SARS-CoV-2 (PCR) (Negative) Influenza Type A (PCR) (Negative) Influenza Type B (PCR) (Negative) RSV (PCR) (Negative) Sign Out <BERTHA Bradshaw - Last Filed: 01/07/22 17:49> Sign Out Data: Sign Out Comment: pending cmp and ct's Last updated by Tammy Villalta PA at 12/31/21 16:10
[2021-12-31 16:01] LABS: ALT 18 U/L (14-59); AST 32 U/L (15-37); Albumin 4.2 g/dL (3.4-5.0); Alkaline Phosphatase 114 U/L (46-116); Anion Gap 12.9 mmol/L (3-11); BUN 28 mg/dL (7-18); Bilirubin, Total 0.6 mg/dL (0.2-1.0); CO2 26.1 mmol/L (21.0-32.0); CREATININE 1.3 mg/dL (0.55-1.02); Calcium 10.1 mg/dL (8.5-10.1); Chloride 99 mmol/L (98-107); Estimated GFR 42.09 (mL/min/1.73m2); Glucose 145 mg/dL (74-106); Lipase 91 U/L (73-393); Potassium 4.2 mmol/L (3.5-5.1); Sodium 138 mmol/L (136-145); Troponin I < 50 ng/L (<or=60)
--- NOTE | 2021-12-31 16:27 | DI.CT_ITS ---
Exam(s) CT HEAD CERVICAL SPINE WO EXAM: CT HEAD CERVICAL SPINE WO CLINICAL HISTORY: fall, ams. TECHNIQUE: Imaging Protocol: Axial computed tomography images with coronal and sagittal reformatted images were created and reviewed COMPARISON: No previous for comparison. FINDINGS: CT Head: Ventricles and Extra axial spaces: Normal in size and morphology for the patient's age. Hemorrhage: None. Cerebral parenchyma: There is no evidence of an acute territorial infarct. There are areas of decrea sed attenuation in the white matter most consistent with small vessel ischemic disease. Midline shift: None. Brainstem/Cerebellum: Normal. Calvarium: Normal. Visualized Paranasal sinuses/Mastoids: Clear. Soft Tissues: Unremarkable. CT Cervical Spine: Bones: No acute fracture or subluxation. Degenerative changes are seen in the cervical spine. Soft Tissues: Unremarkable. Lung Apices: Emphysematous changes are seen in the lung apices. IMPRESSION: 1. No acute intracranial process. 2. No acute fracture or subluxation in the cervical spine. 3. Findings were discussed with the emergency department on the date of the examination. RADIATION DOSE DELIVERED: Total DLP DATA REPOSITORY: All CT scans at this facility are submitted to the National Radiology Data Registry (NRDR) Dose Index Registry (DIR) with the [employer] (ACR). RADIATION OPTIMIZATION: All CT scans at this facility use at least one of these dose optimization te chniques: automated exposure control; mA and/or kV adjustment per patient size (includes targeted exa ms where dose is matched to clinical indication); or iterative reconstruction.
[2021-12-31 16:31] LABS: INR 2.1 (0.9-1.1); Prothrombin Time 20.2 sec (9.3-11.0)
--- NOTE | 2021-12-31 17:19 | DI.VRAD_ITS ---
PROCEDURE INFORMATION: Exam: XR Left Femur Exam date and time: 12/31/2021 4:40 PM Age: 76 years old Clinical indication: Other: Fall, injury TECHNIQUE: Imaging protocol: Radiologic exam of the Left femur. Views: 2 views. COMPARISON: CT CHEST/ABD/PEL WO 12/31/2021 4:28 PM FINDINGS: Bones/joints: Mildly displaced and comminuted fracture of the left proximal femur. Oblique fracture line seen through the femoral head. Transverse fracture line through the femoral neck. No definite evidence of dislocation although evaluation on lateral view is significantly limited. The knee is unremarkable. Soft tissues: Unremarkable. IMPRESSION: Mildly displaced and comminuted fracture of the left proximal femur. Dictated and Authenticated by: Kirby Loving MD. Ordering:INDIA Munoz MD
--- NOTE | 2021-12-31 17:20 | DI.VRAD_ITS ---
PROCEDURE INFORMATION: Exam: XR Right Femur Exam date and time: 12/31/2021 4:39 PM Age: 76 years old Clinical indication: Other: Fall, injury TECHNIQUE: Imaging protocol: Radiologic exam of the Right femur. Views: 2 views. COMPARISON: CT CHEST/ABD/PEL WO 12/31/2021 4:28 PM FINDINGS: Bones/joints: No acute fracture or dislocation. Joint spaces appear maintained. Soft tissues: Unremarkable. Vasculature: Atherosclerotic disease. IMPRESSION: No acute findings. Dictated and Authenticated by: Kriby Loving MD. Ordering:INDIA Munoz MD
--- NOTE | 2021-12-31 18:03 | HPE_ITS ---
Date of service: 12/31/21 Time of Service: 18:03 Assessment and Plan Assessment and plan (1) Fracture of proximal end of left femur: Status: Acute Assessment and plan: Ortho consult - plan for surgery 01/01/22 (2) Agitation due to dementia: Status: Acute Assessment and plan: Continue home medication, assess for increased agitation (3) Chronic kidney disease: Status: Acute Assessment and plan: monitor BUN/Creat 28/1.3 LR 100ml/h (4) Warfarin anticoagulation: Status: Acute Assessment and plan: Hold pending surgery (5) DVT prophylaxis: Status: Acute Assessment and plan: SCD - holding chemical preop (6) Discharge planning issues: Status: Acute Assessment and plan: home w home health v rehab History of Present Illness Narrative: This is a 76-year-old female that presented to the [facility] ED status post fall 2 days prior to arrival without any complaints or significant trauma at time of incident but now with generalized pain since she awoke this morning and increased confusion.? Her mentation has been intermittently declining and she has presented similarly in the past reportedly per caregiver and granddaughter.? Patient is unable to give any history.? She has not been vomiting.? She has been complaining of pain on her left side.? She is unwilling to answer questions but was coherent this morning per her daughter and caregiver.? There was no head trauma at the time of the incident she was lowered to the ground during her fall which is not unusual for her.? She is at baseline ambulatory independently.? She has not been exposed any known illnesses.? Caregivers deny any new medications. CT of head in the ED is negative. Xray of the left femur positive for proximal fracture. No acutre chest, abdomen or pelvis organ injury. She was discussed with orthopedic surgery. She is admitted for surgical repair, to the medical unit. We will hold coumadin. She is DNR/DNI. Review of Systems Unobtainable due to mental status PFSH All Active Problems (Updated 01/03/22 @ 10:01 by Lucius Lam MD) Discharge planning issues (Acute) DVT prophylaxis (Acute) Fracture of proximal end of left femur (Acute) s/p L Hip Hemiarthroplasty (01/01/22) Encounter for hospice care discussion (Acute) Agitation due to dementia (Acute) Caregiver readily available (Chronic) Tory Scruggs, [facility] All medications reviewed (Acute) DNI (do not intubate) (Acute) DNR (do not resuscitate) (Acute) POLST (Physician Orders for Life-Sustaining Treatment) (Acute) DNR/DNI NH form; signed 10/10/16 reviewed [place] COLST 03/26/21 Deficit in activities of daily living (ADL) (Acute) Health care proxy on file (Chronic) daughter Susan Alvarado Claudication (Chronic) Leg pain, bilateral (Acute) Palliative care patient (Chronic) COPD (chronic obstructive pulmonary disease) (Chronic) Squamous cell carcinoma of skin (Acute) Chronic kidney disease (Acute) stage III Heart murmur, systolic (Acute) Vascular dementia (Chronic) Lower GI bleed (Chronic) recurrent, ? etiology suspected diverticular bleed would not tolerate colonoscopy Anemia (Chronic) Anemia associated with acute blood loss (Acute) Atherosclerotic peripheral vascular disease of extremity (Acute) Warfarin anticoagulation (Acute) Medical History Accidental fall Acute on chronic anemia Altered mental status Aortoiliac occlusive disease Ataxia Breast cancer Chronic diarrhea Chronic fatigue and malaise Colonic polyp Dementia Depression Diabetes Diarrhea Diverticulosis Dysphonia (01/30/14) Generalized weakness GERD (gastroesophageal reflux disease) History of tobacco use Hyperlipidemia Hypertension Hypomagnesemia Insomnia Ischemic colitis Knee pain, bilateral Neoplasm of skin (01/30/14) Osteopenia PVD (peripheral vascular disease) Radicular syndrome of left lower extremity Skin lesion Tobacco use disorder (01/30/14) Urinary incontinence UTI (urinary tract infection) UTI (urinary tract infection) Vertigo Wrist fracture Surgical History axillo-byfem bypass Breast, Lumpectomy EGD - MAC (02/29/16) Family History Daughter No problems noted. Son No problems noted. Son No problems noted. Granddaughter No problems noted. Social History Smoking/Tobacco Use Status: Former Tobacco Use Tobacco: How many years used: 50 Smoking risk assessment performed?: Yes Alcohol Intake: never Drug use: Never Substance use type: does not use Caregiver/Support person: Yes Household members: caregiver Housing: other Details: community long term Number of Children: 3 Communication Needs: Hard of Hearing and Corrective Lenses Education Level: high school Do you need help understanding health information?: Always Pets and animals: Yes Pets and animals: dog(s) Current gender identity: female What is your relationship status?: How often do you talk on the phone with friends or family?: once per week How often do you get together with friends or relatives?: once per week Panel score (0-1 are the most socially isolated patients): 0 What type of physical activity do you participate in: independent ambulation Duration: 15-30 minutes/day Frequency: daily Special singh needs: No Agree to transfusion: Yes Seatbelt use: always Working smoke detector in home: Yes Fire extinguisher in home: Yes Do you feel safe at home: Yes Do you feel safe in your relationship?: Yes Additional Social history: 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 patient is not responding at this time. Meds Allergies and Home Medications Allergies Allergy/AdvReac Type Severity Reaction Status Date / Time sulfamethoxazole Allergy Mild eyes Unverified 12/31/21 12:42 [From Bactrim] swollen amphotericin B liposome Allergy Unverified 12/31/21 12:42 [From AmBisome] cefuroxime Allergy Unverified 12/31/21 12:42 donepezil Allergy Unverified 12/31/21 12:42 trimethoprim [From Bactrim] Allergy Unverified 12/31/21 12:42 oxycodone HCl [From Percocet] AdvReac Unverified 12/31/21 12:42 Home Medications Medication Instructions Recorded Confirmed Type gabapentin 100 mg capsule 200 mg PO HS 05/09/20 12/31/21 History ondansetron HCl 4 mg tablet 4 mg PO Q8H PRN #10 tabs 05/09/20 12/31/21 Rx (Zofran) atorvastatin 20 mg tablet 20 mg PO HS 08/06/20 10/31/21 History polyethylene glycol 3350 17 17 g PO DAILY PRN 08/06/20 10/31/21 History gram/dose oral powder lorazepam 2 mg/mL oral concentrate 1 mg (0.5 mL) PO Q6H PRN anxiety 05/24/21 12/31/21 Rx #30 mL acetaminophen 500 mg/15 mL oral 1,000 mg (30 mL) PO TID fever #500 10/31/21 12/31/21 Rx liquid mL quetiapine 50 mg tablet (Seroquel) 50 mg PO BID #60 tabs 11/01/21 12/31/21 Rx pantoprazole 40 mg tablet,delayed 40 mg PO BID 12/06/21 12/31/21 History release psyllium husk 3.4 gram/5.4 gram 1 tbsp PO DAILY PRN PRN 12/06/21 History oral powder (Metamucil) warfarin 2 mg tablet 1 - 2 mg PO DAILY 12/06/21 01/02/22 History ferrous gluconate 324 mg (38 mg 324 mg PO DAILY 12/31/21 12/31/21 History iron) tablet iron amino acid chelate-vit 2 cap PO DAILY 12/31/21 12/31/21 History [id number]-zucyt acid 27 mg-100 mcg-400 mcg cap quetiapine 100 mg tablet (Seroquel) 100 mg PO HS 12/31/21 12/31/21 History Exam Const General: cooperative, no acute distress and frail appearing Orientation: awake and confused Neck Neck: normal visual inspection and no lymphadenopathy Resp Effort & Inspection: normal respiratory effort and able to speak in complete sentences Auscultation: no rales, no rhonchi and no wheezes Cardio Jugular venous pressure: no JVD Rate: regular rate Rhythm: regular rhythm Heart Sounds: S1 normal, S2 normal, no gallops and no murmurs GI Inspection: normal to inspection Palpation: soft, no hepatosplenomegaly and nontender Skin General skin exam: pallor Neuro Cognition: abnormal cognition Extrem General: normal to inspection, no pedal edema and no calf tenderness Left lower extremity: normal to inspection, normal capillary refill and hip/thigh Details: swelling and crepitus; no cyanosis Psych Speech and Movement: speech and movement normal Mood: congruent mood Affect: normal affect Results Labs Result diagrams: 01/02/22 06:30 01/02/22 06:30 Labs: Laboratory Results - last 24 hr 12/31/21 12/31/21 12/31/21 12:59 12:59 13:25 WBC RBC Hgb Hct MCV MCH MCHC RDW Plt Count MPV Immature Gran % Neutrophils % Lymphocytes % Monocytes % Eosinophils % Basophils % Nucleated RBC % Absolute Neutrophils Absolute Lymphocytes Absolute Monocytes Absolute Eosinophils Absolute Basophils PT INR VBG Lactate 1.1 Sodium 138 Potassium 4.2 Chloride 99 Carbon Dioxide 26.1 Anion Gap 12.9 H BUN 28 H Creatinine 1.3 H Est GFR (CKD-EPI 2020) 42.09 Glucose 145 H Calcium 10.1 Total Bilirubin 0.6 AST 32 ALT 18 Alkaline Phosphatase 114 Troponin I < 50 Total Protein 9.0 H Albumin 4.2 Lipase 91 Urine Color Urine Clarity Urine pH Ur Specific [place] Urine Protein Urine Ketones Urine Blood Urine Nitrite Urine Bilirubin Urine Urobilinogen Ur Leukocyte Esterase Urine RBC Urine WBC Ur Epithelial Cells Urine Crystals Urine Bacteria Urine Casts Urine Mucus Ur Culture Indicated? Urine Glucose COVID-19 Source Nasopharynx SARS-CoV-2 (PCR) Negative Influenza Type A (PCR) Negative Influenza Type B (PCR) Negative RSV (PCR) Negative 12/31/21 12/31/21 12/31/21 13:37 14:40 14:42 WBC 10.03 RBC 4.88 Hgb 13.8 Hct 41.8 MCV 86 MCH 28.3 MCHC 33.0 RDW 13.2 Plt Count 247 MPV 11.3 H Immature Gran % 0.3 Neutrophils % 75.8 Lymphocytes % 14.0 Monocytes % 7.9 Eosinophils % 1.7 Basophils % 0.3 Nucleated RBC % 0.0 Absolute Neutrophils 7.61 H Absolute Lymphocytes 1.40 Absolute Monocytes 0.79 Absolute Eosinophils 0.17 Absolute Basophils 0.03 PT 20.2 H INR 2.1 H VBG Lactate Sodium Potassium Chloride Carbon Dioxide Anion Gap BUN Creatinine Est GFR (CKD-EPI 2020) Glucose Calcium Total Bilirubin AST ALT Alkaline Phosphatase Troponin I Total Protein Albumin Lipase Urine Color Yellow Urine Clarity Clear Urine pH 6.0 Ur Specific [place] >= 1.030 H Urine Protein 100 H Urine Ketones Negative Urine Blood Trace-lysed H Urine Nitrite Negative Urine Bilirubin Negative Urine Urobilinogen 0.2 Ur Leukocyte Esterase Negative Urine RBC 3-5 H Urine WBC 3-5 Ur Epithelial Cells Moderate Urine Crystals Negative Urine Bacteria Negative Urine Casts 3-5 Hyaline Urine Mucus Negative Ur Culture Indicated? No/Sq. Contamination Urine Glucose Negative COVID-19 Source SARS-CoV-2 (PCR) Influenza Type A (PCR) Influenza Type B (PCR) RSV (PCR) 12/31/21 17:26 WBC RBC Hgb Hct MCV MCH MCHC RDW Plt Count MPV Immature Gran % Neutrophils % Lymphocytes % Monocytes % Eosinophils % Basophils % Nucleated RBC % Absolute Neutrophils Absolute Lymphocytes Absolute Monocytes Absolute Eosinophils Absolute Basophils PT INR VBG Lactate Sodium Potassium Chloride Carbon Dioxide Anion Gap BUN Creatinine Est GFR (CKD-EPI 2020) Glucose Calcium Total Bilirubin AST ALT Alkaline Phosphatase Troponin I Total Protein Albumin Lipase Urine Color Urine Clarity Urine pH Ur Specific [place] Urine Protein Urine Ketones Urine Blood Urine Nitrite Urine Bilirubin Urine Urobilinogen Ur Leukocyte Esterase Urine RBC Urine WBC Ur Epithelial Cells Urine Crystals Urine Bacteria Urine Casts Urine Mucus Ur Culture Indicated? Urine Glucose COVID-19 Source Cancelled SARS-CoV-2 (PCR) Cancelled Influenza Type A (PCR) Influenza Type B (PCR) RSV (PCR) Last Vital Signs Temp 37.0 C 12/31/21 11:47 Pulse 112 H 12/31/21 11:47 Resp 14 12/31/21 11:47 BP 105/55 L 12/31/21 11:47 Pulse Ox 92 12/31/21 11:47
[2021-12-31 19:14] LABS: Lab Add On Test DONE
[2021-12-31 19:22] LABS: Magnesium 1.5 mg/dL (1.8-2.4)
[2021-12-31 19:45] VITALS: BP 126/62; PULSE 62; RESP 20; TEMP 36.3; O2SAT 98
[2021-12-31 20:31] VITALS: BP 126/62; PULSE 62; RESP 20; TEMP 36.3; O2SAT 93
[2021-12-31] MEDS: ACETAMINOPHEN 1,000 MG/100 ML BTL 400 MG IVPB (20:45)
[2021-12-31] MEDS: Lactated Ringers 1,000 ML 75 ML IV (20:45)
[2021-12-31 22:26] VITALS: BP 147/67; PULSE 106; RESP 20; TEMP 36.1; O2SAT 98
[2021-12-31] MEDS: HYDROmorphone 2 MG/ML SYR 0.25 MG IVP (22:26)
--- NOTE | 2021-12-31 23:18 | TELEP.MEDR_ITS ---
Date of service: 12/31/21 Time of Service: 23:18 Telepharmacy Home Med Rec Allergies Allergies: sulfamethoxazole [From Bactrim] Allergy (Mild, Unverified 12/31/21 12:42) eyes swollen amphotericin B liposome [From AmBisome] Allergy (Unverified 12/31/21 12:42) cefuroxime Allergy (Unverified 12/31/21 12:42) donepezil Allergy (Unverified 12/31/21 12:42) trimethoprim [From Bactrim] Allergy (Unverified 12/31/21 12:42) oxycodone HCl [From Percocet] Adverse Reaction (Unverified 12/31/21 12:42) Interview Person Interviewed: MAR from caregiver was obtained and used to review medications. Quality Quality of Interview/Accuracy of Medication List: Excellent Sources Sources used to compile medication list: [employer] Medication List and MAR Changes made to Home Medication List: ADDITIONS: * Raw Iron 44mg po daily * Ferrous gluconate 324mg po daily DELETIONS: * Mirtazapine * Colace * Namenda * Melatonin * Vitamin D3 * Dicyclomine * Carafate * Trazodone * Valerian Root CHANGES: * Warfarin 1mg po HS Additional Notes Additional Notes: * Raw Iron supplement contains vitamin C, folate and vitamin B12 with the chelated iron. Recommended Changes Recommended Changes(reason for recommendation): None Attestation: The home medication list is now updated to the best of my knowledge and is ready to be reconciled by the provider. Please contact the TelePharmacy Medication Reconciliation Pharmacist at for any questions.
[2022-01-01] VITALS (15 sets, daily range): BP systolic 105–150; BP diastolic 40–93; PULSE 72–94; RESP 16–22; TEMP 35.6–36.5; O2SAT 88–99; BMI 20.3
[2022-01-01] MEDS: ACETAMINOPHEN 1,000 MG/100 ML BTL 400 MG IVPB ×3 (04:39→20:00)
--- NOTE | 2022-01-01 04:48 | W.ORTHOCONSU ---
Date of service: 01/01/22 History of Present Illness History of Present Illness Chief Complaint: left leg pain, inability to bear weight Narrative: Elisa is a 76 year old female with dementia requiring 24/7 care. There was no clear fall although there was an episode about 2 days ago where she slowly went down to the ground. She went to bed but then yesterday morning appeared to have left leg pain with an inability to walk and increased confusion. She was brought to the ED and diagnosed with a left femoral neck fracture, for which I was consulted. She has severe demenita in addition to COPD, CKD, vascular disease s/p axilobifemoral bypass, chronic anticoagulation, GERD. She does ambulate and mobilize prior to this, although sometimes limited in duration/distance due to her vascular disease. Her dementia and mental status has been worsening of late. Head CT was negative. Current INR was 2.1. Consults Consult date: 12/31/21 Requesting physician: Mayda Rushing Consult Reason Left Femoral neck fracture Assessment and Plan Assessment and plan (1) Fracture of proximal end of left femur: Status: Acute Assessment and plan: Elisa is a 76-year-old who suffered a fall resulting in a left femoral neck fracture. CT and x-ray show that this fracture is displaced. Recent literature supports the use of hemiarthroplasty rather than screw fixation for any femoral neck fractures, especially those have displacement, most notably with posterior angulation. Therefore, I think the hemiarthroplasty be the most reliable way to gain function with her ability to weight-bear as well as decrease her pain. I discussed this with her DPOA and daughter, Krystal Powers. He had significant concerns about her mom's mental status as well as her anticoagulation status. Nevertheless, I think this risk of bleeding and potential mental status decline does not outweigh the benefits of fixing this for pain relief and ability to position and ambulate. I reviewed this with Jina and she agrees to proceed. I discussed the risk of the procedure to include bleeding, infection, pain, stiffness, loosening, need for repeat procedures, fracture, blood clot, cardiopulmonary demise, worsening mental status. Despite these risk, she agrees to proceed. I did discuss is also with Elisa although I do not think she had much comprehension although she does say she would like to have it fixed. Review of Systems Unobtainable due to mental status PFSH All Active Problems Discharge planning issues (Acute) DVT prophylaxis (Acute) Femur fracture, left (Acute) Fracture of proximal end of left femur (Acute) Encounter for hospice care discussion (Acute) Agitation due to dementia (Acute) Caregiver readily available (Chronic) Tory Scruggs, [facility] All medications reviewed (Acute) Hypomagnesemia (Acute) DNI (do not intubate) (Acute) DNR (do not resuscitate) (Acute) POLST (Physician Orders for Life-Sustaining Treatment) (Acute) DNR/DNI NH form; signed 10/10/16 reviewed [place] COLST 03/26/21 Deficit in activities of daily living (ADL) (Acute) Health care proxy on file (Chronic) daughter Susan Alvarado Claudication (Chronic) Leg pain, bilateral (Acute) Palliative care patient (Chronic) COPD (chronic obstructive pulmonary disease) (Chronic) Squamous cell carcinoma of skin (Acute) Chronic kidney disease (Acute) stage III Heart murmur, systolic (Acute) Vascular dementia (Chronic) Lower GI bleed (Chronic) recurrent, ? etiology suspected diverticular bleed would not tolerate colonoscopy Anemia (Chronic) Anemia associated with acute blood loss (Acute) Atherosclerotic peripheral vascular disease of extremity (Acute) Warfarin anticoagulation (Acute) Medical History Accidental fall Acute on chronic anemia Altered mental status Aortoiliac occlusive disease Ataxia Breast cancer Chronic diarrhea Chronic fatigue and malaise Colonic polyp Dementia Depression Diabetes Diarrhea Diverticulosis Dysphonia (01/30/14) Generalized weakness GERD (gastroesophageal reflux disease) History of tobacco use Hyperlipidemia Hypertension Hypomagnesemia Insomnia Ischemic colitis Knee pain, bilateral Neoplasm of skin (01/30/14) Osteopenia PVD (peripheral vascular disease) Radicular syndrome of left lower extremity Skin lesion Tobacco use disorder (01/30/14) Urinary incontinence UTI (urinary tract infection) UTI (urinary tract infection) Vertigo Wrist fracture Surgical History axillo-byfem bypass Breast, Lumpectomy EGD - MAC (02/29/16) Family History Daughter No problems noted. Son No problems noted. Son No problems noted. Granddaughter No problems noted. Social History Smoking/Tobacco Use Status: Former Tobacco Use Tobacco: How many years used: 50 Smoking risk assessment performed?: Yes Alcohol Intake: never Drug use: Never Substance use type: does not use Caregiver/Support person: Yes Household members: caregiver Housing: other Details: community longterm Number of Children: 3 Communication Needs: Hard of Hearing and Corrective Lenses Education Level: high school Do you need help understanding health information?: Always Pets and animals: Yes Pets and animals: dog(s) Current gender identity: female What is your relationship status?: How often do you talk on the phone with friends or family?: once per week How often do you get together with friends or relatives?: once per week Panel score (0-1 are the most socially isolated patients): 0 What type of physical activity do you participate in: independent ambulation Duration: 15-30 minutes/day Frequency: daily Special singh needs: No Agree to transfusion: Yes Seatbelt use: always Working smoke detector in home: Yes Fire extinguisher in home: Yes Do you feel safe at home: Yes Do you feel safe in your relationship?: Yes Additional Social history: 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 patient is not responding at this time. Exam Narrative Exam Narrative: Elisa has limited cooperation for the exam. She is laying on her right side. The left leg is somewhat shortened. She is able to demonstrate some active ankle dorsiflexion and plantarflexion as well as great toe extension and flexion. She does nod that she is able to feel sensation about the superficial and deep peroneal nerve and tibial nerve. No deformity about the knee. No changes of the skin. Results Last Vital Signs Temp 35.7 C L 01/01/22 02:47 Pulse 87 01/01/22 02:47 Resp 18 01/01/22 02:47 BP 136/64 01/01/22 02:47 Pulse Ox 97 01/01/22 02:47 Labs Result diagrams: 01/01/22 06:35 01/01/22 06:35 Labs: Laboratory Results - last 24 hr 12/31/21 12/31/21 12/31/21 12:59 12:59 12:59 WBC RBC Hgb Hct MCV MCH MCHC RDW Plt Count MPV Immature Gran % Neutrophils % Lymphocytes % Monocytes % Eosinophils % Basophils % Nucleated RBC % Absolute Neutrophils Absolute Lymphocytes Absolute Monocytes Absolute Eosinophils Absolute Basophils PT INR VBG Lactate 1.1 Sodium 138 Potassium 4.2 Chloride 99 Carbon Dioxide 26.1 Anion Gap 12.9 H BUN 28 H Creatinine 1.3 H Est GFR (CKD-EPI 2020) 42.09 Glucose 145 H Calcium 10.1 Magnesium 1.5 L Total Bilirubin 0.6 AST 32 ALT 18 Alkaline Phosphatase 114 Troponin I < 50 Total Protein 9.0 H Albumin 4.2 Lipase 91 Urine Color Urine Clarity Urine pH Ur Specific [place] Urine Protein Urine Ketones Urine Blood Urine Nitrite Urine Bilirubin Urine Urobilinogen Ur Leukocyte Esterase Urine RBC Urine WBC Ur Epithelial Cells Urine Crystals Urine Bacteria Urine Casts Urine Mucus Ur Culture Indicated? Urine Glucose COVID-19 Source SARS-CoV-2 (PCR) Influenza Type A (PCR) Influenza Type B (PCR) RSV (PCR) Add-On Test Request Patient ABO/Rh Antibody Screen 12/31/21 12/31/21 12/31/21 13:25 13:37 14:40 WBC RBC Hgb Hct MCV MCH MCHC RDW Plt Count MPV Immature Gran % Neutrophils % Lymphocytes % Monocytes % Eosinophils % Basophils % Nucleated RBC % Absolute Neutrophils Absolute Lymphocytes Absolute Monocytes Absolute Eosinophils Absolute Basophils PT 20.2 H INR 2.1 H VBG Lactate Sodium Potassium Chloride Carbon Dioxide Anion Gap BUN Creatinine Est GFR (CKD-EPI 2020) Glucose Calcium Magnesium Total Bilirubin AST ALT Alkaline Phosphatase Troponin I Total Protein Albumin Lipase Urine Color Yellow Urine Clarity Clear Urine pH 6.0 Ur Specific [place] >= 1.030 H Urine Protein 100 H Urine Ketones Negative Urine Blood Trace-lysed H Urine Nitrite Negative Urine Bilirubin Negative Urine Urobilinogen 0.2 Ur Leukocyte Esterase Negative Urine RBC 3-5 H Urine WBC 3-5 Ur Epithelial Cells Moderate Urine Crystals Negative Urine Bacteria Negative Urine Casts 3-5 Hyaline Urine Mucus Negative Ur Culture Indicated? No/Sq. Contamination Urine Glucose Negative COVID-19 Source Nasopharynx SARS-CoV-2 (PCR) Negative Influenza Type A (PCR) Negative Influenza Type B (PCR) Negative RSV (PCR) Negative Add-On Test Request Patient ABO/Rh Antibody Screen 12/31/21 12/31/2112/31/22 14:42 17:26 19:00 WBC 10.03 RBC 4.88 Hgb 13.8 Hct 41.8 MCV 86 MCH 28.3 MCHC 33.0 RDW 13.2 Plt Count 247 MPV 11.3 H Immature Gran % 0.3 Neutrophils % 75.8 Lymphocytes % 14.0 Monocytes % 7.9 Eosinophils % 1.7 Basophils % 0.3 Nucleated RBC % 0.0 Absolute Neutrophils 7.61 H Absolute Lymphocytes 1.40 Absolute Monocytes 0.79 Absolute Eosinophils 0.17 Absolute Basophils 0.03 PT INR VBG Lactate Sodium Potassium Chloride Carbon Dioxide Anion Gap BUN Creatinine Est GFR (CKD-EPI 2020) Glucose Calcium Magnesium Total Bilirubin AST ALT Alkaline Phosphatase Troponin I Total Protein Albumin Lipase Urine Color Urine Clarity Urine pH Ur Specific [place] Urine Protein Urine Ketones Urine Blood Urine Nitrite Urine Bilirubin Urine Urobilinogen Ur Leukocyte Esterase Urine RBC Urine WBC Ur Epithelial Cells Urine Crystals Urine Bacteria Urine Casts Urine Mucus Ur Culture Indicated? Urine Glucose COVID-19 Source Cancelled SARS-CoV-2 (PCR) Cancelled Influenza Type A (PCR) Influenza Type B (PCR) RSV (PCR) Add-On Test Request Patient ABO/Rh AB Positive Antibody Screen NEGATIVE 12/31/21 19:13 WBC RBC Hgb Hct MCV MCH MCHC RDW Plt Count MPV Immature Gran % Neutrophils % Lymphocytes % Monocytes % Eosinophils % Basophils % Nucleated RBC % Absolute Neutrophils Absolute Lymphocytes Absolute Monocytes Absolute Eosinophils Absolute Basophils PT INR VBG Lactate Sodium Potassium Chloride Carbon Dioxide Anion Gap BUN Creatinine Est GFR (CKD-EPI 2020) Glucose Calcium Magnesium Total Bilirubin AST ALT Alkaline Phosphatase Troponin I Total Protein Albumin Lipase Urine Color Urine Clarity Urine pH Ur Specific [place] Urine Protein Urine Ketones Urine Blood Urine Nitrite Urine Bilirubin Urine Urobilinogen Ur Leukocyte Esterase Urine RBC Urine WBC Ur Epithelial Cells Urine Crystals Urine Bacteria Urine Casts Urine Mucus Ur Culture Indicated? Urine Glucose COVID-19 Source SARS-CoV-2 (PCR) Influenza Type A (PCR) Influenza Type B (PCR) RSV (PCR) Add-On Test Request DONE Patient ABO/Rh Antibody Screen Imaging Imaging Studies: X-ray of the left femur shows a displaced femoral neck fracture. No other suspicious lesions. No concerning findings. CT of the abdomen/pelvis was reviewed and this shows no pelvic fracture. The left femoral neck fracture is seen and it is displaced posterioly with notable anterior cortical stepoff.
[2022-01-01 07:11] LABS: Abs Immature Grans 0.03 10^3/uL (0.0-0.06); Absolute Basophil Count 0.04 10^3/uL (0.0-0.2); Absolute Eosinophil Count 0.49 10^3/uL (0.0-0.7); Absolute Monocyte Count 0.75 10^3/uL (0.1-0.8); Absolute Neutrophil Count 3.59 10^3/uL (1.2-6.7); Basophils % 0.6; Eosinophils % 7.5; HCT 32.4 % (36.0-46.0); HGB 10.5 g/dL (11.2-15.7); Immature Grans % 0.5; Lymphocytes % 24.6; MCH 28.3 pg (27.0-33.0); MCHC 32.4 % (32.0-36.0); MCV 87 fL (80-95); MPV 12.1 fL (8.0-11.0); Monocytes % 11.5; Neutrophils % 55.3; Platelet Count 207 10^3/uL (130-400); RBC 3.71 10^6/uL (3.93-5.22); RDW 13.4 % (11.7-14.6); RDW-SD 42.7 fL
[2022-01-01 07:22] LABS: INR 2.1 (0.9-1.1); Prothrombin Time 20.5 sec (9.3-11.0)
[2022-01-01 07:26] LABS: Anion Gap 10.1 mmol/L (3-11); BUN 25 mg/dL (7-18); CO2 24.9 mmol/L (21.0-32.0); CREATININE 1.2 mg/dL (0.55-1.02); Calcium 8.7 mg/dL (8.5-10.1); Chloride 102 mmol/L (98-107); Estimated GFR 46.33 (mL/min/1.73m2); Glucose 105 mg/dL (74-106); Magnesium 1.1 mg/dL (1.8-2.4); Potassium 3.7 mmol/L (3.5-5.1); Sodium 137 mmol/L (136-145)
[2022-01-01] MEDS: MAGNESIUM SULFATE 4 GM/100 ML BAG IVPB (08:37)
--- NOTE | 2022-01-01 09:48 | ANES.PREOP_ITS ---
General Info Date of Service Date Performed: 01/01/22 Height: 4 ft 10 in Weight: 44.1 kg Body Mass Index (BMI): 20.3 Surgical Procedure: Operation Date: 01/01/22 15:10 Proposed Procedure Side Surgeon p Hip Uni/Bipolar Anterior Left Lucius Lam MD Meds Allergies and Home Medications Allergies Allergy/AdvReac Type Severity Reaction Status Date / Time sulfamethoxazole Allergy Mild eyes Unverified 12/31/21 12:42 [From Bactrim] swollen amphotericin B liposome Allergy Unverified 12/31/21 12:42 [From AmBisome] cefuroxime Allergy Unverified 12/31/21 12:42 donepezil Allergy Unverified 12/31/21 12:42 trimethoprim [From Bactrim] Allergy Unverified 12/31/21 12:42 oxycodone HCl [From Percocet] AdvReac Unverified 12/31/21 12:42 Home Medication Medication Instructions Recorded gabapentin 100 mg capsule 200 mg PO HS 05/09/20 ondansetron HCl 4 mg tablet 4 mg PO Q8H PRN #10 tabs 05/09/20 (Zofran) atorvastatin 20 mg tablet 20 mg PO HS 08/06/20 polyethylene glycol 3350 17 17 g PO DAILY PRN 08/06/20 gram/dose oral powder lorazepam 2 mg/mL oral concentrate 1 mg (0.5 mL) PO Q6H PRN anxiety 05/24/21 #30 mL acetaminophen 500 mg/15 mL oral 1,000 mg (30 mL) PO TID fever #500 10/31/21 liquid mL quetiapine 50 mg tablet (Seroquel) 50 mg PO BID #60 tabs 11/01/21 pantoprazole 40 mg tablet,delayed 40 mg PO BID 12/06/21 release psyllium husk 3.4 gram/5.4 gram 1 tbsp PO DAILY PRN PRN 12/06/21 oral powder (Metamucil) warfarin 2 mg tablet 1 mg PO DAILY 12/06/21 ferrous gluconate 324 mg (38 mg 324 mg PO DAILY 12/31/21 iron) tablet iron amino acid chelate-vit 2 cap PO DAILY 12/31/21 Q77-uroxr acid 27 mg-100 mcg-400 mcg cap quetiapine 100 mg tablet (Seroquel) 100 mg PO HS 12/31/21 Current Visit Medications: Current Medications Generic Name Dose Route Start Last Admin Trade Name Freq PRN Reason Stop Dose Admin Atorvastatin Calcium 20 mg 01/01/22 08:30 01/01/22 08:21 Atorvastatin 20 Mg Tab PO Not Given DAILY NORI Dimethicone/Zinc Oxide 0 gm 12/31/21 17:44 Butch Protect Cream 142 Gm Tube TP PRN PRN Docusate Sodium 100 mg 12/31/21 17:44 Docusate Sodium 100 Mg Cap PO TID PRN PRN Gabapentin 200 mg 12/31/21 22:00 12/31/21 22:26 Gabapentin 100 Mg Cap PO Not Given HS NORI Hydromorphone HCl 0.25 mg 12/31/21 17:56 12/31/21 22:26 Hydromorphone 2 Mg/Ml Syr IVP 0.25 mg Q6H PRN PRN Administration Ringer's Solution 1,000 mls @ 75 mls/hr 12/31/21 18:00 12/31/21 20:45 IV 75 mls/hr INFUSION NORI Administration Acetaminophen 1,000 mg in 100 mls @ 400 mls/hr 01/01/22 04:00 01/01/22 04:54 Ofirmev IVPB Infused Q8H NORI Infusion Magnesium Sulfate 4 gm in 100 mls @ 25 mls/hr 01/01/22 08:09 01/01/22 08:37 IVPB 01/01/22 12:08 25 mls/hr NOW ONE Administration Cefazolin Sodium/Dextrose 1 gm in 50 mls @ 100 mls/hr 01/01/22 10:00 Ancef Duplex IVPB 01/01/22 18:00 PREOP NORI Tranexamic Acid 1,000 mg/ 60 mls @ 360 mls/hr 01/01/22 09:30 Sodium Chloride IVPB 01/01/22 18:00 PREOP NORI Lorazepam 0.5 mg 12/31/21 17:55 Lorazepam 2 Mg/Ml Vial IV Q4H PRN PRN Magnesium Hydroxide 30 ml 12/31/21 17:44 Milk Of Magnesia 30 Ml Cup PO DAILY PRN PRN Mirtazapine 7.5 mg 12/31/21 22:00 12/31/21 22:27 Mirtazapine 15 Mg Tab PO Not Given HS NORI Pantoprazole Sodium 40 mg 12/31/21 20:00 01/01/22 08:21 Pantoprazole 40 Mg Tabcr PO Not Given BID NORI Polyethylene Glycol 17 gm 12/31/21 17:44 Polyethylene Glycol 3350 17 Gm Packet PO DAILY PRN PRN Constipation Quetiapine Fumarate 50 mg 12/31/21 20:00 01/01/22 08:21 Quetiapine 50 Mg Tab PO Not Given BID NORI Sucralfate 1 gm 01/01/22 07:30 Sucralfate 1 Gm Tab PO AC PRN Trazodone HCl 50 mg 12/31/21 22:00 12/31/21 22:27 Trazodone 50 Mg Tab PO Not Given HS NORI PFSH Active Problems Active Problems: Problem Status Onset Code Discharge planning issues Z02.9 DVT prophylaxis Z29.9 Femur fracture, left S72.92XA Fracture of proximal end of left femur S72.002A Encounter for hospice care discussion Z71.89 Agitation due to dementia F03.91 Caregiver readily available All medications reviewed Hypomagnesemia E83.42 DNI (do not intubate) Z78.9 DNR (do not resuscitate) Z66 POLST (Physician Orders for Life-Sustaining Treatment) Z78.9 Deficit in activities of daily living (ADL) Z78.9 Health care proxy on file Claudication I73.9 Leg pain, bilateral M79.604, M79.605 Palliative care patient Z51.5 COPD (chronic obstructive pulmonary disease) J44.9 Squamous cell carcinoma of skin C44.92 Chronic kidney disease N18.9 Heart murmur, systolic Vascular dementia F01.50 Lower GI bleed K92.2 Anemia D64.9 Anemia associated with acute blood loss D62 Atherosclerotic peripheral vascular disease of extremity I70.209 Warfarin anticoagulation Z79.01 Medical History Medical History Accidental fall Acute on chronic anemia Altered mental status Aortoiliac occlusive disease Ataxia Breast cancer Chronic diarrhea Chronic fatigue and malaise Colonic polyp Dementia Depression Diabetes Diarrhea Diverticulosis Dysphonia (01/30/14) Generalized weakness GERD (gastroesophageal reflux disease) History of tobacco use Hyperlipidemia Hypertension Hypomagnesemia Insomnia Ischemic colitis Knee pain, bilateral Neoplasm of skin (01/30/14) Osteopenia PVD (peripheral vascular disease) Radicular syndrome of left lower extremity Skin lesion Tobacco use disorder (01/30/14) Urinary incontinence UTI (urinary tract infection) UTI (urinary tract infection) Vertigo Wrist fracture Surgical History Surgical History axillo-byfem bypass Breast, Lumpectomy EGD - MAC (02/29/16) Tobacco Smoking/Tobacco Use Status: Former Tobacco Use Alcohol Alcohol Intake: never Substance Use Substance use: Never Substance use type: does not use Vital Signs and Lab Results Vital Signs Most Recent Vital Signs in EMR: Most Recent Vital Signs Temp Pulse Resp BP Pulse Ox 36.0 C L 94 H 17 119/69 96 01/01/22 07:37 01/01/22 07:37 01/01/22 07:37 01/01/22 07:37 01/01/22 07:37 Point of Care Results Point of Care Results: Finger Stick Blood Glucose 111 01/01/22 07:35 Lab Results Result Diagrams: 01/01/22 06:35 01/01/22 06:35 Blood Type / Crossmatch: Patient ABO/Rh AB Positive 12/31/21 Antibody Screen NEGATIVE 12/31/21 Complete Blood Count: White Blood Count 6.50 10^3/uL (4.4-10.8) 01/01/22 06:35 Red Blood Count 3.71 10^6/uL (3.93-5.22) L 01/01/22 06:35 Hemoglobin 10.5 g/dL (11.2-15.7) L 01/01/22 06:35 Hematocrit 32.4 % (36.0-46.0) L 01/01/22 06:35 Platelet Count 207 10^3/uL (130-400) 01/01/22 06:35 Venous Blood Lactate 1.1 mmol/L (0.6-1.4) 12/31/21 12:59 Complete Metabolic Panel: Sodium 137 mmol/L (136-145) 01/01/22 06:35 Potassium 3.7 mmol/L (3.5-5.1) 01/01/22 06:35 Chloride 102 mmol/L (98-107) 01/01/22 06:35 Carbon Dioxide 24.9 mmol/L (21.0-32.0) 01/01/22 06:35 BUN 25 mg/dL (7-18) H 01/01/22 06:35 Creatinine 1.2 mg/dL (0.55-1.02) H 01/01/22 06:35 Est GFR (CKD-EPI 2020) 46.33 (mL/min/1.73m2) 01/01/22 06:35 Magnesium 1.1 mg/dL (1.8-2.4) L 01/01/22 06:35 Calcium 8.7 mg/dL (8.5-10.1) 01/01/22 06:35 Albumin 4.2 g/dL (3.4-5.0) 12/31/21 12:59 Glucose 105 mg/dL (74-106) 01/01/22 06:35 Liver Function Panel: Alanine Aminotransferase (ALT/SGPT) 18 U/L (14-59) 12/31/21 12: 59 Aspartate Amino Transf (AST/SGOT) 32 U/L (15-37) 12/31/21 12:59 Coagulation Panel: INR International Normalized Ratio 2.1 (0.9-1.1) H 01/01/22 06 :35 Prothrombin Time 20.5 sec (9.3-11.0) H 01/01/22 06:35 Cardiac Panel: Troponin I < 50 ng/L (<or=60) 12/31/21 Arterial Blood Gas: No Data to Display Venous Blood Gas: No Data to Display Pancreas Panel: Lipase 91 U/L (73-393) 12/31/21 12:59 Thyroid Panel: No Data to Display Infectious Disease: Coronavirus (COVID-19)(PCR) Negative (Negative) 12/31/21 13:25 Coronavirus 2019 Source Nasopharynx 12/31/21 13:25 Influenza Virus Type A (PCR) Negative (Negative) 12/31/21 13:2 5 Influenza Virus Type B (PCR) Negative (Negative) 12/31/21 13:2 5 Respiratory Syncytial Virus (PCR) Negative (Negative) 12/31/21 13:25 Blood Cultures: No Data to Display Toxicology Panel: No Data to Display Imaging and Studies Imaging and Studies Study information below may be from another EMR and interpreted by another homa avina. Please see original notes in EMR for more complete details. EKG Summary: DATE/TIME OF SERVICE: 12/31/21 1203 : 1946PERFORMING LOCATION: ER APPROVED REPORT Exam: Resting ECG Reason for Exam: lethargic Patient Location: E HR:118 bpm ECG Measurements Heart Rate 118 AXIS AL 128 P 68 QRSd 80 QRS 75 QT 337 T71 QTc 473 Conclusion Sinus tachycardia. Right atrial enlargement. anterior Q >40mS, V2-V5 Echocardiogram Summary: 2014: [facility] [place]: normal valves, EF 65% Anesthesia Assessment and Plan Anesthesia History Personal History: Delayed Emergence Family History: No Family History of Anesthesia Complications Exercise Tolerance Exercise Tolerance: Metabolic Equivalents>4 Pertinent Negatives Pertinent Negatives: No Symptoms of GERD, No Major Cardiovascular Symptoms or Complaints and No History of CVA/TIA Cardiac & Pulmonary Exam Cardiac Exam: Normal S1/S2 Heart Sounds Pulmonary Exam: Clear Bilateral Breath Sounds Implantable Cardiac Device Does patient have a Pacemaker or an ICD?: No Airway Exam Known Difficult Airway: No Mallampati Class: Unable to Assess Mouth Opening: Unable to Assess Thyromental Distance: Greater than 3 cm Neck Range of Motion: Full ROM Neck Circumference: Normal Teeth Condition: Removable Dentures/Plates Upper and Removable Dentures/Plates Lower ASA Classification ASA Score: ASA 3 Emergency Case?: No NPO Status NPO Status: NPO Clears >2 hours, Solids >8 hours Anesthesia Plan Resuscitation Status: DNR Modified During Perioperative Period (No CPR, defibrillation/cardioversion ok if not needed multiple times, only medications and airway support. ) Resuscitation Modifications: CPR Refused Anesthesia Technique: General Anesthesia Airway Planned: LMA Monitors Used: Standard Monitors
--- NOTE | 2022-01-01 10:28 | INITIAL_ITS ---
- If Service Date Differs Date of service: 01/01/22 Time of Service: 10:28 Care Management Initial Assess REASON FOR HOSPITALIZATION:: Fracture of proximal end of left femur PAST MEDICAL HISTORY/PAST SURGICAL HISTORY:: All Active Problems (Updated 12/31/21 @ 18:29 by Mayda Rushing NP). Discharge planning issues (Acute). DVT prophylaxis (Acute). Femur fracture, left (Acute). Fracture of proximal end of left femur (Acute). Encounter for hospice care discussion (Acute). Agitation due to dementia (Acute). Caregiver readily available (Chronic). [facility] All medications reviewed (Acute). Hypomagnesemia (Acute). DNI (do not intubate) (Acute). DNR (do not resuscitate) (Acute). POLST (Physician Orders for Life-Sustaining Treatment) (Acute). DNR/DNI. NH form; signed 10/10/16. reviewed [place] COLST 03/26/21. Deficit in activities of daily living (ADL) (Acute). Health care proxy on file (Chronic). daughter Susan Alvarado. Claudication (Chronic). Leg pain, bilateral (Acute). Palliative care patient (Chronic). COPD (chronic obstructive pulmonary disease) (Chronic). Squamous cell carcinoma of skin (Acute). Chronic kidney disease (Acute). stage III. Heart murmur, systolic (Acute). Vascular dementia (Chronic). Lower GI bleed (Chronic). recurrent, ? etiology. suspected diverticular bleed. would not tolerate colonoscopy. Anemia (Chronic). Anemia associated with acute blood loss (Acute). Atherosclerotic peripheral vascular disease of extremity (Acute). Warfarin anticoagulation (Acute). Medical History . Accidental fall. Acute on chronic anemia. Altered mental status. Aortoiliac occlusive disease. Ataxia. Breast cancer. Chronic diarrhea. Chronic fatigue and malaise. Colonic polyp. Dementia. Depression. Diabetes. Diarrhea. Diverticulosis. Dysphonia (01/30/14). Generalized weakness. GERD (gastroesophageal reflux disease). History of tobacco use. Hyperlipidemia. Hypertension. Hypomagnesemia. Insomnia. Ischemic colitis. Knee pain, bilateral. Neoplasm of skin (01/30/14). Osteopenia. PVD (peripheral vascular disease). Radicular syndrome of left lower extremity. Skin lesion. Tobacco use disorder (01/30/14). Urinary incontinence. UTI (urinary tract infection). UTI (urinary tract infection). Vertigo. Wrist fracture. Surgical History . axillo-byfem bypass. Breast, Lumpectomy. EGD - MAC (02/29/16) PREVIOUS FUNCTIONAL STATUS/SOCIAL/FAMILY SUPPORTS:: Elisa lives with a caregiver Tory in [place], [place] She has 24 caregiver support. Elisa has vascular dementia and requires assistance with ADLs. She is able to ambulate independently with supervision. She has 3 children; her daughter Krystal is identified as her electronic engineering draftsperson and next of kin. CURRENT FUNCTIONAL STATUS:: Elisa went to the OR this afternoon and is s/p left Anterior Total Hip Andrew-arthroplasty. She is resting in bed, her Granddaughter Renae is sitting at her bedside. ADVANCE DIRECTIVES:: DPOA on file, Greg Woodward and Krystal Anne are appointed agents. Has patient been provided with info about the portal/API?: Yes Did the patient sign up for the portal?: Yes (Prior to admission) CODE STATUS:: DNR/DNI INSURANCE COVERAGE / FINANCIAL ISSUES:: Medicaid. Medicare. [employer] CURRENT HOME/COMMUNITY SERVICES/EQUIPMENT:: 24 Caregiver Support. Followed by Palliative Care, next appt 01/31/22 PRIMARY CARE PHYSICIAN:: Nirmala Clemente POTENTIAL DISCHARGE NEEDS:: Follow up appointments, New [facility] RN,PT,OT,BARREL LINER (if indicated). PATIENT/FAMILY EDUCATION NEEDS:: Review discharge instructions, limitations, medications and plan to follow up with community providers. Discuss ask me three and goals of self care. TRANSPORTATION:: via private vehicle with daughter PLAN:: Elisa went to the OR today, and is s/p left Anterior Total Hip Andrew-arthroplasty. Anticipate, Elisa will discharge home with New [facility] RN/PT/OT/BARREL LINER (if indicated), when medically ready per Ortho. She will follow up with Ortho and her PCP.
[2022-01-01] MEDS: Normal Saline Flush 10 ML SYR (10:49)
[2022-01-01] MEDS: HYDROmorphone 2 MG/ML SYR 0.25 MG IVP ×2 (10:55→16:23)
--- NOTE | 2022-01-01 11:16 | PGE_ITS ---
Date of Service Date of service: 01/01/22 Time of Service: 11:16 Assessment and Plan Assessment and plan (1) Fracture of proximal end of left femur: Status: Acute Assessment and plan: Ortho planning surgical repair today. routine pre-op (2) Hypomagnesemia: Status: Acute Assessment and plan: repleted with 4 gm IVPB (3) Agitation due to dementia: Status: Acute Assessment and plan: assess for increased agitation which is anticipated. safety precautions (4) Chronic kidney disease: Status: Acute Assessment and plan: stable, continue IV hydration LR 100ml/h (5) Warfarin anticoagulation: Status: Acute Assessment and plan: Hold pending surgery (6) DVT prophylaxis: Status: Acute Assessment and plan: SCD - holding chemical preop (7) Discharge planning issues: Status: Acute Assessment and plan: home likely after surgery, she has 24 hour care. case management following for discharge planning discussed with DR Lang. Subjective Subjective Patient reports: no new complaints and afebrile; denies tolerating a regular diet (not taking PO) or shortness of breath Exam Const General: no acute distress and frail appearing Orientation: awake and confused Neck Neck: normal visual inspection Resp Effort & Inspection: normal respiratory effort Cardio Jugular venous pressure: no JVD Rate: regular rate Rhythm: regular rhythm GI Inspection: normal to inspection Palpation: soft and nontender Skin General skin exam: pallor Neuro Cognition: abnormal cognition Extrem General: normal to inspection and no pedal edema Left lower extremity: normal to inspection and normal capillary refill; no cyanosis Objective Last Vital Signs Temp 36.0 C L 01/01/22 07:37 Pulse 94 H 01/01/22 07:37 Resp 17 01/01/22 07:37 BP 119/69 01/01/22 07:37 Pulse Ox 96 01/01/22 07:37 Laboratory Results - last 24 hr 12/31/21 12/31/21 12/31/21 12:59 12:59 12:59 WBC RBC Hgb Hct MCV MCH MCHC RDW Plt Count MPV Immature Gran % Neutrophils % Lymphocytes % Monocytes % Eosinophils % Basophils % Nucleated RBC % Absolute Neutrophils Absolute Lymphocytes Absolute Monocytes Absolute Eosinophils Absolute Basophils PT INR VBG Lactate 1.1 Sodium 138 Potassium 4.2 Chloride 99 Carbon Dioxide 26.1 Anion Gap 12.9 H BUN 28 H Creatinine 1.3 H Est GFR (CKD-EPI 2020) 42.09 Glucose 145 H Calcium 10.1 Magnesium 1.5 L Total Bilirubin 0.6 AST 32 ALT 18 Alkaline Phosphatase 114 Troponin I < 50 Total Protein 9.0 H Albumin 4.2 Lipase 91 Urine Color Urine Clarity Urine pH Ur Specific [place] Urine Protein Urine Ketones Urine Blood Urine Nitrite Urine Bilirubin Urine Urobilinogen Ur Leukocyte Esterase Urine RBC Urine WBC Ur Epithelial Cells Urine Crystals Urine Bacteria Urine Casts Urine Mucus Ur Culture Indicated? Urine Glucose COVID-19 Source SARS-CoV-2 (PCR) Influenza Type A (PCR) Influenza Type B (PCR) RSV (PCR) Add-On Test Request Patient ABO/Rh Antibody Screen 12/31/21 12/31/21 12/31/21 13:25 13:37 14:40 WBC RBC Hgb Hct MCV MCH MCHC RDW Plt Count MPV Immature Gran % Neutrophils % Lymphocytes % Monocytes % Eosinophils % Basophils % Nucleated RBC % Absolute Neutrophils Absolute Lymphocytes Absolute Monocytes Absolute Eosinophils Absolute Basophils PT 20.2 H INR 2.1 H VBG Lactate Sodium Potassium Chloride Carbon Dioxide Anion Gap BUN Creatinine Est GFR (CKD-EPI 2020) Glucose Calcium Magnesium Total Bilirubin AST ALT Alkaline Phosphatase Troponin I Total Protein Albumin Lipase Urine Color Yellow Urine Clarity Clear Urine pH 6.0 Ur Specific [place] >= 1.030 H Urine Protein 100 H Urine Ketones Negative Urine Blood Trace-lysed H Urine Nitrite Negative Urine Bilirubin Negative Urine Urobilinogen 0.2 Ur Leukocyte Esterase Negative Urine RBC 3-5 H Urine WBC 3-5 Ur Epithelial Cells Moderate Urine Crystals Negative Urine Bacteria Negative Urine Casts 3-5 Hyaline Urine Mucus Negative Ur Culture Indicated? No/Sq. Contamination Urine Glucose Negative COVID-19 Source Nasopharynx SARS-CoV-2 (PCR) Negative Influenza Type A (PCR) Negative Influenza Type B (PCR) Negative RSV (PCR) Negative Add-On Test Request Patient ABO/Rh Antibody Screen 12/31/21 12/31/21 12/31/21 14:42 17:26 19:00 WBC 10.03 RBC 4.88 Hgb 13.8 Hct 41.8 MCV 86 MCH 28.3 MCHC 33.0 RDW 13.2 Plt Count 247 MPV 11.3 H Immature Gran % 0.3 Neutrophils % 75.8 Lymphocytes % 14.0 Monocytes % 7.9 Eosinophils % 1.7 Basophils % 0.3 Nucleated RBC % 0.0 Absolute Neutrophils 7.61 H Absolute Lymphocytes 1.40 Absolute Monocytes 0.79 Absolute Eosinophils 0.17 Absolute Basophils 0.03 PT INR VBG Lactate Sodium Potassium Chloride Carbon Dioxide Anion Gap BUN Creatinine Est GFR (CKD-EPI 2020) Glucose Calcium Magnesium Total Bilirubin AST ALT Alkaline Phosphatase Troponin I Total Protein Albumin Lipase Urine Color Urine Clarity Urine pH Ur Specific [place] Urine Protein Urine Ketones Urine Blood Urine Nitrite Urine Bilirubin Urine Urobilinogen Ur Leukocyte Esterase Urine RBC Urine WBC Ur Epithelial Cells Urine Crystals Urine Bacteria Urine Casts Urine Mucus Ur Culture Indicated? Urine Glucose COVID-19 Source Cancelled SARS-CoV-2 (PCR) Cancelled Influenza Type A (PCR) Influenza Type B (PCR) RSV (PCR) Add-On Test Request Patient ABO/Rh AB Positive Antibody Screen NEGATIVE 12/31/21 01/01/22 01/01/22 19:13 06:35 06:35 WBC 6.50 RBC 3.71 L Hgb 10.5 L D Hct 32.4 L MCV 87 MCH 28.3 MCHC 32.4 RDW 13.4 Plt Count 207 MPV 12.1 H Immature Gran % 0.5 Neutrophils % 55.3 Lymphocytes % 24.6 Monocytes % 11.5 Eosinophils % 7.5 Basophils % 0.6 Nucleated RBC % 0.0 Absolute Neutrophils 3.59 Absolute Lymphocytes 1.60 Absolute Monocytes 0.75 Absolute Eosinophils 0.49 Absolute Basophils 0.04 PT INR VBG Lactate Sodium 137 Potassium 3.7 Chloride 102 Carbon Dioxide 24.9 Anion Gap 10.1 BUN 25 H Creatinine 1.2 H Est GFR (CKD-EPI 2020) 46.33 Glucose 105 Calcium 8.7 Magnesium 1.1 L Total Bilirubin AST ALT Alkaline Phosphatase Troponin I Total Protein Albumin Lipase Urine Color Urine Clarity Urine pH Ur Specific [place] Urine Protein Urine Ketones Urine Blood Urine Nitrite Urine Bilirubin Urine Urobilinogen Ur Leukocyte Esterase Urine RBC Urine WBC Ur Epithelial Cells Urine Crystals Urine Bacteria Urine Casts Urine Mucus Ur Culture Indicated? Urine Glucose COVID-19 Source SARS-CoV-2 (PCR) Influenza Type A (PCR) Influenza Type B (PCR) RSV (PCR) Add-On Test Request DONE Patient ABO/Rh Antibody Screen 01/01/22 06:35 WBC RBC Hgb Hct MCV MCH MCHC RDW Plt Count MPV Immature Gran % Neutrophils % Lymphocytes % Monocytes % Eosinophils % Basophils % Nucleated RBC % Absolute Neutrophils Absolute Lymphocytes Absolute Monocytes Absolute Eosinophils Absolute Basophils PT 20.5 H INR 2.1 H VBG Lactate Sodium Potassium Chloride Carbon Dioxide Anion Gap BUN Creatinine Est GFR (CKD-EPI 2020) Glucose Calcium Magnesium Total Bilirubin AST ALT Alkaline Phosphatase Troponin I Total Protein Albumin Lipase Urine Color Urine Clarity Urine pH Ur Specific [place] Urine Protein Urine Ketones Urine Blood Urine Nitrite Urine Bilirubin Urine Urobilinogen Ur Leukocyte Esterase Urine RBC Urine WBC Ur Epithelial Cells Urine Crystals Urine Bacteria Urine Casts Urine Mucus Ur Culture Indicated? Urine Glucose COVID-19 Source SARS-CoV-2 (PCR) Influenza Type A (PCR) Influenza Type B (PCR) RSV (PCR) Add-On Test Request Patient ABO/Rh Antibody Screen
[2022-01-01] MEDS: Lactated Ringers 1,000 ML 75 ML IV ×2 (12:29→21:53)
--- NOTE | 2022-01-01 12:41 | PHA.REVIEW2 ---
Pharmacy Admission Review - Admission Clinical Review (Last Reviewed 01/01/22 @ 04:55 by Lucius Lam MD) Discharge planning issues (Acute) DVT prophylaxis (Acute) Femur fracture, left (Acute) Fracture of proximal end of left femur (Acute) Agitation due to dementia (Acute) Chronic kidney disease (Acute) Warfarin anticoagulation (Acute) sulfamethoxazole [From Bactrim] Allergy (Mild, Unverified 12/31/21 12:42) eyes swollen amphotericin B liposome [From AmBisome] Allergy (Unverified 12/31/21 12:42) cefuroxime Allergy (Unverified 12/31/21 12:42) donepezil Allergy (Unverified 12/31/21 12:42) trimethoprim [From Bactrim] Allergy (Unverified 12/31/21 12:42) oxycodone HCl [From Percocet] Adverse Reaction (Unverified 12/31/21 12:42) Resuscitation Status DNR/DNI Height 4 ft 10 in Weight 44.1 kg - Renal Dosing Renal Dosing: BUN 25 mg/dL (7-18) H 01/01/22 06:35 Creatinine 1.2 mg/dL (0.55-1.02) H 01/01/22 06:35 Medications needing adjustments: Reviewed (crcl = 26, meds OK) - Anticoagulation Anticoagulation: Hgb 10.5 g/dL (11.2-15.7) L D 01/01/22 06:35 Hct 32.4 % (36.0-46.0) L 01/01/22 06:35 Plt Count 207 10^3/uL (130-400) 01/01/22 06:35 INR 2.1 (0.9-1.1) H 01/01/22 06:35 Creatinine 1.2 mg/dL (0.55-1.02) H 01/01/22 06:35 DVT Prophylaxis: Reviewed Therapeutic Anticoagulation: Reviewed (takes warfarin at home, currently on hold for surgery today (INR = 2.0) *monitor*) Medications: Warfarin - Opiate Usage Evaluate Pain Scale/Pains Meds: Reviewed (hydromorphone 0.25 mg IV q6h prn, has received 2 doses) Scheduled Bowel Reg ordered if on Opiates?: No (PRN milk of mag, docusate) - Relevant Labs Sodium 137 mmol/L (136-145) 01/01/22 06:35 Potassium 3.7 mmol/L (3.5-5.1) 01/01/22 06:35 Chloride 102 mmol/L (98-107) 01/01/22 06:35 Magnesium 1.1 mg/dL (1.8-2.4) L 01/01/22 06:35 Electrolytes, C-Reactive P, ESR: Reviewed (mag = 1.1, 4 gm IV given today) - DM Control DM Control: Glucose 105 mg/dL (74-106) 01/01/22 06:35 Finger Stick Blood Glucose 109 Finger Stick Blood Glucose 109 Finger Stick Blood Glucose 111 Finger Stick Blood Glucose 111 DM Control: N/A - Cardiac Review Cardiac Review: Troponin I < 50 ng/L (<or=60) 12/31/21 12:59 BP, HR, EF%: Reviewed - Qtc Review QTc: Reviewed (QTc = 473 on 12/31) - IV to PO Switch IV Medications: Reviewed (IV necessary for now (pt refusing PO), switch when able) - Home Meds Home Med List reviewed: Reviewed (med rec done by [facility] telepharmacy (referenced MAR supplied by caregivers)) - Current meds Current Medication Order Review: Reviewed (surgery today. pre-op cefazolin 1 gram, TXA x 1 preop)
[2022-01-01 13:04] LABS: Prothrombin Time 19.5 sec (9.3-11.0)
[2022-01-01] MEDS: ceFAZolin 1 GM/50 ML BAG IVPB ×2 (14:03→21:54)
--- NOTE | 2022-01-01 14:22 | CHAPLAIN ---
Elisa was resting in bed but her eyes were open. She reached for my hand and held it. I asked a couple of questions. She didn't respond but did smile at times. I will continue to visit.
--- NOTE | 2022-01-01 15:01 | DI.RAD_ITS ---
Exam(s) XR HIP LT IN OR EXAM: XR HIP LT IN OR CLINICAL HISTORY: Left Femoral neck fracture TECHNIQUE: 2D and realtime digital imaging was performed. CONTRAST MATERIAL: Refer to procedure report. COMPARISON: CR,XR XR FEMUR LT from 12/31/2021 FINDINGS: Fluoroscopy was provided for Dr. Lam during the performance of a left hip replacement. Please refer to the procedure report for complete details. Ka,r=2.4 mGy IMPRESSION: RADIATION DOSE DELIVERED:
--- NOTE | 2022-01-01 15:37 | ROE_ITS ---
Date of service: 01/01/22 Time of Service: 15:37 Operative Note Operative Note DATE OF PROCEDURE: 01/01/22 PRE-OP DIAGNOSIS: Left Femoral Neck Fracture POST-OP DIAGNOSIS: same PROCEDURE: Left Anterior Total Hip Andrew-arthroplasty with Intraoperative Navigation SURGEON: Lucius Lam SALES COMPENSATION ANALYST: Frank Degroot ANESTHESIA TYPE: General LMA/ETT and Spinal Refer to Anesthesia Record ESTIMATED BLOOD LOSS: 200 PATHOLOGY: none sent TOURNIQUET TIME: 0 COMPLICATIONS: None Patient was transported to: PACU Patient's condition: stable Implants: 1. Depuy Corail Short Neck Collared Femoral Stem, Size 10 2. Depuy Muniz Unipolar Head 41mm with -3mm Neck Indications: I have seen Elisa in clinic for symptoms of hip arthritis, confirmed with radiographic findings. She has exhausted nonoperative methods and was having significant limitations in daily function and desired better function and less pain. I discussed the technical details of a hip replacement. I explained the risks of the procedure to include, but not limited to, bleeding, infection, pain, stiffness, fracture, damage to nerves and vessels, damage to muscles and tendons, loosening, instability, leg length inequality, need for repeat procedure, blood clot and cardiopulmonary demise. Despite these risks, Elisa elected to proceed. Findings: There was a comminuted fracture of the femoral neck with displacement. Procedure Description: Elisa was greeted in the preoperative holding area where the correct side was identified and marked. The consent was reviewed with the patient's DPOA and daughter, Krystal Anne, and signed previously. Elisa was taken back to the operating room. A general anesthestic was then administered. The feet were wrapped with cast padding and Coban and then placed into the boot liners and then into the boots. Care was taken to protect the skin and make sure the heels were fully down and the boots were stable. The patient was then positioned onto the HANA table. Both legs were held in a neutral position. SCDs were applied. The patient was then slid down onto a peroneal post. Prophylactic antibiotics in the form of Cefazolin were ad ministered. 1g of Tranxemic Acid was given intravenously within 30 minutes of incision. The left leg was then prepped with Chloraprep and draped in a standard fashion. A second prep with Chloraprep was performed prior to placement of a shower-curtain type drape with Iodine impregnated skin protection. A timeout to confirm correct identity, side and site, procedure, allergies, anesthesia, and medical concerns was performed. An obliquely oriented incision was made starting lateral to the ASIS and running distal over the Tensor Fascia Dina (TFL) muscle belly toward the fibular head, approximately 10cm. The skin and soft tissue was dissected sharply, through Jose Eduardo?s fascia, and to the fascia of the TFL. With the fascia and superior border of the IT band identified, the fascia was incised with a new knife just above any perforators from the IT band. The TFL muscle belly was bluntly dissected away from the fascia and moved laterally. The fat between TFL and rectus was identified to ensure the dissection was not within the TFL. Blunt dissection created space between abductors and the capsule and retractor was placed over the lateral femoral neck. The fibers of the rectus femoris tendon were identified and these were freed from the anterior capsule. A second cobra retractor was placed around the medial femoral neck. The TFL was further retracted laterally to show the deep fascia. Careful dissection through this layer identified three main crossing vessels of the lateral femoral circumflex. These were cauterized in multiple locations and then cut without any noticeable bleeding. The TFL was further released bluntly from the deep fascia to expose anterior hip capsule and fat The Billy orthopaedic retractor was then placed beneath the TFL and against sartorius and medial soft tissues to protect and retract the soft tissues. A T-capsulotomy was then performed starting at the superior lateral acetabulum and moving distally to the intertrochanteric ridge. These capsular flaps were tagged with a No. 1 Ethibond and elevated from within. The capsular flaps were released to the shoulder of the lateral neck and to the lesser trochanter to give excellent visualization of the proximal femur. A neck osteotomy was performed using an oscillating saw based on preoperative templates. This cut started in the shoulder and of the lateral neck and exited medially. The saw was at all times directed medially to avoid injury to the greater trochanter. Gross traction was applied to the leg and the osteotomy opened. The bony fragment was removed and then the femoral head was removed with a corkscrew, making sure to protect the TFL on its exit. Traction was released after head removal. This was measured on the back table to determine the unipolar head size. The femur was rotated to 90 degrees and medial capsule was fully released until the lesser trochanter was palpable and visible. There was no significant acetabular wear. The leg was then rotated to 120 degrees. Any remaining medial capsule was released until the lesser trochanter was easily palpable. A retractor was placed medially. The lateral capsule was further released into the shoulder to allow access to the greater trochanter. A Beth retractor was placed over the greater trochanter which allowed the trochanter to flip in front of the capsule for excellent exposure. The leg was brought down into maximal extension and 20 degrees of adduction while ensuring there was no impingement on the acetabulum. Any remnant capsule within the trochanter was released. Piriformis and obturator externis were identified and protected. There was excellent access to the proximal femur. The lateral neck remnant was removed with a rongeur. A blunt canal probe was used to identify the canal and trajectory for later broaching. A box osteotome initiated the broach course. A small curved rasp and a curved curette were used to work laterally. Broaching then began with a size 8 Corail broach. This was inserted manually around the trochanter and into the canal before mallet blows. The broach was seated to the neck cut level based on the neck cut and the preoperative template. Sequential broaching was continued with the TripOvationse pneumatic broaching device until a tight fit was obtained with good rotational control of the femur. A trial short neck was inserted along with a +0 trial 41mm unipolar head. The leg was brought out of extension and adduction and then reduced with traction and internal rotation. The leg was stable anteriorly in a position of 30 degrees of extension and 90 degrees of external rotation. Fluoroscopy was used to ensure there was no fracture and the stem was seated well. Leg lengths were checked with an AP pelvis and pelvic reference points. [employer] navigation system was used to confirm appropriate positioning and leg length and offset. This had overlengthened and over-offset. An alignment vic was also used to confirm this. Once content with the desired offset and leg lengths, the leg was brought back into extension, external rotation and adduction. The periosteum and surrounding tissue was injected with remaining portion of the jaime-articular cocktail. The proximal femur was irrigated as well as the deep tissues. The Pipelinefxuy Corail short neck collared stem, size 10, was then manually inserted into the proximal femur making sure to control rotation. It was then malleted into position with light blows, giving breaks to allow bone expansion and decrease risk of fracture. The selected Depuy Mark Anthony Uniopolar head, size 41mm, was then impacted onto a -3 neck. This was then placed onto the clean and dry trunnion and secured with impaction onto the tapered fit. The leg was brought back out of extension and adduction and reduced with traction and internal rotation. Stability was confirmed with no shuck at 90 degrees of external rotation and 30 degrees of extension. No impingement through range of motion arc. Final x-ray images were obtained with fluoroscopy to confirm adequate positioning and no intraoperative fracture. The deep tissues were then injected with a periarticular cocktail consisting of 123mg of Ropivacaine, 0.25mg of Epinephrine, 0.04mg of Clonidine, and 15mg of Ketorolac, diluted to 50cc. The deep tissues were thoroughly irrigated with Irrisept chlorhexadine solution. This was allowed to sit in the wound for 3 minutes before being thoroughly irrigated out with normal saline. The capsule was then reapproximated with the previously placed Ethibond sutures. The TFL fascia was finally closed with a No. 2 Stratafix, barbed suture. Deep tissues were then reapproximated with 0 Vicryl and a running 2-0 Vicryl. The skin was closed with a running 4-0 Monocryl in a subcuticular fashion. This was reinforced with skin glue. A Mepilex silver dressing was applied. At the end of the case, all counts were correct. Elisa was transferred to the hospital bed without difficulty and suffering no apparent complication. Elisa has a good prognosis. Physical therapy will start today and without restrictions, weight-bearing as tolerated. DVT prophylaxis may begin this ev ening.
--- NOTE | 2022-01-01 15:58 | W.ANESPOSTOP ---
Postoperative Evaluation Date, Time and Location Date Performed: 01/01/22 Time Performed: 15:59 Patient Location: PACU Vital Signs Most Recent Imported Vital Signs: Most Recent Vital Signs Temp Pulse Resp BP Pulse Ox 36.5 C 74 20 139/84 97 01/01/22 15:40 01/01/22 15:40 01/01/22 15:40 01/01/22 15:40 01/01/22 15:40 Pain Score Most Recent Pain Score: Most Recent Pain Score Pain Level 0 01/01/22 13:07 Assessment Mental Status: Other (Back to patient baseline) Airway and Respiratory Function: Patent airway with normal (patient baseline) respiratory exam Cardiovascular Function: Hemodynamically Stable Hydration Status: Adequately Hydrated Nausea & Vomiting: No Nausea or Vomiting Pain: Pt. Denies Any Pain Peripheral Nerve Block: Patient did not receive a nerve block
[2022-01-01] MEDS: Normal Saline Flush 10 ML SYR IVP ×3 (16:23→21:54)
--- NOTE | 2022-01-01 17:12 | PT.INNT ---
Date of service: 01/01/22 Time of Service: 17:12 PT Notes Visit Reasons: Left Proximal Femur Fracture Attempted twice to engage patient into a PT evaluation but patient appeared exhausted and confused. Decided to let patient settle in more in her room to achieve a better pain level before retrying another PT evaluation tomorrow morning. ANTONI Sebastian, Dr. Lang, and Dr. Lam were updated and were all in agreement of plan. Tomorrow's liaison inspection laboratory assistant PT Silke Atwood was apprised as well. Thank you for the opportunity to participate in the care of this patient. Demetra Obrien PT, DPT, CLT [facility] [place], [place]
[2022-01-01] MEDS: LORazepam 2 MG/ML VIAL 0.5 MG IV (20:32)
[2022-01-01] MEDS: HYDROmorphone 2 MG/ML SYR 0.5 MG IVP (21:54)
[2022-01-02] VITALS (12 sets, daily range): BP systolic 103–166; BP diastolic 57–78; PULSE 82–101; RESP 12–19; TEMP 35.8–36.5; O2SAT 78–99
[2022-01-02] MEDS: HYDROmorphone 2 MG/ML SYR 0.5 MG IVP ×2 (03:32→09:31)
[2022-01-02] MEDS: ACETAMINOPHEN 1,000 MG/100 ML BTL 400 MG IVPB ×3 (05:25→20:57)
[2022-01-02] MEDS: LORazepam 2 MG/ML VIAL 0.5 MG IV ×3 (05:37→23:22)
[2022-01-02] MEDS: ceFAZolin 1 GM/50 ML BAG IVPB ×2 (05:38→14:39)
[2022-01-02 07:03] LABS: Abs Immature Grans 0.05 10^3/uL (0.0-0.06); Absolute Basophil Count 0.04 10^3/uL (0.0-0.2); Absolute Eosinophil Count 0.04 10^3/uL (0.0-0.7); Absolute Lymphocyte Count 1.42 10^3/uL (1.2-3.4); Absolute Monocyte Count 1.39 10^3/uL (0.1-0.8); Absolute Neutrophil Count 11.21 10^3/uL (1.2-6.7); Basophils % 0.3; Eosinophils % 0.3; HCT 28.2 % (36.0-46.0); Immature Grans % 0.4; MCH 28.5 pg (27.0-33.0); MCHC 31.9 % (32.0-36.0); MCV 89 fL (80-95); MPV 12.3 fL (8.0-11.0); Monocytes % 9.8; Neutrophils % 79.2; Platelet Count 226 10^3/uL (130-400); RBC 3.16 10^6/uL (3.93-5.22); RDW-SD 43.4 fL; WBC 14.15 10^3/uL (4.4-10.8)
[2022-01-02 07:13] LABS: Anion Gap 9.3 mmol/L (3-11); BUN 22 mg/dL (7-18); CO2 26.7 mmol/L (21.0-32.0); CREATININE 1.4 mg/dL (0.55-1.02); Calcium 7.7 mg/dL (8.5-10.1); Chloride 96 mmol/L (98-107); Estimated GFR 38.51 (mL/min/1.73m2); Glucose 214 mg/dL (74-106); Magnesium 1.9 mg/dL (1.8-2.4); Potassium 3.9 mmol/L (3.5-5.1); Sodium 132 mmol/L (136-145)
[2022-01-02 08:07] LABS: Lab Add On Test DONE
[2022-01-02 08:23] LABS: Hemoglobin A1C 6.9 % (<5.7)
[2022-01-02] MEDS: Normal Saline Flush 10 ML SYR IVP ×4 (09:30→23:32)
--- NOTE | 2022-01-02 09:55 | PT.INIE ---
PT Notes Visit Reasons: Left Proximal Femur Fracture Inpatient Physical Therapy Evaluation Date: 01/02/22 Referring Doctor: Lucius Lam MD PT Orders: PT CONSULT: S/P ortho surgery, S/P L hip hemiarthroplasty, WBAT, no restrictions Precautions: Standard, fall risk Patient Profile/Admitting Diagnosis: 76 year old woman S/P fall with resulting left femoral neck fracture, 1 day S/P hemiarthroplasty. Patient reported by nursing, through family communication, that she was independent at baseline, no AD, and was cognitively appropriate and alert. She was actually brought to ER on 12/31/21 due to agitation and apparent discomfort, 2 days following a fall. She has essentially been minimally responsive since presentation to [facility], much different than her baseline. PMHX: All Active Problems?(Updated 12/31/21 @ 18:29 by Mayda Rushing NP) Discharge planning issues (Acute) DVT prophylaxis (Acute) Femur fracture, left (Acute) Fracture of proximal end of left femur (Acute) Encounter for hospice care discussion (Acute) Agitation due to dementia (Acute) Caregiver readily available (Chronic) [facility] (Ac[facility]) Hypomagnesemia (Acute) DNI (do not intubate) (Acute) DNR (do not resuscitate) (Acute) POLST (Physician Orders for Life-Sustaining Treatment) (Acute) DNR/DNI NH form; signed 10/10/16 reviewed [place] COLST 03/26/21Deficit in activities of daily living (ADL) (Acute) Health care proxy on file (Chronic) daughter Susan Woodward-PelonnierClaudication (Chronic) Leg pain, bilateral (Acute) Palliative care patient (Chronic) COPD (chronic obstructive pulmonary disease) (Chronic) Squamous cell carcinoma of skin (Acute) Chronic kidney disease (Acute) stage IIIHeart murmur, systolic (Acute) Vascular dementia (Chronic) Lower GI bleed (Chronic) recurrent, ? etiology suspected diverticular bleed would not tolerate colonoscopyAnemia (Chronic) Anemia associated with acute blood loss (Acute) Atherosclerotic peripheral vascular disease of extremity (Acute) Warfarin anticoagulation (Acute) Medical History? Accidental fall Acute on chronic anemia Altered mental status Aortoiliac occlusive disease Ataxia Breast cancer Chronic diarrhea Chronic fatigue and malaise Colonic polyp Dementia Depression Diabetes Diarrhea Diverticulosis Dysphonia (01/30/14) Generalized weakness GERD (gastroesophageal reflux disease) History of tobacco use Hyperlipidemia Hypertension Hypomagnesemia Insomnia Ischemic colitis Knee pain, bilateral Neoplasm of skin (01/30/14) Osteopenia PVD (peripheral vascular disease) Radicular syndrome of left lower extremity Skin lesion Tobacco use disorder (01/30/14) Urinary incontinence UTI (urinary tract infection) UTI (urinary tract infection) Vertigo Wrist fracture Surgical History? axillo-byfem bypass Breast, Lumpectomy EGD - MAC (02/29/16) Social History/Home Situation: [] Current Functional Limitations: [] Equipment Owned/DME: [] Subjective: Patient offering no verbal comment. Nurse, Jessica is present, reporting she does say no, when not willing to participate. Objective: General Observation: Lying asleep in hospital bed, O2 sat monitor attached. Mental Status: Very sleep, and initially non responsive. Once brightening her room, removing blankets and moving her limbs she does awaken, opening eyes, some mild groaning when moving L LE and with transfer. Remains non verbal throughout. Patient does not follow any commands. Pain: Does not verbally report, but demonstrates some pain behaviors with stiffening of L leg with attempt of passive movement, and facial grimacing with gentle passive movement of L LE Vital Signs: Stable, per nursing communication, present during my evaluation. ROM: Right Upper Extremity: WFL, assessed passively and observed with patient movement during transfer Left Upper Extremity: WFL, assessed passively and observed with patient movement during transfer Right Lower Extremity: WFL, assessed passively for the majority. Demonstrates voluntary attempt to perform heel slide to full ROM in bed. Left Lower Extremity: R hip flex 90, R knee at least 0-90 deg as observed sitting EOB with passive movement, ankle rigid due to patient gaurding Strength: Not assessed, patient no cooperative or responsive to commands. Sensation: Unable to assess due to lack of patient response Bed Mobility/Transfers: MAX A x 2 bed mobility, supine to EOB, Sit to stand at walker. MAX A x 2 for sit to supine EOB sitting steady with close supervision Gait: Unable Balance: Static Sitting: Good Dynamic Sitting: Poor Static Standing: Poor Dynamic Standing: Poor Special Tests: Mobility Limitations Standardized [facility] AM-PAC 6 clicks Basic Mobility Inpatient Short Form: 100% disability Therapeutic activities 19134: STS with Max A x4, and 3rd attempt patient demonstrates improved ability to stand tall with some posterior support Seated L knee ext AAROM to assist with bed mobility movements EOB balance x 2 min Informed Consent/Education: Patient instructed in purpose of PT consult and plan of care. Assessment: Patient is a 76 year old female referred to physical therapy services with the diagnosis of S/P L hip hemiarthroplasty 01/01/22 post femoral neck fracture from fall. She has had mental health status change since fall, with non verbal status and minimally responsive. Patient presents with clinical signs and symptoms consistent with referred diagnosis, with impairment level findings: Gross weakness, L LE mobility deficit, poor balance, no active voluntary movement. Impairments are contributing to the following functional limitations: Max A x 2 for all transfers, bed mobility and standing attempt. Unable to walk at the current time. Patient is assessed as a Moderate 98094 complexity based on the following: History: See comorbidities Examination: See assessment for impairments and functional limitations Presentation: Changing characteristics Decision Making: Easy Goals: Goals X1 week 1. Supine-Sit SBA 2. Sit-Supine SBA 3. Sit-Stand CGx1 to RW 4. Stand-Sit SBA from RW 5. Bed-Chair CG with RW 6. Chair-Bed CG with RW 7. Gait 10 step with RW, CG Plan of Care/Treatment Plan: 1-2x/day, 7 days/week x 1 week. Patient will require use of rolling walker at time of discharge for safety and to reduce fall risk. Plan of care has been reviewed with the GAS PLANT OPERATOR providing the service under Physical Therapy direction. Initiate Physical Therapy intervention for strengthening, bed mobility, transfers, gait, stairs, balance training, use of assistive device. DISCHARGE RECOMMENDATIONS: SNF for continued rehabilitation pending medical course in the next few days. TREATMENT CODE/TIME: 18143, 30 minutes, [phone]
--- NOTE | 2022-01-02 10:22 | W.PM.PROGNOT ---
Date of Service Date of service: 01/02/22 Time of Service: : Assessment and Plan Assessment and plan (1) Fracture of proximal end of left femur: Status: Acute Assessment and plan: S/p L hip urmila-arthroplasty by Dr Lam 01/01/22. Pain control: scheduled tylenol, prn IV dilaudid. Still has a yu. Schedule bowel regimen. I do not think the patient will be able to successfully participate in pulmonary toilet due to her mental status. IVF while not eating. (2) Hypomagnesemia: Status: Resolved Assessment and plan: Recheck in am (3) Agitation due to dementia: Status: Acute Assessment and plan: The patient is normally on seroquel 50 mg PO BID + 100 mg Po QHS, as wellas mirtazapine, trazodone, and gabapentin. At this time, she is not taking PO. Received ativan 0.5 mg IV this morning. Consider IM zyprexa or haldol next time should agitation recur since her behaviors are managed with antipsychotics at home. (4) Chronic kidney disease: Status: Acute Assessment and plan: Continue IVF since not taking PO. (5) Warfarin anticoagulation: Status: Acute Assessment and plan: Resume coumadin. INR 2.0 today. Based on chart review, it looks like she is on coumadin for PAD. (6) Diabetes: Assessment and plan: A1C 6.9. Will cover with SSI to help improve wound healing for now. (7) DVT prophylaxis: Status: Acute Assessment and plan: Resume coumadin. Continue SCDs. (8) Discharge planning issues: Status: Acute Assessment and plan: Once pain is better managed, anticipate discharge home with [address] in place. DNR/DNI c/s palliative care. Subjective Subjective Interval history since last seen: Ms Woodward has required IV ativan and IV dilaudid this morning. Now she is somnolent, arousable, but not following commands. She did work with PT. Per nursing, she has not been eating or drinking. Per granddaughter at bedside, she was awake last night when she was in pain, but refused to eat at that time too. The family is trying to locate her dentures. Exam Narrative Exam Narrative: General: Frail elderly female who is responsive to painful stimuli, but lethargic, not following commands, on 2L of O2 by NC at time of exam HEENT: eyes closed, MMM Heart: RRR, no m/r/g Lungs: Diminished breath sounds B Abdomen: soft, nontender, nondistended Extremities: L hip incision dressed - c/d/i; traced edema BLEs. Objective Last Vital Signs Temp 35.8 C L 01/02/22 07:52 Pulse 85 01/02/22 07:52 Resp 16 01/02/22 07:52 BP 138/78 01/02/22 07:52 Pulse Ox 92 01/02/22 09:40 Laboratory Results - last 24 hr 01/01/22 01/02/22 01/02/22 12:50 06:30 06:30 WBC 14.15 H RBC 3.16 L Hgb 9.0 L Hct 28.2 L MCV 89 MCH 28.5 MCHC 31.9 L RDW 13.0 Plt Count 226 MPV 12.3 H Immature Gran % 0.4 Neutrophils % 79.2 Lymphocytes % 10.0 Monocytes % 9.8 Eosinophils % 0.3 Basophils % 0.3 Nucleated RBC % 0.0 Absolute Neutrophils 11.21 H Absolute Lymphocytes 1.42 Absolute Monocytes 1.39 H Absolute Eosinophils 0.04 Absolute Basophils 0.04 PT 19.5 H INR 2.0 H Sodium 132 L Potassium 3.9 Chloride 96 L Carbon Dioxide 26.7 Anion Gap 9.3 BUN 22 H Creatinine 1.4 H Est GFR (CKD-EPI 2020) 38.51 Glucose 214 H Hemoglobin A1c Calcium 7.7 L Magnesium 1.9 Add-On Test Request 01/02/22 01/02/22 06:30 06:30 WBC RBC Hgb Hct MCV MCH MCHC RDW Plt Count MPV Immature Gran % Neutrophils % Lymphocytes % Monocytes % Eosinophils % Basophils % Nucleated RBC % Absolute Neutrophils Absolute Lymphocytes Absolute Monocytes Absolute Eosinophils Absolute Basophils PT INR Sodium Potassium Chloride Carbon Dioxide Anion Gap BUN Creatinine Est GFR (CKD-EPI 2020) Glucose Hemoglobin A1c 6.9 H Calcium Magnesium Add-On Test Request DONE
[2022-01-02] MEDS: Lactated Ringers 1,000 ML 75 ML IV (12:37)
--- NOTE | 2022-01-02 12:40 | W.PM.PROGNOT ---
Date of Service Date of service: 01/02/22 Time of Service: 09:30 Assessment and Plan Assessment and plan (1) Fracture of proximal end of left femur: Status: Acute Assessment and plan: Elisa is POD#1 s/p left hip hemiarthroplasty. She seems to be doing well. No acute issues. Surgery was uncomplicated yesterday. WBAT with assistive devices. No positioning restrictions. May resume home Coumadin dosing. Mepilex dressing to stay in place for at least 1 week. Subjective Subjective Interval history since last seen: No acute issues. Has been sleepy. Vitals stable. Exam Narrative Exam Narrative: Resting in the bed. Dressings c/d/i. No pain with IR/ER of the left hip. Objective Last Vital Signs Temp 35.8 C L 01/02/22 07:52 Pulse 86 01/02/22 10:50 Resp 12 01/02/22 10:50 BP 131/59 L 01/02/22 10:50 Pulse Ox 97 01/02/22 10:58 Laboratory Results - last 24 hr 01/01/22 01/02/22 01/02/22 12:50 06:30 06:30 WBC 14.15 H RBC 3.16 L Hgb 9.0 L Hct 28.2 L MCV 89 MCH 28.5 MCHC 31.9 L RDW 13.0 Plt Count 226 MPV 12.3 H Immature Gran % 0.4 Neutrophils % 79.2 Lymphocytes % 10.0 Monocytes % 9.8 Eosinophils % 0.3 Basophils % 0.3 Nucleated RBC % 0.0 Absolute Neutrophils 11.21 H Absolute Lymphocytes 1.42 Absolute Monocytes 1.39 H Absolute Eosinophils 0.04 Absolute Basophils 0.04 PT 19.5 H INR 2.0 H Sodium 132 L Potassium 3.9 Chloride 96 L Carbon Dioxide 26.7 Anion Gap 9.3 BUN 22 H Creatinine 1.4 H Est GFR (CKD-EPI 2020) 38.51 Glucose 214 H Hemoglobin A1c Calcium 7.7 L Magnesium 1.9 Add-On Test Request 01/02/22 01/02/22 06:30 06:30 WBC RBC Hgb Hct MCV MCH MCHC RDW Plt Count MPV Immature Gran % Neutrophils % Lymphocytes % Monocytes % Eosinophils % Basophils % Nucleated RBC % Absolute Neutrophils Absolute Lymphocytes Absolute Monocytes Absolute Eosinophils Absolute Basophils PT INR Sodium Potassium Chloride Carbon Dioxide Anion Gap BUN Creatinine Est GFR (CKD-EPI 2020) Glucose Hemoglobin A1c 6.9 H Calcium Magnesium Add-On Test Request DONE
[2022-01-02] MEDS: Ketorolac 15 MG/ML VIAL IVP ×2 (15:05→23:31)
[2022-01-02] MEDS: diphenhydrAMINE Elixir 25 MG/10 ML CUP 12.5 MG PO (17:53)
[2022-01-02] MEDS: Insulin Aspart 300 UNITS/3 ML PEN SC (20:57)
[2022-01-02] MEDS: HYDROmorphone 2 MG/ML SYR IVP (23:31)
[2022-01-03] VITALS (8 sets, daily range): BP systolic 138–180; BP diastolic 63–80; PULSE 95–118; RESP 17–24; TEMP 36.1–37.5; O2SAT 90–96
[2022-01-03] MEDS: Lactated Ringers 1,000 ML 75 ML IV (03:31)
[2022-01-03] MEDS: ACETAMINOPHEN 1,000 MG/100 ML BTL 400 MG IVPB (03:31)
[2022-01-03] MEDS: LORazepam 2 MG/ML VIAL 0.5 MG IV (03:31)
[2022-01-03] MEDS: HYDROmorphone 2 MG/ML SYR IVP ×2 (04:12→09:14)
[2022-01-03] MEDS: Normal Saline Flush 10 ML SYR IVP ×2 (07:26→08:47)
[2022-01-03] MEDS: QUEtiapine 50 MG TAB PO ×2 (08:48→21:53)
[2022-01-03] MEDS: Pantoprazole 40 MG TABCR PO (08:48)
[2022-01-03] MEDS: Atorvastatin 20 MG TAB PO (08:48)
[2022-01-03] MEDS: Docusate Sodium 100 MG CAP PO (08:48)
--- NOTE | 2022-01-03 09:04 | W.PM.PROGNOT ---
Date of Service Date of service: 01/03/22 Time of Service: 09:04 Assessment and Plan Assessment and plan (1) Fracture of proximal end of left femur: Status: Acute Assessment and plan: Elisa is a 76-year-old who is status post left hip hemiarthroplasty for her femoral neck fracture. Unfortunately, she continues to be limited in her mental status. She did have severe dementia prior to the surgery. General anesthesia unfortunate has likely worsened not to certain extent. She has removed her IVs and is currently not alert enough to participate in feeding her self. My expectation is that this will continue to improve on its own. However, I did discuss the case with the hospitalist team who will need to discuss this in more detail with the family. Unfortunately, low energy hip fractures are associated with increased mortality morbidity as a usually signify general demise of the body. Examination is slightly hard to interpret confidently, however, I see no sign of complication at this time. X-ray could be considered if we are concerned about the left hip given that she was able to get to a chair yesterday and her exam is relatively benign today, I do not expect any complication from the surgery itself. Subjective Subjective Interval history since last seen: Elisa has been more active last night and this morning. Unfortunate, she has pulled out multiple IVs. She was able to take a small amount of Jell-O but that is it as far as p.o. intake. She has seemed to grab and scratch her lower legs which is thought to be related to pain. She was able to get to a chair with max assist x2 yesterday. Vitals been stable. No issues with the dressing. Exam Narrative Exam Narrative: Resting in the hospital bed. She has both hips flexed. She is not alert and responds minimally to verbal stimulus. She does allow me to manipulate the left leg. I am able to externally and internally rotated although by small amount due to her rigidity. She holds both legs relatively fixed in a flexed and adducted position. I am able to manipulate the left leg and it appears to be the same length as the right side without any significant malrotation. Dressing of the left hip is clean dry and intact. No significant swelling. No ecchymosis. Objective Last Vital Signs Temp 36.5 C 01/03/22 07:38 Pulse 95 H 01/03/22 07:38 Resp 17 01/03/22 07:38 BP 169/68 H 01/03/22 07:38 Pulse Ox 92 01/03/22 07:38
--- NOTE | 2022-01-03 10:27 | W.PM.PROGNOT ---
Date of Service Date of service: 01/03/22 Time of Service: 10:27 Assessment and Plan Assessment and plan (1) Fracture of proximal end of left femur: Status: Acute Assessment and plan: S/p L hip urmila-arthroplasty by Dr Lam 01/01/22. Pain control: scheduled tylenol, prn IV dilaudid. Schedule bowel regimen. unable to successfully participate in pulmonary toilet due to her mental status. IVF while not eating. (2) Hypomagnesemia: Status: Resolved Assessment and plan: repleted (3) Agitation due to dementia: Status: Acute Assessment and plan: The patient is normally on seroquel 50 mg PO BID + 100 mg Po QHS, as wellas mirtazapine, trazodone, and gabapentin. At this time, she is not taking PO. Consider IM zyprexa or haldol next time should agitation recur since her behaviors are managed with antipsychotics at home. (4) Chronic kidney disease: Status: Acute Assessment and plan: Continue IVF since not taking PO. (5) Warfarin anticoagulation: Status: Acute Assessment and plan: Resume coumadin. INR 2.0 today. Based on chart review, it looks like she is on coumadin for PAD. (6) Diabetes: Assessment and plan: A1C 6.9. Will cover with SSI to help improve wound healing for now. (7) DVT prophylaxis: Status: Acute Assessment and plan: Resume coumadin. Continue SCDs. (8) Discharge planning issues: Status: Acute Assessment and plan: Once pain is better managed, anticipate discharge home with [address] in [address]. DNR/DNI c/s palliative care. discussed with DR Felix Subjective Subjective Interval history since last seen: not eating and drinking, keeps pulling out IV, has severe advanced dementia at baseline Exam Const General: no acute distress and frail appearing Orientation: awake and confused Neck Neck: normal visual inspection Resp Effort & Inspection: normal respiratory effort Cardio Jugular venous pressure: no JVD Rate: regular rate Rhythm: regular rhythm GI Inspection: normal to inspection Palpation: soft and nontender Skin General skin exam: pallor Neuro Cognition: abnormal cognition Extrem General: normal to inspection and no pedal edema Left lower extremity: normal to inspection and normal capillary refill; no cyanosis Objective Last Vital Signs Temp 36.5 C 01/03/22 07:38 Pulse 95 H 01/03/22 07:38 Resp 17 01/03/22 07:38 BP 169/68 H 01/03/22 07:38 Pulse Ox 92 01/03/22 07:38
--- NOTE | 2022-01-03 11:06 | PDOC.CMPRO ---
- If Service Date Differs Date of service: 01/03/22 Time of Service: 11:06 Care Management Progress Note S/O: PT on hold. Undetermined plan of care at this time, further discussion central to goals of care anticipated. CM continues to follow. A: 76 year old female admitted to [facility] 12/31/21 for Left Proximal Femur Fracture P: Elisa continues to be closely monitored and treated, thus far she has not been alert enough to engage successfully with staff or skilled services. CM continues to follow.
[2022-01-03] MEDS: Acetaminophen 650 MG SUPP PR ×2 (15:13→22:08)
[2022-01-03] MEDS: traMADol 50 MG TAB PO (15:14)
--- NOTE | 2022-01-03 16:25 | PT.INNT ---
Date of service: 01/03/22 Time of Service: 16:25 PT Notes Visit Reasons: Left Proximal Femur Fracture Attempted to engage patient twice today but patient is unable to grasp simple commands and has no interest in participating. Patient is unable to respond to provider, eyes remain shut with no interest nor understanding of simple instructions given to her. Per Nurse Llanes this morning, patient's IV access had an issue and patient may not be able to have IV pain meds right away should pain worsen when mobilized by PT. FRANK Joshi states that patient has had poor oral intake and has demonstrated further decline in cognition. CM advised to hold off on PT until goals have been reviewed with family regarding mobility progression. Will attempt another session tomorrow morning to see if patient is appropriate.
[2022-01-03] MEDS: diphenhydrAMINE Elixir 25 MG/10 ML CUP PO ×2 (18:10→21:54)
[2022-01-03 18:52] LABS: Abs Immature Grans 0.03 10^3/uL (0.0-0.06); Absolute Basophil Count 0.04 10^3/uL (0.0-0.2); Absolute Eosinophil Count 0.37 10^3/uL (0.0-0.7); Absolute Lymphocyte Count 1.13 10^3/uL (1.2-3.4); Absolute Monocyte Count 0.92 10^3/uL (0.1-0.8); Basophils % 0.4; Eosinophils % 3.4; HCT 32.3 % (36.0-46.0); HGB 10.5 g/dL (11.2-15.7); Immature Grans % 0.3; Lymphocytes % 10.4; MCH 28.9 pg (27.0-33.0); MCHC 32.5 % (32.0-36.0); MCV 89 fL (80-95); MPV 11.6 fL (8.0-11.0); Monocytes % 8.5; Platelet Count 281 10^3/uL (130-400); RBC 3.63 10^6/uL (3.93-5.22); RDW 12.9 % (11.7-14.6); RDW-SD 41.9 fL; WBC 10.85 10^3/uL (4.4-10.8)
[2022-01-03 18:53] LABS: Absolute Neutrophil Count 8.35 10^3/uL (1.2-6.7)
[2022-01-03 19:02] LABS: Anion Gap 10.8 mmol/L (3-11); BUN 15 mg/dL (7-18); CO2 25.2 mmol/L (21.0-32.0); Calcium 8.4 mg/dL (8.5-10.1); Chloride 100 mmol/L (98-107); Estimated GFR 57.66 (mL/min/1.73m2); Glucose 113 mg/dL (74-106); INR 2.6 (0.9-1.1); Magnesium 1.5 mg/dL (1.8-2.4); Potassium 3.5 mmol/L (3.5-5.1); Prothrombin Time 24.5 sec (9.3-11.0); Sodium 136 mmol/L (136-145)
[2022-01-03 19:28] LABS: Vitamin D 25 Total 31.4 ng/mL (30-100)
[2022-01-04 03:50] VITALS: BP 184/80; PULSE 67; RESP 20; TEMP 36.4; O2SAT 92
[2022-01-04] MEDS: diphenhydrAMINE 50 MG/ML VIAL 25 MG IM (04:20)
[2022-01-04] MEDS: MORPHine 4 MG/ML SYR SC (04:21)
[2022-01-04 06:52] LABS: INR 2.2 (0.9-1.1); Prothrombin Time 20.9 sec (9.3-11.0)
[2022-01-04 07:55] VITALS: BP 162/79; PULSE 62; RESP 20; TEMP 36.6; O2SAT 91
[2022-01-04] MEDS: Atorvastatin 20 MG TAB PO (08:14)
[2022-01-04] MEDS: Pantoprazole 40 MG TABCR PO ×2 (08:14→20:02)
[2022-01-04] MEDS: Acetaminophen 325 MG TAB 650 MG PO ×4 (08:14→20:03)
[2022-01-04] MEDS: Docusate Sodium 100 MG CAP PO (08:15)
[2022-01-04] MEDS: QUEtiapine 50 MG TAB PO ×2 (08:15→20:03)
[2022-01-04] MEDS: traMADol 50 MG TAB PO (09:44)
[2022-01-04 11:28] VITALS: BP 100/54; PULSE 96; RESP 18; TEMP 36.6; O2SAT 96
--- NOTE | 2022-01-04 11:35 | W.PM.PROGNOT ---
Date of Service Date of service: 01/04/22 Time of Service: 11:35 Assessment and Plan Assessment and plan (1) Fracture of proximal end of left femur: Status: Acute Assessment and plan: S/p L hip urmila-arthroplasty by Dr Lam 01/01/22. Pain control: scheduled tylenol, prn tramadol. daughter would like to avoid narcotics and she appears comfortable today Schedule bowel regimen. unable to successfully participate in pulmonary toilet due to her mental status. starting to take some PO better now (2) Hypomagnesemia: Status: Resolved Assessment and plan: repleted (3) Agitation due to dementia: Status: Acute Assessment and plan: continue seroquel 50 mg PO BID + 100 mg Po QHS, as well as mirtazapine, trazodone, and gabapentin. seems close to baseline now. continue safety precautions (4) Chronic kidney disease: Status: Acute Assessment and plan: stable avoid nephrotoxic drugs (5) Warfarin anticoagulation: Status: Acute Assessment and plan: Resumed coumadin. INR 2.2 today. Based on chart review, it looks like she is on coumadin for PAD. (6) Diabetes: Assessment and plan: A1C 6.9. Will cover with SSI to help improve wound healing for now. (7) DVT prophylaxis: Status: Acute Assessment and plan: Resume coumadin. Continue SCDs. (8) Discharge planning issues: Status: Acute Assessment and plan: now pain is better managed and not acutely delirious, anticipate discharge home with [address] in [address]. DNR/DNI c/s palliative care. continue to try to re-mobilize with PT, sat up in chair today discussed with DR Felix Subjective Subjective Interval history since last seen: not eating and drinking well , keeps pulling out IV, has severe advanced dementia at baseline Exam Const General: no acute distress and frail appearing Orientation: awake and confused Neck Neck: normal visual inspection Resp Effort & Inspection: normal respiratory effort Cardio Jugular venous pressure: no JVD Rate: regular rate Rhythm: regular rhythm GI Inspection: normal to inspection Palpation: soft and nontender Skin General skin exam: pallor Neuro Cognition: abnormal cognition Extrem General: normal to inspection and no pedal edema Left lower extremity: normal to inspection and normal capillary refill; no cyanosis Objective Last Vital Signs Temp 36.6 C 01/04/22 11:28 Pulse 96 H 01/04/22 11:28 Resp 18 01/04/22 11:28 BP 100/54 L 01/04/22 11:28 Pulse Ox 96 01/04/22 11:28 Laboratory Results - last 24 hr 01/03/22 01/03/22 01/03/22 18:45 18:45 18:45 WBC 10.85 H RBC 3.63 L Hgb 10.5 L Hct 32.3 L MCV 89 MCH 28.9 MCHC 32.5 RDW 12.9 Plt Count 281 MPV 11.6 H Immature Gran % 0.3 Neutrophils % 77.0 Lymphocytes % 10.4 Monocytes % 8.5 Eosinophils % 3.4 Basophils % 0.4 Nucleated RBC % 0.0 Absolute Neutrophils 8.35 H Absolute Lymphocytes 1.13 L Absolute Monocytes 0.92 H Absolute Eosinophils 0.37 Absolute Basophils 0.04 PT INR Sodium 136 Potassium 3.5 Chloride 100 Carbon Dioxide 25.2 Anion Gap 10.8 BUN 15 Creatinine 1.0 Est GFR (CKD-EPI 2020) 57.66 Glucose 113 H Calcium 8.4 L Magnesium 1.5 L 25-OH Vitamin D Total 31.4 01/03/22 01/04/22 18:45 06:22 WBC RBC Hgb Hct MCV MCH MCHC RDW Plt Count MPV Immature Gran % Neutrophils % Lymphocytes % Monocytes % Eosinophils % Basophils % Nucleated RBC % Absolute Neutrophils Absolute Lymphocytes Absolute Monocytes Absolute Eosinophils Absolute Basophils PT 24.5 H 20.9 H INR 2.6 H 2.2 H Sodium Potassium Chloride Carbon Dioxide Anion Gap BUN Creatinine Est GFR (CKD-EPI 2020) Glucose Calcium Magnesium 25-OH Vitamin D Total
[2022-01-04] MEDS: Insulin Aspart 300 UNITS/3 ML PEN SC (12:18)
[2022-01-04 15:21] VITALS: BP 139/70; PULSE 97; RESP 22; TEMP 36.3; O2SAT 95
[2022-01-04] MEDS: diphenhydrAMINE Elixir 25 MG/10 ML CUP PO (15:42)
--- NOTE | 2022-01-04 18:18 | NUR.NOTE ---
Nursing Note: Daughter is in room crying , she is concerned that the patient won't eat and is trying to crawl out of bed continuously. Patient is pulling at her hip , restless, running her hands through her hair. I explain to the daughter that this is a sign of pain. She cannot have tramadol to later in the evening d Tylenol does not appear to have the effect needed. Will look into toredol as an alternative
[2022-01-04] MEDS: Docusate Sodium 100 MG/10 ML CUP PO (20:02)
[2022-01-04] MEDS: Warfarin 1 MG TAB 2 MG PO (20:03)
[2022-01-05 03:16] VITALS: BP 140/69; PULSE 95; RESP 18; TEMP 36.3; O2SAT 92
[2022-01-05] MEDS: traMADol 50 MG TAB PO ×2 (03:16→14:39)
[2022-01-05] MEDS: diphenhydrAMINE Elixir 25 MG/10 ML CUP PO (03:16)
[2022-01-05 07:11] LABS: Prothrombin Time 19.5 sec (9.3-11.0)
[2022-01-05 07:45] VITALS: BP 141/49; PULSE 100; RESP 20; TEMP 36.5; O2SAT 98
[2022-01-05] MEDS: Pantoprazole 40 MG TABCR PO (07:52)
[2022-01-05] MEDS: Atorvastatin 20 MG TAB PO (07:52)
[2022-01-05] MEDS: Docusate Sodium 100 MG/10 ML CUP PO (07:52)
[2022-01-05] MEDS: QUEtiapine 50 MG TAB PO (07:52)
[2022-01-05] MEDS: Acetaminophen 325 MG TAB 650 MG PO ×2 (07:53→12:08)
--- NOTE | 2022-01-05 09:49 | W.PM.PROGNOT ---
Date of Service Date of service: 01/05/22 Time of Service: 09:49 Objective Last Vital Signs Temp 36.5 C 01/05/22 07:45 Pulse 100 H 01/05/22 07:45 Resp 20 01/05/22 07:45 BP 141/49 H 01/05/22 07:45 Pulse Ox 98 01/05/22 07:45 Laboratory Results - last 24 hr 01/05/22 06:30 PT 19.5 H INR 2.0 H
--- NOTE | 2022-01-05 11:37 | DSE_ITS ---
Date of service: 01/05/22 Time of Service: 11:37 DS: Diagnosis Discharge Diagnosis (1) Fracture of proximal end of left femur: Status: Acute (2) Hypomagnesemia: Status: Resolved (3) Agitation due to dementia: Status: Acute (4) Chronic kidney disease: Status: Acute (5) Warfarin anticoagulation: Status: Acute (6) Diabetes: Discharge Plan Disposition Patient Disposition: Home W/Home Health Services Condition: Improving Discharge Details Reason For Visit: Left Proximal Femur Fracture Admit Date/Time: 12/31/21 17:40 Admit Provider: Pete Lang Attending Provider: Pete Lang Primary Care Provider: Nirmala Clemente V Hospital Course Hospital Course: This is a 76-year-old female that presented to the [facility] ED status post fall 2 days prior to arrival without any complaints or significant trauma at time of incident but then appeared to have generalized pain and increased confusion per caregivers.? Her mentation has been intermittently declining and she has presented similarly in the past reportedly per caregiver and granddaughter.? Patient is unable to give any history.? She didnt answer questions in the ED, but was reported to have been coherent earler in the morning per her daughter and caregiver.? There was no head trauma at the time of the incident she was lowered to the ground during her fall. She does have frequent falls. She is at baseline and is ambulatory independently.? She had not been exposed to any known illnesses.? Caregivers denied any new medications.? CT of head in the ED is negative.? Xray of the left femur positive for proximal fracture.? No acute chest, abdomen or pelvis organ injury.?Her coumadin was held. Orthopedics was consulted and a complete repair of her hip was performed and uneventful. She was discharged to home stable with home health services. Home Meds and New Rx's Prescriptions: Continued acetaminophen 500 mg/15 mL liquid 1,000 mg PO TID MDD 3000 mg Qty: 500 0RF warfarin 2 mg tablet 1 - 2 mg PO DAILY pantoprazole 40 mg tablet,delayed release (DR/EC) 40 mg PO BID Metamucil 3.4 gram/5.4 gram powder 1 tbsp PO DAILY PRN PRN Rx Instructions: mix into at least 8 oz of water or juice before administering lorazepam 2 mg/mL concentrate 1 mg PO Q6H PRN (Reason: anxiety) Qty: 30 0RF Rx Instructions: for agitation quetiapine [Seroquel] 50 mg tablet 50 mg PO BID Qty: 60 3RF Rx Instructions: Take at 0800 and 1400 polyethylene glycol 3350 17 gram/dose powder 17 g PO DAILY PRN atorvastatin 20 mg tablet 20 mg PO HS Label Comments: TAKE 1 TABLET BY MOUTH EVERY DAY AT BEDTIME quetiapine [Seroquel] 100 mg tablet 100 mg PO HS ferrous gluconate 324 mg (38 mg iron) tablet 324 mg PO DAILY iron amino acid [id number] 27-100-400 mg-mcg-mcg Capsule 2 cap PO DAILY gabapentin 100 mg capsule 200 mg PO HS Label Comments: TAKE ONE CAPSULE BY MOUTH AT BEDTIME FOR 4 DAYS ADD ONE ADDITIONAL CAPSULE NEEDED EVERY 4 DAYS MAX DAILY DOSE IS 4 PER DAY ondansetron HCl [Zofran] 4 mg tablet 4 mg PO Q8H PRNQty: 10 0RF Discharge Instructions Additional Instructions: Total Hip Discharge Instructions Activity: There are no restrictions on positioning. You may walk and stand as tolerated, recommended with an assistive device. Dressing: Keep the surgical dressing in place for at least one week. After the first week it may be removed and replace with light gauze and tape or nothing. It may get wet after 3 days but avoid soaking the dressing. If it gets wet, just lightly pat dry. All the sutures are buried in the skin and reinforced with skin glue. No sutures will need to be removed. Follow-up: 4 weeks If you have any acute concerns or questions, please do not hesitate to contact the office at [phone]. You may contact Dr. Lam with any questions after hours through the hospital at [phone] or on his cell phone at [phone]. Stand Alone Forms: Nursing Discharge Form Referrals: Nirmala Clemente MD [Primary Care Provider] - (Please call Thursday to make a follow up appointment for 1-2 weeks.) Lucius Lam MD [ [facility] STAFF PHYSICIAN] - (Please call Thursday to make a follow up appointment for 2 weeks) Activity:: Activity as Tolerated Equipment/Supplies:: Walker Diet:: Carb Counting Discharge Orders Discharge Orders: Discharge Order (Routine); Ordered 01/05/22 Ordered By: Mayda Сергей Discharge Data Discharge Date/Time-TO BE ENTERED AT DEPARTURE: 01/05/22 15:41 DS: Summary Time Spent with Patient providing and/or coordinating discharge services: Less than 30 minutes Status at Discharge Functional status at discharge: uses cane/walker Overall status at discharge: patient is progressing back to baseline Mental Status: mental status grossly normal Speech and Movement: speech and movement normal Mood: congruent mood Affect: normal affect Exam Const General: frail appearing Orientation: awake and confused Neck Neck: normal visual inspection Resp Effort & Inspection: normal respiratory effort Cardio Jugular venous pressure: no JVD Rate: regular rate Rhythm: regular rhythm GI Inspection: normal to inspection Palpation: soft and nontender Skin General skin exam: pallor Neuro Cognition: abnormal cognition Extrem General: normal to inspection and no pedal edema Left lower extremity: normal to inspection and normal capillary refill; no cyanosis Psych Mental Status: mental status grossly normal Speech and Movement: speech and movement normal Mood: congruent mood Affect: normal affect DS: Data Vitals/I&O Vitals and I&O: Vital Signs Temperature 36.5 C 01/05/22 07:45 Temperature Source Tympanic 01/05/22 07:45 Pulse 100 H 01/05/22 07:45 Pulse Rhythm Regular 01/05/22 09:46 Respiratory Rate 20 01/05/22 07:45 Respiratory Effort Non-Labored 01/05/22 09:46 Respiratory Depth Normal 01/05/22 09:46 Respiratory Pattern Normal 01/05/22 09:46 Blood Pressure 141/49 H 01/05/22 07:45 Blood Pressure Position Sitting 12/31/21 11:47 Pulse Oximetry 98 01/05/22 07:45 Respiratory End-tidal CO2 25 01/01/22 15:53 Oxygen Delivery Method Room Air 01/05/22 07:45 Oxygen Flow Rate 0 01/05/22 07:45 Pain Level 7 01/05/22 03:16 Comment 01/03/22 23:15 Intake & Output 01/04/22 01/04/22 01/05/22 11:59 23:59 11:59 Intake Total 120 / 120 Balance 120 / 120 Intake: Oral 120 / 120 Other: Urine Color Yellow Yellow Urine Appearance Clear Clear Voiding Methods Diaper Diaper Diaper Incontinent Incontinent Incontinent Data Completed and Pending Labs on day of discharge: Labs from last 24 hours 01/05/22 06:30 PT 19.5 H INR 2.0 H PFSH All Active Problems (Updated 01/06/22 @ 00:08 by RADHA BENDER) Fracture of proximal end of left femur (Acute) s/p L Hip Hemiarthroplasty (01/01/22) Encounter for hospice care discussion (Acute) Agitation due to dementia (Acute) Caregiver readily available (Chronic) Tory Scruggs, community [facility] All medications reviewed (Acute) DNI (do not intubate) (Acute) DNR (do not resuscitate) (Acute) POLST (Physician Orders for Life-Sustaining Treatment) (Acute) DNR/DNI NH form; signed 10/10/16 reviewed [place] COLST 03/26/21 Deficit in activities of daily living (ADL) (Acute) Health care proxy on file (Chronic) daughter Susan Alvarado Claudication (Chronic) Leg pain, bilateral (Acute) Palliative care patient (Chronic) COPD (chronic obstructive pulmonary disease) (Chronic) Squamous cell carcinoma of skin (Acute) Chronic kidney disease (Acute) stage III Heart murmur, systolic (Acute) Vascular dementia (Chronic) Lower GI bleed (Chronic) recurrent, ? etiology suspected diverticular bleed would not tolerate colonoscopy Anemia (Chronic) Anemia associated with acute blood loss (Acute) Atherosclerotic peripheral vascular disease of extremity (Acute) Warfarin anticoagulation (Acute) Medical History Accidental fall Acute on chronic anemia Altered mental status Aortoiliac occlusive disease Ataxia Breast cancer Chronic diarrhea Chronic fatigue and malaise Colonic polyp Dementia Depression Diabetes Diarrhea Diverticulosis Dysphonia (01/30/14) Generalized weakness GERD (gastroesophageal reflux disease) History of tobacco use Hyperlipidemia Hypertension Hypomagnesemia Insomnia Ischemic colitis Knee pain, bilateral Neoplasm of skin (01/30/14) Osteopenia PVD (peripheral vascular disease) Radicular syndrome of left lower extremity Skin lesion Tobacco use disorder (01/30/14) Urinary incontinence UTI (urinary tract infection) UTI (urinary tract infection) Vertigo Wrist fracture Surgical History axillo-byfem bypass Breast, Lumpectomy EGD - MAC (02/29/16) Family History Daughter No problems noted. Son No problems noted. Son No problems noted. Granddaughter No problems noted. Social History Smoking/Tobacco Use Status: Former Tobacco Use Tobacco: How many years used: 50 Smoking risk assessment performed?: Yes Alcohol Intake: never Drug use: Never Substance use type: does not use Caregiver/Support person: Yes Household members: caregiver Housing: other Details: community long-term Number of Children: 3 Communication Needs: Hard of Hearing and Corrective Lenses Education Level: high school Do you need help understanding health information?: Always Pets and animals: Yes Pets and animals: dog(s) Current gender identity: female What is your relationship status?: How often do you talk on the phone with friends or family?: once per week How often do you get together with friends or relatives?: once per week Panel score (0-1 are the most socially isolated patients): 0 What type of physical activity do you participate in: independent ambulation Duration: 15-30 minutes/day Frequency: daily Special singh needs: No Agree to transfusion: Yes Seatbelt use: always Working smoke detector in home: Yes Fire extinguisher in home: Yes Do you feel safe at home: Yes Do you feel safe in your relationship?: Yes Additional Social history: 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 patient is not responding at this time.
--- NOTE | 2022-01-05 11:53 | PDOC.HHF2F ---
Home Health Certification Home Health Certification: 1. Encounter Date and Reason I certify that Elisa Woodward was seen by Mayda Rushing NP on 01/05/22 and that I had a [id number] encounter with this patient that meets the physician face to face encounter requirements. 2. Clinical Findings Supporting Skilled Need and Homebound Status I certify that home health services are medically necessary, include either intermittent penitentiary and/or physical/speech therapy, and that this patient is homebound in that absences from the home require considerable and taxing effort and are infrequent or of short duration, or are attributable to the need to receive medical care. [X] (a) Attached documentation from encounter provides clinical findings supporting skilled need and homebound status (including what assistance patient requires to leave the home). The encounter with the patient was in whole, or in part, for the following medical condition, which is the primary reason for home health care: Left Proximal Femur Fracture Physical Therapy: Restore the patient's ability to ambulate with a device safely, increase strength and endurance following in-patient hospital stay and hip surgery. Homebound: Patient is unable to leave home without assistance and ambulation is severely limited due to decreased strength and endurance post hip surgery. 3. Certification and Authentication I certify that I composed the above information based on my clinical judgement relating to this patient's medical condition and, if applicable, clinical findings communicated to me by the NPP or inpatient physician who performed the Home Health Referral. All further orders will be obtained through Oralia Clemente MD
--- NOTE | 2022-01-05 11:58 | PT.INTREAT ---
PT Notes Visit Reasons: Left Proximal Femur Fracture Inpatient Physical Therapy Treatment Note [facility] Date: 01/05/22 SUBJECTIVE: Elisa was agreeable to a walk this am after two attempts. OBJECTIVE: [] BED MOBILITY/TRANSFERS pt sitting up in recliner Sit-supine: max A with LE and min A with upper body. Sit-stand: CGA/min A of 2 Stand-sit: CGA/min A of 2 Chair-bed: CGA/min A of 2 GAIT Assistive Device: REPRODUCTION MACHINE LOADER of 2 Weight bearing: AT left Assist: CGA of 2 Distance: approx 4-5 steps Deviation: very confused and difficult to follow instructions. THEREX: unable to follow instructions. ASSESSMENT: Elisa did better with REPRODUCTION MACHINE LOADER of two. Increased confusion noted with use of walker. She has good static balance as she would let go of walker and reach for objects in her path. PLAN: possible dc home with HH PT later today. TREATMENT CODE/TIME: 15 min [id number]
[2022-01-05] MEDS: Insulin Aspart 300 UNITS/3 ML PEN SC (12:08)
[2022-01-05 13:34] VITALS: BP 102/57; PULSE 90; RESP 18; TEMP 36.4; O2SAT 98
--- NOTE | 2022-01-05 16:24 | PDOC.CMDIS ---
- If Service Date Differs Date of service: 01/05/22 Time of Service: 16:24 LACE Index Scoring Tool - Questions: Length of Stay (in days): 4 - 6 Acuity (Admit via E.D.?): Yes Comorbidities: PVD, Chronic Pulmonary Disease, Dementia E.D. Visits: 2 - Answers: Total Score: 14 Risk of Readmission: High Risk Care Management Discharge Reason for Hospitalization: Fracture of proximal end of left femur Discharge Plan: Elisa will return home to her caregiver, Tory's home. She will have new orders for [facility] PT, follow up with her PCP and plan of care as prescribed. Her family will transport her home via private vehicle. CM reviewed discharge plan with her daughter, and Krystal GUO. Patient/Family Education Needs: Review of discharge instructions, discuss Ask Me Three. Services Needed at Discharge: Home Health Care Services (PT)
--- NOTE | 2022-01-06 18:40 | INDS_ITS ---
Date of service: 01/06/22 PT Notes Visit Reasons: Left Proximal Femur Fracture Inpatient Physical Therapy Discharge Summary Date: 01/06/22 Dates of Service: 01/02/2022 and 01/05/2022 This is a clinical summary of care provided for the duration of dates listed above. No charge was made in the completion of this documentation. Referring Doctor:? Lucius Lam MD PT Orders: PT CONSULT: S/P ortho surgery, S/P L hip hemiarthroplasty, WBAT, no restrictions Precautions: Standard, fall risk Patient Profile/Admitting Diagnosis:??76 year old woman S/P fall with resulting left femoral neck fracture, 1 day S/P hemiarthroplasty.? Patient reported by nursing, through family communication, that she was independent at baseline, no AD, and was cognitively appropriate and alert.? She was actually brought to ER on 12/31/21 due to agitation and apparent discomfort, 2 days following a fall.? She has essentially been minimally responsive since presentation to [facility], much different than her baseline. PMHX:? All Active Problems?(Updated 12/31/21 @ 18:29 by Mayda Rushing NP) Discharge planning issues (Acute) DVT prophylaxis (Acute) Femur fracture, left (Acute) Fracture of proximal end of left femur (Acute) Encounter for hospice care discussion (Acute) Agitation due to dementia (Acute) Caregiver readily available (Chronic) Tory Scruggs, [facility] medications reviewed (Acute) Hypomagnesemia (Acute) DNI (do not intubate) (Acute) DNR (do not resuscitate) (Acute) POLST (Physician Orders for Life-Sustaining Treatment) (Acute) DNR/DNI NH form; signed 10/10/16 reviewed [place] COLST 03/26/21Deficit in activities of daily living (ADL) (Acute) Health care proxy on file (Chronic) daughter Susan Woodward-FournierClaudication (Chronic) Leg pain, bilateral (Acute) Palliative care patient (Chronic) COPD (chronic obstructive pulmonary disease) (Chronic) Squamous cell carcinoma of skin (Acute) Chronic kidney disease (Acute) stage IIIHeart murmur, systolic (Acute) Vascular dementia (Chronic) Lower GI bleed (Chronic) recurrent, ? etiology suspected diverticular bleed would not tolerate colonoscopyAnemia (Chronic) Anemia associated with acute blood loss (Acute) Atherosclerotic peripheral vascular disease of extremity (Acute) Warfarin anticoagulation (Acute) Medical History? Accidental fall Acute on chronic anemia Altered mental status Aortoiliac occlusive disease Ataxia Breast cancer Chronic diarrhea Chronic fatigue and malaise Colonic polyp Dementia Depression Diabetes Diarrhea Diverticulosis Dysphonia (01/30/14) Generalized weakness GERD (gastroesophageal reflux disease) History of tobacco use Hyperlipidemia Hypertension Hypomagnesemia Insomnia Ischemic colitis Knee pain, bilateral Neoplasm of skin (01/30/14) Osteopenia PVD (peripheral vascular disease) Radicular syndrome of left lower extremity Skin lesion Tobacco use disorder (01/30/14) Urinary incontinence UTI (urinary tract infection) Vertigo Wrist fracture Surgical History? axillo-byfem bypass Breast, Lumpectomy EGD - MAC (02/29/16) Subjective:? NT. See most recent INFORMATION TECHNOLOGY ACCOUNT MANAGER notes. Objective:? General Observation: NT. See most recent INFORMATION TECHNOLOGY ACCOUNT MANAGER notes. Mental Status: NT. See most recent INFORMATION TECHNOLOGY ACCOUNT MANAGER notes. Pain: NT. See most recent INFORMATION TECHNOLOGY ACCOUNT MANAGER notes. Vital Signs: NT. See most recent INFORMATION TECHNOLOGY ACCOUNT MANAGER notes. ROM: Right Upper Extremity: WFL, assessed passively and observed with patient movement during transfer Left Upper Extremity: WFL, assessed passively and observed with patient movement during transfer Right Lower Extremity: WFL, assessed passively for the majority. Demonstrates voluntary attempt to perform heel slide to full ROM in bed. Left Lower Extremity: R hip flex 90, R knee at least 0-90 deg as observed sitting EOB with passive movement, ankle rigid due to patient gaurding Strength: Not assessed, patient no cooperative or responsive to commands. Sensation:?Unable to assess due to lack of patient response BED MOBILITY/TRANSFERS? pt sitting up in recliner? Sit-supine: max A with LE and min A with upper body. ? Sit-stand: CGA/min A of 2? Stand-sit: CGA/min A of 2? Chair-bed: CGA/min A of 2 ? GAIT? Assistive Device: STORE CONSULTANT of 2 ? Weight bearing: AT left Assist: CGA of 2 ? Distance: approx 4-5 steps? Deviation: very confused and difficult to follow instructions. ? Balance:? Static Sitting: Good Dynamic Sitting: Poor Static Standing: Poor Dynamic Standing: Poor Assessment:?? Patient is a 76 year old female referred to physical therapy services with the diagnosis of S/P L hip hemiarthroplasty 01/01/22 post femoral neck fracture from fall.? She has had mental health status change since fall, with non verbal status and minimally responsive.? Patient presents with clinical signs and symptoms consistent with referred diagnosis, with impairment level findings: Gross weakness, L LE mobility deficit, poor balance, no active voluntary movement.? Attempted to engage patient twice during this epsiode of care however was unable to fully engage due to further decline in cognitive status. patient is unable to grasp simple commands and has no interest in participating. Patient went home with 01/09 supervision per prior level. [facility] AM- PAC 6 clicks Basic Mobility Inpatient Short Form: 100% disability. Goals: Goals X1 week 1. Supine-Sit SBA NOT MET 2. Sit-Supine SBA NOT MET 3. Sit-Stand CGx1 to RW NOT MET 4. Stand-Sit SBA from RW NOT MET 5. Bed-Chair CG with RW NOT MET 6. Chair-Bed CG with RW NOT MET 7. Gait 10 step with RW, CG NOT MET DISCHARGE RECOMMENDATIONS: SNF for continued rehabilitation pending medical course in the next few days. TREATMENT CODE/TIME: DANISHA Thank you for the opportunity to participate in the care of this patient. Demetra Obrien PT, DPT, CLT [facility] [place], [place]
== END 2022-01-05 15:41 | disposition home health service (06) | DRG 522 ==
LOC: ER 18:23 → MS 19:42
PROVIDERS: Internal Medicine; Nurse Practitioner Family; Physician Assistant; Student in an Organized Health Care Education/Training Program; Admitting Provider Family Medicine; Emergency Provider Nurse Practitioner Acute Care; PCP Family Medicine; Visit Provider Family Medicine
PROC: 0SRS03A Replacement of Left Hip Joint, Femoral Surface with Ceramic Synthetic Substitute, Uncemented, Open Approach (ICD-10-PCS; CPT 27125; principal; 2022-01-01 15:00)
DX: S72.002A Fracture of unspecified part of neck of left femur, initial encounter for closed fracture (principal); F01.511 Vascular dementia, unspecified severity, with agitation; E83.42 Hypomagnesemia; E11.22 Type 2 diabetes mellitus with diabetic chronic kidney disease; Z66 Do not resuscitate; W19.XXXA Unspecified fall, initial encounter; J44.9 Chronic obstructive pulmonary disease, unspecified; N18.30 Chronic kidney disease, stage 3 unspecified; D64.9 Anemia, unspecified; Z85.3 Personal history of malignant neoplasm of breast; F32.A Depression, unspecified; K57.30 Diverticulosis of large intestine without perforation or abscess without bleeding; R53.1 Weakness; K21.9 Gastro-esophageal reflux disease without esophagitis; E78.5 Hyperlipidemia, unspecified; I12.9 Hypertensive chronic kidney disease with stage 1 through stage 4 chronic kidney disease, or unspecified chronic kidney disease; G47.00 Insomnia, unspecified; R32 Unspecified urinary incontinence; Z87.891 Personal history of nicotine dependence; I70.209 Unspecified atherosclerosis of native arteries of extremities, unspecified extremity; Z79.01 Long term (current) use of anticoagulants
CPT/HCPCS: 27236; 20985; 36415; 71250; 73552; 80048; 80053; 82306; 83690; 86850; 86900; 86901; 87040; 87635; 87637; 93005; 96360; 97162; 97530; 99223; 99285; 70450; 72125; 73501; 74176; 81003; 81015; 83036; 83605; 83735; 84484; 85025; 85610; 93010; 99222; 99232; 99233; 99239; J0131; J0690; J1100; J1170; J1200; J1885; J2060; J2270; J2405; J3475

== ENCOUNTER 2022-01-30 11:44 | Outpatient (CLI) | payer MEDICARE, MEDICAID, SELFPAY ==
--- NOTE | 2022-01-30 11:15 | DI.RAD_ITS ---
Exam(s) XR HIP LT COMPLETE AP PELVIS EXAM: XR HIP LT COMPLETE AP PELVIS INDICATION: f/u L hip urmila for fracture. COMPARISON: XA XR HIP LT IN OR from 01/01/2022 TECHNIQUE: 2D digital imaging was performed. Two views. FINDINGS: There has been no change in the alignment of the left hip prosthesis. There are no abnormal surround ing bony lucencies. The right hip joint space is maintained. DATA REPOSITORY: RADIATION DOSE DELIVERED:
== END 2022-01-30 11:45 | disposition home or self-care (01) ==
LOC: DIORS 11:45
PROVIDERS: PCP Family Medicine; Referring Provider Family Medicine; Visit Provider Student in an Organized Health Care Education/Training Program
DX: S72.002D Fracture of unspecified part of neck of left femur, subsequent encounter for closed fracture with routine healing (principal); X58.XXXD Exposure to other specified factors, subsequent encounter
CPT/HCPCS: 73502